=== PATIENT | female | born 2005 | race Caucasian/White ===

== ENCOUNTER 2025-04-06 10:19 | Outpatient (CLI) | payer MEDICAID, SELFPAY ==
[2025-04-06 11:36] LABS: Absolute Lymphocyte Count 1.58 X10^3/uL (0.83-4.51); Absolute Neutrophil Count 3.5 X10^3/uL (2.0-7.7); Basophil# 0.04 X10^3/uL; Basophil% 0.7 % (0-1); Eosinophil# 0.09 X10^3/uL; Eosinophils% 1.5 % (0-5); Hemoglobin 12.6 g/dL (12.0-15.0); Lymphocyte # 1.58 X10^3/ul (0.83-4.51); Mean Corp Hgb Conc 33.2 g/dL (32-36); Mean Corpuscular Volume 87.6 fL (81-99); Monocyte# 0.62 X10^3/uL; Monocyte% 10.6 % (0-10); NRBC Flagged by Analyzer 0 % (0-5); Neutrophil # 3.52 X10^3/uL (2.7-7.7); Platelet Count 263 K/mm3 (150-450); RBC Distribution Width CV 12.3 % (11.6-14.6); RBC Distribution Width SD 39.5 fl (35.1-43.9); RET-HE 30.7 pg (30-35); Red Blood Count 4.34 M/mm3 (4.2-5.4); Reticulocyte Count 1.27 % (0.5-1.5); White Blood Count 5.9 K/mm3 (4.4-11.0)
[2025-04-06 11:38] LABS: Erythrocyte Sedimentation Rate 6 mm/hr (0-30)
[2025-04-06 13:27] LABS: Ferritin 28 ng/mL (22-378)
[2025-04-06 14:03] LABS: CRP 5.58 mg/L (0.0-3.0); Rheumatoid Factor < 10.0 IU/mL (<15)
[2025-04-06 14:22] LABS: Iron 54 ug/dL (50-170); LDH 151 U/L (84-246)
[2025-04-09 03:07] LABS: Anti-Centromere B Ab <0.2 AI (0.0-0.9); Anti-Chromatin <0.2 AI (0.0-0.9); Anti-Jo <0.2 AI (0.0-0.9); Anti-Scleroderma-70 AB <0.2 AI (0.0-0.9); Anti-dsDNA Ab <1 IU/mL (0-9); Clam <0.10 kU/L (Class 0); Codfish <0.10 kU/L (Class 0); Corn <0.10 kU/L (Class 0); Egg, White <0.10 kU/L (Class 0); Milk (Cow) <0.10 kU/L (Class 0); Peanut <0.10 kU/L (Class 0); RNP Ab <0.2 AI (0.0-0.9); SCALLOP <0.10 kU/L (Class 0); SESAME SEED <0.10 kU/L (Class 0); SJOGREN'S Anti-SS-A test < 0.2 AI (0.0-0.9); SJOGREN'S Anti-SS-B test < 0.2 AI (0.0-0.9); Shrimp <0.10 kU/L (Class 0); Smith Ab <0.2 AI (0.0-0.9); Soybean <0.10 kU/L (Class 0); Walnut, (Food) <0.10 kU/L (Class 0); Wheat <0.10 kU/L (Class 0)
[2025-04-09 11:08] LABS: ACCA 129 units (0-90); ALCA 40 units (0-60); AMCA 31 units (0-100); Albumin 3.6 g/dL (2.9-4.4); Alpha-1-Globulins 0.3 g/dL (0.0-0.4); Alpha-2-Globulins 0.7 g/dL (0.4-1.0); CCP IgG Antibodies 6 units (0-19); Cytoplasmic Ab (C-ANCA) <1:20 titer (Neg:<1:20); Endomysial Antibody IgA Negative (Negative); Gamma Globulin 1.2 g/dL (0.4-1.8); HEPATITIS B SURFACE AG Negative (Negative); Haptoglobin 169 mg/dL (33-278); Hep C Antibodies Non Reactive (Non Reactive); Hepatitis A IgM Antibody Negative (Negative); Hepatitis B Core AB IgM Negative (Negative); IgG, Quant 1171 mg/dL (586-1602); Immunoglobulin A 253 mg/dL (87-352); Immunoglobulin E 17 IU/mL (6-495); Immunoglobulin G, Subclass 1 515 mg/dL (248-810); Immunoglobulin G, Subclass 2 426 mg/dL (130-555); Immunoglobulin G, Subclass 3 22 mg/dL (15-102); Immunoglobulin G, Subclass 4 30 mg/dL (2-96); Immunoglobulin M 224 mg/dL (26-217); PROEL- TOTAL PROTEIN 6.8 g/dL (6.0-8.5); Perinuclear Ab (P-ANCA) <1:20 titer (Neg:<1:20); QNTFERON TB Mitogen Value > 10.00 IU/mL (.); QNTFERON TB Nil Value 0.04 IU/mL (.); QNTFERON TB1+ Ag Value 0.03 IU/mL (.); QNTFERON TB2+ Ag Value 0.05 IU/mL (.); QNTIFERON TB Positive Criteria Negative (Negative); gASCA 32 units (0-50); t-Transglutaminase IgA <2 U/mL (0-3)
== END 2025-04-06 23:59 | disposition home or self-care (01) ==
PROVIDERS: PCP Family Medicine; Referring Provider Internal Medicine Gastroenterology; Visit Provider Internal Medicine Gastroenterology
DX: K50.90 Crohn's disease, unspecified, without complications (principal)
CPT/HCPCS: 36415; 80074; 82728; 82784; 82785; 82787; 83010; 83516; 83540; 83615; 84165; 84443; 85025; 85045; 85652; 86003; 86036; 86037; 86140; 86200; 86225; 86235; 86255; 86334; 86431; 86480; 86671

== ENCOUNTER → 2025-04-25 | Outpatient (CLI) | payer MEDICAID, SELFPAY ==
--- NOTE | 2025-04-25 10:30 | NM_ITS ---
PROCEDURE: GASTRIC EMPTYING STUDY 04/25/2025 REASON FOR EXAM: CROHNS DISEASE AND ABDOMINAL PAIN TECHNIQUE: The patient ingested a standard meal of technetium sulfur colloid and oatmeal and water. There was no vomiting postprandially. Anterior and posterior planar images of the upper abdomen were obtained for 1 minute immediately following the meal at 1h, 2h and 4h if more than 10% of the activity persisted within the stomach. Regions of interest were drawn, and a geometric mean was used to calculate a [id number]. RADIOPHARMACEUTICAL: Technetium labeled sulfur colloid DOSE 1.1 mCimCi FINDINGS: Percent activity remaining in stomach: 1 hour 57 % (normal 37-90%) NM/Gastric Emptying Study IMPRESSION: Normal gastric emptying examination. Reading Location: [place] [id number]
== END | disposition home or self-care (01) ==
LOC: NM 10:27
PROVIDERS: PCP Family Medicine; Referring Provider Internal Medicine Gastroenterology; Visit Provider Internal Medicine Gastroenterology
DX: K50.90 Crohn's disease, unspecified, without complications (principal)
CPT/HCPCS: 78264; A9541

== ENCOUNTER 2025-05-19 09:44 | Outpatient (RCR) | payer MEDICAID, SELFPAY | END 2025-06-09 23:59 | LOC: NS 09:44 | PROVIDERS: PCP Family Medicine; Referring Provider Internal Medicine Gastroenterology; Visit Provider Internal Medicine Gastroenterology | DX: Z71.3 Dietary counseling and surveillance (principal); K50.90 Crohn's disease, unspecified, without complications | CPT/HCPCS: 97802 ==

== ENCOUNTER → 2025-05-20 | Outpatient (CLI) | payer MEDICAID, SELFPAY ==
--- NOTE | 2025-05-20 10:02 | MRI_ITS ---
PROCEDURE: ENTEROGRAPHY ABD/PEL, 05/20/2025 REASON FOR EXAM: K50.90 - CROHN'S DISEASE, UNSPECIFIED, WITHOUT COMPLICATIONS TECHNIQUE: Multisequence multiplanar MRI of the abdomen and pelvis was performed with and without IV contrast. IV contrast: 10 mL Clariscan PO contrast: Appears to have been administered, however type and dose information not provided COMPARISON: None FINDINGS: Note that the exam was optimized for evaluation of the bowel rather than the remaining abdominopelvic viscera. Note also that dynamic T2 and diffusion sequences were note that not performed. Note the anal canal and perineal/perianal regions are excluded from the field of view and cannot be evaluated. Transverse, LEFT, and ascending colonic prep is poor, limiting evaluation of the majority of the colon. Liver: Grossly unremarkable. Spleen: Grossly unremarkable. Gallbladder: Suspect layering sludge. Pancreas: Grossly unremarkable. Adrenals: Grossly unremarkable. Kidneys: Unremarkable. Bowel: No aissatou bowel dilatation. Segmental area of circumferential wall thickening involving an approximate 6.0 cm segment of the distal and terminal ileum extending to the ileocecal valve, with moderate wall thickening to 5-6 mm as well as mild mural stratification. There is associated early mucosal hyperenhancement/hyperemia, however without adjacent mesenteric edema. Region is seen to slightly distended to roughly 2.5 cm on one of the axial T2 sequences (see series 14, image 39, series 17 image 39). No other convincing areas of abnormal bowel wall thickening, mural stratification, or hyperemia, allowing for the above. No definite evidence of fistulization or abscess. Normal caliber appendix. Lymph nodes: Grossly unremarkable. Vasculature: Circumaortic LEFT renal vein, normal variant. Peritoneum: Grossly unremarkable. Bladder: Partially obscured by artifact, no definite abnormality. Reproductive Organs: Grossly unremarkable. Bones: Grossly unremarkable. MRI/Enterography Abd/Pel IMPRESSION: 1. Findings along a 6.0 cm segment of the distal/terminal ileum extending to th e ileocecal valve which are compatible with the provided history of Crohn's disease. Signal characteristics suggest active inf lammation superimposed on chronic fibrosis. No definite associated current stricture or evidence of penetrating disease. 2. Additional description as above. Reading Location: [id number]
[2025-05-20 10:57] VITALS: BP 103/78; PULSE 71; RESP 18; O2SAT 96; BMI 19.1
[2025-05-20] MEDS: Glucagon 1 MG/ML Syringe IV (12:32)
[2025-05-20] MEDS: 0.9% Saline Lock 10 ML Syringe IV (12:35)
[2025-05-20 12:48] VITALS: BP 111/72; PULSE 87; RESP 18; O2SAT 99
== END | disposition home or self-care (01) ==
LOC: MRI 09:53
PROVIDERS: PCP Family Medicine; Referring Provider Internal Medicine Gastroenterology; Visit Provider Internal Medicine Gastroenterology
DX: K50.90 Crohn's disease, unspecified, without complications (principal)
CPT/HCPCS: 74183; 96374; A9575; A4216; J1610

== ENCOUNTER 2025-06-27 11:32 | Outpatient (RCR) | payer MEDICAID, SELFPAY | END 2025-07-10 23:59 | LOC: NS 11:32 | PROVIDERS: PCP Family Medicine; Referring Provider Internal Medicine Gastroenterology; Visit Provider Internal Medicine Gastroenterology | DX: Z71.3 Dietary counseling and surveillance (principal); K50.90 Crohn's disease, unspecified, without complications | CPT/HCPCS: 97803 ==

== ENCOUNTER 2025-07-01 11:36 | Outpatient (CLI) | payer MEDICAID, SELFPAY ==
[2025-07-01 12:00] VITALS: BP 110/68; PULSE 77; RESP 16; TEMP 36.2; O2SAT 100; BMI 19.1
[2025-07-01] MEDS: 0.9% NaCl IVPB Med Flush (100mL) 15 ML IV (12:12)
[2025-07-01] MEDS: Risankizumab-rzza 600 MG in Dextrose 5%-Water (100mL Bag) 100 ML 110 MG IV (12:26)
[2025-07-01 13:58] VITALS: BP 110/71; PULSE 59; RESP 16; TEMP 36.6; O2SAT 99
== END 2025-07-01 23:59 | disposition home or self-care (01) ==
LOC: MEDOUTP 11:36
PROVIDERS: PCP Family Medicine; Referring Provider Internal Medicine Gastroenterology; Visit Provider Internal Medicine Gastroenterology
DX: K50.90 Crohn's disease, unspecified, without complications (principal)
CPT/HCPCS: 96365; A4216; J2327

== ENCOUNTER 2025-07-25 13:00 | Outpatient (RCR) | payer MEDICAID, SELFPAY | END 2025-08-09 23:59 | LOC: NS 13:00 | PROVIDERS: PCP Family Medicine; Referring Provider Internal Medicine Gastroenterology; Visit Provider Internal Medicine Gastroenterology | DX: Z71.3 Dietary counseling and surveillance (principal); K50.90 Crohn's disease, unspecified, without complications | CPT/HCPCS: 97803 ==

== ENCOUNTER 2025-07-25 14:28 | Outpatient (CLI) | payer MEDICAID, SELFPAY ==
[2025-07-25 15:19] LABS: Hematocrit 40.5 % (37-47); Hemoglobin 13.3 g/dL (12.0-15.0); Immature Granulocytes Count 0.020 X10^3/uL (0.0-0.0); Mean Corp Hgb Conc 32.8 g/dL (32-36); Mean Corpuscular Volume 86.9 fL (81-99); Mean Platelet Vol. 12.4 fl (6.2-12.0); NRBC Flagged by Analyzer 0 % (0-5); Platelet Count 264 K/mm3 (150-450); RBC Distribution Width CV 12.7 % (11.6-14.6); RBC Distribution Width SD 40.0 fl (35.1-43.9); Red Blood Count 4.66 M/mm3 (4.2-5.4); White Blood Count 5.9 K/mm3 (4.4-11.0)
[2025-07-25 15:29] LABS: Iron Binding Capacity,Total 309 ug/dL (250-450)
[2025-07-25 15:31] LABS: AST(SGOT) 18 U/L (<=31); Alanine Aminotransfer ALT/SGPT 8 U/L (<=34); Albumin, Serum 4.2 g/dL (3.5-5.0); Alkaline Phosphatase 73 U/L (35-104); Anion Gap 9 (5-15); BUN 6 mg/dL (4-19); BUN/Creat Ratio 10.0 RATIO (10-20); CPK Total, Creatine Kinase 80 U/L (24-195); Calcium,Total 9.1 mg/dL (7.6-11.0); Carbon Dioxide 23.7 mmol/L (21.0-32.0); Chloride 106 mmol/L (98-108); Ferritin 18 ng/mL (22-378); Globulin 2.9 g/dL (2.2-4.2); Glucose 86 mg/dL (70-99); Potassium 4.0 mmol/L (3.3-5.1); Vitamin B12 360 pg/mL (180-914)
[2025-07-25 15:34] LABS: CRP < 3.00 mg/L (0.0-3.0); Iron 65 ug/dL (50-170); Iron Binding Capacity,Unsat 244 ug/dL (228-428)
[2025-07-27 18:08] LABS: IgG, Quant 1111 mg/dL (586-1602); Immunoglobulin G, Subclass 1 509 mg/dL (248-810); Immunoglobulin G, Subclass 2 472 mg/dL (130-555); Immunoglobulin G, Subclass 3 21 mg/dL (15-102); Immunoglobulin G, Subclass 4 33 mg/dL (2-96)
[2025-07-29 12:09] LABS: Vitamin D 1,25-Dihydroxy 65.6 pg/mL (24.8-81.5)
== END 2025-07-25 23:59 | disposition home or self-care (01) ==
LOC: LAB 14:29
PROVIDERS: PCP Family Medicine; Referring Provider Internal Medicine Gastroenterology; Visit Provider Internal Medicine Gastroenterology
DX: K50.90 Crohn's disease, unspecified, without complications (principal); G43.909 Migraine, unspecified, not intractable, without status migrainosus; Z71.3 Dietary counseling and surveillance
CPT/HCPCS: 36415; 80053; 82550; 82607; 82652; 82728; 82784; 82787; 83540; 83550; 85025; 85652; 86140; 97803

== ENCOUNTER 2025-07-29 11:51 | Outpatient (CLI) | payer MEDICAID, SELFPAY ==
[2025-07-29 12:11] VITALS: BP 117/69; PULSE 62; RESP 16; TEMP 35.8; O2SAT 100; BMI 19.1
--- OUTSIDE RECORDS SUMMARY | 2025-07-29 12:11 | XMS RPT_ITS | CCD ---
Demographics Address [address] [place] [address] Preferred Language en Marital Status Single Mandaen Affiliation Unknown Race White Ethnic Group Not or Lati no Author Organization [facility] Care Team Providers Care Hammerer Helper Name Role Phone Karena Valle Unavailable Unavailable Ghada Ruffin Unavailable Unavailable Karena Valle Unavailable Unavailable Ghada Ruffin Unavailable Unavailable Pending Provider Unavailable Unavailable Karena Valle Unavailable [phone] Unavailable Unavailable Karena Valle MD Primary Care Provider Karena Valle Unavailable Chip Jones Unavailable Unavailable Bill, Bigg Unavailable Unavailable Ghada Ruffin R Unavailable Darshan Cordero Unavailable Unavailable Leonard, Dr. Karena Vargas Referring Unava ilable Stencel, Dr. Karena Vargas Primary Care Unava ilable Stencel, Dr. Karena Vargas Attending Unava ilable Stencel, Dr. Karena Vargas Referring Unava ilable Stencel, Dr. Karena Vargas Primary Care Unava ilable Stencel, Dr. Karena Vargas Attending Unava ilable Stencel, Dr. Karena Vargas Primary Care Unava ilable Tawanda, Dr. Natali Barrera Attending Unavailable Stencel, Dr. Karena Vargas Referring Unava ilable Stencel, Dr. Karena Vargas Primary Care Unava ilable Musa, Janina Attending Unavailable Musa, Janina Referring Unavailable Stenotis, Dr. Karena Vargas Primary Care Unava ilable Musa, Janina Attending Unavailable Musa, Janina Referring Unavailable AugustinGhada Attending Unavailable Ghada Ruffin Referring Unavailable Stencel, Dr. Karena Vargas Primary Care Unava ilable Stencel, Dr. Karena Vargas Primary Care Unava ilable Bill, Bigg Attending Unavailable Bill, Bigg Referring Unavailable Wood, Ms. Norma Bustillo Referring Unav ailable Bigg Novak Attending Unavailable Stencel, Dr. Karena Vargas Primary Care Unava ilable Furness, Dr. Buster Cook Attending Un available Furness, Dr. Buster Cook Referring Un available Stencel, Dr. Karena Vargas Primary Care Unava ilable Stencel, Dr. Karena Vargas Primary Care Unava ilable Wood, Ms. Norma Bustillo Attending Unav ailable Wood, MsRommel Bustillo Referring Unav ailable Wood, MsRommel Bustillo Referring Unav ailable Wood, Ms. Norma Bustillo Attending Unav ailable Stencel, Dr. Karena Vargas Primary Care Unava ilable NATALI NEFF Admitting Unavailable STENCEL, MD KARENA VARGAS Referring Unavai lable THOMNATALI LOYOLA Attending Unavailable STENCEL, MD KARENA VARGAS Primary Care Unavai lable LEONARD, MD KARENA VARGAS Primary Care Unavai labDarshan Carbone Attending Unavailable Kamenik, MsRommel Watson Attending Unavai lable STENCEL, MD KARENA VARGAS Primary Care Unavai lable STENOTIS, MD KARENA VARGAS Primary Care Unavai labDarshan Carbone Attending Unavailable Wood, Ms. Norma Bustillo Attending Unav ailable STENCEL, MD KARENA VARGAS Primary Care Unavai lable [id number], [id number] Attending Unavailable STENCEL, MD KARENA VARGAS Primary Care Unavai lable LEONARD, MD KARENA VARGAS Primary Care Unavai lable Lencho, Dr. Janina Pride Attending Unavaila ble Musa, Dr. Janina Pride Referring Unavaila ble Wood, Ms. Norma Bustillo Referring Unav ailable [id number], [id number] Admitting Unavailable [id number], [id number] Attending Unavailable STENOTIS, MD KARENA VARGAS Primary Care Unavai Josh Bailey Attending Unavailable STENCEL, MD KARENA VARGAS Primary Care Karena Soto MD Primary Care Provider [phone] Kristian TACKER OFF-Norma ZELAYA Unavailable KARENA VALLE Primary Care Unavailable Karena Valle MD Primary Care Provider KARENA VALLE Primary Care Unavailable Karena Valle MD Unavailable Karena Valle MD Primary Care Provider STENOTIS, KARENA Julian Referring Unavailable STENCEL, KARENA Julian Primary Care Unavailable STENCEL, KARENA Julian Referring Unavailable STENCEL, KARENA Julian Primary Care Unavailable CHIP JONES Attending Unavailable STENCEL, KARENA Julian Primary Care Unavailable STENCEL, KARENA Julian Primary Care Unavailable ELOISA SLATER Attending Unavailable ROCIO CORTES Attending Unavailab le STENCEL, KARENA VARGAS Primary Care Unavailab KIM Agrawal Attending Unavailable STENCEL, KARENA VARGAS Primary Care Unavailab le Stencel Karena WHITNEY Unavailable StenKarena alves MD Primary Care Provider BIGG NOVAK Attending Unavailable STENCEL, KARENA Julian Primary Care Unavailable GHADA RUFFIN Attending Unavailable STENCEL, KARENA Julian Primary Care Unavailable Friend Dr. Albert KELLY Attending Provider Dr. Karena Valle MD Primary Care Provider Friend Dr. Albert KELLY Referring Provider Dr. Karena Valle MD Referring Provider Friend, Albert Attending Unavailable Stencel, Karena Primary Care Unavailable Friend, Albert Referring Unavailable Friend, Albert Attending Unavailable Stencel, Karena Primary Care Unavailable Friend, Albert Referring Unavailable Friend, Albert Attending Unavailable Stencel, Karena Primary Care Unavailable Friend, Albert Referring Unavailable Friend, Albert Attending Unavailable Stencel, Karena Primary Care Unavailable Friend, Albert Referring Unavailable Friend, Albert Attending Unavailable Stencel, Karena Primary Care Unavailable Friend, Albert Referring Unavailable Friend, Albert Attending Unavailable Stencel, Karena Primary Care Unavailable Friend, Albert Referring Unavailable Stencel, Karena Primary Care Unavailable Friend, Albert Referring Unavailable Friend, Albert Attending Unavailable Stencel, Karena Referring Unavailable Stencel, Karena Primary Care Unavailable Friend, Albert Attending Unavailable Friend, Albert Attending Unavailable Friend, Albert Attending Unavailable Stencel, Karena Primary Care Unavailable Friend, Albert Referring Unavailable Stencel, Karena Primary Care Unavailable Friend, Albert Referring Unavailable Friend, Albert Attending Unavailable Allergies Allergy Classification Reported Allergen(s) Allergy Type Date of Onset Reaction(s) Facility (20 sources) Amoxicillin; Translations: [Amoxil] Drug Allergy [place] [address] [address] Work Phone: (20 sources) Amoxicillin / Clavulanate; Translations: [Augmentin] Drug Allergy Diarrhea, [place] [address] [address] Work Phone: (20 sources) cefprozil; Translations: [Cefzil] Drug Allergy [address] Work Phone: (20 sources) Cephalexin; Translations: [Keflex] Drug Allergy [place] [address] [address] Work Phone: (20 sources) Ciprofloxacin; Translations: [ciprofloxacin] Drug Allergy 04-10-[address] Work Phone: (20 sources) Sulfonamides (Antibiotic); Translations: [Sulfa Drugs] Allergy to drug (finding) [address] Work Phone: (20 sources) Amoxicillin; Translations: [AMOXICILLIN] Drug Allergy 08-19-20 22 Hives, [facility] (16 sources) cefprozil; Translations: [CEFPROZIL] Drug Allergy 04-10-20 23 [facility] (2 sources) Ciprofloxacin Drug Allergy Unknown [facility] (13 sources) Amoxicillin / Clavulanate; Translations: [AMOXICILLIN-POT CLAVULANATE] Drug Allergy 08-09-20 23 Diarrhea, [facility] Work Phone: (20 sources) Cephalexin; Translations: [CEPHALEXIN] Drug Allergy 08-19-20 22 Hiv, [facility] Work Phone: (15 sources) Sulfonamides (Antibiotic); Translations: [SULFA (SULFONAMIDE ANTIBIOTICS)] Drug Intolerance 08-19-20 22 [facility] Work Phone: (8 sources) Sulfonamides (Antibiotic) Allergy to substance 04-06-20 [facility] (1 source) Amoxicillin Drug Allergy 07-01-20 [facility] (1 source) Cephalexin Drug Allergy 07-01-20 [facility] (1 source) Sulfonamides (Antibiotic) Drug allergy (disorder) 07-01-20 [facility] Medications Current Medications Medication Drug Class(es) Dates Sig (Normalized) Sig (Original) acetaminophen 325 mg oral tablet (8 sources) Start: 04-06-2025 take 1 tablet by mouth once as needed for pain Acetaminophen (Tylenol) 325 mg tablet Active 325 mg PO ONCE as needed for pain April 06, 2025 12:00am azithromycin 250 mg oral tablet (5 sources) Macrolide Antimicrobial Start: 01-19-2025 azithromycin (Zithromax) 250 mg tablet Indications: Folliculitis of perineum Take 2 tabs (500 mg) by mouth today, then take 1 tab daily for 4 days. 6 tablet 01/19/2025 Active Start: 12-16-2024 take 1 tablet by ivett th in the morning azithromycin (Zithromax) 250 mg tablet Take 1 tablet (250 mg) by mouth early in the morning.. 12/16/2024 Active Start: 11-17-2024 End: 11-22-2024 azithromycin (Zithromax Z-Pa k) 250 mg tablet Indications: Acute non-recurrent maxillary sinusitis Take 2 tablets (500 mg) on Day 1, followed by 1 tablet (250 mg) once daily on Days 2 through 5. 6 tablet 11/17/2024 11/22/2024 Active Start: 12-26-2022 take 2 tablets by mo uth once, then take 1 tablet by mouth once daily azithromycin 250 mg oral tablet ; Take 2 tabs (500mg) x 1 days, then 1 tab (250mg) once daily x 4 days Quantity: 6 Refills: 0 Ordered: 26-Dec-2022 Chip Jones Start: 26-Dec-2022 Generic Substitution Allowed Comments: Do not take dairy products, antacids, or iron preparations within one hour of this medication.Finish all this medication unless otherwise directed by prescriber. Comment on above: Do not take dairy pr oducts, antacids, or iron preparations within one hour of this medication.Finish all this medication unless otherwise directed by prescriber. benzonatate 100 mg oral capsule (1 source) Non-narcotic Antitussive Start: 023 End: 023 take 2 capsules by mouth every eight hours as needed benzonatate 100 mg oral capsule ; 1-2 cap(s) orally every 8 hours, As Needed for cough Quantity: 30 Refills: 0 Ordered: 27-Jun-2023 Darshan Coredro Start: 27-Jun-2023 End: 01-Jul-2023 Generic Substitution Allowed Comments: May cause drowsiness. Alcohol may intensify this effect. Use care when operating dangerous machinery.Swallow whole. Do not crush. Comment on above: May cause drowsiness . Alcohol may intensify this effect. Use care when operating dangerous machinery.Swallow whole. Do not crush. dicyclomine hydrochloride 20 mg oral tablet (7 sources) Anticholinergic Start: 025 take 1 tablet by mouth three times daily as needed Dicyclomine 20 mg tablet Active 20 mg PO THREE TIMES A DAY as needed July 25, 2025 12:00am Start: 07-05-2025 End: 07-10-2025 take 1 capsule by mouth three times daily Dicyclomine 10 mg capsule Discontinued 10 mg PO THREE TIMES A DAY 15 5 0 July 05, 2025 12:00am July 09, 2025 12:00am July 10, 2025 12:09am Start: 08-18-2022 take 1 tablet by ivett th four times daily 1 hour(s) before bedtime Dicyclomine HCl - 20 MG Oral Tablet TAKE 1 TABLET BY MOUTH FOUR TIMES DAILY. (1 hour before meals and at bedtime.) Quantity: 20 Refills: 0 Ordered: 19-Aug-2022 DO Start : 18-Aug-2022 Active Ethinyl Estradiol / norgestimate (3 sources) Progestin, Estrogen End: 08-19-2023 take 1 tablet by mouth once daily norgestimate-ethinyl estradioL (Sprintec, 28,) 0.25-35 mg-mcg tablet Take 1 tablet by mouth once daily. 0 08/19/2023 Discontinued (Med List Cleanup) norgestimate-eth inyl estradioL 0.25-35 mg-mcg per tablet Take by mouth . 0 Active take 1 tablet by mouth once chen y Sprintec 28 0.25-35 MG-MCG Oral Tablet TAKE 1 TABLET BY MOUTH EVERY DAY Quantity: 1 Refills: 12 Ghada Ruffin MD Active 28 Tablet Pack inFLIXimab-dyyb 100 mg injection (1 source) Tumor Necrosis Factor Ariela Start: 08-19-2023 inFLIXimab-dyyb (Inflectra) injection 390 mg Start: 08-19-2023 inFLIXimab-dyy b (Inflectra) injection 390 mg moxifloxacin 5 mg/ml ophthalmic solution (1 source) Quinolone Antimicrobial Start: 12-17-2024 End: 12-24-2024 take 1 drop(s) into the eye(s) three times daily moxifloxacin (Vigamox) 0.5 % ophthalmic solution Indications: Bacterial conjunctivitis Administer 1 drop into both eyes 3 times a day for 7 days. 3 mL 12/17/2024 12/24/2024 Active mupirocin 0.02 mg/mg topical ointment (14 sources) RNA Synthetase Inhibitor Antibacterial Start: 09-23-2022 End: 08-19-2023 mupirocin (Bactroban) 2 % ointment Apply topically twice a day. Sparingly to affected area 0 09/23/2022 08/19/2023 Discontinued (Med List Cleanup) Start: 09-23-2022 Mupirocin 2 % External Ointment APPLY SPARINGLY TO AFFECTED AREA(S) TWICE DAILY Quantity: 1 Refills: 1 Ordered: 23-Sep-2022 Norma Man Start : 23-Sep-2022 Active Risankizumab-Rzaa (Skyrizi) 360 mg/2.4 mL (150 mg/mL) wearable injector (1 source) Start: 07-25-2025 Risankizumab-R zaa (Skyrizi) 360 mg/2.4 mL (150 mg/mL) wearable injector Active 360 mg SC every 8 weeks July 25, 2025 12:00am sodium chloride 1000 mg oral tablet (6 sources) Start: 02-19-2023 End: 08-19-2023 take 1 g by mouth every twelve hours sodium chloride 1,000 mg tablet Take 1 tablet (1 g) by mouth every 12 hours. 0 02/19/2023 08/19/2023 Discontinued (Med List Cleanup) Start: 02-19-2023 take 1 tablet by ivett th every twelve hours Sodium Chloride 1 GM Oral Tablet TAKE 1 TABLET Every twelve hours Quantity: 180 Refills: 0 Ordered: 24-Feb-2023 Bigg Novak MD Start : 19-Feb-2023 Active Sprintec 0.25 mg-35 mcg oral tablet (1 source) take 1 tablet by ivett th once daily Sprintec 0.25 mg-35 mcg oral tablet ; 1 tab(s) orally once a day Quantity: 0 Refills: 0 Ordered: 30-Aug-2021 Sejal Herrera Generic Substitution Allowed Completed/Discontinued Medications Medication Drug Class(es) Dates Sig (Normalized) Sig (Original) 0.4 ml adalimumab 100 mg/ml auto-injector (1 source) Tumor Necrosis Factor Ariela Start: 10-17-2023 End: 01-12-2024 adalimumab (Humira,CF, Pen) 40 mg/0.4 mL pen injector kit pen-injector Indications: Terminal ileitis without complication (CMS/HCC) Inject 1 Pen (40 mg) under the skin every 14 (fourteen) days. 2 each 11 10/17/2023 01/12/2024 Discontinued (Med List Cleanup) adalimumab-adbm (Cyltezo,CF, Pen Crohn's-[facility]) 40 mg/0.8 mL pen injector kit (1 source) Start: 09-25-2023 End: 01-12-2024 adalimumab-adbm (Cyltezo,CF, Pen Crohn's-[facility]) 40 mg/0.8 mL pen injector kit Indications: Terminal ileitis with complication (CMS/HCC) Inject 40 mg under the skin see administration instructions. Inject 160mg on day one, then 80mg on day 15, then 40mg every 14 days thereafter 6 each 0 09/25/2023 01/12/2024 Discontinued (Med List Cleanup) busPIRone hydrochloride 10 mg oral tablet (7 sources) Start: 04-01-2022 take 1 tablet by mouth three times daily as needed for anxiety busPIRone HCl - 10 MG Oral Tablet TAKE 1 TABLET 3 times daily PRN anxiety Quantity: 30 Refills: 11 Ordered: 01-Apr-2022 Norma Man Start : 01-Apr-2022 Active doxycycline hyclate 100 mg oral tablet (7 sources) Tetracycline-cla ss Drug Start: 02-24-2023 End: 01-12-2024 take 1 tablet by mouth every twelve hours doxycycline (Vibra-Tabs) 100 mg tablet Take 1 tablet (100 mg) by mouth every 12 hours. 0 02/24/2023 01/12/2024 Discontinued (Therapy completed) Start: 02-24-2023 take 1 tablet by ivett th once daily Doxycycline Hyclate 100 MG Oral Tablet TAKE 1 TABLET EVERY 12 HOURS DAILY. Quantity: 28 Refills: 0 Ordered: 24-Feb-2023 Janina Musa MD Start : 24-Feb-2023 Active Diane (digestive support) (8 sources) Start: 04-06-2025 End: 07-25-2025 Diane (digestive support) Dis continued PO DAILY as needed for digestion April 06, 2025 12:00am July 25, 2025 1:40pm Start: 04-06-2025 Diane (digestiv e support) Active PO DAILY as needed for digestion April 06, 2025 12:00am Start: 04-06-2025 Diane (digestiv e support) Active PO DAILY April 06, 2025 12:00am fluconazole 150 mg oral tablet (1 source) Azole Antifungal Start: 10-26-2020 take 1 tablet by mouth once Fluconazole 150 MG Oral Tablet TAKE 1 TABLET 1 TIME ONLY. Quantity: 1 Refills: 0 Ghada Ruffin MD Start : 26-Oct-2020 Active ketorolac tromethamine 10 mg oral tablet (2 sources) Nonsteroidal Anti-inflammatory Drug, Cyclooxygenase Inhibitor Start: 04-10-2023 End: 01-12-2024 take 1 tablet by mouth three times daily as needed for pain ketorolac (Toradol) 10 mg tablet Take 1 tablet (10 mg) by mouth 3 times a day as needed (pain). 0 04/10/2023 01/12/2024 Discontinued (Med List Cleanup) metroNIDAZOLE 500 mg oral tablet (7 sources) Nitroimidazole Antimicrobial Start: 02-24-2023 End: 01-12-2024 take 1 tablet by mouth twice daily metroNIDAZOLE (Flagyl) 500 mg tablet Take 1 tablet (500 mg) by mouth 2 times a day. 0 02/24/2023 01/12/2024 Discontinued (Med List Cleanup) nitrofurantoin, macrocrystals 25 mg / nitrofurantoin, monohydrate 75 mg oral capsule (7 sources) Nitrofuran Antibacterial Start: 11-25-2022 End: 02-19-2023 take 1 capsule by mouth twice daily Nitrofurantoin Monohyd Macro 100 MG Oral Capsule TAKE 1 CAPSULE TWICE DAILY. Quantity: 14 Refills: 1 Ordered: 25-Nov-2022 Buster Mackenzie MD Start : 25-Nov-2022 End : 19-Feb-2023 Complete Start: 08-20-2022 take 1 capsule by mo uth twice daily Nitrofurantoin Monohyd Macro 100 MG Oral Capsule Take 1 capsule by mouth 2 times daily for 5 days. Take w/ food/milk Quantity: 10 Refills: 0 Ordered: 20-Aug-2022 DO Start : 20-Aug-2022 Active predniSONE 10 mg oral tablet (13 sources) Start: 10-02-2022 End: 01-12-2024 take 4 tablets by mouth once predniSONE (Deltasone) 10 mg tablet Take 4 tablets (40 mg) by mouth every 14 (fourteen) days. Maintain 10 mg daily until definitive therapy is begun. 0 10/02/2022 01/12/2024 Discontinued (Med List Cleanup) Start: 08-22-2022 take 4 tablets by mo uth once daily, then take 3 tablets by mouth once daily, then take 2 tablets by mouth once daily, then take 1 tablet by mouth once daily predniSONE 10 MG Oral Tablet TAKE 4 TABLETS DAILY FOR 4 DAYS, THEN 3 TABLETS DAILY FOR 4 DAYS, THEN 2 TABLETS DAILY FOR 4 DAYS, THEN 1 TABLET DAILY FOR 4 DAYS Quantity: 40 Refills: 0 Ordered: 22-Aug-2022 Natali Neff DO Start : 22-Aug-2022 Active sertraline 100 mg oral tablet (20 sources) Serotonin Reuptake Inhibitor Start: 07-15-2019 End: 08-13-2023 take 1 tablet by mouth once daily sertraline (Zoloft) 100 mg tablet Take 1 tablet (100 mg) by mouth once daily. 0 07/15/2019 08/13/2023 Discontinued (Therapy completed) Start: 07-15-2019 End: 08-19-2023 take 1 tablet by mouth once daily Sertraline HCl - 50 MG Oral Tablet TAKE 1 TABLET BY MOUTH EVERY DAY Quantity: 90 Refills: 3 Karena Valle MD Start : 15-Jul-2019 Active Zoloft Quantity: 0 Refills: 0 Ordered: 30-Aug-2021 Sejal Herrera Generic Substitution Allowed Sprintec 28 0.25-35 MG-MCG Oral Tablet (20 sources) take 1 tablet by th once daily Sprintec 28 0.25-35 MG-MCG Oral Tablet TAKE 1 TABLET BY MOUTH EVERY DAY Quantity: 1 Refills: 12 Ordered: 20-Dec-2022 Ghada Ruffin MD Active take 1 tablet by mouth once chen y Sprintec 28 0.25-35 MG-MCG Oral Tablet TAKE 1 TABLET BY MOUTH EVERY DAY Quantity: 1 Refills: 12 Ordered: 17-Dec-2021 Ghada Ruffin MD Active Problems Active Problems Problem Classification Problem Date Documented Date Episodic/Chronic Acute bronchitis (18 sources) Acute bronchitis; Translations: [Acute bronchitis] Episodic Administrative/social admission (2 sources) Dietary counseling and surveillance; Translations: [Dietary counseling and surveillance] Onset: 07-11-2025 Episodic Anxiety disorders (20 sources) Anxiety; Translations: [Anxiety state, unspecified] Onset: 08-19-2022 08-09-2023 Chronic Cardiac dysrhythmias (17 sources) Postural orthostatic tachycardia syndrome ; Translations: [Other specified cardiac dysrhythmias] Onset: 08-09-2023 08-09-2023 Chronic Disorders of lipid metabolism (17 sources) Hyperlipidemia; Translations: [Other and unspecified hyperlipidemia] Onset: 08-09-2023 08-09-2023 Chronic Headache; including migraine (10 sources) Migraine; Translations: [Migraine, unspecified, not intractable, without status migrainosus] Onset: 07-25-2025 04-06-2025 Chronic Headache; including migraine (1 source) Headache; including migraine; Translations: [Headache, unspecified] Onset: 12-26-2022 Immunizations and screening for infectious disease (20 sources) Patient encounter status; Translations: [Other specified vaccination] 01-19-2025 Episodic Inflammation; infection of eye (except that caused by tuberculosis or sexually transmitteddisease) (3 sources) Bacterial conjunctivitis; Translations: [Unspecified conjunctivitis] Onset: 12-17-2024 12-17-2024 Episodic Influenza (2 sources) Influenza due to unidentified influenza virus with other respiratory manifestations; Translations: [Influenza due to unidentified influenza virus with other respiratory manifestations] Onset: 12-16-2024 Episodic Menstrual disorders (20 sources) Menorrhagia; Translations: [Dysmenorrhea] Onset: 08-09-2023 08-09-2023 Chronic Mood disorders (1 source) Mood disorders; Translations: [Depression, unspecified] Onset: 08-19-2022 Mycoses (20 sources) Candidiasis of vagina; Translations: [Candidiasis of vulva and vagina] Episodic Nonspecific chest pain (3 sources) Chest pain; Translations: [Chest pain, unspecified] Onset: 06-29-2024 06-29-2024 Episodic Osteoarthritis (9 sources) Arthritis; Translations: [Unspecified osteoarthritis, unspecified site] Onset: 01-15-2024 01-12-2024 Chronic Other female genital disorders (15 sources) Postcoital bleeding; Translations: [Postcoital bleeding] Onset: 08-09-2023 08-09-2023 Chronic Other female genital disorders (2 sources) Postcoital and contact bleeding; Translations: [Postcoital and contact bleeding] Onset: 02-27-2023 Chronic Other lower respiratory disease (2 sources) Cough; Translations: [Cough] 06-27-2023 Episodic Other skin disorders (1 source) Folliculitis; Translations: [Follicular disorder, unspecified] 01-19-2025 Episodic Other upper respiratory disease (1 source) Nasal congestion; Translations: [Nasal congestion] Onset: 06-27-2023 Episodic Other upper respiratory infections (8 sources) Acute pharyngitis; Translations: [Acute pharyngitis] Onset: 12-26-2022 06-27-2023 Episodic Regional enteritis and ulcerative colitis (20 sources) Terminal ileitis; Translations: [Regional enteritis of small intestine] Onset: 10-02-2022 Chronic Skin and subcutaneous tissue infections (13 sources) Cellulitis; Translations: [Cellulitis and abscess of unspecified sites] Episodic Substance-related disorders (1 source) Nicotine dependence, other tobacco product, uncomplicated; Translations: [Nicotine dependence, other tobacco product, uncomplicated] Onset: 06-27-2023 Chronic Unclassified (2 sources) CONGESTION 12-26-2022 Comment on above: CONGESTION Unclassified (1 source) 3 MNTH FU 07-31-2022 Comment on above: 3 MNTH FU Unclassified (2 sources) SORE THROAT COUGH 06-27-2023 Comment on above: SORE THROAT COUGH Unclassified (1 source) BC REFILL 12-20-2022 Comment on above: BC REFILL Unclassified (2 sources) Cough, unspecified; Translations: [Cough, unspecified] Onset: 06-27-2023 Unclassified (2 sources) STI Screening; Translations: [STI Screening] Onset: 01-19-2025 Unclassified (12 sources) K50.90 - Crohn's disease, unspecified, without complications Urinary tract infections (8 sources) Acute lower urinary tract infection; Translations: [Urinary tract infection, site not specified] Episodic Past or Other Problems Problem Classification Problem Date Documented Date Episodic/Chronic Abdominal pain (20 sources) Vaginal pain; Translations: [Unspecified symptom associated with female genital organs] Onset: 08-19-2022 Episodic Allergic reactions (2 sources) Allergy status to penicillin; Translations: [Allergy status to sulfonamides status] Onset: 08-19-2022 Episodic Cardiac dysrhythmias (20 sources) Palpitations; Translations: [Palpitations] Onset: 08-12-2022 Episodic Genitourinary symptoms and ill-defined conditions (18 sources) Dysuria; Translations: [Dysuria] Onset: 08-09-2023 08-09-2023 Episodic Inflammatory diseases of female pelvic organs (15 sources) Acute pelvic inflammatory disease; Translations: [Acute parametritis and pelvic cellulitis] Onset: 08-09-2023 08-09-2023 Episodic Malaise and fatigue (20 sources) Fatigue; Translations: [Other malaise and fatigue] Onset: 12-26-2022 08-09-2023 Episodic Nausea and vomiting (20 sources) Nausea; Translations: [Nausea alone] Onset: 08-19-2022 Episodic Noninfectious gastroenteritis (1 source) Noninfective gastroenteritis and colitis, unspecified; Translations: [Noninfective gastroenteritis and colitis, unspecified] Onset: 08-19-2022 Episodic Nonmalignant breast conditions (20 sources) Pain of breast; Translations: [Mastodynia] Resolved: 09-23-2022 Episodic Other aftercare (1 source) Other fpc (current) drug therapy; Translations: [Other buttermaker (current) drug therapy] Onset: 08-19-2022 Episodic Other circulatory disease (2 sources) Postural orthostatic tachycardia syndrome ; Translations: [Postural orthostatic tachycardia syndrome [POTS]] Onset: 10-14-2022 Episodic Other connective tissue disease (20 sources) Foot pain; Translations: [Pain in limb] Resolved: 09-23-2022 Episodic Other female genital disorders (20 sources) Vaginal discharge; Translations: [Leukorrhea, not specified as infective] Onset: 08-09-2023 08-09-2023 Episodic Other lower respiratory disease (13 sources) H/O: bronchitis; Translations: [Personal history of other diseases of respiratory system] Resolved: 09-23-2022 Episodic Other nutritional; endocrine; and metabolic disorders (20 sources) Weight loss; Translations: [Loss of weight] Onset: 08-09-2023 08-09-2023 Episodic Other nutritional; endocrine; and metabolic disorders (2 sources) Anorexia; Translations: [Anorexia] Onset: 08-19-2022 Episodic Other screening for suspected conditions (not mental disorders or infectious disease) (2 sources) Abnormal findings on diagnostic imaging of other parts of digestive tract; Translations: [Abnormal findings on dx imaging of prt digestive tract] Onset: 10-02-2022 Episodic Residual codes; unclassified (10 sources) Contraception ; Translations: [Other specified health status] Onset: 08-09-2023 08-09-2023 Episodic Syncope (20 sources) Syncope and collapse; Translations: [Syncope and collapse] Onset: 08-09-2023 08-09-2023 Episodic Tuberculosis (18 sources) Tuberculosis of vertebral column; 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, unspecified] Onset: 08-09-2023 08-09-2023 Episodic Unclassified (1 source) Patient encounter status; Translations: [Contraception management] Unclassified (20 sources) Finding of menstrual bleeding; Translations: [Menstruation] Comment on above: Onset age 7 years; Unclassified (4 sources) Onset: 03-04-2024 Resolved: 01-19-2025 03-04-2024 Viral infection (2 sources) Viral infection, unspecified; Translations: [Viral infection, unspecified] Onset: 03-24-2024 Episodic NEGATED: Highlighted row has not occurred!Residual codes; unclassified (5 sources) Disease Episodic Results Test Name Value Interpretation Reference Range Facility IgG Subclasseson 07-27-2025 IgG, SUBCLASS 1 509 mg/dL Normal 248-810 [facility] Comment on above: Performed By: #### L 101.9900, L4600.0100, L3000.0375, L3100.1850, L3300.1200, L501.9520, L2100.0000, L505.7010, L3400.8000, L3100.5440, L501.6710, L3410.2400, L100.0100, L3200.0500, L504.2610, L100.9950, L503.6550, L5500.0410, L3200.1600, L503.6150, L3100.3425 #### [facility] [address] [place], [place], [phone] (554) IgG, SUBCLASS 2 472 mg/dL Normal 130-555 [facility] Comment on above: Performed By: #### L 101.9900, L4600.0100, L3000.0375, L3100.1850, L3300.1200, L501.9520, L2100.0000, L505.7010, L3400.8000, L3100.5440, L501.6710, L3410.2400, L100.0100, L3200.0500, L504.2610, L100.9950, L503.6550, L5500.0410, L3200.1600, L503.6150, L3100.3425 #### [facility] [address] [place], [place], [phone] (241) IgG, SUBCLASS 3 21 mg/dL Normal 15-102 [facility] Comment on above: Performed By: #### L 101.9900, L4600.0100, L3000.0375, L3100.1850, L3300.1200, L501.9520, L2100.0000, L505.7010, L3400.8000, L3100.5440, L501.6710, L3410.2400, L100.0100, L3200.0500, L504.2610, L100.9950, L503.6550, L5500.0410, L3200.1600, L503.6150, L3100.3425 #### [facility] [address] [facility], [place], [phone] IgG, SUBCLASS 4 33 mg/dL Normal 2-96 [facility] Comment on above: Result Comment: Perf ormed at: [facility] [id number] Lining Cleaner: Feliciano Sanchez PhD, Phone: [phone] Performed By: #### L 101.9900, L4600.0100, L3000.0375, L3100.1850, L3300.1200, L501.9520, L2100.0000, L505.7010, L3400.8000, L3100.5440, L501.6710, L3410.2400, L100.0100, L3200.0500, L504.2610, L100.9950, L503.6550, L5500.0410, L3200.1600, L503.6150, L3100.3425 #### [facility] [address] [facility] [place], [place], [phone] IGG,QUANT 1111 mg/dL Normal 586-1602 [facility] Comment on above: Performed By: #### L 101.9900, L4600.0100, L3000.0375, L3100.1850, L3300.1200, L501.9520, L2100.0000, L505.7010, L3400.8000, L3100.5440, L501.6710, L3410.2400, L100.0100, L3200.0500, L504.2610, L100.9950, L503.6550, L5500.0410, L3200.1600, L503.6150, L3100.3425 #### [facility] [address] [facility] [place], [place], [phone] CBC W/Diff, Automatedon 09- Absolute Lymph 1.88 X10 3/uL Normal 0.83-4.51 [facility] Comment on above: Performed By: #### L 101.9900, L4600.0100, L3000.0375, L3100.1850, L3300.1200, L501.9520, L2100.0000, L505.7010, L3400.8000, L3100.5440, L501.6710, L3410.2400, L100.0100, L3200.0500, L504.2610, L100.9950, L503.6550, L5500.0410, L3200.1600, L503.6150, L3100.3425 #### [facility] [address] [place], [address] (986) Absolute Neut 3.5 X10 3/uL Normal 2.0-7.7 [facility] Comment on above: Performed By: #### L 101.9900, L4600.0100, L3000.0375, L3100.1850, L3300.1200, L501.9520, L2100.0000, L505.7010, L3400.8000, L3100.5440, L501.6710, L3410.2400, L100.0100, L3200.0500, L504.2610, L100.9950, L503.6550, L5500.0410, L3200.1600, L503.6150, L3100.3425 #### [facility] [address] [place], [address] ([phone] Basophils/100 WBC (Bld) 0.9 % Normal 0-[address] [facility] Comment on above: Performed By: #### L 101.9900, L4600.0100, L3000.0375, L3100.1850, L3300.1200, L501.9520, L2100.0000, L505.7010, L3400.8000, L3100.5440, L501.6710, L3410.2400, L100.0100, L3200.0500, L504.2610, L100.9950, L503.6550, L5500.0410, L3200.1600, L503.6150, L3100.3425 #### [facility] [address] [place], [address] Eosinophils/100 WBC (Bld) 1.0 % Normal 0-5 [facility] Comment on above: Performed By: #### L 101.9900, L4600.0100, L3000.0375, L3100.1850, L3300.1200, L501.9520, L2100.0000, L505.7010, L3400.8000, L3100.5440, L501.6710, L3410.2400, L100.0100, L3200.0500, L504.2610, L100.9950, L503.6550, L5500.0410, L3200.1600, L503.6150, L3100.3425 #### [facility] [address] [facility] [place], [address] Erythrocyte distribution width (RBC) [Ratio] 12.7 % Normal 11.6-14.6 [facility] Comment on above: Performed By: #### L 101.9900, L4600.0100, L3000.0375, L3100.1850, L3300.1200, L501.9520, L2100.0000, L505.7010, L3400.8000, L3100.5440, L501.6710, L3410.2400, L100.0100, L3200.0500, L504.2610, L100.9950, L503.6550, L5500.0410, L3200.1600, L503.6150, L3100.3425 #### [facility] [address] [place], [address] Hematocrit (Bld) [Volume fraction] 40.5 % Normal 37-47 [facility] Comment on above: Performed By: #### L 101.9900, L4600.0100, L3000.0375, L3100.1850, L3300.1200, L501.9520, L2100.0000, L505.7010, L3400.8000, L3100.5440, L501.6710, L3410.2400, L100.0100, L3200.0500, L504.2610, L100.9950, L503.6550, L5500.0410, L3200.1600, L503.6150, L3100.3425 #### [facility] [address] [place], [address] Hemoglobin (Bld) [Mass/Vol] 13.3 g/dL Normal 12.0-15.0 [facility] Comment on above: Performed By: #### L 101.9900, L4600.0100, L3000.0375, L3100.1850, L3300.1200, L501.9520, L2100.0000, L505.7010, L3400.8000, L3100.5440, L501.6710, L3410.2400, L100.0100, L3200.0500, L504.2610, L100.9950, L503.6550, L5500.0410, L3200.1600, L503.6150, L3100.3425 #### [facility] [address] [place], [address] IG% 0.300 Normal 0.0-0.9 [facility] Comment on above: Result Comment: IG% - Immature Granulocytes (promyelocytes, myelocytes and metamyelocytes) > 1% indicates that a LEFT SHIFT is Present. Performed By: #### L 101.9900, L4600.0100, L3000.0375, L3100.1850, L3300.1200, L501.9520, L2100.0000, L505.7010, L3400.8000, L3100.5440, L501.6710, L3410.2400, L100.0100, L3200.0500, L504.2610, L100.9950, L503.6550, L5500.0410, L3200.1600, L503.6150, L3100.3425 #### [facility] [address] [place], [address] Lymphocytes/100 WBC (Bld) 32.0 % Normal 19-41 [facility] Comment on above: Performed By: #### L 101.9900, L4600.0100, L3000.0375, L3100.1850, L3300.1200, L501.9520, L2100.0000, L505.7010, L3400.8000, L3100.5440, L501.6710, L3410.2400, L100.0100, L3200.0500, L504.2610, L100.9950, L503.6550, L5500.0410, L3200.1600, L503.6150, L3100.3425 #### [facility] [address] [place], [address] MCH (RBC) [Entitic mass] 28.5 pg Normal 27.0-32.0 [facility] Comment on above: Performed By: #### L 101.9900, L4600.0100, L3000.0375, L3100.1850, L3300.1200, L501.9520, L2100.0000, L505.7010, L3400.8000, L3100.5440, L501.6710, L3410.2400, L100.0100, L3200.0500, L504.2610, L100.9950, L503.6550, L5500.0410, L3200.1600, L503.6150, L3100.3425 #### [facility] [address] [place], [place], [phone] MCHC (RBC) [Mass/Vol] 32.8 g/dL Normal 32-36 [facility] Comment on above: Performed By: #### L 101.9900, L4600.0100, L3000.0375, L3100.1850, L3300.1200, L501.9520, L2100.0000, L505.7010, L3400.8000, L3100.5440, L501.6710, L3410.2400, L100.0100, L3200.0500, L504.2610, L100.9950, L503.6550, L5500.0410, L3200.1600, L503.6150, L3100.3425 #### [facility] [address] [place], [address] MCV (RBC) [Entitic vol] 86.9 fL Normal 81-[address] [facility] Comment on above: Performed By: #### L 101.9900, L4600.0100, L3000.0375, L3100.1850, L3300.1200, L501.9520, L2100.0000, L505.7010, L3400.8000, L3100.5440, L501.6710, L3410.2400, L100.0100, L3200.0500, L504.2610, L100.9950, L503.6550, L5500.0410, L3200.1600, L503.6150, L3100.3425 #### [facility] [address] [place], [address] Monocytes/100 WBC (Bld) 5.6 % Normal 0-[address] [facility] Comment on above: Performed By: #### L 101.9900, L4600.0100, L3000.0375, L3100.1850, L3300.1200, L501.9520, L2100.0000, L505.7010, L3400.8000, L3100.5440, L501.6710, L3410.2400, L100.0100, L3200.0500, L504.2610, L100.9950, L503.6550, L5500.0410, L3200.1600, L503.6150, L3100.3425 #### [facility] [address] [place], [address] Neutrophils/100 WBC (Bld) 60.2 % Normal 47-70 [facility] Comment on above: Performed By: #### L 101.9900, L4600.0100, L3000.0375, L3100.1850, L3300.1200, L501.9520, L2100.0000, L505.7010, L3400.8000, L3100.5440, L501.6710, L3410.2400, L100.0100, L3200.0500, L504.2610, L100.9950, L503.6550, L5500.0410, L3200.1600, L503.6150, L3100.3425 #### [facility] [address] [place], [address] Nucleated RBC (Bld) [#/Vol] 0 10*3/uL Normal 0-5 [facility] Comment on above: Performed By: #### L 101.9900, L4600.0100, L3000.0375, L3100.1850, L3300.1200, L501.9520, L2100.0000, L505.7010, L3400.8000, L3100.5440, L501.6710, L3410.2400, L100.0100, L3200.0500, L504.2610, L100.9950, L503.6550, L5500.0410, L3200.1600, L503.6150, L3100.3425 #### [facility] [address] [facility] [place], [place], [phone] ([phone] Platelet mean volume (Bld) [Entitic vol] 12.4 fL High 6.2-12.0 [facility] Comment on above: Performed By: #### L 101.9900, L4600.0100, L3000.0375, L3100.1850, L3300.1200, L501.9520, L2100.0000, L505.7010, L3400.8000, L3100.5440, L501.6710, L3410.2400, L100.0100, L3200.0500, L504.2610, L100.9950, L503.6550, L5500.0410, L3200.1600, L503.6150, L3100.3425 #### [facility] [address] [place], [address] Platelets (Bld) [#/Vol] 264 10*3/uL Normal 150-450 [facility] Comment on above: Performed By: #### L 101.9900, L4600.0100, L3000.0375, L3100.1850, L3300.1200, L501.9520, L2100.0000, L505.7010, L3400.8000, L3100.5440, L501.6710, L3410.2400, L100.0100, L3200.0500, L504.2610, L100.9950, L503.6550, L5500.0410, L3200.1600, L503.6150, L3100.3425 #### [facility] [address] [place], [address] RBC (Bld) [#/Vol] 4.66 10*6/uL Normal 4.2-5.4 [facility] Comment on above: Performed By: #### L 101.9900, L4600.0100, L3000.0375, L3100.1850, L3300.1200, L501.9520, L2100.0000, L505.7010, L3400.8000, L3100.5440, L501.6710, L3410.2400, L100.0100, L3200.0500, L504.2610, L100.9950, L503.6550, L5500.0410, L3200.1600, L503.6150, L3100.3425 #### [facility] [address] [place], [place], [phone] RDW SD 40.0 fl Normal 35.1-43.9 [facility] Comment on above: Performed By: #### L 101.9900, L4600.0100, L3000.0375, L3100.1850, L3300.1200, L501.9520, L2100.0000, L505.7010, L3400.8000, L3100.5440, L501.6710, L3410.2400, L100.0100, L3200.0500, L504.2610, L100.9950, L503.6550, L5500.0410, L3200.1600, L503.6150, L3100.3425 #### [facility] [address] [facility] [place], [address] WBC (Bld) [#/Vol] 5.9 10*3/uL Normal 4.4-11.0 [facility] Comment on above: Performed By: #### L 101.9900, L4600.0100, L3000.0375, L3100.1850, L3300.1200, L501.9520, L2100.0000, L505.7010, L3400.8000, L3100.5440, L501.6710, L3410.2400, L100.0100, L3200.0500, L504.2610, L100.9950, L503.6550, L5500.0410, L3200.1600, L503.6150, L3100.3425 #### [facility] [address] [place], [place], [phone] CPK Total, Creatine Kinaseon 07-25-2025 CPK TOTAL 80 U/L Normal 24-195 [facility] Comment on above: Performed By: #### L 101.9900, L4600.0100, L3000.0375, L3100.1850, L3300.1200, L501.9520, L2100.0000, L505.7010, L3400.8000, L3100.5440, L501.6710, L3410.2400, L100.0100, L3200.0500, L504.2610, L100.9950, L503.6550, L5500.0410, L3200.1600, L503.6150, L3100.3425 #### [facility] [address] [facility] [place], [place], [phone] CRPon 07-25-2025 C-REACTIVE PROT < 3.00 Normal 0.0-3.0 [facility] Comment on above: Performed By: #### L 101.9900, L4600.0100, L3000.0375, L3100.1850, L3300.1200, L501.9520, L2100.0000, L505.7010, L3400.8000, L3100.5440, L501.6710, L3410.2400, L100.0100, L3200.0500, L504.2610, L100.9950, L503.6550, L5500.0410, L3200.1600, L503.6150, L3100.3425 #### [facility] [address] [place], [place], [phone] Comprehensive Metabolic Prof gaon 07-25-2025 Albumin [Mass/Vol] 4.2 g/dL Normal 3.5-5.0 [facility] Comment on above: Performed By: #### L 101.9900, L4600.0100, L3000.0375, L3100.1850, L3300.1200, L501.9520, L2100.0000, L505.7010, L3400.8000, L3100.5440, L501.6710, L3410.2400, L100.0100, L3200.0500, L504.2610, L100.9950, L503.6550, L5500.0410, L3200.1600, L503.6150, L3100.3425 #### [facility] [address] [place], [place], [phone] Albumin/Globulin [Mass ratio] 1.5 {ratio} Normal 0.9-2.4 [facility] Comment on above: Result Comment: AMENDED REPORT 07/25/25 1531 A/G previously reported as: 1.4 RATIO Performed By: #### L 101.9900, L4600.0100, L3000.0375, L3100.1850, L3300.1200, L501.9520, L2100.0000, L505.7010, L3400.8000, L3100.5440, L501.6710, L3410.2400, L100.0100, L3200.0500, L504.2610, L100.9950, L503.6550, L5500.0410, L3200.1600, L503.6150, L3100.3425 #### [facility] [address] [place], [place], [phone] ALK PHOS 73 U/L Normal 35-104 [facility] Comment on above: Performed By: #### L 101.9900, L4600.0100, L3000.0375, L3100.1850, L3300.1200, L501.9520, L2100.0000, L505.7010, L3400.8000, L3100.5440, L501.6710, L3410.2400, L100.0100, L3200.0500, L504.2610, L100.9950, L503.6550, L5500.0410, L3200.1600, L503.6150, L3100.3425 #### [facility] [address] [place], [place], [phone] ALT [Catalytic activity/Vol] 8 U/L Normal <=34 [facility] Comment on above: Result Comment: AMENDED REPORT 07/25/251530 ALT previously reported as: 7 U/L Performed By: #### L 101.9900, L4600.0100, L3000.0375, L3100.1850, L3300.1200, L501.9520, L2100.0000, L505.7010, L3400.8000, L3100.5440, L501.6710, L3410.2400, L100.0100, L3200.0500, L504.2610, L100.9950, L503.6550, L5500.0410, L3200.1600, L503.6150, L3100.3425 #### [facility] [address] [place], [place], [id number] AST [Catalytic activity/Vol] 18 U/L Normal <=31 [facility] Comment on above: Result Comment: AMENDED REPORT 07/25/251530 AST previously reported as: 19 U/L Performed By: #### L 101.9900, L4600.0100, L3000.0375, L3100.1850, L3300.1200, L501.9520, L2100.0000, L505.7010, L3400.8000, L3100.5440, L501.6710, L3410.2400, L100.0100, L3200.0500, L504.2610, L100.9950, L503.6550, L5500.0410, L3200.1600, L503.6150, L3100.3425 #### [facility] [address] [place], [address] Bilirubin [Mass/Vol] 0.38 mg/dL Normal 0.00-1.30 [facility] Comment on above: Result Comment: AMENDED REPORT 07/25/251530 T BILI previously reported as: 0.40 mg/dL Performed By: #### L 101.9900, L4600.0100, L3000.0375, L3100.1850, L3300.1200, L501.9520, L2100.0000, L505.7010, L3400.8000, L3100.5440, L501.6710, L3410.2400, L100.0100, L3200.0500, L504.2610, L100.9950, L503.6550, L5500.0410, L3200.1600, L503.6150, L3100.3425 #### [facility] [address] [facility] [place], [place], [phone] BUN/CRE 10.0 RATIO Normal 10-20 [facility] Comment on above: Result Comment: AMENDED REPORT 07/25/251530 BUN/CRE previously reported as: 9.4 L RATIO Performed By: #### L 101.9900, L4600.0100, L3000.0375, L3100.1850, L3300.1200, L501.9520, L2100.0000, L505.7010, L3400.8000, L3100.5440, L501.6710, L3410.2400, L100.0100, L3200.0500, L504.2610, L100.9950, L503.6550, L5500.0410, L3200.1600, L503.6150, L3100.3425 #### [facility] [address] [place], [place], [phone] (097) Calcium [Mass/Vol] 9.1 mg/dL Normal 7.6-11.0 [facility] Comment on above: Result Comment: AMENDED REPORT 07/25/251530 CA previously reported as: 9.0 mg/dL Performed By: #### L 101.9900, L4600.0100, L3000.0375, L3100.1850, L3300.1200, L501.9520, L2100.0000, L505.7010, L3400.8000, L3100.5440, L501.6710, L3410.2400, L100.0100, L3200.0500, L504.2610, L100.9950, L503.6550, L5500.0410, L3200.1600, L503.6150, L3100.3425 #### [facility] [address] [place], [place], [phone] (005) Chloride [Moles/Vol] 106 mmol/L Normal 98-108 [facility] Comment on above: Result Comment: AMENDED REPORT 07/25/251530 CL previously reported as: 105 mmol/L Performed By: #### L 101.9900, L4600.0100, L3000.0375, L3100.1850, L3300.1200, L501.9520, L2100.0000, L505.7010, L3400.8000, L3100.5440, L501.6710, L3410.2400, L100.0100, L3200.0500, L504.2610, L100.9950, L503.6550, L5500.0410, L3200.1600, L503.6150, L3100.3425 #### [facility] [address] [place], [place], [phone] (588) CO2 [Moles/Vol] 23.7 mmol/L Normal 21.0-32.0 [facility] Comment on above: Result Comment: AMENDED REPORT 07/25/25 1531 CO2 previously reported as: 22.9 mmol/L Performed By: #### L 101.9900, L4600.0100, L3000.0375, L3100.1850, L3300.1200, L501.9520, L2100.0000, L505.7010, L3400.8000, L3100.5440, L501.6710, L3410.2400, L100.0100, L3200.0500, L504.2610, L100.9950, L503.6550, L5500.0410, L3200.1600, L503.6150, L3100.3425 #### [facility] [address] [facility] [address] [facility] [place], [place], [id number] Creatinine [Mass/Vol] 0.61 mg/dL Low 0.70-1.20 [facility] Comment on above: Performed By: #### L 101.9900, L4600.0100, L3000.0375, L3100.1850, L3300.1200, L501.9520, L2100.0000, L505.7010, L3400.8000, L3100.5440, L501.6710, L3410.2400, L100.0100, L3200.0500, L504.2610, L100.9950, L503.6550, L5500.0410, L3200.1600, L503.6150, L3100.3425 #### [facility] [address] [facility]. [place], [place], [id number] GAP 9 Normal 5-15 [facility] Comment on above: Performed By: #### L 101.9900, L4600.0100, L3000.0375, L3100.1850, L3300.1200, L501.9520, L2100.0000, L505.7010, L3400.8000, L3100.5440, L501.6710, L3410.2400, L100.0100, L3200.0500, L504.2610, L100.9950, L503.6550, L5500.0410, L3200.1600, L503.6150, L3100.3425 #### [facility] [address] [place], [place], [phone] (658) Globulin (S) [Mass/Vol] 2.9 g/dL Normal 2.2-4.2 [facility] Comment on above: Result Comment: AMENDED REPORT 07/25/251530 GLOB previously reported as: 2.9 g/dL Performed By: #### L 101.9900, L4600.0100, L3000.0375, L3100.1850, L3300.1200, L501.9520, L2100.0000, L505.7010, L3400.8000, L3100.5440, L501.6710, L3410.2400, L100.0100, L3200.0500, L504.2610, L100.9950, L503.6550, L5500.0410, L3200.1600, L503.6150, L3100.3425 #### [facility] [address] [place], [place], [phone] (652) Glucose [Mass/Vol] 86 mg/dL Normal 70-99 [facility] Comment on above: Result Comment: AMENDED REPORT 07/25/251530 GLU previously reported as: 85 mg/dL Performed By: #### L 101.9900, L4600.0100, L3000.0375, L3100.1850, L3300.1200, L501.9520, L2100.0000, L505.7010, L3400.8000, L3100.5440, L501.6710, L3410.2400, L100.0100, L3200.0500, L504.2610, L100.9950, L503.6550, L5500.0410, L3200.1600, L503.6150, L3100.3425 #### [facility] [address] [place], [place], [phone] (116) Potassium [Moles/Vol] 4.0 mmol/L Normal 3.3-5.1 [facility] Comment on above: Result Comment: AMENDED REPORT 07/25/251530 K previously reported as: 3.9 mmol/L Performed By: #### L 101.9900, L4600.0100, L3000.0375, L3100.1850, L3300.1200, L501.9520, L2100.0000, L505.7010, L3400.8000, L3100.5440, L501.6710, L3410.2400, L100.0100, L3200.0500, L504.2610, L100.9950, L503.6550, L5500.0410, L3200.1600, L503.6150, L3100.3425 #### [facility] [address] [place], [place], [phone] Sodium [Moles/Vol] 138 mmol/L Normal 133-145 [facility] Comment on above: Performed By: #### L 101.9900, L4600.0100, L3000.0375, L3100.1850, L3300.1200, L501.9520, L2100.0000, L505.7010, L3400.8000, L3100.5440, L501.6710, L3410.2400, L100.0100, L3200.0500, L504.2610, L100.9950, L503.6550, L5500.0410, L3200.1600, L503.6150, L3100.3425 #### [facility] [address] [place], [place], [id number] T PROT 7.0 g/dL Normal 5.9-8.4 [facility] Comment on above: Result Comment: AMENDED REPORT 07/25/251530 T PROT previously reported as: 7.2 g/dL Performed By: #### L 101.9900, L4600.0100, L3000.0375, L3100.1850, L3300.1200, L501.9520, L2100.0000, L505.7010, L3400.8000, L3100.5440, L501.6710, L3410.2400, L100.0100, L3200.0500, L504.2610, L100.9950, L503.6550, L5500.0410, L3200.1600, L503.6150, L3100.3425 #### [facility] [address] [place], [place], [id number] Urea nitrogen [Mass/Vol] 6 mg/dL Normal 4-19 [facility] Comment on above: Performed By: #### L 101.9900, L4600.0100, L3000.0375, L3100.1850, L3300.1200, L501.9520, L2100.0000, L505.7010, L3400.8000, L3100.5440, L501.6710, L3410.2400, L100.0100, L3200.0500, L504.2610, L100.9950, L503.6550, L5500.0410, L3200.1600, L503.6150, L3100.3425 #### [facility] [address] [place], [place], [id number] Erythrocyte Sed Rateon 07-25 SED RATE 2 mm/hr Normal 0-30 [facility] Comment on above: Performed By: #### L 101.9900, L4600.0100, L3000.0375, L3100.1850, L3300.1200, L501.9520, L2100.0000, L505.7010, L3400.8000, L3100.5440, L501.6710, L3410.2400, L100.0100, L3200.0500, L504.2610, L100.9950, L503.6550, L5500.0410, L3200.1600, L503.6150, L3100.3425 #### [facility] [address] [place], [place], [phone] Ferritinon 07-25-2025 Ferritin [Mass/Vol] 18 ng/mL Low 22-378 [facility] Comment on above: Result Comment: AMENDED REPORT 07/25/25 1531 FERRITIN previously reported as: 19 L ng/mL Performed By: #### L 101.9900, L4600.0100, L3000.0375, L3100.1850, L3300.1200, L501.9520, L2100.0000, L505.7010, L3400.8000, L3100.5440, L501.6710, L3410.2400, L100.0100, L3200.0500, L504.2610, L100.9950, L503.6550, L5500.0410, L3200.1600, L503.6150, L3100.3425 #### [facility] [address] [place], [address] Gastroenterology Visit Repor ton 07-25-2025 Gastroenterology Visit Report [facility] [address] [place] [address] OFFICE VISIT Date of Service: 07/25/25 MR#: [id number] Acct: [id number] Name: ELSA ANDREW Rep #: [id number] : 2005 Provider: Albert Amato DO Age/Sex: 19/F Location: [facility] [place] [facility] Status: Signed Intake Vital Signs 07/12/25 12:53 Height 5 ft 5 in Intake Visit Reasons: 4 M FU Allergies amoxicillin Allergy (Severe, Verified 07/01/25 11:58) Hives cephalexin Allergy (Severe, Verified 07/01/25 11:58) Hives Sulfa (Sulfonamide Antibiotics) (sulfa drugs) Allergy (Severe, Verified 07/01/25 11:58) Hives Medications ???Medication ???Instructions ???Recorded ???Confirmed ???Type acetaminophen 325 mg tablet 325 mg PO ONCE PRN pain 04/06/25 0 07/25/25 History (Tylenol) dicyclomine 20 mg tablet 20 mg PO TID PRN 07/25/25 07/25/25 History risankizumab-rzaa 360 mg/2.4 mL 360 mg subcut Q8W 07/25/25 5 History (150 mg/mL) subcut wearable injector (Skyrizi) PFSH Medical History POTS (postural orthostatic tachycardia syndrome) Migraines Crohn disease Family History (Updated 04/06/25 @ 09:47 by Cici Montiel) Father Alcoholism Anxiety Depression Myocardial infarction Hypertension Mother Hypertension Grandmother Respiratory disease Brother Alcoholism Social History (Updated 04/06/25 @ 09:34 by Cici Montiel) Smoking Status: Current every day smoker alcohol intake: current substance use type: marijuana what type of physical activity do you participate in: weight training and other details: cardio frequency: 3-4 times per week HPI HPI Details: ELSA ANDREW, is a 19 F who presents to the office today for follow up. *BGI established 04.06.25 with PMH of Crohn's disease and POTS. Pt reports that she was diagnosed with Crohn's in Sep 2022, Stelara and Humira were discussed, but never started on any medication. Pt reports daily gas / bloating, abd pain, and N/V. Pt reports that she gets eye irritation and joint stiffness/swelling. Pt reports ongoing loss of appetite, weightless, and fatigue. Pt reports constipation and states that she is having a bm every few days. OV 07.25.25 pt reports that she has her second skyrizi infusion scheduled for this Friday. Pt reports her abdominal pain has slightly improved, other symptoms are ongoing from previous visit. ESR / CRP Calp / Lact Serum / AB 04.06.25 / 5.58 -- / -- -- / -- Exam Const General: cooperative, healthy appearing and comfortable Nutritional Appearance: well nourished Orientation: alert, awake and oriented x3 Eyes Sclera: sclerae normal Chest Chest palpation inspection: normal inspection of the chest Resp Effort Inspection: normal respiratory effort Auscultation: Bilateral: Clear to Auscultation Cardio Palpation: normal PMI Rate: regular rate Rhythm: regular rhythm GI Inspection: normal to inspection Auscultation: normal bowel sounds Percussion: normal to percussion Palpation: no hepatosplenomegaly Assessment and Plan Assessment and Plan (1) Crohn disease: Status: Acute (2) Migraines: Status: Acute Plan: 19-year-old woman with a history of fibrostenotic Crohn's disease, currently being treated with Skyrizi. She presents with ongoing complaints of myalgias (muscle pain) and fatigue. * The patient reports persistent, widespread muscle pain, which she describes as an ache. The pain fluctuates in intensity and has been present for a significant duration. * She reports significant fatigue that negatively impacts her quality of life and daily activities. * The patient has a history of Crohn's disease with a fibrostenotic pattern, indicating stricture formation. * She is currently on Skyrizi (risankizumab) therapy, an interleukin-23 inhibitor, for her Crohn's disease. * She reports no signs of active gastrointestinal inflammation, such as bloody diarrhea, abdominal pain, or weight loss. * Myalgias and fatigue are often extra-intestinal manifestations of IBD, even when the disease is in remission. Labs:???Pending results of inflammatory markers (e.g., C-reactive protein, erythrocyte sedimentation rate), vitamin levels (e.g., B12, D), and complete blood count (CBC) to rule out anemia, which can contribute to fatigue. Imaging: ???No recent imaging was performed. Assessment * Crohn's Disease (Fibrostenotic):???The patient has a history of Crohn's disease with stricturing. The disease appears to be in clinical remission based on the absence of active gastrointestinal symptoms. However, fatigue and myalgias may persist even with well-controlled disease activity and can be considered extra-intestinal manifestations. * Myalgias and Fatigue:???This patient's ongoing myalgias and fatigue are co (more content not included)... Normal [facility] Iron+Iron Binding Capacityon 07-25-2025 Iron [Mass/Vol] 65 ug/dL Normal 50-170 [facility] Comment on above: Performed By: #### L 101.9900, L4600.0100, L3000.0375, L3100.1850, L3300.1200, L501.9520, L2100.0000, L505.7010, L3400.8000, L3100.5440, L501.6710, L3410.2400, L100.0100, L3200.0500, L504.2610, L100.9950, L503.6550, L5500.0410, L3200.1600, L503.6150, L3100.3425 #### [facility] [address] [place], [address] UIBC 244 ug/dL Normal 228-428 [facility] Comment on above: Performed By: #### L 101.9900, L4600.0100, L3000.0375, L3100.1850, L3300.1200, L501.9520, L2100.0000, L505.7010, L3400.8000, L3100.5440, L501.6710, L3410.2400, L100.0100, L3200.0500, L504.2610, L100.9950, L503.6550, L5500.0410, L3200.1600, L503.6150, L3100.3425 #### [facility] [address] [place], [address] Vitamin B12on 07-25-2025 Cobalamin (Vitamin B12) [Mass/Vol] 360 pg/mL Normal 180-914 [facility] Comment on above: Result Comment: AMENDED REPORT 07/25/25 1531 Vitamin B12 previously reported as: 397 pg/mL Performed By: #### L 101.9900, L4600.0100, L3000.0375, L3100.1850, L3300.1200, L501.9520, L2100.0000, L505.7010, L3400.8000, L3100.5440, L501.6710, L3410.2400, L100.0100, L3200.0500, L504.2610, L100.9950, L503.6550, L5500.0410, L3200.1600, L503.6150, L3100.3425 #### [facility] [address] [place], [place], [id number] Magnetic resonance imaging r eportOrdered By: Kim Schwab on 05-22-2025 Study report [facility] Imaging Services [address] [place] [address] Enterography Abd/Pel MR#: [id number] Acct: [id number] Name: ELSA ANDREW Rep #: [id number] : 2005 F 19 From: Naima Schwab MD PCP: Dr. Karena Valle MD Status: RE G CLI Study:Enterography Abd/Pel Date of Exam: 05/20/25 Exam# [id number] Ordering Dr: Candelario Amato DO PROCEDURE: ENTEROGRAPHY ABD/PEL, 05/20/2025 REASON FOR EXAM: K50.90 - CROHN'S DISEASE, UNSPECIFIED, WITHOUT COMPLICATIONS TECHNIQUE: Multisequence multiplanar MRI of the abdomen and pelvis was performed with and without IV contrast. IV contrast: 10 mL Clariscan PO contrast: Appears to have been administered, however type and dose information not provided COMPARISON: None FINDINGS: Note that the exam was optimized for evaluation of the bowel rather than the remaining abdominopelvic viscera. Note also that dynamic T2 and diffusion sequences were note that not performed. Note the anal canal and perineal/perianal regions are excluded from the field of view and cannot be evaluated. Transverse, LEFT, and ascendingcolonic prep is poor, limiting evaluation of the majority of the colon. Liver: Grossly unremarkable. Spleen: Grossly unremarkable. Gallbladder: Suspect layering sludge. Pancreas: Grossly unremarkable. Adrenals: Grossly unremarkable. Kidneys: Unremarkable. Bowel: No aissatou bowel dilatation. Segmental area of circumferential wall thickening involving an approximate 6.0 cm segment of the distal and terminal ileum extending to the ileocecal valve, with moderate wall thickening to 5-6 mm as well as mild mural stratification. There is associated early mucosal hyperenhancement/hypere daniel, however without adjacent mesenteric edema. Region is seen to slightly distended to roughly 2.5 cm on one of the axial T2 sequences(see series 14, image 39, series 17 image 39). No other convincing areas of abnormal bowel wall thickening, mural stratification, or hyperemia, allowing for the above. No definite evidence of fistulization or abscess. Normal caliber appendix. Lymph nodes: Grossly unremarkable. Vasculature: Circumaortic LEFT renal vein, normal variant. Peritoneum: Grossly unremarkable. Bladder: Partially obscured by artifact, no definite abnormality. Reproductive Organs: Grossly unremarkable. Bones: Grossly unremarkable. MRI/Enterography Abd/Pel IMPRESSION: 1. Findings along a 6.0 cm segment of the distal/terminal ileum extending to theileocecal valve which are compatible with the provided history of Crohn's disease. Signal characteristics suggest active inflammation superimposed on chronic fibrosis. No definite associated current stricture or evidence of penetrating disease. 2. Additional description as above. Reading Location: [id number] CC: Dr. Karena Valle MD; Albert Amato DO ~ Clay Molder: Signed [facility] Enterography Abd/Bi 05-20 Enterography Abd/Pel [facility] Imaging Services [address] [place] [address] Enterography Abd/Pel MR#: [id number] Acct: [id number] Name: ELSA ANDREW Rep #: [id number] : 2005 F 19 From: Kim Schwab MD PCP: Dr. Karena Valle MD Status: REG CLI Study: Enterography Abd/Pel Date of Exam: 05/20/25 Exam# [id number] Ordering Dr: Albert Amato DO PROCEDURE: ENTEROGRAPHY ABD/PEL, 05/20/2025 REASON FOR EXAM: K50.90 - CROHN'S DISEASE, UNSPECIFIED, WITHOUT COMPLICATIONS TECHNIQUE: Multisequence multiplanar MRI of the abdomen and pelvis was performed with and without IV contrast. IV contrast: 10 mL Clariscan PO contrast: Appears to have been administered, however type and dose information not provided COMPARISON: None FINDINGS: Note that the exam was optimized for evaluation of the bowel rather than the remaining abdominopelvic viscera. Note also that dynamic T2 and diffusion sequences were note that not performed. Note the anal canal and perineal/perianal regions are excluded from the field of view and cannot be evaluated. Transverse, LEFT, and ascending colonic prep is poor, limiting evaluation of the majority of the colon. Liver: Grossly unremarkable. Spleen: Grossly unremarkable. Gallbladder: Suspect layering sludge. Pancreas: Grossly unremarkable. Adrenals: Grossly unremarkable. Kidneys: Unremarkable. Bowel: No aissatou bowel dilatation. Segmental area of circumferential wall thickening involving an approximate 6.0 cm segment of the distal and terminal ileum extending to the ileocecal valve, with moderate wall thickening to 5-6 mm as well as mild mural stratification. There is associated early mucosal hyperenhancement/hypere daniel, however without adjacent mesenteric edema. Region is seen to slightly distended to roughly 2.5 cm on one of the axial T2 sequences (see series 14, image 39, series 17 image 39). No other convincing areas of abnormal bowel wall thickening, mural stratification, or hyperemia, allowing for the above. No definite evidence of fistulization or abscess. Normal caliber appendix. Lymph nodes: Grossly unremarkable. Vasculature: Circumaortic LEFT renal vein, normal variant. Peritoneum: Grossly unremarkable. Bladder: Partially obscured by artifact, no definite abnormality. Reproductive Organs: Grossly unremarkable. Bones: Grossly unremarkable. MRI/Enterography Abd/Pel IMPRESSION: 1. Findings along a 6.0 cm segment of the distal/terminal ileum extending to the ileocecal valve which are compatible with the provided history of Crohn's disease. Signal characteristics suggest active inflammation superimposed on chronic fibrosis. No definite associated current stricture or evidence of penetrating disease. 2. Additional description as above. Reading Location: [id number] CC: Dr. Karena Valle MD; Albert Amato DO Clay Molder: Signed Normal [facility] Gastric Emptying Studyon Gastric Emptying Study [facility] Imaging Services [address] [place] [id number] Gastric Emptying Study MR#: [id number] Acct: [id number] Name: ELSA ANDREW Rep #: [id number] : 2005 F 19 From: Phil ricks MD PCP: Dr. Karena Valle MD Status: REG CLI Study: Gastric Emptying Study Date of Exam: 04/25/25 Exam# [id number] Ordering Dr: Albert Amato DO PROCEDURE: GASTRIC EMPTYING STUDY 04/25/2025 REASON FOR EXAM: CROHNS DISEASE AND ABDOMINAL PAIN TECHNIQUE: The patient ingested a standard meal of technetium sulfur colloid and oatmeal and water. There was no vomiting postprandially. Anterior and posterior planar images of the upper abdomen were obtained for 1 minute immediately following the meal at 1h, 2h and 4h if more than 10% of the activity persisted within the stomach. Regions of interest were drawn, and a geometric mean was used to calculate a giog-sldqyhhn-sbkmu. RADIOPHARMACEUTICAL: Technetium labeled sulfur colloid DOSE 1.1 mCimCi FINDINGS: Percent activity remaining in stomach: 1 hour 57 % (normal 37-90%) NM/Gastric Emptying Study IMPRESSION: Normal gastric emptying examination. Reading Location: [place] [address] CC: Dr. Karena Valle MD; Albert Amato, Clay Molder: Signed Normal [facility] KELECHI Comprehensive Panelon ANTI-DNA (DS)AB <1 Normal 0-9 [facility] Comment on above: Result Comment: Nega tive <5 Equivocal 5 - 9 Positive >9 Performed By: #### L 101.9900, L4600.0100, L3000.0375, L3100.1850, L3300.1200, L501.9520, L2100.0000, L505.7010, L3400.8000, L3100.5440, L501.6710, L3410.2400, L100.0100, L3200.0500, L504.2610, L100.9950, L503.6550, L5500.0410, L3200.1600, L503.6150, L3100.3425 #### [facility] Laboratory [address] [place], [address] ANTI-SS-A < 0.2 Normal 0.0-0.9 [facility] Comment on above: Performed By: #### L 101.9900, L4600.0100, L3000.0375, L3100.1850, L3300.1200, L501.9520, L2100.0000, L505.7010, L3400.8000, L3100.5440, L501.6710, L3410.2400, L100.0100, L3200.0500, L504.2610, L100.9950, L503.6550, L5500.0410, L3200.1600, L503.6150, L3100.3425 #### [facility] [address] [place], [address] ANTI-SS-B < 0.2 Normal 0.0-0.9 [facility] Comment on above: Performed By: #### L 101.9900, L4600.0100, L3000.0375, L3100.1850, L3300.1200, L501.9520, L2100.0000, L505.7010, L3400.8000, L3100.5440, L501.6710, L3410.2400, L100.0100, L3200.0500, L504.2610, L100.9950, L503.6550, L5500.0410, L3200.1600, L503.6150, L3100.3425 #### [facility] [address] [place], [address] ANCAon 04-09-2025 Atypical pANCA <1:20 Normal Neg:<1:20 [facility] Comment on above: Result Comment: The atypical pANCA pattern has been observed in a significant percentage of patients with ulcerative colitis, primary sclerosing cholangitis and autoimmune hepatitis. Performed By: #### L 101.9900, L4600.0100, L3000.0375, L3100.1850, L3300.1200, L501.9520, L2100.0000, L505.7010, L3400.8000, L3100.5440, L501.6710, L3410.2400, L100.0100, L3200.0500, L504.2610, L100.9950, L503.6550, L5500.0410, L3200.1600, L503.6150, L3100.3425 #### [facility] [address] [place], [place], [id number] Cytoplasmic Ab <1:20 Normal Neg:<1:20 [facility] Comment on above: Performed By: #### L 101.9900, L4600.0100, L3000.0375, L3100.1850, L3300.1200, L501.9520, L2100.0000, L505.7010, L3400.8000, L3100.5440, L501.6710, L3410.2400, L100.0100, L3200.0500, L504.2610, L100.9950, L503.6550, L5500.0410, L3200.1600, L503.6150, L3100.3425 #### [facility] [address] [place], [place], [id number] Perinuclear Ab. <1:20 Normal Neg:<1:20 [facility] Comment on above: Result Comment: The presence of positive fluorescence exhibiting P-ANCA or C-ANCA patterns alone is not specific for the diagnosis of Jamilah's Granulomatosis (WG) or microscopic polyangiitis. Decisions about treatment should not be based solely on ANCA IFA results. The International ANCA Group Consensus recommends follow up testing of positive sera with both MD- 3 and MPO-ANCA enzyme immunoassays. As many as 5% serum samples are positive only by EIA. Ref. AM J Clin Pathol 1999;111:507-513. Performed By: #### L 101.9900, L4600.0100, L3000.0375, L3100.1850, L3300.1200, L501.9520, L2100.0000, L505.7010, L3400.8000, L3100.5440, L501.6710, L3410.2400, L100.0100, L3200.0500, L504.2610, L100.9950, L503.6550, L5500.0410, L3200.1600, L503.6150, L3100.3425 #### [facility] [address] [place], [place], [id number] Allergen, Food Profileon CLAM <0.10 Normal Class 0 [facility] Comment on above: Performed By: #### L 101.9900, L4600.0100, L3000.0375, L3100.1850, L3300.1200, L501.9520, L2100.0000, L505.7010, L3400.8000, L3100.5440, L501.6710, L3410.2400, L100.0100, L3200.0500, L504.2610, L100.9950, L503.6550, L5500.0410, L3200.1600, L503.6150, L3100.3425 #### [facility] [address] [place], [address] CODFISH <0.10 Normal Class 0 [facility] Comment on above: Performed By: #### L 101.9900, L4600.0100, L3000.0375, L3100.1850, L3300.1200, L501.9520, L2100.0000, L505.7010, L3400.8000, L3100.5440, L501.6710, L3410.2400, L100.0100, L3200.0500, L504.2610, L100.9950, L503.6550, L5500.0410, L3200.1600, L503.6150, L3100.3425 #### [facility] [address] [place], [address] COMMENT Comment Normal . [facility] Comment on above: Result Comment: Emma pardo of Specific IgE Class Description of Class ----- < 0.10 0 Negative 0.10 - 0.31 0/I Equivocal/Low 0.32 - 0.55 I Low 0.56 - 1.40 II Moderate 1.41 - 3.90 III High 3.91 - 19.00 IV Very High 19.01 - 100.00 V Very High >100.00 Very High Performed By: #### L 101.9900, L4600.0100, L3000.0375, L3100.1850, L3300.1200, L501.9520, L2100.0000, L505.7010, L3400.8000, L3100.5440, L501.6710, L3410.2400, L100.0100, L3200.0500, L504.2610, L100.9950, L503.6550, L5500.0410, L3200.1600, L503.6150, L3100.3425 #### [facility] Laboratory [address] [place], [place], [id number] CORN <0.10 Normal Class 0 [facility] Comment on above: Performed By: #### L 101.9900, L4600.0100, L3000.0375, L3100.1850, L3300.1200, L501.9520, L2100.0000, L505.7010, L3400.8000, L3100.5440, L501.6710, L3410.2400, L100.0100, L3200.0500, L504.2610, L100.9950, L503.6550, L5500.0410, L3200.1600, L503.6150, L3100.3425 #### [facility] [address] [place], [address] EGG, WHITE <0.10 Normal Class 0 [facility] Comment on above: Performed By: #### L 101.9900, L4600.0100, L3000.0375, L3100.1850, L3300.1200, L501.9520, L2100.0000, L505.7010, L3400.8000, L3100.5440, L501.6710, L3410.2400, L100.0100, L3200.0500, L504.2610, L100.9950, L503.6550, L5500.0410, L3200.1600, L503.6150, L3100.3425 #### [facility] Laboratory [address] [place], [place], [id number] MILK (COW) <0.10 Normal Class 0 [facility] Comment on above: Performed By: #### L 101.9900, L4600.0100, L3000.0375, L3100.1850, L3300.1200, L501.9520, L2100.0000, L505.7010, L3400.8000, L3100.5440, L501.6710, L3410.2400, L100.0100, L3200.0500, L504.2610, L100.9950, L503.6550, L5500.0410, L3200.1600, L503.6150, L3100.3425 #### [facility] [address] [place], [place], [id number] PEANUT <0.10 Normal Class 0 [facility] Comment on above: Performed By: #### L 101.9900, L4600.0100, L3000.0375, L3100.1850, L3300.1200, L501.9520, L2100.0000, L505.7010, L3400.8000, L3100.5440, L501.6710, L3410.2400, L100.0100, L3200.0500, L504.2610, L100.9950, L503.6550, L5500.0410, L3200.1600, L503.6150, L3100.3425 #### [facility] [address] [place], [address] SCALLOP <0.10 Normal Class 0 [facility] Comment on above: Performed By: #### L 101.9900, L4600.0100, L3000.0375, L3100.1850, L3300.1200, L501.9520, L2100.0000, L505.7010, L3400.8000, L3100.5440, L501.6710, L3410.2400, L100.0100, L3200.0500, L504.2610, L100.9950, L503.6550, L5500.0410, L3200.1600, L503.6150, L3100.3425 #### [facility] [address] [place], [address] SESAME SEED <0.10 Normal Class 0 [facility] Comment on above: Result Comment: Perf ormed at: [address] [id number] Lining Cleaner: Feliciano Sanchez PhD, Phone: [phone] Performed at: [facility] [address] [id number] Lining Cleaner: Roman Jin MD, Phone: [phone] Performed By: #### L 101.9900, L4600.0100, L3000.0375, L3100.1850, L3300.1200, L501.9520, L2100.0000, L505.7010, L3400.8000, L3100.5440, L501.6710, L3410.2400, L100.0100, L3200.0500, L504.2610, L100.9950, L503.6550, L5500.0410, L3200.1600, L503.6150, L3100.3425 #### [facility] [address] [place], [place], [id number] SHRIMP <0.10 Normal Class 0 [facility] Comment on above: Performed By: #### L 101.9900, L4600.0100, L3000.0375, L3100.1850, L3300.1200, L501.9520, L2100.0000, L505.7010, L3400.8000, L3100.5440, L501.6710, L3410.2400, L100.0100, L3200.0500, L504.2610, L100.9950, L503.6550, L5500.0410, L3200.1600, L503.6150, L3100.3425 #### [facility] [address] [place], [address] SOYBEAN <0.10 Normal Class 0 [facility] Comment on above: Performed By: #### L 101.9900, L4600.0100, L3000.0375, L3100.1850, L3300.1200, L501.9520, L2100.0000, L505.7010, L3400.8000, L3100.5440, L501.6710, L3410.2400, L100.0100, L3200.0500, L504.2610, L100.9950, L503.6550, L5500.0410, L3200.1600, L503.6150, L3100.3425 #### [facility] [address] [place], [place], [id number] WALNUT,(Food) <0.10 Normal Class 0 [facility] Comment on above: Performed By: #### L 101.9900, L4600.0100, L3000.0375, L3100.1850, L3300.1200, L501.9520, L2100.0000, L505.7010, L3400.8000, L3100.5440, L501.6710, L3410.2400, L100.0100, L3200.0500, L504.2610, L100.9950, L503.6550, L5500.0410, L3200.1600, L503.6150, L3100.3425 #### [facility] [address] [place], [address] WHEAT <0.10 Normal Class 0 [facility] Comment on above: Performed By: #### L 101.9900, L4600.0100, L3000.0375, L3100.1850, L3300.1200, L501.9520, L2100.0000, L505.7010, L3400.8000, L3100.5440, L501.6710, L3410.2400, L100.0100, L3200.0500, L504.2610, L100.9950, L503.6550, L5500.0410, L3200.1600, L503.6150, L3100.3425 #### [facility] [address] [place], [place], [id number] CCP IgG Antibodieson 025 CCP IgG Ab. 6 units Normal 0-19 [facility] Comment on above: Result Comment: Nega tive <20 Weak positive 20 - 39 Moderate positive 40 - 59 Strong positive >59 Performed By: #### L 101.9900, L4600.0100, L3000.0375, L3100.1850, L3300.1200, L501.9520, L2100.0000, L505.7010, L3400.8000, L3100.5440, L501.6710, L3410.2400, L100.0100, L3200.0500, L504.2610, L100.9950, L503.6550, L5500.0410, L3200.1600, L503.6150, L3100.3425 #### [facility] [address] [facility] [place], [place], [id number] Celiac Disease Profileon ENDOMYSIAL IGA Negative Normal Negative [facility] Comment on above: Performed By: #### L 101.9900, L4600.0100, L3000.0375, L3100.1850, L3300.1200, L501.9520, L2100.0000, L505.7010, L3400.8000, L3100.5440, L501.6710, L3410.2400, L100.0100, L3200.0500, L504.2610, L100.9950, L503.6550, L5500.0410, L3200.1600, L503.6150, L3100.3425 #### [facility] [address] [place], [place], [id number] tTG IGA <2 Normal 0-3 [facility] Comment on above: Result Comment: Nega tive 0 - 3 Weak Positive 4 - 10 Positive >10 Tissue Transglutaminase (tTG) has been identified as the endomysial antigen. Studies have demonstr- ated that endomysial IgA antibodies have over 99% specificity for gluten sensitive enteropathy. Performed By: #### L 101.9900, L4600.0100, L3000.0375, L3100.1850, L3300.1200, L501.9520, L2100.0000, L505.7010, L3400.8000, L3100.5440, L501.6710, L3410.2400, L100.0100, L3200.0500, L504.2610, L100.9950, L503.6550, L5500.0410, L3200.1600, L503.6150, L3100.3425 #### [facility] [address] [place], [address] Haptoglobinon 04-09-2025 HAPTOGLOBIN 169 mg/dL Normal 33-278 [facility] Comment on above: Result Comment: Perf ormed at: [facility] [address] [id number] Lining Cleaner: Feliciano Sanchez PhD, Phone: [phone] Performed at: [facility] [address] [id number] Lining Cleaner: Roman Jin MD, Phone: [phone] Performed By: #### L 101.9900, L4600.0100, L3000.0375, L3100.1850, L3300.1200, L501.9520, L2100.0000, L505.7010, L3400.8000, L3100.5440, L501.6710, L3410.2400, L100.0100, L3200.0500, L504.2610, L100.9950, L503.6550, L5500.0410, L3200.1600, L503.6150, L3100.3425 #### [facility] [address] [place], [address] Hepatitis Panel Acuteon 03-12 HEP B CORE,IgM Negative Normal Negative [facility] Comment on above: Performed By: #### L 101.9900, L4600.0100, L3000.0375, L3100.1850, L3300.1200, L501.9520, L2100.0000, L505.7010, L3400.8000, L3100.5440, L501.6710, L3410.2400, L100.0100, L3200.0500, L504.2610, L100.9950, L503.6550, L5500.0410, L3200.1600, L503.6150, L3100.3425 #### [facility] [address] [facility] [place], [address] HEP B SURF AG Negative Normal Negative [facility] Comment on above: Performed By: #### L 101.9900, L4600.0100, L3000.0375, L3100.1850, L3300.1200, L501.9520, L2100.0000, L505.7010, L3400.8000, L3100.5440, L501.6710, L3410.2400, L100.0100, L3200.0500, L504.2610, L100.9950, L503.6550, L5500.0410, L3200.1600, L503.6150, L3100.3425 #### [facility] [address] [facility] [place], [address] HEP C VIRUS AB Non-Reactive Normal Non Reactive [facility] Comment on above: Performed By: #### L 101.9900, L4600.0100, L3000.0375, L3100.1850, L3300.1200, L501.9520, L2100.0000, L505.7010, L3400.8000, L3100.5440, L501.6710, L3410.2400, L100.0100, L3200.0500, L504.2610, L100.9950, L503.6550, L5500.0410, L3200.1600, L503.6150, L3100.3425 #### [facility] [address] [facility] [place], [address] HEPATITIS A-IgM Negative Normal Negative [facility] Comment on above: Result Comment: A ne gative anti-HAV IgM result suggests no recent or current HAV infection. Performed By: #### L 101.9900, L4600.0100, L3000.0375, L3100.1850, L3300.1200, L501.9520, L2100.0000, L505.7010, L3400.8000, L3100.5440, L501.6710, L3410.2400, L100.0100, L3200.0500, L504.2610, L100.9950, L503.6550, L5500.0410, L3200.1600, L503.6150, L3100.3425 #### [facility] [address] [place], [address] APRIL + Protein Elect, Serumon 04-09-2025 Albumin [Mass/Vol] 3.6 g/dL Normal 2.9-4.4 [facility] Comment on above: Order Comment: N Performed By: #### L 101.9900, L4600.0100, L3000.0375, L3100.1850, L3300.1200, L501.9520, L2100.0000, L505.7010, L3400.8000, L3100.5440, L501.6710, L3410.2400, L100.0100, L3200.0500, L504.2610, L100.9950, L503.6550, L5500.0410, L3200.1600, L503.6150, L3100.3425 #### [facility] [address] [place], [address] Albumin/Globulin [Mass ratio] 1.2 {ratio} Normal 0.7-1.7 [facility] Comment on above: Order Comment: N Performed By: #### L 101.9900, L4600.0100, L3000.0375, L3100.1850, L3300.1200, L501.9520, L2100.0000, L505.7010, L3400.8000, L3100.5440, L501.6710, L3410.2400, L100.0100, L3200.0500, L504.2610, L100.9950, L503.6550, L5500.0410, L3200.1600, L503.6150, L3100.3425 #### [facility] [address] [facility] [place], [address] PWYYF-6-YSRR 0.3 g/dL Normal 0.0-0.4 [facility] Comment on above: Order Comment: N Performed By: #### L 101.9900, L4600.0100, L3000.0375, L3100.1850, L3300.1200, L501.9520, L2100.0000, L505.7010, L3400.8000, L3100.5440, L501.6710, L3410.2400, L100.0100, L3200.0500, L504.2610, L100.9950, L503.6550, L5500.0410, L3200.1600, L503.6150, L3100.3425 #### [facility] [address] [facility] [place], [address] LZXOI-1-CVUE 0.7 g/dL Normal 0.4-1.0 [facility] Comment on above: Order Comment: N Performed By: #### L 101.9900, L4600.0100, L3000.0375, L3100.1850, L3300.1200, L501.9520, L2100.0000, L505.7010, L3400.8000, L3100.5440, L501.6710, L3410.2400, L100.0100, L3200.0500, L504.2610, L100.9950, L503.6550, L5500.0410, L3200.1600, L503.6150, L3100.3425 #### [facility] [address] [facility] [place], [address] BETA GLOBULIN 1.0 g/dL Normal 0.7-1.3 [facility] Comment on above: Order Comment: N Performed By: #### L 101.9900, L4600.0100, L3000.0375, L3100.1850, L3300.1200, L501.9520, L2100.0000, L505.7010, L3400.8000, L3100.5440, L501.6710, L3410.2400, L100.0100, L3200.0500, L504.2610, L100.9950, L503.6550, L5500.0410, L3200.1600, L503.6150, L3100.3425 #### [facility] [address] [place], [address] GAMMA GLOBULIN 1.2 g/dL Normal 0.4-1.8 [facility] Comment on above: Order Comment: N Performed By: #### L 101.9900, L4600.0100, L3000.0375, L3100.1850, L3300.1200, L501.9520, L2100.0000, L505.7010, L3400.8000, L3100.5440, L501.6710, L3410.2400, L100.0100, L3200.0500, L504.2610, L100.9950, L503.6550, L5500.0410, L3200.1600, L503.6150, L3100.3425 #### [facility] [address] [place], [place], [id number] (952) Globulin (S) [Mass/Vol] 3.2 g/dL Normal 2.2-3.[address] [facility] Comment on above: Order Comment: N Performed By: #### L 101.9900, L4600.0100, L3000.0375, L3100.1850, L3300.1200, L501.9520, L2100.0000, L505.7010, L3400.8000, L3100.5440, L501.6710, L3410.2400, L100.0100, L3200.0500, L504.2610, L100.9950, L503.6550, L5500.0410, L3200.1600, L503.6150, L3100.3425 #### [facility] [address] [place], [place], [id number] (907) APRIL RESULT,S Comment Normal . [facility] Comment on above: Order Comment: N Result Comment: No m onoclonality detected. Performed By: #### L 101.9900, L4600.0100, L3000.0375, L3100.1850, L3300.1200, L501.9520, L2100.0000, L505.7010, L3400.8000, L3100.5440, L501.6710, L3410.2400, L100.0100, L3200.0500, L504.2610, L100.9950, L503.6550, L5500.0410, L3200.1600, L503.6150, L3100.3425 #### [facility] [address] [facility] [place], [address] IMMUNOGLOB A QN 253 mg/dL Normal 87-352 [facility] Comment on above: Order Comment: N Performed By: #### L 101.9900, L4600.0100, L3000.0375, L3100.1850, L3300.1200, L501.9520, L2100.0000, L505.7010, L3400.8000, L3100.5440, L501.6710, L3410.2400, L100.0100, L3200.0500, L504.2610, L100.9950, L503.6550, L5500.0410, L3200.1600, L503.6150, L3100.3425 #### [facility] [address] [facility] [place], [address] IMMUNOGLOB M QN 224 mg/dL High 26-217 [facility] Comment on above: Order Comment: N Performed By: #### L 101.9900, L4600.0100, L3000.0375, L3100.1850, L3300.1200, L501.9520, L2100.0000, L505.7010, L3400.8000, L3100.5440, L501.6710, L3410.2400, L100.0100, L3200.0500, L504.2610, L100.9950, L503.6550, L5500.0410, L3200.1600, L503.6150, L3100.3425 #### [facility] [address] [facility] [place], [place], [id number] M-Vinnie Not Observed Normal Not Observed [facility] Comment on above: Order Comment: N Performed By: #### L 101.9900, L4600.0100, L3000.0375, L3100.1850, L3300.1200, L501.9520, L2100.0000, L505.7010, L3400.8000, L3100.5440, L501.6710, L3410.2400, L100.0100, L3200.0500, L504.2610, L100.9950, L503.6550, L5500.0410, L3200.1600, L503.6150, L3100.3425 #### [facility] [address] [place], [address] NOTE: Comment Normal . 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 Performed By: #### L 101.9900, L4600.0100, L3000.0375, L3100.1850, L3300.1200, L501.9520, L2100.0000, L505.7010, L3400.8000, L3100.5440, L501.6710, L3410.2400, L100.0100, L3200.0500, L504.2610, L100.9950, L503.6550, L5500.0410, L3200.1600, L503.6150, L3100.3425 #### [facility] [address] [place], [address] Protein [Mass/Vol] 6.8 g/dL Normal 6.0-8.5 [facility] Comment on above: Order Comment: N Performed By: #### L 101.9900, L4600.0100, L3000.0375, L3100.1850, L3300.1200, L501.9520, L2100.0000, L505.7010, L3400.8000, L3100.5440, L501.6710, L3410.2400, L100.0100, L3200.0500, L504.2610, L100.9950, L503.6550, L5500.0410, L3200.1600, L503.6150, L3100.3425 #### [facility] [address] [facility] [place], [address] IgG Subclasseson 04-09-2025 IgG, SUBCLASS 1 515 mg/dL Normal 248-810 [facility] Comment on above: Performed By: #### L 101.9900, L4600.0100, L3000.0375, L3100.1850, L3300.1200, L501.9520, L2100.0000, L505.7010, L3400.8000, L3100.5440, L501.6710, L3410.2400, L100.0100, L3200.0500, L504.2610, L100.9950, L503.6550, L5500.0410, L3200.1600, L503.6150, L3100.3425 #### [facility] [address] [facility] [place], [address] IgG, SUBCLASS 2 426 mg/dL Normal 130-555 [facility] Comment on above: Performed By: #### L 101.9900, L4600.0100, L3000.0375, L3100.1850, L3300.1200, L501.9520, L2100.0000, L505.7010, L3400.8000, L3100.5440, L501.6710, L3410.2400, L100.0100, L3200.0500, L504.2610, L100.9950, L503.6550, L5500.0410, L3200.1600, L503.6150, L3100.3425 #### [facility] [address] [facility] [place], [address] IgG, SUBCLASS 3 22 mg/dL Normal 15-102 [facility] Comment on above: Performed By: #### L 101.9900, L4600.0100, L3000.0375, L3100.1850, L3300.1200, L501.9520, L2100.0000, L505.7010, L3400.8000, L3100.5440, L501.6710, L3410.2400, L100.0100, L3200.0500, L504.2610, L100.9950, L503.6550, L5500.0410, L3200.1600, L503.6150, L3100.3425 #### [facility] [address] [facility] [place], [place], [phone] ([phone]) IgG, SUBCLASS 4 30 mg/dL Normal 2-96 [facility] Comment on above: Performed By: #### L 101.9900, L4600.0100, L3000.0375, L3100.1850, L3300.1200, L501.9520, L2100.0000, L505.7010, L3400.8000, L3100.5440, L501.6710, L3410.2400, L100.0100, L3200.0500, L504.2610, L100.9950, L503.6550, L5500.0410, L3200.1600, L503.6150, L3100.3425 #### [facility] [place], [place], [id number] IGG,QUANT 1171 mg/dL Normal 586-1602 [facility] Comment on above: Performed By: #### L 101.9900, L4600.0100, L3000.0375, L3100.1850, L3300.1200, L501.9520, L2100.0000, L505.7010, L3400.8000, L3100.5440, L501.6710, L3410.2400, L100.0100, L3200.0500, L504.2610, L100.9950, L503.6550, L5500.0410, L3200.1600, L503.6150, L3100.3425 #### [facility] [address] [facility] [place], [address] Immunoglobulin Bryan 5 IMMUNOGLOB E QN 17 IU/mL Normal 6-495 [facility] Comment on above: Performed By: #### L 101.9900, L4600.0100, L3000.0375, L3100.1850, L3300.1200, L501.9520, L2100.0000, L505.7010, L3400.8000, L3100.5440, L501.6710, L3410.2400, L100.0100, L3200.0500, L504.2610, L100.9950, L503.6550, L5500.0410, L3200.1600, L503.6150, L3100.3425 #### [facility] [address] [facility] [place], [address] L2100.0000on 04-09-2025 ACCA 129 units Abnormal 0-90 [facility] Comment on above: Result Comment: Nega tive: <80 Equivocal: 80-90 Positive: >90 Performed By: #### L 101.9900, L4600.0100, L3000.0375, L3100.1850, L3300.1200, L501.9520, L2100.0000, L505.7010, L3400.8000, L3100.5440, L501.6710, L3410.2400, L100.0100, L3200.0500, L504.2610, L100.9950, L503.6550, L5500.0410, L3200.1600, L503.6150, L3100.3425 #### [facility] [address] [place], [address] ALCA 40 units Normal 0-60 [facility] Comment on above: Result Comment: Nega tive:<55 Equivocal: 55-60 Positive: >60 Performed By: #### L 101.9900, L4600.0100, L3000.0375, L3100.1850, L3300.1200, L501.9520, L2100.0000, L505.7010, L3400.8000, L3100.5440, L501.6710, L3410.2400, L100.0100, L3200.0500, L504.2610, L100.9950, L503.6550, L5500.0410, L3200.1600, L503.6150, L3100.3425 #### [facility] [address] [place], [place], [id number] AMCA 31 units Normal 0-100 [facility] Comment on above: Result Comment: Nega tive: <90 Equivocal: 90-100 Positive: >100 This test was developed and its performance characteristics determined by [employer]. It has not been cleared or approved by the Food and Drug Administration. The FDA has determined that such clearance or approval is not necessary. Performed By: #### L 101.9900, L4600.0100, L3000.0375, L3100.1850, L3300.1200, L501.9520, L2100.0000, L505.7010, L3400.8000, L3100.5440, L501.6710, L3410.2400, L100.0100, L3200.0500, L504.2610, L100.9950, L503.6550, L5500.0410, L3200.1600, L503.6150, L3100.3425 #### [facility] [address] [place], [place], [id number] Atypical pANCA Negative Normal Negative [facility] Comment on above: Performed By: #### L 101.9900, L4600.0100, L3000.0375, L3100.1850, L3300.1200, L501.9520, L2100.0000, L505.7010, L3400.8000, L3100.5440, L501.6710, L3410.2400, L100.0100, L3200.0500, L504.2610, L100.9950, L503.6550, L5500.0410, L3200.1600, L503.6150, L3100.3425 #### [facility] [address] [place], [address] COMMENT Comment Normal . [facility] Comment on above: Result Comment: Sugg estive of Crohn's Disease. Pattern is not conclusive for disease behavior risk stratification. Performed By: #### L 101.9900, L4600.0100, L3000.0375, L3100.1850, L3300.1200, L501.9520, L2100.0000, L505.7010, L3400.8000, L3100.5440, L501.6710, L3410.2400, L100.0100, L3200.0500, L504.2610, L100.9950, L503.6550, L5500.0410, L3200.1600, L503.6150, L3100.3425 #### [facility] [address] [place], [address] Result Comment: Not infected with HCV unless early or acute infection is suspected (which may be delayed in an immunocompromised individual), or other evidence exists to indicate HCV infection. Trudy 32 units Normal 0-50 [facility] Comment on above: Result Comment: Nega tive: <45 Equivocal: 45-50 Positive: >50 Performed By: #### L 101.9900, L4600.0100, L3000.0375, L3100.1850, L3300.1200, L501.9520, L2100.0000, L505.7010, L3400.8000, L3100.5440, L501.6710, L3410.2400, L100.0100, L3200.0500, L504.2610, L100.9950, L503.6550, L5500.0410, L3200.1600, L503.6150, L3100.3425 #### [facility] [address] [place], [address] Quantiferon TB-Gold+on 04-09 QFT MITOGEN GORDON > 10.00 Normal . [facility] Comment on above: Performed By: #### L 101.9900, L4600.0100, L3000.0375, L3100.1850, L3300.1200, L501.9520, L2100.0000, L505.7010, L3400.8000, L3100.5440, L501.6710, L3410.2400, L100.0100, L3200.0500, L504.2610, L100.9950, L503.6550, L5500.0410, L3200.1600, L503.6150, L3100.3425 #### [facility] [address] [place], [address] QFT NIL VALUE 0.04 IU/mL Normal . [facility] Comment on above: Performed By: #### L 101.9900, L4600.0100, L3000.0375, L3100.1850, L3300.1200, L501.9520, L2100.0000, L505.7010, L3400.8000, L3100.5440, L501.6710, L3410.2400, L100.0100, L3200.0500, L504.2610, L100.9950, L503.6550, L5500.0410, L3200.1600, L503.6150, L3100.3425 #### [facility] [address] [place], [address] QFT TB GOLD+ Comment Normal . [facility] Comment on above: Result Comment: Donald tiFERON-TB Gold Plus is a qualitative indirect test for M tuberculosis infection (including disease) and is intended for use in conjunction with risk assessment, radiography, and other medical and diagnostic evaluations. The QuantiFERON-TB Gold Plus result is determined by subtracting the Nil value from either TB antigen (Ag) value. The Mitogen tube serves as a control for the test. Performed By: #### L 101.9900, L4600.0100, L3000.0375, L3100.1850, L3300.1200, L501.9520, L2100.0000, L505.7010, L3400.8000, L3100.5440, L501.6710, L3410.2400, L100.0100, L3200.0500, L504.2610, L100.9950, L503.6550, L5500.0410, L3200.1600, L503.6150, L3100.3425 #### [facility] [address] [place], [address] QFT TB POS CRIT Negative Normal Negative [facility] Comment on above: Result Comment: No r esponse to M tuberculosis antigens detected. Infection with M tuberculosis is unlikely, but high risk individuals should be considered for additional testing (ATS/IDSA/CDC Clinical Practice Guidelines, 2017). The reference range is an Antigen minus Nil result of <0.35 IU/mL. The specimen received for QuantiFERON testing was incubated by the ordering institution. Specific procedures outlined in our Directory of Services and in the package insert for the QuantiFERON Gold (In Tube) test must be followed to enable for proper stimulation of cells for the production of interferon gamma. Chemiluminescence immunoassay methodology Performed By: #### L 101.9900, L4600.0100, L3000.0375, L3100.1850, L3300.1200, L501.9520, L2100.0000, L505.7010, L3400.8000, L3100.5440, L501.6710, L3410.2400, L100.0100, L3200.0500, L504.2610, L100.9950, L503.6550, L5500.0410, L3200.1600, L503.6150, L3100.3425 #### [facility] [address] [place], [address] QFT TB1+ AG GORDON 0.03 IU/mL Normal . [facility] Comment on above: Performed By: #### L 101.9900, L4600.0100, L3000.0375, L3100.1850, L3300.1200, L501.9520, L2100.0000, L505.7010, L3400.8000, L3100.5440, L501.6710, L3410.2400, L100.0100, L3200.0500, L504.2610, L100.9950, L503.6550, L5500.0410, L3200.1600, L503.6150, L3100.3425 #### [facility] [address] [place], [address] QFT TB2+ AG GORDON 0.05 IU/mL Normal . [facility] Comment on above: Performed By: #### L 101.9900, L4600.0100, L3000.0375, L3100.1850, L3300.1200, L501.9520, L2100.0000, L505.7010, L3400.8000, L3100.5440, L501.6710, L3410.2400, L100.0100, L3200.0500, L504.2610, L100.9950, L503.6550, L5500.0410, L3200.1600, L503.6150, L3100.3425 #### [facility] [facility] [address] [place], [place], [id number] Absolute lymphocyte countOrd ered By: Albert Lm on 04-06-2025 Lymphocytes Auto (Unsp spec) [#/Vol] 1.58 10*3/uL 0.83-4.51 [facility] Absolute neutrophil countOrd ered By: Albert Amato on 04-06-2025 Neutrophils (Bld) [#/Vol] 3.5 10*3/uL 2.0-7.7 [facility] Albumin Elph [Mass/Vol]Order ed By: Albert Amato on 04-06-2025 Albumin [Mass/Vol] 3.6 g/dL 2.9-4.4 [facility] Automated lymphocyte count a s percentage of total leukocytesOrdered By: Albert Lm on 04-06-2025 Lymphocytes/100 WBC Auto (Unsp spec) 27.0 % 19-41 [facility] Basophil percentageOrdered B y: Albert Lm on 04-06-2025 Basophils/100 WBC (Bld) 0.7 % 0-[address] [facility] CBC W/Diff, Automatedon 03-11 Absolute Lymph 1.58 X10 3/uL Normal 0.83-4.51 [facility] Comment on above: Performed By: #### L 101.9900, L4600.0100, L3000.0375, L3100.1850, L3300.1200, L501.9520, L2100.0000, L505.7010, L3400.8000, L3100.5440, L501.6710, L3410.2400, L100.0100, L3200.0500, L504.2610, L100.9950, L503.6550, L5500.0410, L3200.1600, L503.6150, L3100.3425 #### [facility] [address] [place], [place], [phone]) Absolute Neut 3.5 X10 3/uL Normal 2.0-7.7 [facility] Comment on above: Performed By: #### L 101.9900, L4600.0100, L3000.0375, L3100.1850, L3300.1200, L501.9520, L2100.0000, L505.7010, L3400.8000, L3100.5440, L501.6710, L3410.2400, L100.0100, L3200.0500, L504.2610, L100.9950, L503.6550, L5500.0410, L3200.1600, L503.6150, L3100.3425 #### [facility] [address] [place], [place], [address] [phone] Basophils/100 WBC (Bld) 0.7 % Normal 0-[address] [facility] Comment on above: Performed By: #### L 101.9900, L4600.0100, L3000.0375, L3100.1850, L3300.1200, L501.9520, L2100.0000, L505.7010, L3400.8000, L3100.5440, L501.6710, L3410.2400, L100.0100, L3200.0500, L504.2610, L100.9950, L503.6550, L5500.0410, L3200.1600, L503.6150, L3100.3425 #### [facility] [address] [place], [place], [phone] Eosinophils/100 WBC (Bld) 1.5 % Normal 0-5 [facility] Comment on above: Performed By: #### L 101.9900, L4600.0100, L3000.0375, L3100.1850, L3300.1200, L501.9520, L2100.0000, L505.7010, L3400.8000, L3100.5440, L501.6710, L3410.2400, L100.0100, L3200.0500, L504.2610, L100.9950, L503.6550, L5500.0410, L3200.1600, L503.6150, L3100.3425 #### [facility] [address] [place], [place], [phone] Erythrocyte distribution width (RBC) [Ratio] 12.3 % Normal 11.6-14.6 [facility] Comment on above: Performed By: #### L 101.9900, L4600.0100, L3000.0375, L3100.1850, L3300.1200, L501.9520, L2100.0000, L505.7010, L3400.8000, L3100.5440, L501.6710, L3410.2400, L100.0100, L3200.0500, L504.2610, L100.9950, L503.6550, L5500.0410, L3200.1600, L503.6150, L3100.3425 #### [facility] [address] [place], [place], [phone] Hematocrit (Bld) [Volume fraction] 38.0 % Normal 37-47 [facility] Comment on above: Performed By: #### L 101.9900, L4600.0100, L3000.0375, L3100.1850, L3300.1200, L501.9520, L2100.0000, L505.7010, L3400.8000, L3100.5440, L501.6710, L3410.2400, L100.0100, L3200.0500, L504.2610, L100.9950, L503.6550, L5500.0410, L3200.1600, L503.6150, L3100.3425 #### [facility] [address] [place], [place], [phone]) Hemoglobin (Bld) [Mass/Vol] 12.6 g/dL Normal 12.0-15.0 [facility] Comment on above: Performed By: #### L 101.9900, L4600.0100, L3000.0375, L3100.1850, L3300.1200, L501.9520, L2100.0000, L505.7010, L3400.8000, L3100.5440, L501.6710, L3410.2400, L100.0100, L3200.0500, L504.2610, L100.9950, L503.6550, L5500.0410, L3200.1600, L503.6150, L3100.3425 #### [facility] [address] [place], [address] (228) IG% 0.200 Normal 0.0-0.9 [facility] Comment on above: Result Comment: IG% - Immature Granulocytes (promyelocytes, myelocytes and metamyelocytes) > 1% indicates that a LEFT SHIFT is Present. Performed By: #### L 101.9900, L4600.0100, L3000.0375, L3100.1850, L3300.1200, L501.9520, L2100.0000, L505.7010, L3400.8000, L3100.5440, L501.6710, L3410.2400, L100.0100, L3200.0500, L504.2610, L100.9950, L503.6550, L5500.0410, L3200.1600, L503.6150, L3100.3425 #### [facility] [address] [place], [place], [phone] ([phone]) Lymphocytes/100 WBC (Bld) 27.0 % Normal 19-41 [facility] Comment on above: Performed By: #### L 101.9900, L4600.0100, L3000.0375, L3100.1850, L3300.1200, L501.9520, L2100.0000, L505.7010, L3400.8000, L3100.5440, L501.6710, L3410.2400, L100.0100, L3200.0500, L504.2610, L100.9950, L503.6550, L5500.0410, L3200.1600, L503.6150, L3100.3425 #### [facility] [address] [place], [place], [phone] MCH (RBC) [Entitic mass] 29.0 pg Normal 27.0-32.0 [facility] Comment on above: Performed By: #### L 101.9900, L4600.0100, L3000.0375, L3100.1850, L3300.1200, L501.9520, L2100.0000, L505.7010, L3400.8000, L3100.5440, L501.6710, L3410.2400, L100.0100, L3200.0500, L504.2610, L100.9950, L503.6550, L5500.0410, L3200.1600, L503.6150, L3100.3425 #### [facility] [address] [place], [place], [phone] MCHC (RBC) [Mass/Vol] 33.2 g/dL Normal 32-36 [facility] Comment on above: Performed By: #### L 101.9900, L4600.0100, L3000.0375, L3100.1850, L3300.1200, L501.9520, L2100.0000, L505.7010, L3400.8000, L3100.5440, L501.6710, L3410.2400, L100.0100, L3200.0500, L504.2610, L100.9950, L503.6550, L5500.0410, L3200.1600, L503.6150, L3100.3425 #### [facility] [address] [place], [place], [phone] (435) MCV (RBC) [Entitic vol] 87.6 fL Normal 81-[address] [facility] Comment on above: Performed By: #### L 101.9900, L4600.0100, L3000.0375, L3100.1850, L3300.1200, L501.9520, L2100.0000, L505.7010, L3400.8000, L3100.5440, L501.6710, L3410.2400, L100.0100, L3200.0500, L504.2610, L100.9950, L503.6550, L5500.0410, L3200.1600, L503.6150, L3100.3425 #### [facility] [address] [place], [address] Monocytes/100 WBC (Bld) 10.6 % High 0-[address] [facility] Comment on above: Performed By: #### L 101.9900, L4600.0100, L3000.0375, L3100.1850, L3300.1200, L501.9520, L2100.0000, L505.7010, L3400.8000, L3100.5440, L501.6710, L3410.2400, L100.0100, L3200.0500, L504.2610, L100.9950, L503.6550, L5500.0410, L3200.1600, L503.6150, L3100.3425 #### [facility] [address] [place], [address] Neutrophils/100 WBC (Bld) 60.0 % Normal 47-70 [facility] Comment on above: Performed By: #### L 101.9900, L4600.0100, L3000.0375, L3100.1850, L3300.1200, L501.9520, L2100.0000, L505.7010, L3400.8000, L3100.5440, L501.6710, L3410.2400, L100.0100, L3200.0500, L504.2610, L100.9950, L503.6550, L5500.0410, L3200.1600, L503.6150, L3100.3425 #### [facility] [address] [place], [address] Nucleated RBC (Bld) [#/Vol] 0 10*3/uL Normal 0-5 [facility] Comment on above: Performed By: #### L 101.9900, L4600.0100, L3000.0375, L3100.1850, L3300.1200, L501.9520, L2100.0000, L505.7010, L3400.8000, L3100.5440, L501.6710, L3410.2400, L100.0100, L3200.0500, L504.2610, L100.9950, L503.6550, L5500.0410, L3200.1600, L503.6150, L3100.3425 #### [facility] [address] [place], [address] Platelet mean volume (Bld) [Entitic vol] 12.0 fL Normal 6.2-12.0 [facility] Comment on above: Performed By: #### L 101.9900, L4600.0100, L3000.0375, L3100.1850, L3300.1200, L501.9520, L2100.0000, L505.7010, L3400.8000, L3100.5440, L501.6710, L3410.2400, L100.0100, L3200.0500, L504.2610, L100.9950, L503.6550, L5500.0410, L3200.1600, L503.6150, L3100.3425 #### [facility] [address] [place], [address] Platelets (Bld) [#/Vol] 263 10*3/uL Normal 150-450 [facility] Comment on above: Performed By: #### L 101.9900, L4600.0100, L3000.0375, L3100.1850, L3300.1200, L501.9520, L2100.0000, L505.7010, L3400.8000, L3100.5440, L501.6710, L3410.2400, L100.0100, L3200.0500, L504.2610, L100.9950, L503.6550, L5500.0410, L3200.1600, L503.6150, L3100.3425 #### [facility] [address] [place], [place], [phone] RBC (Bld) [#/Vol] 4.34 10*6/uL Normal 4.2-5.4 [facility] Comment on above: Performed By: #### L 101.9900, L4600.0100, L3000.0375, L3100.1850, L3300.1200, L501.9520, L2100.0000, L505.7010, L3400.8000, L3100.5440, L501.6710, L3410.2400, L100.0100, L3200.0500, L504.2610, L100.9950, L503.6550, L5500.0410, L3200.1600, L503.6150, L3100.3425 #### [facility] [address] [place], [place], [id number] RDW SD 39.5 fl Normal 35.1-43.9 [facility] Comment on above: Performed By: #### L 101.9900, L4600.0100, L3000.0375, L3100.1850, L3300.1200, L501.9520, L2100.0000, L505.7010, L3400.8000, L3100.5440, L501.6710, L3410.2400, L100.0100, L3200.0500, L504.2610, L100.9950, L503.6550, L5500.0410, L3200.1600, L503.6150, L3100.3425 #### [facility] [address] [place], [address] WBC (Bld) [#/Vol] 5.9 10*3/uL Normal 4.4-11.0 [facility] Comment on above: Performed By: #### L 101.9900, L4600.0100, L3000.0375, L3100.1850, L3300.1200, L501.9520, L2100.0000, L505.7010, L3400.8000, L3100.5440, L501.6710, L3410.2400, L100.0100, L3200.0500, L504.2610, L100.9950, L503.6550, L5500.0410, L3200.1600, L503.6150, L3100.3425 #### [facility] [address] [place], [address] CRPon 04-06-2025 C-REACTIVE PROT 5.58 mg/L High 0.0-3.0 [facility] Comment on above: Performed By: #### L 101.9900, L4600.0100, L3000.0375, L3100.1850, L3300.1200, L501.9520, L2100.0000, L505.7010, L3400.8000, L3100.5440, L501.6710, L3410.2400, L100.0100, L3200.0500, L504.2610, L100.9950, L503.6550, L5500.0410, L3200.1600, L503.6150, L3100.3425 #### [facility] [address] [place], [address] Chitobioside IgA antibody as sayOrdered By: Albert Amato on 04-06-2025 Chitobioside IgA IA Qn 129 units High 0-90 [facility] Comment on above: Negative: <80 Equivo zayra: 80-90 Positive: >90 Eosinophil percentageOrdered By: Albert Amato on 04-06-2025 Eosinophils/100 WBC (Bld) 1.5 % 0-5 [facility] Erythrocyte Sed Rateon 04-06 SED RATE 6 mm/hr Normal 0-30 [facility] Comment on above: Performed By: #### L 101.9900, L4600.0100, L3000.0375, L3100.1850, L3300.1200, L501.9520, L2100.0000, L505.7010, L3400.8000, L3100.5440, L501.6710, L3410.2400, L100.0100, L3200.0500, L504.2610, L100.9950, L503.6550, L5500.0410, L3200.1600, L503.6150, L3100.3425 #### [facility] [address] [facility] [address] [place], [place], [id number] Erythrocyte distribution wid th ratioOrdered By: Albert Amato on 04-06-2025 Erythrocyte distribution width (RBC) [Ratio] 12.3 % 11.6-14.6 [facility] Erythrocyte distribution wid th standard deviationOrdered By: Albert Amato on 04-06-2025 Erythrocyte distribution width (RBC) [Ratio] 39.5 fl 35.1-43.9 [facility] Erythrocyte sedimentation ra teOrdered By: Albert Amato on 04-06-2025 ESR (Bld) [Velocity] 6 mm/h 0-30 [facility] Ferritinon 04-06-2025 Ferritin [Mass/Vol] 28 ng/mL Normal 22-378 [facility] Comment on above: Performed By: #### L 101.9900, L4600.0100, L3000.0375, L3100.1850, L3300.1200, L501.9520, L2100.0000, L505.7010, L3400.8000, L3100.5440, L501.6710, L3410.2400, L100.0100, L3200.0500, L504.2610, L100.9950, L503.6550, L5500.0410, L3200.1600, L503.6150, L3100.3425 #### [facility] [address] [place], [address] Gastroenterology Visit Repor ton 04-06-2025 Gastroenterology Visit Report [facility] [address] [place] [address] OFFICE VISIT Date of Service: 04/06/25 MR#: [id number] Acct: [id number] Name: ELSA ANDREW Rep #: [id number] : 2005 Provider: Albert Amato DO Age/Sex: 19/F Location: [facility] [place] Status: Signed Intake Vital Signs 04/06/25 11:54 Height 5 ft 5 in Weight: 120 lb BMI 20.0 Intake Visit Reasons: CROHNS Allergies amoxicillin Allergy (Severe, Verified 04/06/25 09:35) Hives cephalexin Allergy (Severe, Verified 04/06/25 09:35) Hives Sulfa (Sulfonamide Antibiotics) (sulfa drugs) Allergy (Severe, Verified 04/06/25 09:35) Hives Medications ???Medication ???Instructions ???Recorded ???Confirmed ???Type Diane (digestive support) PO DAILY 04/06/25 History acetaminophen 325 mg tablet 325 mg PO ONCE PRN 04/06/25 History (Tylenol) PFSH Medical History (Updated 04/06/25 @ 09:45 by Cici Montiel) Migraines Crohn disease Family History (Updated 04/06/25 @ 09:47 by Cici Montiel) Father Alcoholism Anxiety Depression Myocardial infarction Hypertension Mother Hypertension Grandmother Respiratory disease Brother Alcoholism Social History (Updated 04/06/25 @ 09:34 by Cici Montiel) Smoking Status: Current every day smoker alcohol intake: current substance use type: marijuana what type of physical activity do you participate in: weight training and other details: cardio frequency: 3-4 times per week HPI HPI Details: Elsa Andrew, is a 19 F who presents to the office today for initial consult. *BGI established 04.06.25 with PMH of Crohn's disease and POTS. Pt reports that she was diagnosed with Crohn's in Sep 2022, Stelara and Humira were discussed, but never started on any medication. Pt reports daily gas / bloating, abd pain, and N/V. Pt reports that she gets eye irritation and joint stiffness/swelling. Pt reports ongoing loss of appetite, weightless, and fatigue. Pt reports constipation and states that she is having a bm every few days. ROS Const Constitutional: Positive for fatigue, weakness and weight change (weight loss); No fever(s) ENT ENT: No difficulty swallowing Gastro GI: Positive for abdominal pain, bloating, change in bowel habits, constipation, diarrhea, excessive flatus, nausea/dyspepsia and vomiting; No belching, change in stool character, coffee ground emesis, cramping, heartburn, difficulty swallowing, feeling full early, incontinent of stools, Vomiting blood/hematemesis, Blood in stool, loose stools, Black,tarry stools, pain with swallowing or other Musc Musculoskeletal: Positive for joint pain, back pain, joint swelling, muscle cramps, muscle weakness, numbness, stiffness and tingling Skin Skin: No yellowing of the eye or itchy eyes Neuro Neurology: Positive for weakness, numbness and tingling Psych Psychiatric: Positive for anxiety, Positive for depression and Positive for suicidal ideation Endo Endocrine: Positive for fatigue and weight change (weight loss) Aller/Imm Allergy/Immunologic: No itchy eyes Georgi/Lymp Hematologic/Lymphatic: No easy bleeding or easy bruising Exam Const General: cooperative, healthy appearing and comfortable Nutritional Appearance: well nourished Orientation: alert, awake and oriented x3 HENMT Head: normal to inspection Mouth: oral mucosae normal Eyes Sclera: sclerae normal Chest Chest palpation inspection: normal inspection of the chest Resp Effort Inspection: normal respiratory effort Auscultation: Bilateral: Clear to Auscultation Cardio Palpation: normal PMI Rate: regular rate Rhythm: regular rhythm GI Inspection: normal to inspection Auscultation: normal bowel sounds Percussion: normal to percussion Palpation: no hepatosplenomegaly Assessment and Plan Assessment and Plan (1) Crohn disease: Status: Acute Orders: Orders CBC W/Diff, Automated Today K50.90 - Crohn's disease, unspecified, without complications Ferritin Today K50.90 - Crohn's disease, unspecified, without complications Haptoglobin Today K50.90 - Crohn's disease, unspecified, without complications APRIL + Protein Elect, Serum Today K50.90 - Crohn's disease, unspecified, without complications LDH Today K50.90 - Crohn's disease, unspecified, without complications Retic Panel Count Today K50.90 - Crohn's disease, unspecified, without complications Iron Today K50.90 - Crohn's disease, unspecified, without complications Celiac Disease Profile Today K50.90 - Crohn's disease, unspecified, without complications ANCA Today K50.90 - Crohn's disease, unspecified, without complications CRP Today K50.90 - Crohn's disease, unspecified, without complications Erythrocyte Sed Rate Today K50.90 - Crohn's disease, unspecified, without complications Im (more content not included)... Normal [facility] Hematocrit Auto (Bld) [Volum e fraction]Ordered By: Albert Amato on 04-06-2025 Hematocrit (Bld) [Volume fraction] 38.0 % 37-47 [facility] Hemoglobin measurementOrdere d By: Albert Amato on 04-06-2025 Hemoglobin (Bld) [Mass/Vol] 12.6 g/dL 12.0-15.0 [facility] IgEOrdered By: Albert julian on 04-06-2025 IgE 17 IU/mL 6-495 [facility] Immature granulocytes/100 WB C Auto (Bld)Ordered By: Albert Amato on 04-06-2025 Immature granulocytes/100 WBC (Bld) 0.200 % 0.0-0.9 [facility] Comment on above: IG% - Immature Granu locytes (promyelocytes, myelocytes and metamyelocytes) > 1% indicates that a LEFT SHIFT is Present. Interpretation of serum or p lasma protein pattern by immunofixation (narrative resultOrdered By: Albert Amato on 04-06-2025 Protein Fractions Immunofixation Micha [Interp] Not Observed g/dL Not Observed [facility] Ironon 04-06-2025 Iron [Mass/Vol] 54 ug/dL Normal 50-170 [facility] Comment on above: Performed By: #### L 101.9900, L4600.0100, L3000.0375, L3100.1850, L3300.1200, L501.9520, L2100.0000, L505.7010, L3400.8000, L3100.5440, L501.6710, L3410.2400, L100.0100, L3200.0500, L504.2610, L100.9950, L503.6550, L5500.0410, L3200.1600, L503.6150, L3100.3425 #### [facility] [address] [place], [address] Iron measurement (mass/mass) Ordered By: Albert Amato on 04-06-2025 Iron (Unsp spec) [Mass/Mass] 54 ug/dL 50-170 [facility] LDHon 04-06-2025 LDH 151 U/L Normal 84-246 [facility] Comment on above: Order Comment: 1 Performed By: #### L 101.9900, L4600.0100, L3000.0375, L3100.1850, L3300.1200, L501.9520, L2100.0000, L505.7010, L3400.8000, L3100.5440, L501.6710, L3410.2400, L100.0100, L3200.0500, L504.2610, L100.9950, L503.6550, L5500.0410, L3200.1600, L503.6150, L3100.3425 #### [facility] [address] [place], [address] Laboratory - Miscellaneous t estsOrdered By: Albert Amato on 04-06-2025 Laboratory comment Micha (Report) Comment High . [facility] Comment on above: Suggestive of Crohn' s Disease. Pattern is not conclusivefor disease behavior risk stratification. Service comment (Unsp spec) [Interp] Comment . [facility] Comment on above: Levels of Specific I gE Class Description of Class ----- < 0.10 0 Negative 0.10 - 0.31 0/I Equivocal/Low 0.32 - 0.55 I Low 0.56 - 1.40 II Moderate 1.41 - 3.90 III High 3.91 - 19.00 IV Very High 19.01 - 100.00 V Very High >100.00 Very High Lactate dehydrogenase (LDH) measurementOrdered By: Albert Amato on 04-06-2025 LDH [Catalytic activity/Vol] 151 U/L 84-246 [facility] Laminaribioside carbohydrate IgG antibody assayOrdered By: Albert Amato on 04-06-2025 Laminaribioside IgG IA Qn 40 units 0-60 [facility] Comment on above: Negative:<55 Equivoc al: 55-60 Positive: >60 MCV (mean corpuscular volume ) determinationOrdered By: Albert Amato on 04-06-2025 MCV (RBC) [Entitic vol] 87.6 fL 81-[address] [facility] Mean corpuscular hemoglobin (MCH) determinationOrdered By: Albert Amato on 04-06-2025 MCH (RBC) [Entitic mass] 29.0 pg 27.0-32.0 [facility] Mean corpuscular hemoglobin concentration (MCHC) determinationOrdered By: Albert Amato on 04-06-2025 MCHC (RBC) [Mass/Vol] 33.2 g/dL 32-36 [facility] Mean platelet volume determi nationOrdered By: Albert Amato on 04-06-2025 Platelet mean volume (Bld) [Entitic vol] 12.0 fL 6.2-12.0 [facility] Monocyte percentageOrdered B y: Albert Amato on 04-06-2025 Monocytes/100 WBC (Bld) 10.6 % High 0-[address] [facility] Neutrophil percentageOrdered By: Albert Amato on 04-06-2025 Neutrophils/100 WBC (Bld) 60.0 % 47-70 [facility] No Panel InformationOrdered By: Albert Amato on 04-06-2025 Addendum Document Comment . [facility] Comment on above: Protein electrophore sis scan will follow via computer,mail, or hydraulic corrugating machine operator delivery. Hepatitis C Antibody Comment Comment . [facility] Comment on above: Not infected with HC V unless early or acute infection issuspected (which may be delayed in an immunocompromisedindividual), or other evidence exists to indicate HCVinfection. Nucleated red blood cell per centageOrdered By: Albertdeepak Amato on 04-06-2025 Nucleated RBC/100 WBC (Bld) [Ratio] 0 % 0-5 [facility] Platelet countOrdered By: Ra celia Amato on 04-06-2025 Platelets (Bld) [#/Vol] 263 10*3/uL 150-450 [facility] Qualitative QuantiFERON-TB g old in tube testOrdered By: Albertdeepak Amato on 04-06-2025 M. tuberculosis tuberculin stim IFN-g Ql (Bld) 0.03 IU/mL . [facility] RBC Auto (Bld) [#/Vol]Ordere d By: Albertdeepak Amato on 04-06-2025 RBC (Bld) [#/Vol] 4.34 10*6/uL 4.2-5.4 [facility] Retic Panelon 04-06-2025 IM RET FRACTION 8.30 Normal 3.00-15.90 [facility] Comment on above: Performed By: #### L 101.9900, L4600.0100, L3000.0375, L3100.1850, L3300.1200, L501.9520, L2100.0000, L505.7010, L3400.8000, L3100.5440, L501.6710, L3410.2400, L100.0100, L3200.0500, L504.2610, L100.9950, L503.6550, L5500.0410, L3200.1600, L503.6150, L3100.3425 #### [facility] [address] [place], [address] RET-HE 30.7 pg Normal 30-35 [facility] Comment on above: Performed By: #### L 101.9900, L4600.0100, L3000.0375, L3100.1850, L3300.1200, L501.9520, L2100.0000, L505.7010, L3400.8000, L3100.5440, L501.6710, L3410.2400, L100.0100, L3200.0500, L504.2610, L100.9950, L503.6550, L5500.0410, L3200.1600, L503.6150, L3100.3425 #### [facility] Laboratory [address] [facility] [place], [address] Retic Count 1.27 Normal 0.5-1.5 [facility] Comment on above: Performed By: #### L 101.9900, L4600.0100, L3000.0375, L3100.1850, L3300.1200, L501.9520, L2100.0000, L505.7010, L3400.8000, L3100.5440, L501.6710, L3410.2400, L100.0100, L3200.0500, L504.2610, L100.9950, L503.6550, L5500.0410, L3200.1600, L503.6150, L3100.3425 #### [facility] Laboratory [address] [facility] [place], [address] Reticulocyte hemoglobin equi valent (RET-He) measurementOrdered By: Albert Amato on 04-06-2025 Hemoglobin (Reticulocytes) [Entitic mass] 30.7 pg 30-35 [facility] Reticulocytes Auto (Bld) [#/ Vol]Ordered By: Albert Amato on 04-06-2025 Reticulocytes/100 RBC (Bld) 1.27 % 0.5-1.5 [facility] Rheumatoid Factoron 04-06-20 25 RHEUMATOID FAC < 10.0 Normal <15 [facility] Comment on above: Performed By: #### L 101.9900, L4600.0100, L3000.0375, L3100.1850, L3300.1200, L501.9520, L2100.0000, L505.7010, L3400.8000, L3100.5440, L501.6710, L3410.2400, L100.0100, L3200.0500, L504.2610, L100.9950, L503.6550, L5500.0410, L3200.1600, L503.6150, L3100.3425 #### [facility] Laboratory [place], [address] Serum DNA double strand anti body assay (units/volume)Ordered By: Albert Amato on 04-06-2025 DNA double strand Ab Qn (S) [IU]/mL 0-9 [facility] Comment on above: Negative <5 Equivoca l 5 - 9 Positive >9 Serum IgG subclass 1 measure ment (mass/volume)Ordered By: Albert Amato on 04-06-2025 IgG subclass 1 (S) [Mass/Vol] 515 mg/dL 248-810 [facility] Serum IgG subclass 2 measure ment (mass/volume)Ordered By: Albert Amato on 04-06-2025 IgG subclass 2 (S) [Mass/Vol] 426 mg/dL 130-555 [facility] Serum IgG subclass 3 measure ment (mass/volume)Ordered By: Albert Amato on 04-06-2025 IgG subclass 3 (S) [Mass/Vol] 22 mg/dL 15-102 [facility] Serum Scl-70 antibody assay (units/volume)Ordered By: Albert Amato on 04-06-2025 SCL-70 extractable nuclear Ab Qn (S) <0.2 AI 0.0-0.9 [facility] Comment on above: Previous reported re sult: TNP AIEdited by: BIBI on 04/09/25:0307 AMENDED REPORT 04/09/25 0307 ANTISCLER previously reported as: Test not performed Serum black walnut IgE antib jaycob assay (units/volume)Ordered By: Albert Amato on 04-06-2025 [place] IgE Qn (S) <0.10 kU/L Class [address] [facility] Serum clam IgE antibody assa y (units/volume)Ordered By: Albert Amato on 04-06-2025 Clam IgE Qn (S) <0.10 kU/L Class 0 [facility] Serum classic neutrophil cyt oplasmic antibody assay (units/volume)Ordered By: Albert Amato on 04-06-2025 Neutrophil cytoplasmic Ab.classic Qn (S) <1:20 titer Neg:<1:20 [facility] Serum codfish IgE antibody a ssay (units/volume)Ordered By: Albert Amato on 04-06-2025 Codfish IgE Qn (S) <0.10 kU/L Class 0 [facility] Serum corn IgE antibody assa y (units/volume)Ordered By: Albert Amato on 04-06-2025 [place] IgE Qn (S) <0.10 kU/L Class 0 [facility] Serum cow milk IgE antibody assay (units/volume)Ordered By: Albert Amato on 04-06-2025 Cow milk IgE Qn (S) <0.10 kU/L Class 0 [facility] Serum egg white IgE antibody assay (units/volume)Ordered By: Albert Amato on 04-06-2025 Egg white IgE Qn (S) <0.10 kU/L Class 0 [facility] Serum globulin measurement ( mass/volume)Ordered By: Albert Amato on 04-06-2025 Globulin (S) [Mass/Vol] 3.2 g/dL 2.2-3.[address] [facility] Serum or plasma C reactive p rotein measurement (mass/volume)Ordered By: Albert Amato on 04-06-2025 CRP [Mass/Vol] 5.58 mg/L High 0.0-3.0 [facility] Serum or plasma IgA measurem ent (mass/volume)Ordered By: Albert Amato on 04-06-2025 IgA [Mass/Vol] 253 mg/dL 87-352 [facility] Serum or plasma IgG measurem ent (mass/volume)Ordered By: Albert Amato on 04-06-2025 IgG [Mass/Vol] 1171 mg/dL [phone] [facility] IgG [Mass/Vol] Not Reportable [facility] Serum or plasma alpha 1 glob ulin measurement by electrophoresis (mass/volume)Ordered By: Albert Amato on 04-06-2025 Alpha 1 globulin Elph [Mass/Vol] 0.3 g/dL 0.0-0.4 [facility] Alpha 1 globulin Elph [Mass/Vol] 0.7 g/dL 0.4-1.0 [facility] Serum or plasma beta globuli n measurement by electrophoresis (mass/volume)Ordered By: Albert Amato on 04-06-2025 Beta globulin Elph [Mass/Vol] 1.0 g/dL 0.7-1.3 [facility] Serum or plasma cyclic citru llinated peptide IgG antibody assay (units/volume)Ordered By: Albert Amato on 04-06-2025 Cyclic citrullinated peptide IgG Qn 6 units 0-19 [facility] Comment on above: Negative <20 Weak po sitive 20 - 39 Moderate positive 40 - 59 Strong positive >59 Serum or plasma ferritin liliana surement (mass/volume)Ordered By: Albert Amato on 04-06-2025 Ferritin [Mass/Vol] 28 ng/mL 22-378 [facility] Serum or plasma gamma globul in measurement by electrophoresis (mass/volume)Ordered By: Albert Amato on 04-06-2025 Gamma globulin Elph [Mass/Vol] 1.2 g/dL 0.4-1.8 [facility] Serum or plasma hepatitis B virus surface antigen detection by immunoassayOrdered By: Albert Amato on 04-06-2025 HBV surface Ag IA Ql Negative Negative [facility] Serum or plasma immunoelectr ophoresis interpretation (nominal result)Ordered By: Albert Amato on 04-06-2025 Interpretation IEP [Interp] Comment . [facility] Comment on above: No monoclonality det ected. Serum or plasma mannobioside IgG antibody assay by immunoassay (units/volume)Ordered By: Albert Amato on 04-06-2025 Mannobioside IgG IA Qn 31 units 0-100 [facility] Comment on above: Negative: <90 Equivo zayra: 90-100 Positive: >100 This test was developed and its performance characteristics determined by [employer]. It has not been cleared or approved by the Food and Drug Administration. The FDA has determined that such clearance or approval is not necessary. Serum or plasma protein rachell urement (mass/volume)Ordered By: Albert Amato on 04-06-2025 Protein [Mass/Vol] 6.8 g/dL 6.0-8.5 [facility] Serum peanut IgE antibody as say (units/volume)Ordered By: Albert Amato on 04-06-2025 Peanut IgE Qn (S) <0.10 kU/L Class 0 [facility] Serum perinuclear neutrophil cytoplasmic antibody titer by immunofluorescenceOrdered By: Albert Amato on 04-06-2025 Neutrophil cytoplasmic Ab.perinuclear IF (S) [Titer] <1:20 titer Neg:<1:20 [facility] Comment on above: The presence of posi tive fluorescence exhibiting P-ANCA orC-ANCA patterns alone is not specific for the diagnosis ofWegener's Granulomatosis (WG) or microscopic polyangiitis.Decisions about treatment should not be based solely onANCA IFA results. The International ANCA Group Consensusrecommends follow up testing of positive sera with both MD-3 and MPO-ANCA enzyme immunoassays. As many as 5% serumsamples are positive only by EIA. Ref. AM J Clin Jwcyrk4514;111:507-513. Serum rheumatoid factor dete ctionOrdered By: Albert Amato on 04-06-2025 Rheumatoid factor Ql (S) < 10.0 IU/mL <15 [facility] Serum soybean IgE antibody a ssay (units/volume)Ordered By: Albert Amato on 04-06-2025 Soybean IgE Qn (S) <0.10 kU/L Class 0 [facility] Serum tissue transglutaminas e (tTG) IgA antibody assay (units/volume)Ordered By: Albert Amato on 04-06-2025 tTG IgA Qn (S) <2 U/mL 0-3 [facility] Comment on above: Negative 0 - 3 Weak Positive 4 - 10 Positive >10 Tissue Transglutaminase (tTG) has been identified as the endomysial antigen. Studies have demonstr- ated that endomysial IgA antibodies have over 99% specificity for gluten sensitive enteropathy. Serum wheat IgE antibody ass ay (units/volume)Ordered By: Albert Amato on 04-06-2025 Wheat IgE Qn (S) <0.10 kU/L Class 0 [facility] TSH DL <= 0.005 mIU/L QnOrde red By: Albert Amato on 04-06-2025 TSH Qn 1.690 uIU/mL 0.300-4.200 [facility] Thyroid Stim Hormone (TSH)on 04-06-2025 TSH 1.690 uIU/mL Normal 0.300-4.200 [facility] Comment on above: Performed By: #### L 101.9900, L4600.0100, L3000.0375, L3100.1850, L3300.1200, L501.9520, L2100.0000, L505.7010, L3400.8000, L3100.5440, L501.6710, L3410.2400, L100.0100, L3200.0500, L504.2610, L100.9950, L503.6550, L5500.0410, L3200.1600, L503.6150, L3100.3425 #### [facility] Laboratory [address] [place], [address] White blood cell (WBC) count Ordered By: Albert Amato on 04-06-2025 WBC (Bld) [#/Vol] 5.9 10*3/uL 4.4-11.0 [facility] CHLAMYDIA/N. GONORRHOEAE RNA , TMA, UROGENITALon 01-20-2025 CHLAMYDIA TRACHOMATIS RNA, TMA, UROGENITAL Not detected Normal NOT DETECTED [facility] Comment on above: Performed By: #### 1 1363 #### [facility] [address], [address] [place], [place] [id number] Creative Developer: Cameron Abrams MD COMMENT Normal [facility] Comment on above: Result Comment: The analytical performance characteristics of this assay, when used to test SurePath(TM) specimens have been determined by [facility]. The modifications have not been cleared or approved by the FDA. This assay has been validated pursuant to the CLIA regulations and is used for clinical purposes. For additional information, please refer to https://education.Kuldat/faq/ZAL412 (This link is being provided for information/ educational purposes only.) Performed By: #### 1 1293 #### [facility] [address], [address] [place], [place] [id number] Creative Developer: Cameron Abrams MD NEISSERIA GONORRHOEAE RNA, TMA, UROGENITAL Not detected Normal NOT DETECTED [facility] Comment on above: Performed By: #### 1 1363 #### [facility] [address], [address] [place] [address] Creative Developer: Cameron Abrams MD ED Prov Noteon 12-16-2024 ED Prov Note ED PROVIDER NOTE [facility] EMERGENCY DEPARTMENT NAME: Elsa Andrew AGE: 19 y.o. : 2005 VISIT DATE: 12/16/2024 CSN: [id number] PCP: Karena Valle MD Chief Complaint Patient presents with Cough Chief complaint flulike symptoms History of present illness 19-year-old female who was diagnosed with influenza on Friday nurse producing productive yellow to greenish sputum. Congestion. Past Medical History: Diagnosis Date Crohn's colitis (HCC) POTS (postural orthostatic tachycardia syndrome) Past Surgical History: Procedure Laterality Date CT COLONOSCOPY 12/19/2022 CT COLONOSCOPY History reviewed. No pertinent family history. Social History Socioeconomic History Marital status: Single Tobacco Use Smoking status: Never Smokeless tobacco: Never Vaping Use Vaping status: Former Substance and Sexual Activity Alcohol use: Yes Comment: occasional Drug use: Yes Types: Marijuana Comment: occasionally Previous Medications Medication Sig baclofen (LIORESAL) 10 MG tablet Take 1 (one) tablet (10 mg total) by mouth 3 (three) times a day for 10 days . ketorolac (TORADOL) 10 mg tablet Take 1 (one) tablet (10 mg total) by mouth 3 (three) times a day as needed for pain . Allergies Allergen Reactions Ciprofloxacin Unknown Amoxicillin Hives and Rash Cefprozil Rash Cephalexin Hives and Rash Sulfa (Sulfonamide Antibiotics) Hives and Rash Review of Systems All other systems reviewed and are negative. No data found. Physical Exam Vitals and nursing note reviewed. Exam conducted with a scientific linguist present. Constitutional: Appearance: She is normal weight. HENT: Head: Normocephalic and atraumatic. Nose: Rhinorrhea present. Mouth/Throat: Pharynx: Posterior oropharyngeal erythema present. Eyes: Pupils: Pupils are equal, round, and reactive to light. Cardiovascular: Rate and Rhythm: Normal rate and regular rhythm. Pulmonary: Effort: Pulmonary effort is normal. Breath sounds: Normal breath sounds. Skin: General: Skin is warm. Capillary Refill: Capillary refill takes less than 2 seconds. Neurological: Mental Status: She is alert. Laboratory & Radiographic Imaging (if done): No results found for this visit on 12/16/24. No orders to display Procedures Medical Decision Making Differential diagnosis Bronchitis Influenza Pneumonia Cough . No further testing was done was placed on antibiotic . . Clinical Impression: 1. Influenza ED Disposition ED Disposition Discharge Condition Stable Comment Elsa Andrew discharged to home/self care in stable condition. Follow-up Information 1. Karena Valle MD. Specialty: Family Medicine [address] [place] [address] Contact information for after-discharge care Follow-up information has not been specified. New Prescriptions azithromycin (ZITHROMAX) 250 MG tablet Take 1 (one) tablet (250 mg total) by mouth daily for 5 days . Rocio Cortes MD 12/18/24 0917 AUTHENTICATED BY ROCIO CORTES, ON 12/18/2024 09:17:19 Normal [facility] BETA HCG, QUAL, BLOODon 08-2 HCG ( test) Ql Negative A [email or web address] 06-29-2024 ABSOLUTE BAS 0.0 10*3/uL Normal 0.0-0.2 [facility] Comment on above: Performed By: #### A CBC, LIVR, SHCGT, CHEM7F, LIPA2 #### Testing performed at [address] [address] ABSOLUTE EOS 0.0 10*3/uL Normal 0.0-0.7 [facility] Comment on above: Performed By: #### A CBC, LIVR, SHCGT, CHEM7F, LIPA2 #### Testing performed at [address] [address] ABSOLUTE NEUTROPHIL COUNT 5.1 10*3/uL Normal 1.4-6.5 [facility] Comment on above: Performed By: #### A CBC, LIVR, SHCGT, CHEM7F, LIPA2 #### Testing performed at [address] [address] Basophils/100 WBC (Bld) 0.4 % Normal 0.0-2.0 [facility] Comment on above: Performed By: #### A CBC, LIVR, SHCGT, CHEM7F, LIPA2 #### Testing performed at [address] [address] DTYPE AUTO DIFF Normal [facility] Comment on above: Performed By: #### A CBC, LIVR, SHCGT, CHEM7F, LIPA2 #### Testing performed at [address] [address] Eosinophils/100 WBC (Bld) 0.4 % Normal 0.0-11.0 [facility] Comment on above: Performed By: #### A CBC, LIVR, SHCGT, CHEM7F, LIPA2 #### Testing performed at [address] [address] Lymphocytes (Bld) [#/Vol] 1.8 10*3/uL Normal 1.2-3.4 [facility] Comment on above: Performed By: #### A CBC, LIVR, SHCGT, CHEM7F, LIPA2 #### Testing performed at [address] [address] Lymphocytes/100 WBC (Bld) 24.4 % Normal 20.0-55.0 [facility] Comment on above: Performed By: #### A CBC, LIVR, SHCGT, CHEM7F, LIPA2 #### Testing performed at [address] [address] Monocytes (Bld) [#/Vol] 0.6 10*3/uL Normal 0.0-0.7 [facility] Comment on above: Performed By: #### A CBC, LIVR, SHCGT, CHEM7F, LIPA2 #### Testing performed at [address] [address] Monocytes/100 WBC (Bld) 7.5 % Normal 0.0-10.0 [facility] Comment on above: Performed By: #### A CBC, LIVR, SHCGT, CHEM7F, LIPA2 #### Testing performed at [address] [address] Neutrophils/100 WBC (Bld) 67.3 % Normal 37.0-75.0 [facility] Comment on above: Performed By: #### A CBC, LIVR, SHCGT, CHEM7F, LIPA2 #### Testing performed at [address] [address] Erythrocyte distribution width (RBC) [Ratio] 14.3 % Normal 11.5-14.5 [facility] Comment on above: Performed By: #### A CBC, LIVR, SHCGT, CHEM7F, LIPA2 #### Testing performed at [address] [address] Hematocrit (Bld) [Volume fraction] 37.7 % Normal 36.0-48.0 [facility] Comment on above: Performed By: #### A CBC, LIVR, SHCGT, CHEM7F, LIPA2 #### Testing performed at [address] [address] Hemoglobin (Bld) [Mass/Vol] 12.4 g/dL Normal 12.0-16.0 [facility] Comment on above: Performed By: #### A CBC, LIVR, SHCGT, CHEM7F, LIPA2 #### Testing performed at [address] [address] MCH (RBC) [Entitic mass] 27.2 pg Normal 26.0-35.0 [facility] Comment on above: Performed By: #### A CBC, LIVR, SHCGT, CHEM7F, LIPA2 #### Testing performed at [address] [address] MCHC (RBC) [Mass/Vol] 33.0 g/dL Normal 27.0-37.0 [facility] Comment on above: Performed By: #### A CBC, LIVR, SHCGT, CHEM7F, LIPA2 #### Testing performed at [address] [address] MCV (RBC) [Entitic vol] 82.7 fL Normal 80.0-100.0 [facility] Comment on above: Performed By: #### A CBC, LIVR, SHCGT, CHEM7F, LIPA2 #### Testing performed at [address] [address] Platelet mean volume (Bld) [Entitic vol] 9.7 fL Normal 7.4-11.0 [facility] Comment on above: Performed By: #### A CBC, LIVR, SHCGT, CHEM7F, LIPA2 #### Testing performed at [address] [address] Platelets (Bld) [#/Vol] 221 10*3/uL Normal 130-400 [facility] Comment on above: Performed By: #### A CBC, LIVR, SHCGT, CHEM7F, LIPA2 #### Testing performed at [address] [address] RBC (Bld) [#/Vol] 4.56 10*6/uL Normal 4.0-5.4 [facility] Comment on above: Performed By: #### A CBC, LIVR, SHCGT, CHEM7F, LIPA2 #### Testing performed at [address] [address] WBC (Bld) [#/Vol] 7.5 10*3/uL Normal 3.6-11.0 [facility] Comment on above: Performed By: #### A CBC, LIVR, SHCGT, CHEM7F, LIPA2 #### Testing performed at [address] [address] CBC, EDIF, PLATELETon 2023 ABSOLUTE BASOPHIL COUNT 0.0 10*3/uL 0.0 - 0.2 10*3/uL [facility] Basophils/100 WBC (Bld) 0.4 % 0.0 - 2.0 % [facility] Differential cell count method Nom (Bld) AUTO DIFF % [facility] Eosinophils (Bld) [#/Vol] 0.0 10*3/uL 0.0 - 0.7 10*3/uL [facility] Eosinophils/100 WBC (Bld) 0.4 % 0.0 - 11.0 % [facility] Erythrocyte distribution width (RBC) [Ratio] 14.3 % 11.5 - 14.5 % [facility] Hematocrit (Bld) [Volume fraction] 37.7 % 36.0 - 48.0 % [facility] Hemoglobin (Bld) [Mass/Vol] 12.4 g/dL [facility] Lymphocytes (Bld) [#/Vol] 1.8 10*3/uL 1.2 - 3.4 10*3/uL [facility] Lymphocytes/100 WBC (Bld) 24.4 % 20.0 - 55.0 % [facility] MCH (RBC) [Entitic mass] 27.2 pg 26.0 - 35.0 PG [facility] MCHC (RBC) [Mass/Vol] 33.0 g/dL [facility] MCV (RBC) [Entitic vol] 82.7 fL [facility] Monocytes (Bld) [#/Vol] 0.6 10*3/uL 0.0 - 0.7 10*3/uL [facility] Monocytes/100 WBC (Bld) 7.5 % 0.0 - 10.0 % [facility] Neutrophils (Bld) [#/Vol] 5.1 10*3/uL 1.4 - 6.5 10*3/uL [facility] Neutrophils/100 WBC (Bld) 67.3 % 37.0 - 75.0 % [facility] Platelet mean volume (Bld) [Entitic vol] 9.7 fL [facility] Platelets (Bld) [#/Vol] 221 10*3/uL 130 - 400 10*3/uL [facility] RBC (Bld) [#/Vol] 4.56 10*6/uL 4.0 - 5.4 10*6/uL [facility] WBC (Bld) [#/Vol] 7.5 10*3/uL 3.6 - 11.0 10*3/uL [facility] CHEM 7 FASTINGon 06-29-2024 Chloride [Moles/Vol] 108 mmol/L High 98-107 [facility] Comment on above: Result Comment: Plechito murillo note: Triglyceride levels of 600mg/dL or higher may positively bias chloride results by approximately 2.1 mmol Performed By: #### A CBC, LIVR, SHCGT, CHEM7F, LIPA2 #### Testing performed at [place] [address] [place] [address] CO2 [Moles/Vol] 25 mmol/L Normal 22-30 [facility] Comment on above: Performed By: #### A CBC, LIVR, SHCGT, CHEM7F, LIPA2 #### Testing performed at [address] [address] Creatinine [Mass/Vol] 0.64 mg/dL Low 0.70-1.20 [facility] Comment on above: Performed By: #### A CBC, LIVR, SHCGT, CHEM7F, LIPA2 #### Testing performed at [place] [id number] EST. GFR, 151 ml/min/1.73sq.m [facility] Comment on above: Performed By: #### A CBC, LIVR, SHCGT, CHEM7F, LIPA2 #### [place] [address] EST. GFR,Non 125 ml/min/1.73sq.m [facility] Comment on above: Performed By: #### A CBC, LIVR, SHCGT, CHEM7F, LIPA2 #### Testing performed at [place] [id number] GFR Information Average GFR for 20-2 9 years old = 116. Normal [facility] Comment on above: Result Comment: [employer] Kidney disease, GFR = <60. Kidney failure, GFR = <15. The GFR estimate is not adjusted for extreme body surface area or acute process, nor has it been validated for women or ethnic groups other than and . Performed By: #### A CBC, LIVR, SHCGT, CHEM7F, LIPA2 #### Testing performed at [place] [id number] Glucose [Mass/Vol] 93 mg/dL Normal 70-100 [facility] Comment on above: Result Comment: NORMAL <100 mg/dL PREDIABETES 101-126 mg/dL DIABETES 126 mg/dL or higher Performed By: #### A CBC, LIVR, SHCGT, CHEM7F, LIPA2 #### Testing performed at [place] [id number] Potassium [Moles/Vol] 3.7 mmol/L Normal 3.5-5.1 [facility] Comment on above: Performed By: #### A CBC, LIVR, SHCGT, CHEM7F, LIPA2 #### Testing performed at [address] [address] Sodium [Moles/Vol] 139 mmol/L Normal 137-145 [facility] Comment on above: Performed By: #### A CBC, LIVR, SHCGT, CHEM7F, LIPA2 #### Testing performed at [address] [address] Urea nitrogen [Mass/Vol] 5 mg/dL Low 05-29 [facility] Comment on above: Performed By: #### A CBC, LIVR, SHCGT, CHEM7F, LIPA2 #### Testing performed at [address] [address] CHEM 7 (LYTES,BUN,CREA,GLUC) on 06-29-2024 Chloride [Moles/Vol] 108 mmol/L High [facility] Comment on above: Please note: Triglyc eride levels of 600mg/dL or higher may positively bias chloride results by approximately 2.1 mmol CO2 [Moles/Vol] 25 mmol/L [facility] Creatinine [Mass/Vol] 0.64 mg/dL Low [facility] GFR COMMENT Average GFR for 20-2 9 years old = 116. [facility] Comment on above: Chronic Kidney disea se, GFR = <60. Kidney failure, GFR = <15. The GFR estimate is not adjusted for extreme body surface area or acute process, nor has it been validated for women or ethnic groups other than and . GFR/1.73 sq M.predicted among blacks MDRD (S/P/Bld) [Vol rate/Area] 151 mL/min/{1.73_m2} ml/min/1.73s q.m [facility] GFR/1.73 sq M.predicted among non-blacks MDRD (S/P/Bld) [Vol rate/Area] 125 mL/min/{1.73_m2} ml/min/1.73s q.m [facility] Glucose post fast [Mass/Vol] 93 mg/dL [facility] Comment on above: NORMAL <100 mg/dL PREDIABETES 101-126 mg/dL DIABETES 126 mg/dL or higher Interpretation and review of laboratory results Abnormal [employer] [facility] Potassium [Moles/Vol] 3.7 mmol/L [facility] Sodium [Moles/Vol] 139 mmol/L [facility] Urea nitrogen [Mass/Vol] 5 mg/dL Low [facility] HCG ( test) Qlon [facility] HEPATIC FUNCTION PANELon Albumin [Mass/Vol] 4.0 g/dL [facility] ALP [Catalytic activity/Vol] 59 U/L [facility] ALT [Catalytic activity/Vol] 16 U/L NINF [facility] AST [Catalytic activity/Vol] 24 U/L [facility] Bilirubin [Mass/Vol] 0.4 mg/dL [facility] [facility] Bilirubin.direct [Mass/Vol] 0.1 mg/dL [facility] Protein [Mass/Vol] 7.0 g/dL [facility] LIPASEon 06-29-2024 Lipase [Catalytic activity/Vol] 95 U/L 23 - 300 U/L [facility] LIPASE,SERUMon 06-29-2024 LIPASE,SERUM 95 U/L Normal 23-300 [facility] Comment on above: Performed By: #### A CBC, LIVR, SHCGT, CHEM7F, LIPA2 #### Testing performed at [address] [address] LIVER PANELon 06-29-2024 Albumin [Mass/Vol] 4.0 g/dL Normal 3.5-5.0 [facility] Comment on above: Performed By: #### A CBC, LIVR, SHCGT, CHEM7F, LIPA2 #### Testing performed at [address] [address] ALP [Catalytic activity/Vol] 59 U/L Normal 38-126 [facility] Comment on above: Performed By: #### A CBC, LIVR, SHCGT, CHEM7F, LIPA2 #### Testing performed at [address] [address] ALT [Catalytic activity/Vol] 16 U/L Normal <35 [facility] Comment on above: Performed By: #### A CBC, LIVR, SHCGT, CHEM7F, LIPA2 #### Testing performed at [address] [address] AST [Catalytic activity/Vol] 24 U/L Normal 14-36 [facility] Comment on above: Performed By: #### A CBC, LIVR, SHCGT, CHEM7F, LIPA2 #### Testing performed at [address] [address] Bilirubin [Mass/Vol] 0.4 mg/dL Normal 0.2-1.3 [facility] Comment on above: Performed By: #### A CBC, LIVR, SHCGT, CHEM7F, LIPA2 #### Testing performed at [address] [address] Bilirubin.indirect [Mass/Vol] 0.1 mg/dL Normal 0.0-0.4 [facility] Comment on above: Performed By: #### A CBC, LIVR, SHCGT, CHEM7F, LIPA2 #### Testing performed at [address] [address] Protein [Mass/Vol] 7.0 g/dL Normal 6.3-8.2 [facility] Comment on above: Performed By: #### A CBC, LIVR, SHCGT, CHEM7F, LIPA2 #### Testing performed at [address] [address] No Panel Informationon 06-29 [facility] Portable XR Chest Viewson IMPRESSION: Nonacute portable chest. RADIOLOGY EXAM: XR CHEST 1 VIE W PORTABLE HISTORY: pain COMPARISON: None. TECHNIQUE: Portable chest done at 3:50 PM. FINDINGS: Trachea, mediastinum and heart size are unremarkable. No infiltrate or nodule or effusion or pneumothorax is noted. Diaphragm and bony elements are intact. RADIOLOGY José Miguel Vasquez, DO - 06/29/2024 EXAM: XR CHEST 1 VIEW PORTABLE HISTORY: pain COMPARISON: None. TECHNIQUE: Portable chest done at 3:50 PM. FINDINGS: Trachea, mediastinum and heart size are unremarkable. No infiltrate or nodule or effusion or pneumothorax is noted. Diaphragm and bony elements are intact. IMPRESSION IMPRESSION: Nonacute portable chest. [facility] Radiology Study observation (narrative) [facility] Portable XR Chest ViewsOrder ed By: José Miguel Vasquez on 06-29-2024 [facility] Work Phone: SERUM HCG QUALon 06-29-2024 SERUM BETA HCG,QUAL Negative Normal [facility] Comment on above: Performed By: #### A CBC, LIVR, SHCGT, CHEM7F, LIPA2 #### Testing performed at [facility] [address] [place] [address] XR CHEST 1 VIEW PORTABLEon 0 06-29-2024 XR CHEST 1 VIEW PORTABLE EXAM: XR CHEST 1 VIEW PORTABLE HISTORY: pain COMPARISON: None. TECHNIQUE: Portable chest done at 3:50 PM. FINDINGS: Trachea, mediastinum and heart size are unremarkable. No infiltrate or nodule or effusion or pneumothorax is noted. Diaphragm and bony elements are intact. IMPRESSION: Nonacute portable chest. Normal [facility] COVID-19, MOLECULARon 2023 SARS-CoV-2 (COVID-19) Ab IA Ql Not detected Normal Not Detected [facility] Comment on above: Result Comment: Test ing was performed using the [employer] ID NOW COVID-19 assay on the ID NOW platform. This test has not been approved for use in asymptomatic patients and its performance in this patient population has not been evaluated. Negative results do not rule out the presence of SARS-CoV-2/COVID-19. ED Prov Noteon 03-24-2024 ED Prov Note HPI: 03/24/2024, Time: @LARISA@ Elsa Lorrie is a 18 y.o. female presenting to the ED for headache and cough productive of green sputum and sore throat and bodyaches, beginning last few days ago. The complaint has been constant, moderate in severity, and worsened by nothing. No alleviating factors. Complains also of nausea and upset stomach but no actual pain ROS: Pertinent positives and negatives are stated within HPI, all other systems reviewed and are negative. PAST HISTORY Past Medical History: @PMHP@ Past Surgical History: has a past surgical history that includes CT Colonoscopy (12/19/2022). Social History: reports that she has never smoked. She has never used smokeless tobacco. She reports current alcohol use. She reports current drug use. Drug: Marijuana. Family History: family history is not on file. The patient's home medications have been reviewed. Allergies: Ciprofloxacin, Amoxicillin, Cefprozil, Cephalexin, and Sulfa (sulfonamide antibiotics) ---- RESULTS --- All laboratory and radiology results have been personally reviewed by myself LABS: Results for orders placed or performed during the hospital encounter of 03/24/24 COVID-19, Molecular Specimen: Swab Result Value Ref Range SARS-CoV-2 Not Detected Not Detected POC Influenza A/B Result Value Ref Range POC Rapid Influenza A Ag Not Detected Not Detected POC Influenza B Ag Not Detected Not Detected POC Strep A - Molecular Result Value Ref Range Strep A Screen Negative Negative RADIOLOGY: Interpreted by Radiologist. XR Chest 1 View Final Result No acute cardiopulmonary process. Workstation ID: [id number] -- NURSING NOTES AND VITALS REVIEWED ---- The nursing notes within the ED encounter and vital signs as below have been reviewed. BP 104/70 Pulse 78 Temp 98.5 degrees F (36.9 degrees C) (Oral) Resp 16 Ht 5' 5 Wt 65.8 kg (145 lb) SpO2 97% BMI 24.13 kg/m Oxygen Saturation Interpretation: Normal -----PHYSICAL EXAM Constitutional/General: Alert and oriented x3, mildly ill appearing, non toxic in NAD Head: NC/AT Eyes: PERRL, EOMI Mouth: Oropharynx clear, handling secretions, no trismus, mild erythema of the posterior pharynx Neck: Supple, full ROM, no meningeal signs Pulmonary: Lungs clear to auscultation bilaterally, no wheezes, rales, or rhonchi. Not in respiratory distress Cardiovascular: Regular rate and rhythm, no murmurs, gallops, or rubs. 2+ distal pulses Abdomen: Soft, non tender, non distended, Extremities: Moves all extremities x 4. Warm and well perfused Skin: warm and dry without rash Neurologic: GCS 15, Psych: Normal Affect ------- ED COURSE/MEDICAL DECISION MAKING ----- Medications ondansetron (ZOFRAN-ODT) disintegrating tablet 4 mg (4 mg Oral Given 03/24/24 1143) Medical Decision Making: Viral test negative and chest x-ray negative therefore will treat for presumptive flulike illness Counseling: The emergency provider has spoken with the patient and discussed today's results, in addition to providing specific details for the plan of care and counseling regarding the diagnosis and prognosis. Questions are answered at this time and they are agreeable with the plan. IMPRESSION AND DISPOSITION IMPRESSION 1. Viral illness DISPOSITION Disposition: discharged to home Patient condition is stable Summation Patient Course: Improved, tolerated fluids after Zofran ED Medications administered this visit: Medications ondansetron (ZOFRAN-ODT) disintegrating tablet 4 mg (4 mg Oral Given 03/24/24 1143) New Prescriptions from this visit: New Prescriptions ibuprofen (ADVIL,MOTRIN) 600 MG tablet Take 1 (one) tablet (600 mg total) by mouth every 6 (six) hours as needed for pain . brompheniramine-pseudoe PHEDrine-DM 2-30-10 mg/5 mL syrup Take 5 mL by mouth 4 (four) times a day as needed . Follow-up: Karena Valle MD [address] [address] In 1 week Final Impression: 1. Viral illness (Please note that portions of this note were completed with a voice recognition program. Efforts were made to edit the dictations but occasionally words are mis-transcribed.) Kim Frias MD 03/24/24 1251 AUTHENTICATED BY KIM FRIAS, ON 03/24/2024 12:51:40 Normal [facility] POC INFLUENZA A/B - RALSon 0 03-24-2024 POC INFLUENZA A (FSED) Not detected Normal Not Detecte d [facility] POC INFLUENZA B (FSED) Not detected Normal Not Detecte d [facility] POC STREP A - MOLECULAR RALS on 03-24-2024 POC STREP A SCREEN Negative Normal Negative [facility] XR CHEST PA/APon 03-24-2024 XR CHEST PA/AP EXAMINATION: XR CHEST PA/AP HISTORY: ORDERING SYSTEM PROVIDED HISTORY: Fever and cough, TECHNOLOGIST PROVIDED HISTORY: Illness/Other Reason for exam: cough Cancer History: no Surgery, RadiationHistory: no Encounter Type: Initial Additional signs and symptoms: flu-like symptoms ORDERING SYSTEM PROVIDED DIAGNOSIS CODES: B34.9 Viral illness COMPARISON: None FINDINGS: One-view chest x-ray. No pneumothorax, pleural effusion or focal airspace consolidation. Heart is normal in size. Bony thorax is unremarkable. IMPRESSION: No acute cardiopulmonary process. Workstation ID: [id number] Dictated by: SELINA TRINIDAD on FriMarch 24, 2024 12:39:31 PM EDT Transcribed by: ESLINA TRINIDAD on FriMarch 24, 2024 12:39:31 PM EDT Finalized by: SELINA TRINIDAD on FriMarch 24, 2024 12:39:[address] [facility] Comment on above: Order Comment: Injur y/Trauma or Illness?:Illness/Other How long have you had these symptoms (acute/chronic)?:Acute Reason for exam?:cough History of cancer?:no Surgeries, chemotherapy, or radiation?:no Type of Exam?:Initial Additional signs and symptoms?:flu-like symptoms ECG 12 lead (Clinic Performe d)on 03-04-2024 EKG performed in cli chuck today shows normal sinus rhythm with no resting ST-T segment changes [facility] Work Phone: XR Hand - right 3 Viewson Normal radiographs o f the right hand. MACRO: None Signed by: Junaid Leroy 01/16/2024 6:22 PM Dictation workstation: [id number] [facility] Interpreted By: Junaid Husain, STUDY: XR HAND RIGHT 3+ VIEWS; ; 01/15/2024 10:47 am INDICATION: Signs/Symptoms:pain. COMPARISON: None. ACCESSION NUMBER(S): [id number] ORDERING CLINICIAN: KARENA VALLE FINDINGS: Right hand, three views There is no fracture. There is no dislocation. There are no degenerative change. There is no erosions [facility] Junaid Leroy MD - 01/16/2024 Interpreted By: Junaid Leroy, STUDY: XR HAND RIGHT 3+ VIEWS; ; 01/15/2024 10:47 am INDICATION: Signs/Symptoms:pain. COMPARISON: None. ACCESSION NUMBER(S): [id number] ORDERING CLINICIAN: KARENA VALLE FINDINGS: Right hand, three views There is no fracture. There is no dislocation. There are no degenerative change. There is no erosions IMPRESSION: Normal radiographs of the right hand. MACRO: None Signed by: Junaid Leroy 01/16/2024 6:22 PM Dictation workstation: [id number] [facility] Work Phone: XR Hand - right 3 ViewsOrder ed By: Junaid Leroy on 01-16-2024 [facility] Work Phone: XR Wrist - right 3 Viewson 0 01-16-2024 Normal radiographs o f the right wrist MACRO: None Signed by: Junaid Leroy 01/16/2024 6:26 PM Dictation workstation: [id number] [facility] Interpreted By: Junaid Husain, STUDY: XR WRIST RIGHT 3+ VIEWS; ; 01/15/2024 10:48 am INDICATION: Signs/Symptoms:pain. COMPARISON: None. ACCESSION NUMBER(S): [id number] ORDERING CLINICIAN: KARENA VALLE FINDINGS: Right wrist, three views There is no fracture. There is no dislocation. No degenerative change seen. There is no erosion Junaid Morelos MD - 01/16/2024 Interpreted By: Junaid Leroy, STUDY: XR WRIST RIGHT 3+ VIEWS; ; 01/15/2024 10:48 am INDICATION: Signs/Symptoms:pain. COMPARISON: None. ACCESSION NUMBER(S): [id number] ORDERING CLINICIAN: KARENA VALLE FINDINGS: Right wrist, three views There is no fracture. There is no dislocation. No degenerative change seen. There is no erosion IMPRESSION: Normal radiographs of the right wrist MACRO: None Signed by: Junaid Leroy 01/16/2024 6:26 PM Dictation workstation: [id number] [facility] Work Phone: XR Wrist - right 3 ViewsOrde red By: Junaid Leroy on 01-16-2024 [facility] Work Phone: C reactive proteinon 024 CRP [Mass/Vol] 0.25 mg/dL Normal <1.00 [facility] Comment on above: Performed By: #### 1 988-5 #### DAVINA GILLESPIE ([id number]) [facility] ([facility]) [address] [place] [address] Cyclic citrullinated peptide Ab.IgGon 01-15-2024 Cyclic citrullinated peptide IgG Qn <1 Normal <3 [facility] Comment on above: Order Comment: THE T EST FOR ANTIBODIES SPECIFIC FOR CYCLIC CITRULLINATED PEPTIDE (CCP) HAS SHOWN TO BE VALUABLE IN THE DIAGNOSIS OF RHEUMATOID ARTHRITIS. THE DIAGNOSTIC VALUE OF ANTIBODIES TO CCP IN JUVENILE RHEUMATOID ARTHRITIS PATIENTS HAS NOT BEEN DETERMINED. ANTIBODIES TO CENTROMERE OR SS-A AND MYELOMA IGG MAY BE REACTIVE IN THIS ASSAY. Result Comment: NEGA TIVE < 3 U/ML POSITIVE >=3 U/ML Performed By: #### 3 [id number] ###Azra Nickerson ([id number]) [facility] ([facility]) [address] [place] [id number] ESR Westergren method (Bld) [Velocity]on 01-15-2024 ESR (Bld) [Velocity] 12 mm/h Normal 0-20 [facility] Comment on above: Performed By: #### 4 537-7 #### DAVINA GILLESPIE ([id number]) [facility] ([facility]) [address] [place] [id number] Nuclear Abon 01-15-2024 Nuclear Ab Hep2 substrate Ql (S) Negative Normal Negative [facility] Comment on above: Result Comment: The Antinuclear Antibody (KELECHI) test was performed using indirect immunofluorescence assay with HEp-2 cells slide. Performed By: #### 5 [id number] #### PASQUALE Nickerson ([id number]) [facility] ([facility]) [address] [place] [address] Rheumatoid factoron 01-15-20 24 Rheumatoid factor Nephelometry Qn (S) <10 Normal 0-15 [facility] Comment on above: Performed By: #### 1 [id number] #### PASQUALE Nickerson ([id number]) [facility] ([facility]) [address] [place] [address] Urateon 01-15-2024 Urate [Mass/Vol] 3.5 mg/dL Normal 2.3-6.7 [facility] Comment on above: Result Comment: Anna puncture immediately after or during the administration of Metamizole may lead to falsely low results. Testing should be performed immediately prior to Metamizole dosing. Performed By: #### 3 084-1 #### DAVINA GILLESPIE ([id number]) [facility] ([facility]) [address] [place], [place] [id number] XR HAND RIGHT 3+ VIEWSon XR HAND RIGHT 3+ VIEWS Interpreted By: Junaid Borjas, STUDY: XR HAND RIGHT 3+ VIEWS; ; 01/15/2024 10:47 am INDICATION: Signs/Symptoms:pain. COMPARISON: None. ACCESSION NUMBER(S): [id number] ORDERING CLINICIAN: KARENA VALLE FINDINGS: Right hand, three views There is no fracture. There is no dislocation. There are no degenerative change. There is no erosions IMPRESSION: Normal radiographs of the right hand. MACRO: None Signed by: Junaid Leroy 01/16/2024 6:22 PM Dictation workstation: [id number] [facility] XR Hand - right 3 Viewson Radiology Study observation (narrative) [facility] Work Phone: XR WRIST RIGHT 3+ VIEWSon XR WRIST RIGHT 3+ VIEWS Interpreted By: Junaid Leroy, STUDY: XR WRIST RIGHT 3+ VIEWS; ; 01/15/2024 10:48 am INDICATION: Signs/Symptoms:pain. COMPARISON: None. ACCESSION NUMBER(S): [id number] ORDERING CLINICIAN: KARENA VALLE FINDINGS: Right wrist, three views There is no fracture. There is no dislocation. No degenerative change seen. There is no erosion IMPRESSION: Normal radiographs of the right wrist MACRO: None Signed by: Junaid Leroy 01/16/2024 6:26 PM Dictation workstation: [id number] [facility] XR Wrist - right 3 Viewson 0 01-15-2024 Radiology Study observation (narrative) [facility] Work Phone: GROUP A STREP,PCRon 06-27-20 23 GROUP A STREP,PCR Not detected Normal Not Detected [facility] Comment on above: Result Comment: This test and its performance have been Validated by [facility] using analyte specific reagents (ASR). It has not been cleared or approved by the U.S. Food and Drug Administration. The FDA has determined that such clearance or approval is not necessary. Performed By: #### G APC1 #### [facility] [id number] [place] [address] Lab Specimen Source Throat Normal [facility] Comment on above: Performed By: #### G APC1 #### [facility] [address] [place] [address] Provider Note - ED v3on 06-10 Provider Note - ED v3 Provider Note: Results/Vital Signs: Pediatric Clinical Scoring (PRERNA) is no recent PRERNA charted on this account Chart Review: HISTORY OF PRESENTING ILLNESS ELSA is a 17 year old Female and was seen by me at 27-Jun-2023 14:53. The historian is the patient. Triage Information: Most recent Vital Sign Value Date PAST MEDICAL HISTORY ALLERGIES/INTOLERANCES: Allergy Allergen: Cipro Type: Drug Reaction: Unknown Allergen: Cefzil Type: Drug Reaction: Rash Allergen: Keflex Type: Drug Reaction: Hives/Urticaria Allergen: Amoxil Type: Drug Reaction: Hives/Urticaria Allergen: Augmentin Type: Drug Reaction: Rash Allergen: sulfa drugs Type: Drug Category Reaction: Hives/Urticaria HEALTH HISTORY: History of Crohn's Disease and POTS; no other known health issues. Family history: no pertinent history. Social history: non-smoker but vapes. Employed - works at [employer]. OUTPATIENT MEDICATIONS: Home Medications Review Status for Reconciliation: Complete Med Status: Patient Currently Takes Medications Drug Name: benzonatate 100 mg oral capsule Instructions: 1-2 cap(s) orally every 8 hours, As Needed for cough SIGNIFICANT EVENTS: Past Medical History Description:depression Description:self harming behavior Description:hx of fainting Description:hx of SOB Description:hx of irregular heart beat Description:wt loss Description:breast pain Description:dysmenorrhe a Description:bronchitis Description:yeast infection Past Surgical History Description:Tonsillecto my & Adenoidectomy No other known significant events or other known past surgical history. Is up to date with childhood immunizations, per patient. CRITICAL CARE VITAL SIGNS: T PRBP SpO2O2(LPM) %FiO2 Method 27-Jun-2023 14:31:[id number] 98 MDM MDM/ED COURSE: This note was generated with voice recognition software and may contain errors including spelling, grammar, syntax, and misrecognization of what was dictated CHIEF COMPLAINT sore throat, cough HISTORY OF PRESENT ILLNESS Patient presents today for evaluation of a sore throat and dry cough that she attributes to a tickle in her throat - sxs started on Friday. Reports her throat feels scratchy, and looks red inside. She has also had very mild nasal congestion (clear mucus). Denies any fever/chills, body aches, sinus pressure/pain, ear pain, new headaches (has history of migraines), abdominal pain, chest pain, wheezing/shortness of breath, rashes, urinary symptoms, and nausea/vomiting. She has intermittent diarrhea but reports this is her baseline d/t Crohn's Disease. Denies any new lightheadedness or dizziness (has history of POTS); no changes in mental status. No swelling in legs. Appetite is poor but is able to drink fluids without difficulty; denies any loss of sense of taste/smell. Reports feels like symptoms are persisting without much change since onset- reports it is hard to sleep d/t the cough. Has been taking Advil, cough drops, and drinking hot tea with some temporary relief; no other nsas-zud-wdqwoyz medications or home remedies for symptom management. No known ill contacts. Has not received the COVID-19 vaccine; no known history of COVID. Does not smoke but vapes. REVIEW OF SYSTEMS 10 systems reviewed negative with exception of history of present illness listed above PHYSICAL EXAMINATION General: Mildly ill-appearing, well nourished female; alert and oriented; in no acute distress. Sitting comfortably on exam table. Non-dyspneic. Eyes: Pupils equal, round and reactive to light. No conjunctival erythema; no scleral icterus. HENT: No frontal or maxillary sinus tenderness; + mild audible nasal congestion. Airway patent, TMs and ear canals clear/unremarkable bilaterally. Nasal mucosa mildly injected and edematous. Oral mucosa moist. Posterior pharynx mildly injected but without vesicles or oropharyngeal exudate aside from PND. Tonsils absent. Uvula is midline. Managing oral secretions without difficulty. No trismus or hoarseness. Neck: Supple. Mildly tender, mobile anterior cervical lymphadenopathy bilat. Trachea is midline. Respiratory: Respirations easy and unlabored, Breath sounds equal. Lungs are clear to auscultation; no wheezes, rhonchi, or rales; has good air movement throughout. + persistent, non-productive cough noted. Non-dyspneic with ambulation; able to maintain SpO2. Cardiovascular: Normal rate, Regular rhythm. Normal S1S2. No m/r/g. No peripheral edema. Gastrointestinal: Soft, non-tender, non-distended; no palpable masses or organomegaly. Bowel sounds normoactive. Musculoskeletal: Grossly normal; appropriate for age. Integumentary: Floweree, warm, dry, and intact. No rashes or skin discoloration appreciated. Good skin turgor. Neurologic: Alert and oriented, no gross deficits. Cognitio (more content not included)... Normal [facility] Narrative Note - Outpatiento n 04-10-2023 Narrative Note - Outpatient Narrative Note: Description Patient presented to the Urgent Care for evaluation of weakness/instability in both legs, back/flank pain that causes difficulty changing position and causes her shortness of breath, stabbing pain in my clitoral area, vaginal odor/green vaginal discharge, and abdominal discomfort - sxs started 3-4 days ago. In light of the severity of her multiple symptoms, recommended she seek immediate care at the ER. Patient stable for transport; patient receptive and agrees to go straight there- boyfriend will drive here. Stressed importance of seeking care immediately. Non-billable - deferring all evaluation/visit to the ER. Electronic Signatures: Darshan Cordero (TACKER OFF-ASSOCIATE PROFESSOR [employer]) (Signed 10-Apr-2023 15:05) Authored: Narrative Note - OP Last Updated: 10-Apr-2023 15:05 by Darshan Cordero (TACKER OFF-ASSOCIATE PROFESSOR [employer]) [facility] URINE CULTURE,BACTERIALon URINE CULTURE,BACTERIAL TEST URINE CULTURE,BACTERIAL WAS CANCELLED, 04/10/2023 15:07 patient sent to ER for further testing. PATIENT: ELSA ANDREW LOCATION: [facility] [place] BILL#: [id number] : 1 AGE: SEX: F ORDERED BY: DARSHAN CORDERO SOURCE: URINE COLLECTED: 04/10/23 14:20 ANTIBIOTICS AT ANA MARIA.: RECEIVED : SITE: Clean Catch/Voided R E S U L T S URINE CULTURE,BACTERIAL CANCELLED 04/10/23 15:07 Normal [facility] Comment on above: Performed By: #### U [facility] #### [facility] [address] [place] [address] RN ADVANCED - Office Visiton 05-0 RN ADVANCED - Office Visit Provider Sergo laboy Patient is a 17-year-old with some vague nonspecific pelvic pain. Tenderness out of proportion to physical exam. Work-up was negative for chlamydia gonorrhea. Genital culture normal. Urine culture normal. Ultrasound normal. CBC normal. Entire REAL ESTATE LEGAL SECRETARY work-up for pelvic pain and dyspareunia was unremarkable, except for BV which was treated. Advised patient and mother to consult with PCP concerning additional further work-ups but from a REAL ESTATE LEGAL SECRETARY etiology no pathologic or physiologic source to her vague pain could be identified Chief Complaint Patient here today for ultrasound result follow up. She does note she has had right breast pain and burning for about 5 days but denies a breast exam today. History of Present IllnessLaceyamini is a 17-year-old who comes in for 2-week follow-up after treatment for BV and PID for chronic pelvic pain. She is also here to review her work-up. Patient reports that she has finished her treatment and feels that there is not a significant improvement. She reports that she still has a deep pelvic pain that gets exacerbated with moving in certain directions. She denies any changes in bowel habits or urinary symptoms Active Problems Problems Abdominal pain (789.00) (R10.9) Acute lower UTI (599.0) (N39.0) Anxiety (300.00) (F41.9) Cellulitis, unspecified cellulitis site (682.9) (L03.90) Chronic epigastric pain (789.06,338.29) (R10.13,G89.29) Contraception management (V25.9) (Z30.9) Dysmenorrhea (625.3) (N94.6) Dysuria (788.1) (R30.0) Encounter for immunization (V03.89) (Z23) Fatigue (780.79) (R53.83) Hyperlipidemia (272.4) (E78.5) Ileitis, terminal (555.0) (K50.00) Menorrhagia (626.2) (N92.0) Nausea in adult (787.02) (R11.0) Palpitation (785.1) (R00.2) Pelvic pain in female (625.9) (R10.2) PID (acute pelvic inflammatory disease) (614.3) (N73.0) Postcoital bleeding (626.7) (N93.0) Postural orthostatic tachycardia syndrome [POTS] (427.89) (G90.A) 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,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) Screening for STD (sexually transmitted disease) (V74.5) (Z11.3) Syncope and collapse (780.2) (R55) Vaginal discharge (623.5) (N89.8) Vaginal pain (625.9) (R10.2) Weight loss (783.21) (R63.4) Yeast infection of the vagina (112.1) (B37.31) Past Medical History Problems History of Breast pain in female (611.71) (N64.4) Resolved Date: 23 Sep 2022 History of acute bronchitis (V12.69) (Z87.09) Resolved Date: 23 Sep 2022 History of Left foot pain (729.5) (M79.672) Resolved Date: 23 Sep 2022 History of Menstruation Onset age 7 years Surgical History Problems History of Tonsillectomy with adenoidectomy 09/02/2017 Family History Mother Family history of hyperlipidemia (V18.19) (Z83.438) Family history of hypertension (V17.49) (Z82.49) Family history of migraine headaches (V17.2) (Z82.0) FHx: SVT (supraventricular tachycardia) (V17.49) (Z82.49) Father Family history of hypertension (V17.49) (Z82.49) Family history of myocardial infarction (V17.3) (Z82.49) Social History Problems Does not have living will Marijuana No alcohol use No illicit drug use Non-smoker (V49.89) (Z78.9) Occasional caffeine consumption Sexually active Allergies Medication Amoxil Hives;; Recorded By: Melisa Berry; 02/07/2020 10:49:49 AM Keflex Hives;; Recorded By: Melisa Berry; 02/07/2020 10:49:49 AM Sulfa Drugs Hives;; Recorded By: Melisa Berry; 02/07/2020 10:49:49 AM Augmentin Diarrhea; Rash; Recorded By: Kassandra Villanueva; 11/08/2019 9:41:50 AM Cefzil Rash; Recorded By: Kassandra Villanueva; 11/08/2019 9:41:50 AM ciprofloxacin Unknown; Recorded By: Kassandra Villanueva; 11/08/2019 9:41:50 AM Current Meds Medication NameInstruction Doxycycline Hyclate 100 MG Oral TabletTAKE 1 TABLET EVERY 12 HOURS DAILY. metroNIDAZOLE 500 MG Oral TabletTake 1 tablet twice daily Mupirocin 2 % External OintmentAPPLY SPARINGLY TO AFFECTED AREA(S) TWICE DAILY Sodium Chloride 1 GM Oral TabletTAKE 1 TABLET Every twelve hours Vitals Vital Signs Recorded: 10Mar2023 10:56AM Ouhgbarr367 Spiutracs24 Height5 ft 5 in 2-20 Stature Emixusxadd36 % Uqnrzb222 lb 6 oz 2-20 Weight Obulmkaffo52 % BMI Vjwctptizq86.35 kg/m2 BMI Qcrrfhfwmd48 % BSA Calculated1.85 Physical Exam Constitutional: Healthy appearing in no distress. Head and Face: No obvious lesions. Abdomen: Soft vague nonspecific tenderness. Vaginal exam diffusely tender vaginal erazo. Reaction out of proportion to physical exam. Cervical motion tenderness uterine tenderness bladder tenderness again out of proportion to physical exam Musculoskeletal: Good mobility. Psychiatric: Appropriately oriented. Signatures Electronically signed by : Janina Musa MD; Mar 10 2023 11:11AM EST (Author) Normal Sellar[facility] No Panel Informationon 02-27 Please click on the link to view the study images Normal [facility] [employer] Work Phone: Normal [facility] [employer] Work Phone: GC + CHLAMYDIA BY AMPLIFIED DETECTIONon 02-25-2023 CHLAMYDIA TRACH.,AMPLIFIED Negative Normal Negative [facility] Comment on above: Result Comment: The APTIMA Combo 2 assay is FDA-approved for Chlamydia trachomatis and Neisseria gonorrhoeae testing on female endocervical and vaginal swabs, ThinPrep liquid pap samples, male urine samples and urethral swabs. Performance characteristics for Chlamydia trachomatis and Neisseria gonorrhoeae testing on specific qzh-FTA-ihekgatf sample types (female urine samples) have been validated by [facility]. This laboratory is certified by CLIA to perform high complexity testing. Samples from all other sites are not validated for this method. Performed By: #### G ENLO #### [facility] [address] [place] [address] N.GONORRHEA,AMPLIFIED Negative Normal Negative [facility] Comment on above: Result Comment: The APTIMA Combo 2 assay is FDA-approved for Chlamydia trachomatis and Neisseria gonorrhoeae testing on female endocervical and vaginal swabs, ThinPrep liquid pap samples, male urine samples and urethral swabs. Performance characteristics for Chlamydia trachomatis and Neisseria gonorrhoeae testing on specific bcb-TBD-nyhzavpj sample types (female urine samples) have been validated by [facility]. This laboratory is certified by CLIA to perform high complexity testing. Samples from all other sites are not validated for this method. Performed By: #### G ENLO #### [facility] [address] [place] [address] CBC AND DIFFERENTIALon 02-24 % AUTOMATED IMMATURE GRAN 0.3 % Normal 0.0 - 0.9 [facility] Comment on above: Result Comment: Rosario ture Granulocyte Count (IG) includes promyelocytes, myelocytes and metamyelocytes but does not include bands. Percent differential counts (%) should be interpreted in the context of the absolute cell counts (cells/L). Performed By: #### C BCDF #### [address] [address] Basophils (Bld) [#/Vol] 0.03 10*3/uL Normal 0.00 - 0.1 0 [facility] Comment on above: Performed By: #### C BCDF #### [address] [address] Basophils/100 WBC (Bld) 0.9 % Normal 0.0 - 2.0 [facility] Comment on above: Performed By: #### C BCDF #### [address] [address] Eosinophils (Bld) [#/Vol] 0.06 10*3/uL Normal 0.00 - 0.70 [facility] Comment on above: Performed By: #### C BCDF #### [address] [address] Eosinophils/100 WBC (Bld) 1.7 % Normal 0.0 - 6.0 [facility] Comment on above: Performed By: #### C BCDF #### [address] [address] Erythrocyte distribution width (RBC) [Ratio] 12.7 % Normal 11.5 - 14.5 [facility] Comment on above: Performed By: #### C BCDF #### [address] [address] Hematocrit (Bld) [Volume fraction] 40.5 % Normal 36.0 - 46.0 [facility] Comment on above: Performed By: #### C BCDF #### [address] [address] Hemoglobin (Bld) [Mass/Vol] 12.9 g/dL Normal 12.0 - 16.0 [facility] Comment on above: Performed By: #### C BCDF #### [address] [address] Lymphocytes (Bld) [#/Vol] 1.15 10*3/uL Low 1.20 - 4.80 [facility] Comment on above: Performed By: #### C BCDF #### [address] [address] Lymphocytes/100 WBC (Bld) 33.2 % Normal 13.0 - 44.0 [facility] Comment on above: Performed By: #### C BCDF #### [address] [address] MCHC (RBC) [Mass/Vol] 31.9 g/dL Low 32.0 - 36.0 [facility] Comment on above: Performed By: #### C BCDF #### [address] [address] MCV (RBC) [Entitic vol] 84 fL Normal 80 - 100 [facility] Comment on above: Performed By: #### C BCDF #### [address] [address] Monocytes (Bld) [#/Vol] 0.53 10*3/uL Normal 0.10 - 1.0 0 [facility] Comment on above: Performed By: #### C BCDF #### [address] [address] Monocytes/100 WBC (Bld) 15.3 % Normal 2.0 - 10.0 [facility] Comment on above: Performed By: #### C BCDF #### [address] [address] Neutrophils (Bld) [#/Vol] 1.68 10*3/uL Normal 1.20 - 7.70 [facility] Comment on above: Result Comment: Perc ent differential counts (%) should be interpreted in the context of the absolute cell counts (cells/L). Performed By: #### C BCDF #### [address] [address] Neutrophils/100 WBC (Bld) 48.6 % Normal 40.0 - 80.0 [facility] Comment on above: Performed By: #### C BCDF #### [address] [address] Platelets (Bld) [#/Vol] 325 10*3/uL Normal 150 - 450 [facility] Comment on above: Performed By: #### C BCDF #### [address] [address] RBC 4.85 x10E12/L Normal 4.00 - 5.20 [facility] Comment on above: Performed By: #### C BCDF #### [address] [address] WBC (Bld) [#/Vol] 3.5 10*3/uL Low 4.4 - 11.3 [facility] Comment on above: Performed By: #### C BCDF #### [address] [address] Complete Blood Count + Diffe eliceo 02-24-2023 Basophils/100 WBC (Bld) 0.9 % 0.0 - 2.0 [facility] [employer] Work Phone: Erythrocyte distribution width (RBC) [Ratio] 12.7 % See Below [facility] [address] [employer] Work Phone: Comment on above: Reference Range: 11. 5 - 14.5 Hematocrit (Bld) [Volume fraction] 40.5 % See Below [facility] [address] Work Phone: [phone] Comment on above: Reference Range: 36. 0 - 46.0 Hemoglobin (Bld) [Mass/Vol] 12.9 g/dL See Below [facility] [address] Work Phone: [phone] Comment on above: Reference Range: 12. 0 - 16.0 Lymphocytes/100 WBC (Bld) 33.2 % See Below [facility] [address] Work Phone: [phone] Comment on above: Reference Range: 13. 0 - 44.0 MCHC (RBC) [Mass/Vol] 31.9 g/dL below low threshold See Below [facility] [address] Work Phone: [phone] Comment on above: Reference Range: 32. 0 - 36.0 MCV (RBC) [Entitic vol] 84 fL 80 - 100 [facility] [address] Work Phone: [phone] Monocytes/100 WBC (Bld) 15.3 % 2.0 - 10.0 [facility] [address] Work Phone: [phone] Neutrophils/100 WBC (Bld) 48.6 % See Below [facility] [address] Work Phone: [phone] Comment on above: Reference Range: 40. 0 - 80.0 Platelets (Bld) [#/Vol] 325 10*3/uL 150 - 450 [facility] [address] Work Phone: [phone] RBC (Bld) [#/Vol] 4.85 {x10E12/L} See Below [facility] [address] Work Phone: [phone] Comment on above: Reference Range: 4.0 0 - 5.20 WBC (Bld) [#/Vol] 3.5 10*3/uL below low threshold 4.4 - 11.3 [facility] [address] Work Phone: [phone] Complete Blood Count + Differential 0.03 {x10E9/L} See Below [facility] [address] Work Phone: [phone] Comment on above: Reference Range: 0.0 0 - 0.10 Complete Blood Count + Differential 0.06 {x10E9/L} See Below [employer] [place] [address] [address] Work Phone: [phone] Comment on above: Reference Range: 0.0 0 - 0.70 Complete Blood Count + Differential 0.53 {x10E9/L} See Below [employer] [place] Work Phone: [phone] Comment on above: Reference Range: 0.1 0 - 1.00 Complete Blood Count + Differential 1.15 {x10E9/L} below low threshold See Below [employer] [employer] Work Phone: [phone] Comment on above: Reference Range: 1.2 0 - 4.80 Complete Blood Count + Differential 1.68 {x10E9/L} See Below [employer] [facility] [place] Work Phone: [phone] Comment on above: Reference Range: 1.2 0 - 7.70 Percent differential counts (%) should be interpreted in the context of the absolute cell counts (cells/L). Complete Blood Count + Differential 1.7 % 0.0 - 6.0 [employer] [place] Work Phone: [phone] Complete Blood Count + Differential 0.3 % 0.0 - 0.9 [employer] [place] Work Phone: [phone] Comment on above: Immature Granulocyte Count (IG) includes promyelocytes, myelocytes and metamyelocytes but does not include bands. Percent differential counts (%) should be interpreted in the context of the absolute cell counts (cells/L). Cult, Genitalon 02-24-2023 Bacteria identified Aer cx Nom (Genital specimen) [employer] [employer] Work Phone: [phone] Cult, Urineon 02-24-2023 Bacteria identified Cx Nom (U) [employer] [place] [address] [address] [employer] Work Phone: [phone] GC + CHLAMYDIA BY AMPLIFIED DETECTIONon 02-24-2023 Lab Specimen Source Urine Normal [facility] Comment on above: Performed By: #### G ENLO #### [facility] [address] [place] [address] GC + Chlamydia By Amplified Detectionon 02-24-2023 C. trachomatis rRNA VIRIDIANA+probe Ql (Unsp spec) Negative Negative [facility] [address] Work Phone: Comment on above: The APTIMA Combo 2 a ssay is FDA-approved for Chlamydia trachomatis and Neisseria gonorrhoeae testing on female endocervical and vaginal swabs, ThinPrep liquid pap samples, male urine samples and urethral swabs. Performance characteristics for Chlamydia trachomatis and Neisseria gonorrhoeae testing on specific wuv-CGA-tqrgsarz sample types (female urine samples) have been validated by [facility]. This laboratory is certified by CLIA to perform high complexity testing. Samples from all other sites are not validated for this method. N. gonorrhoeae rRNA VIRIDIANA+probe Ql (Unsp spec) Negative Negative [facility] [address] [employer] Work Phone: Comment on above: SOURCE: Urine The AP SUZANNE Combo 2 assay is FDA-approved for Chlamydia trachomatis and Neisseria gonorrhoeae testing on female endocervical and vaginal swabs, ThinPrep liquid pap samples, male urine samples and urethral swabs. Performance characteristics for Chlamydia trachomatis and Neisseria gonorrhoeae testing on specific ngw-TZB-ofadebwg sample types (female urine samples) have been validated by [facility]. This laboratory is certified by CLIA to perform high complexity testing. Samples from all other sites are not validated for this method. GENITAL CULTURE, BACT.on GENITAL CULTURE, BACT. PATIENT: ELSA ANDREW LOCATION: [id number] BILL#: [id number] : [birth year] AGE: SEX: F ORDERED BY: JANINA MUSA SOURCE: GENITAL COLLECTED: 02/24/23 11:57 ANTIBIOTICS AT ANA MARIA.: RECEIVED : 02/24/23 19:51 SITE: Vaginal R E S U L T S GENITAL CULTURE, BACT. FINAL 03/01/23 07:54 NO PATHOGENS Culture examined for Group A Streptococcus, Group B Streptococcus, Neisseria gonorrhoeae and Yeast ONLY. NO Neisseria gonorrhoeae ISOLATED. Normal [facility] Comment on above: Performed By: #### G ENLO #### [facility] [address] [place] [address] IO UA (automated w/o microsc opy)on 02-24-2023 Protein (U) [Mass/Vol] Negative [facility] [address] Work Phone: [phone] IO UA (automated w/o microscopy) Negative [facility] [address] Work Phone: [phone] IO UA (automated w/o microscopy) Normal [facility] [address] Work Phone: [phone] IO UA (automated w/o microscopy) 5.5 1 [facility] [address] Work Phone: [phone] IO UA (automated w/o microscopy) (+)small - 15 [facility] [employer] Work Phone: [phone] IO UA (automated w/o microscopy) 1.015 1 [facility] [address] [employer] Work Phone: [phone] IO UA (automated w/o microscopy) Cloudy [facility] [address] [employer] Work Phone: [phone] IO UA (automated w/o microscopy) Yellow [facility] [address] [employer] Work Phone: [phone] LMPon 02-24-2023 Last menstrual period start date 23Feb2023 [facility] [employer] Work Phone: [phone] RN ADVANCED - Office Visiton 02-08 RN ADVANCED - Office Visit Diagnoses/Problems Assessed Screening for STD (sexually transmitted disease) (V74.5) (Z11.3) Vaginal pain (625.9) (R10.2) Pelvic pain in female (625.9) (R10.2) Postcoital bleeding (626.7) (N93.0) PID (acute pelvic inflammatory disease) (614.3) (N73.0) Orders Cult, Genital; Status:In Progress - Specimen/Data Collected; Done: [id number] Site : Vaginal Cult, Urine; Status:In Progress - Specimen/Data Collected; Done: [id number] IO UA (automated w/o microscopy); Status:Resulted - Requires Verification,Retrospect gwendolyn Authorization; Done: [id number] 11:48AM Start: Doxycycline Hyclate 100 MG Oral Tablet; TAKE 1 TABLET EVERY 12 HOURS DAILY Start: metroNIDAZOLE 500 MG Oral Tablet; Take 1 tablet twice daily Complete Blood Count + Differential; Status:Resulted - Requires Verification; Done: 24Feb2023 12:14PM Ultrasound Pelvis Transabdominal With Transvaginal; Status:Active; Requested for:27Feb2023; Radiologist to Determine Optimal Study : Y What are the patient's signs and symptoms? : Postcoital bleeding GC + Chlamydia By Amplified Detection; Status:In Progress - Specimen/Data Collected; Done: 24Feb2023 Provider Impressions Elsa is a 17-year-old who comes in with worsening pelvic pain over the last couple of weeks and longstanding postcoital bleeding. Wet mount showed some slight BV no trichomoniasis no yeast physical exam was suggestive of PID. We will start her on doxycycline and Flagyl all cultures were sent additionally we will get a CBC and an ultrasound and have her follow-up in 2 weeks to assess response to antibiotics Chief Complaint Patient here today with concerns of pelvic pain and bleeding with intercourse. She states the pelvic pain comes and goes. The bleeding episodes during intercourse have been going on for years but gotten worse and significantly more blood. She does not us anything for contraceptive. LMP: 02/23/2023 History of Present IllnessLacey is a 17-year-old who comes in complaining of pelvic pain that has started within the last couple of months. She reports that the pain is random sometimes it comes several times a day sometimes she does not get the pain at all. She reports that the pain can last anywhere from 5 minutes to 60 minutes. She reports that only recently with intercourse the pain has become worse. Patient also reports a longstanding history of postcoital bleeding going on for several years. She does not take anything for contraception and is not interested in any form of contraception. She denies any vaginal odor or discharge. She reports that her pain does respond to Tylenol or Motrin when she takes that but it does not alleviate the pain completely. She denies any dysuria urgency foul odor to her urine or change in her bowel habits. Active Problems Problems Abdominal pain (789.00) (R10.9) Acute lower UTI (599.0) (N39.0) Anxiety (300.00) (F41.9) Cellulitis, unspecified cellulitis site (682.9) (L03.90) Chronic epigastric pain (789.06,338.29) (R10.13,G89.29) Contraception management (V25.9) (Z30.9) Dysmenorrhea (625.3) (N94.6) Dysuria (788.1) (R30.0) Encounter for immunization (V03.89) (Z23) Fatigue (780.79) (R53.83) Hyperlipidemia (272.4) (E78.5) Ileitis, terminal (555.0) (K50.00) Menorrhagia (626.2) (N92.0) Nausea in adult (787.02) (R11.0) Palpitation (785.1) (R00.2) Pelvic pain in female (625.9) (R10.2) Postural orthostatic tachycardia syndrome [POTS] (427.89) (G90.A) 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,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) Screening for STD (sexually transmitted disease) (V74.5) (Z11.3) Syncope and collapse (780.2) (R55) Vaginal discharge (623.5) (N89.8) Vaginal pain (625.9) (R10.2) Weight loss (783.21) (R63.4) Yeast infection of the vagina (112.1) (B37.31) Past Medical History Problems History of Breast pain in female (611.71) (N64.4) Resolved Date: 23 Sep 2022 History of acute bronchitis (V12.69) (Z87.09) Resolved Date: 23 Sep 2022 History of Left foot pain (729.5) (M79.672) Resolved Date: 23 Sep 2022 History of Menstruation Onset age 7 years Surgical History Problems History of Tonsillectomy with adenoidectomy 09/02/2017 Family History Mother Family history of hyperlipidemia (V18.19) (Z83.438) Family history of hypertension (V17.49) (Z82.49) Family history of migraine headaches (V17.2) (Z82.0) FHx: SVT (supraventricular tachycardia) (V17.49) (Z82.49) Father Family history of hypertension (V17.49) (Z82.49) Family history of myocardial infarction (V17.3) (Z82.49) Social History Problems Does not have living will Marijuana No alcohol use No illicit drug use Non-smoker (V49.89) (Z78.9) Occasional caffeine consumption Sexually active Allergies Medication Amoxil Hives;; Recorded By: Melisa Berry; 02/07/2020 10:49:49 AM Keflex Hives;; Recorded By: Melisa Berry; 02/07/2020 10:49:49 AM Sulfa Drugs Hives;; Recorded By: Melisa Berry; 02/07/2020 10:49:49 AM Augmentin Diarrhea; Rash; Recorded By: Rich, (more content not included)... Normal [facility] URINE CULTURE,BACTERIALon URINE CULTURE,BACTERIAL PATIENT: ELSA ANDREW LOCATION: [address]#: [id number] : [birth year] AGE: SEX: F ORDERED BY: JANINA MUSA SOURCE: URINE COLLECTED: 02/24/23 11:58 ANTIBIOTICS AT ANA MARIA.: RECEIVED : 02/24/23 19:53 SITE: Clean Catch/Voided R E S U L T S URINE CULTURE,BACTERIAL FINAL 02/25/23 12:45 NO SIGNIFICANT GROWTH. Normal [facility] Comment on above: Performed By: #### U [facility] #### [facility] [address] [place] [address] Office Visit (Cardiology)on 02-19-2023 Follow-up visit Diagnoses/Problems Assessed Postural orthostatic tachycardia syndrome [POTS] (427.89) (G90.A) Palpitation (785.1) (R00.2) Hyperlipidemia (272.4) (E78.5) Orders Postural orthostatic tachycardia syndrome [POTS] Start: Sodium Chloride 1 GM Oral Tablet; TAKE 1 TABLET Every twelve hours Chief Complaint Postural orthostatic tachycardia syndrome History of Present [id number]-unkm-rad female with a medical history of anxiety here for evaluation of the following complaints: Problem #1 palpitations -Event monitor performed 07/12/2022 was largely unremarkable. -Echocardiogram performed 06/24/2022 was suggestive of a small PFO; preserved biventricular function. Mostly postural or in the shower she notices dizziness/lightheadedne ss accompanied by warmth and diaphoresis in her face. Some heaviness of her face/limbs occasionally accompanied by loss of consciousness. She loses consciousness for a few seconds prior to regaining. Occasional dizzy episodes are also accompanied by nausea/vomiting. Other triggers described are heat, anxiety. Notably patient also notes some episodes of chest discomfort that occur randomly and are not provoked by exertion. Tilt table test performed October 2022 was consistent with postural orthostatic tachycardia syndrome exercise stress test performed July 2022 was negative for any ischemia. 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) Syncope and collapse (780.2) (R55) Vaginal discharge (623.5) (N89.8) Vaginal pain (625.9) (R10.2) Weight loss (783.21) (R63.4) Yeast infection of the vagina (112.1) (B37.31) Surgical History Problems History of Tonsillectomy with adenoidectomy 09/02/2017 Past Medical History Problems History of Breast pain in female (611.71) (N64.4) Resolved Date: 23 Sep 2022 History of acute bronchitis (V12.69) (Z87.09) Resolved Date: 23 Sep 2022 History of Left foot pain (729.5) (M79.672) Resolved Date: 23 Sep 2022 History of Menstruation Onset age 7 years Current Meds Medication NameInstruction Mupirocin 2 % External OintmentAPPLY SPARINGLY TO AFFECTED AREA(S) TWICE DAILY Nitrofurantoin Monohyd Macro 100 MG Oral CapsuleTAKE 1 CAPSULE TWICE DAILY. predniSONE 10 MG Oral Tjpnsg04 mg daily decrease by 10 mg every 2 weeks. Maintain 10 mg daily until definitive therapy is begun. Sprintec 28 0.25-35 MG-MCG Oral TabletTAKE 1 TABLET BY MOUTH EVERY DAY Allergies Medication Amoxil Hives;; Recorded By: Melisa Berry; 02/07/2020 10:49:49 AM Keflex Hives;; Recorded By: Melisa Berry; 02/07/2020 10:49:49 AM Sulfa Drugs Hives;; Recorded By: Melisa Berry; 02/07/2020 10:49:49 AM Augmentin Diarrhea; Rash; Recorded By: Kassandra Villanueva; 11/08/2019 9:41:50 AM Cefzil Rash; Recorded By: Kassandra Villanueva; 11/08/2019 9:41:50 AM ciprofloxacin Unknown; Recorded By: Kassandra Villanueva; 11/08/2019 9:41:50 AM Family History Mother Family history of hyperlipidemia (V18.19) (Z83.438) Family history of hypertension (V17.49) (Z82.49) Family history of migraine headaches (V17.2) (Z82.0) FHx: SVT (supraventricular tachycardia) (V17.49) (Z82.49) Father Family history of hypertension (V17.49) (Z82.49) Family history of myocardial infarction (V17.3) (Z82.49) Social History Problems Does not have living will Marijuana No alcohol use No illicit drug use Non-smoker (V49.89) (Z78.9) Occasional caffeine consumption Sexually active Review of Systems Constitutional: Denies any fever or chills Eyes: Denies any eye pain or blurry vision ENT: Denies any ear pain or hearing loss Cardiovascular: The heart rate is not slow, the heart rate is not fast Respiratory: Denies any asthma/wheezing Gastrointestinal: Denies any hsavon colored stools or fatty food intolerance Genitourinary: Denies any blood in the urine or pelvic pain Musculoskeletal: Denies any swelling in the joints or difficulty walking Skin: Denies any skin lumps or skin lesions Neurological: Denies any dizziness/tingling Vitals Vital Signs Recorded: 19Feb2023 10:52AM Heart Rate88 Ajbhiuvg470 Muwytyxlv33 Height5 ft 5 in 2-20 Stature Qwjqovrwsr88 % Rkxzhw963 lb 6 oz 2-20 Weight Vfdlznnlsg66 % BMI Sbqbyghqwi62.02 kg/m2 BMI Zfwicpqkyq43 % BSA Calculated1.87 Tobacco Useb) No Falls Screening (Age 18+)b) One or more falls in the last year O2 Zuzldtvxew26 Physical Exam General: AANDOx3 HEENT: NC/AT; EOMI; PERRLA, external ea (more content not included)... Normal [facility] Tobacco Screening.on 023 Fall risk assessment b) One or more fall s in the last year [facility] Work Phone: Tobacco use status CPHS b) No M [facility] [employer] Work Phone: Provider Note - ED v3on 12-11 Provider Note - ED v3 Provider Note: Chart Review: ED NOTES ED NOTES: Presents for evaluation of URI. Symptoms including cough, congestion, body aches, malaise, and headache have been present for several days and refractory to OTC meds. No fever, chills, loss of taste/smell, nausea, vomiting, abdominal pain, CP, or SOB. No exacerbating factors. No known COVID 19/flu exposure. HISTORY OF PRESENTING ILLNESS ELSA is a 17 year old Female and was seen by me at 26-Dec-2022 12:44. Triage Information: Most recent Vital Sign Value Date PAST MEDICAL HISTORY ALLERGIES/INTOLERANCES: Allergy Allergen: Cipro Type: Drug Reaction: Unknown Allergen: Cefzil Type: Drug Reaction: Rash Allergen: Keflex Type: Drug Reaction: Hives/Urticaria Allergen: Amoxil Type: Drug Reaction: Hives/Urticaria Allergen: Augmentin Type: Drug Reaction: Rash Allergen: sulfa drugs Type: Drug Category Reaction: Hives/Urticaria HEALTH HISTORY: No documented data. OUTPATIENT MEDICATIONS: Home Medications Review Status for Reconciliation: Complete Med Status: Patient Currently Takes Medications Drug Name: Zoloft Instructions: null Drug Name: Sprintec 0.25 mg-35 mcg oral tablet Instructions: 1 tab(s) orally once a day Drug Name: azithromycin 250 mg oral tablet Instructions: Take 2 tabs (500mg) x 1 days, then 1 tab (250mg) once daily x 4 days SIGNIFICANT EVENTS: Past Medical History Description:depression Description:self harming behavior Description:hx of fainting Description:hx of SOB Description:hx of irregular heart beat Description:wt loss Description:breast pain Description:dysmenorrhe a Description:bronchitis Description:yeast infection Past Surgical History Description:Tonsillecto my & Adenoidectomy RN ADVANCED: Is : no Is : no REVIEW OF SYSTEMS All other systems reviewed and are negative REVIEW OF SYSTEMS: Comments See HPI PHYSICAL EXAM CONSTITUTIONAL: Dull nasally voice, well nourished, awake, alert, oriented to person, place, time/situation and in no apparent distress. HENMT: Airway patent, ears with clear tympanic membranes bilaterally. Nasal mucosa clear. Mouth with normal mucosa. Throat has no vesicles, no oropharyngeal exudates and uvula is midline. Face with no lymph node enlargement. EYES: Clear bilaterally, pupils equal, round and reactive to light. CARDIOVASCULAR: Normal rate, regular rhythm. Heart sounds S1, S2. No murmurs, rubs or gallops. PMI non-displaced. RESPIRATORY: Breath sounds clear and equal bilaterally. NEUROLOGICAL: Alert and oriented, no focal deficits, no motor or sensory deficits. SKIN: Skin normal color for race, warm, dry and intact. No evidence of trauma. PSYCHIATRIC: Alert and oriented to person, place, time/situation. normal mood and affect. No apparent risk to self or others. CRITICAL CARE VITAL SIGNS: T PRBP SpO2O2(LPM) %FiO2 Method 26-Dec-2022 12:38:[id number]/84 98 MDM MDM/ED COURSE: Discussed Findings with: patient Data Reviewed: vital signs Treatment Plan: Rx Zithromax. Encouraged patient to continue OTC cold remedies, push p.o. fluids and rest. Patient's clinical presentation is otherwise unremarkable at this time. Patient is discharged with instructions to follow-up with primary care or seek emergency medical attention for worsening symptoms or any new concerns. DISPOSITION Diagnosis/Annotation: ED Dx Name:Acute sinusitis Code:J01.90 Disposition: discharged Type: home CONSULT CRITICAL CARE TIME Is this a critically ill patient: no Electronic Signatures: Chip Jones (TACKER [employer]ASS[employer]IATE PROFESS[employer]) (Signed 26-Dec-2022 14:02) Authored: ED Notes, HPI, PMH, ROS, PE, Results/Vital Signs, MDM/ED Course, Clinical Impression, Attestation, Chart Review, Scores Last Updated: 26-Dec-2022 14:02 by Chip Jones (TACKER [employer]-ASSOCIATE PROFESS[employer]) [facility] RN ADVANCED - Office Visiton 12-11 RN ADVANCED - Office Visit Diagnoses/Problems Assessed Contraception management (V25.9) (Z30.9) Orders Renew: Sprintec 28 0.25-35 MG-MCG Oral Tablet; TAKE 1 TABLET BY MOUTH EVERY DAY Provider Impressions 1. Contraceptive counseling Will restart the control pills. Follow-up in 1 year or as needed. Chief Complaint Patient is here to get put back on control. Patient was on Sprintec and states she did well on it. LMP:12/03/2022. History of Present IllnessShe presents to get restarted on control pills. She did well on the control pills but went off of it for short period of time. Denies any breast problems. Denies any bowel or bladder problems. Review of Systems Review of Systems: Constitutional: No fever or chills Respiratory: No shortness of breath, or cough Cardiovascular: No chest pain or syncope Breasts: No breast pain, no masses, no nipple discharge Gastrointestinal: No nausea, vomiting, or diarrhea, no abdominal pain Genitourinary: No dysuria or frequency Gynecology: Negative except as noted in history of present illness All other: All other systems reviewed and negative for complaint 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) Syncope and collapse (780.2) (R55) Vaginal discharge (623.5) (N89.8) Vaginal pain (625.9) (R10.2) Weight loss (783.21) (R63.4) Yeast infection of the vagina (112.1) (B37.31) Past Medical History Problems History of Breast pain in female (611.71) (N64.4) Resolved Date: 23 Sep 2022 History of acute bronchitis (V12.69) (Z87.09) Resolved Date: 23 Sep 2022 History of Left foot pain (729.5) (M79.672) Resolved Date: 23 Sep 2022 History of Menstruation Onset age 7 years Surgical History Problems History of Tonsillectomy with adenoidectomy 09/02/2017 Family History Mother Family history of hyperlipidemia (V18.19) (Z83.438) Family history of hypertension (V17.49) (Z82.49) Family history of migraine headaches (V17.2) (Z82.0) FHx: SVT (supraventricular tachycardia) (V17.49) (Z82.49) Father Family history of hypertension (V17.49) (Z82.49) Family history of myocardial infarction (V17.3) (Z82.49) Social History Problems Does not have living will Marijuana No alcohol use No illicit drug use Non-smoker (V49.89) (Z78.9) Occasional caffeine consumption Sexually active Allergies Medication Amoxil Hives;; Recorded By: Melisa Berry; 02/07/2020 10:49:49 AM Keflex Hives;; Recorded By: Melisa Berry; 02/07/2020 10:49:49 AM Sulfa Drugs Hives;; Recorded By: Melisa Berry; 02/07/2020 10:49:49 AM Augmentin Diarrhea; Rash; Recorded By: Kassandra Villanueva; 11/08/2019 9:41:50 AM Cefzil Rash; Recorded By: Kassandra Villanueva; 11/08/2019 9:41:50 AM ciprofloxacin Unknown; Recorded By: Kassandra Villanueva; 11/08/2019 9:41:50 AM Current Meds Medication NameInstruction Mupirocin 2 % External OintmentAPPLY SPARINGLY TO AFFECTED AREA(S) TWICE DAILY Nitrofurantoin Monohyd Macro 100 MG Oral CapsuleTAKE 1 CAPSULE TWICE DAILY. predniSONE 10 MG Oral Yhzhfn97 mg daily decrease by 10 mg every 2 weeks. Maintain 10 mg daily until definitive therapy is begun. Vitals Vital Signs Recorded: 20Dec2022 03:36PM Xlrncqey456 Crevjrclb47 Height5 ft 5 in 2-20 Stature Ozzomwkmem77 % Oiiibk44.8 kg 2-20 Weight Jpfjhcrpbt56 % BMI Yazszivurh01.34 kg/m2 BMI Rdxfxoccha05 % BSA Calculated1.79 Tobacco Useb) No Falls Screening (Age 18+)a) No falls within the last year [id number] Physical Exam PHYSICAL EXAMINATION: Well-developed, well nourished, in no acute distress, alert and oriented x three, is pleasant and cooperative. HEENT: Clear. Pupils equal, round and reactive to light and accommodation. Extraocular muscles are intact. Oral mucosa pink without exudate. NECK: No lymphadenopathy, no thyromegaly. LUNGS: Clear bilaterally. HEART: Regular rate and rhythm without murmurs. ABDOMEN: Normoactive bowel sounds, soft and nontender, no guarding or rebound tenderness, no CVA tenderness. EXTREMITIES: No clubbing, cyanosis or edema. NEUROLOGIC: Cranial nerves II-XII grossly intact. Signatures Electronically signed by : Ghada Ruffin MD; Dec 20 2022 3:41PM EST (Author) Normal [employer] UA (automated w/o microsc opy)on 11-25-2022 Protein (U) [Mass/Vol] Negative [facility] Work Phone: IO UA (automated w/o microscopy) (+)small - 15 [employer] Work Phone: IO UA (automated w/o microscopy) Negative [facility] Work Phone: IO UA (automated w/o microscopy) Normal (0.2-1.0 mg/dl) [facility] Work Phone: IO UA (automated w/o microscopy) 5.0 1 [facility] Work Phone: IO UA (automated w/o microscopy) (++)moderate - 40 [facility] Work Phone: IO UA (automated w/o microscopy) 1.030 1 [facility] Work Phone: IO UA (automated w/o microscopy) Clear [facility] Work Phone: IO UA (automated w/o microscopy) Yellow [facility] Work Phone: Office Visit (Primary Care T xt/Forms)on 11-25-2022 Follow-up visit Diagnoses/Problems Assessed Dysuria (788.1) (R30.0) Acute lower UTI (599.0) (N39.0) Orders Acute lower UTI Start: Nitrofurantoin Monohyd Macro 100 MG Oral Capsule; TAKE 1 CAPSULE TWICE DAILY Chief Complaint URINARY FREQ- 2 DAYS- PRESSURE AND PAIN, SOME BURNING History of Present Illness Burning and frequency x2 days. Urinalysis is positive Increase fluids Macrobid x7 days. If 100% better within 5 days can stop. Off-and-on 100% better in 7 days. Review of Systems Constitutional: feeling tired, but no fever and no chills. Gastrointestinal: abdominal pain and nausea, but no diarrhea and no vomiting. Genitourinary: decreased urine frequency, dysuria, blood present in urine. Integumentary: no rashes. 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) Syncope and collapse (780.2) (R55) Vaginal discharge (623.5) (N89.8) Vaginal pain (625.9) (R10.2) Weight loss (783.21) (R63.4) Yeast infection of the vagina (112.1) (B37.31) Past Medical History Problems History of Breast pain in female (611.71) (N64.4) History of acute bronchitis (V12.69) (Z87.09) History of Left foot pain (729.5) (M79.672) History of Menstruation Surgical History Problems History of Tonsillectomy with adenoidectomy Family History Mother Family history of hyperlipidemia (V18.19) (Z83.438) Family history of hypertension (V17.49) (Z82.49) Family history of migraine headaches (V17.2) (Z82.0) FHx: SVT (supraventricular tachycardia) (V17.49) (Z82.49) Father Family history of hypertension (V17.49) (Z82.49) Family history of myocardial infarction (V17.3) (Z82.49) Social History Problems Does not have living will Marijuana No alcohol use No illicit drug use Non-smoker (V49.89) (Z78.9) Occasional caffeine consumption Sexually active Current Meds Medication NameInstruction Mupirocin 2 % External OintmentAPPLY SPARINGLY TO AFFECTED AREA(S) TWICE DAILY predniSONE 10 MG Oral Wqqcnn17 mg daily decrease by 10 mg every 2 weeks. Maintain 10 mg daily until definitive therapy is begun. Allergies Medication Amoxil Keflex Sulfa Drugs Augmentin Cefzil ciprofloxacin Vitals Vital Signs Recorded: 25Nov2022 11:10AM Heart Rate: 82 Systolic: 112 Diastolic: 78 Height: 5 ft 5 in 2-20 Stature Percentile: 61 % Weight: 145 lb 5 oz 2-20 Weight Percentile: 77 % BMI Calculated: 24.18 kg/m2 BMI Percentile: 75 % BSA Calculated: 1.73 Tobacco Use: b) No PHQ-2 #1. Over the last 2 weeks have you felt down, depressed or hopeless? (If yes, answer PHQ-9 below): No PHQ-2 #2. Over the last 2 weeks have you felt little interest or pleasure in doing things? (If yes, answer PHQ-9 below): No Falls Screening (Age 18+): b) One or more falls in the last year O2 Saturation: 98 Physical Exam General: Alert and oriented, No acute distress. Ambulation status: With steady gait. Appearance: Well nourished, Calm. Behavior: Cooperative. Integumentary: Warm, Dry, [place], Intact. Psychiatric: Cooperative, Appropriate mood AND affect, Normal judgment. abdm nontender, no CVA TTP B/L. Signatures Electronically signed by : Buster Mackenzie MD; Nov 25 2022 11:37AM EST (Author) Normal [employer] Tobacco Screening.on 023 Adult depression screening assessment No [employer] Work Phone: Fall risk assessment b) One or more fall s in the last year [facility] Work Phone: Tobacco use status CPHS b) No M [facility] Work Phone: CROHN'S PROGNOSTICon 022 CROHN'S PROGNOSTIC SEE COMMENT Normal [facility] Comment on above: Result Comment: SEE SEPARATE REPORT FROM Robert Applebaum MD LABORATORY FOR RESULTS AND INTERPRETATION Performed By: #### C ROPR #### [facility] [address] [place] [address] TPMT ENZYMESon 10-29-2022 TPMT ENZYME ACTIVITY 28.7 Normal [facility], [place] Comment on above: Result Comment: PRO- Predict EnzAct Enzyme Activity Ranges: > 21.0 EU - Normal Activity 6.0 - 21.0 EU - Intermediate Activity < 6.0 EU - Low Activity The highest TPMT enzyme activity level observed in the [employer] validation studies of normal individuals was between 60-70 EU. Performed By: #### T PMTE #### [facility] [address] [place] [address] Established Visit (Gastroent erology)on 10-23-2022 Established Visit (Gastroenterology) Diagnoses/Problems Assessed Ileitis, terminal (555.0) (K50.00) Orders Ileitis, terminal Crohn's Progostic; Status:In Progress - Specimen/Data Collected; Done: 23Oct2022 Perform:Lab Services - Lab To Draw (Blood Test); Due:21Jan2023;Ordered; For:Ileitis, terminal; Ordered By:Natali Neff; TPMT Enzymes; Status:In Progress - Specimen/Data Collected; Done: [id number] Perform:Lab Services - Lab To Draw (Blood Test); Due:21Jan2023;Ordered; For:Ileitis, terminal; Ordered By:Natali Neff; Provider Impressions Young lady is seen today in follow-up from colonoscopy. Colonoscopy confirms Crohn's disease and ileum. Lab work reviewed with family. Accompanied by mother. Mom has many questions regarding acceptable therapy, long-term risk and benefit. We had a 45-minute conversation regarding oral medications of which only Imuran would be appropriate as well as all Biologics including anti-TNF, TNF blockers and the newer interleukin ariela drugs. We discussed risk benefit intended outcome and goals of therapy. After reviewing insurance is apparent that her plan will only cover for Humira or Imuran if she fails that then we could move towards interleukin ariela or selective TNF antibody. I did advise her to read the pamphlet do some online research and call regarding her desire to start biologic therapy. In the meantime is continuing off steroids. We discussed diet with Crohn's she is to remain dairy free low residue high protein diet. She is a vegetarian making protein sources difficult for her. Will check T MTP enzyme activity and Crohn's prognostic test. Chief Complaint FUV in office today from colonoscopy. Patient states she has occasional abdominal pain, bloating, nausea, vomiting. History of Present IllnessYoung lady is seen today in follow-up from colonoscopy. Colonoscopy confirms Crohn's disease and ileum. Lab work reviewed with family. Accompanied by mother. Mom has many questions regarding acceptable therapy, long-term risk and benefit. We had a 45-minute conversation regarding oral medications of which only Imuran would be appropriate as well as all Biologics including anti-TNF, TNF blockers and the newer interleukin ariela drugs. We discussed risk benefit intended outcome and goals of therapy. After reviewing insurance is apparent that her plan will only cover for Humira or Imuran if she fails that then we could move towards interleukin ariela or selective TNF antibody. I did advise her to read the pamphlet do some online research and call regarding her desire to start biologic therapy. In the meantime is continuing off steroids. We discussed diet with Crohn's she is to remain dairy free low residue high protein diet. She is a vegetarian making protein sources difficult for her. Will check T MTP enzyme activity and Crohn's prognostic test. Review of Systems Constitutional: no fever, no chills, not feeling tired and no recent weight loss. ENT: no lymphadenopathy. Cardiovascular: no shortness of breath and no chest pain. Respiratory: no cough. Gastrointestinal: as noted in HPI. Musculoskeletal: no joint swelling. Integumentary: no rashes, no skin lesions and was no jaundiced. All other systems have been reviewed and are negative for complaint. Active Problems Problems Abdominal pain (789.00) (R10.9) Anxiety (300.00) (F41.9) Cellulitis, unspecified cellulitis site (682.9) (L03.90) Chronic epigastric pain (789.06,338.29) (R10.13,G89.29) Contraception management (V25.9) (Z30.9) Dysmenorrhea (625.3) (N94.6) Encounter for immunization (V03.89) (Z23) Fatigue (780.79) (R53.83) Ileitis, terminal (555.0) (K50.00) Menorrhagia (626.2) (N92.0) Nausea in adult (787.02) (R11.0) Palpitation (785.1) (R00.2) Syncope and collapse (780.2) (R55) Vaginal discharge (623.5) (N89.8) Vaginal pain (625.9) (R10.2) Weight loss (783.21) (R63.4) Yeast infection of the vagina (112.1) (B37.31) Past Medical History Problems History of Breast pain in female (611.71) (N64.4) Resolved Date: 23 Sep 2022 History of acute bronchitis (V12.69) (Z87.09) Resolved Date: 23 Sep 2022 History of Left foot pain (729.5) (M79.672) Resolved Date: 23 Sep 2022 History of Menstruation Onset age 7 years Surgical History Problems History of Tonsillectomy with adenoidectomy 09/02/2017 Family History Mother Family history of hyperlipidemia (V18.19) (Z83.438) Family history of hypertension (V17.49) (Z82.49) Family history of migraine headaches (V17.2) (Z82.0) FHx: SVT (supraventricular tachycardia) (V17.49) (Z82.49) Father Family history of hypertension (V17.49) (Z82.49) Family history of myocardial infarction (V17.3) (Z82.49) Social History Problems Does not have living will Marijuana No alcohol use No illicit drug use Non-smoker (V49.89) (Z78.9) Occasional caffeine consumption Sexually active Allergies Medication Amoxil Hives;; Recorded By: Melisa Berry; 02/07/2020 10:49:49 AM Keflex Hives;; Recor (more content not included)... Normal [facility] No Panel Informationon 10-23 SEE COMMENT [facility] Work Phone: Comment on above: SEE SEPARATE REPORT FROM Robert Applebaum MD LABORATORYFOR RESULTS AND INTERPRETATION 28.7 1 [facility] Work Phone: Comment on above: PRO-Predict EnzAct E nzyme Activity Ranges: > 21.0 EU - Normal Activity 6.0 - 21.0 EU - Intermediate Activity < 6.0 EU - Low ActivityThe highest TPMT enzyme activity levelobserved in the [employer] validationstudies of normal individuals wasbetween 60-70 EU. Patient Profile - Preop v3on 10-14-2022 Patient Profile - Preop v3 Patient Profile - Preop: Initial Info: Patient DemographicsName: ELSA ANDREW Date: 2005 Address: [address] [place] [address], [id number] Primary Phone [phone] How to be AddressedLacey Spoken Language PreferredEnglish Source of Informationpatient Stated Reason for AdmissionTilt table test Primary Contact Name and NumberCindy Lorrie [phone] Medications Brought to Hospitalno General Health: Weight in kg59 kilogram(s) Weight in icw741 pound(s) Weight Methodstated Height in feet5 feet Height in inches5 inch(es) Height in cm165.1 centimeter(s) Height Methodstated BMI (kg/m2)21.645 square meter Patient or Family Member Reaction to Anesthesiano previous reaction Blood Avoidance/Restrictionsn one Previous Transfusion Reactionno Health Mgmt: Symptoms/Conditions Managed at [facility] Barriers to Managing Healthnone Relationship/Environ: Lives Withparent(s) Living Arrangementshouse Resource/Environmental Concernsnone Anticipated [place] [facility] Anticipated at Transitionnone Tobacco Use: Tobacco Useno Additional Information: Information Review: Allergies, Home Meds and Significant Events have been Reviewed and Verified with Patient/Familyyes Allergy, Intolerance, Adverse Event: Allergies: Cipro: Drug, Unknown, Active Cefzil: Drug, Rash, Active Keflex: Drug, Hives/Urticaria, Active Amoxil: Drug, Hives/Urticaria, Active Augmentin: Drug, Rash, Active sulfa drugs: Drug Category, Hives/Urticaria, Active Electronic Signatures: Perry Rain (RYANN) (Signed 14-Oct-2022 09:12) Authored: Initial Info, General Health, Health Mgmt, Relationship/Environ, Tobacco Use, Additional Information Last Updated: 14-Oct-2022 09:12 by Perry Rain (RYANN) [facility] VITAMIN D 1,25-DIHYDROXYon 1 12-13-2021 VITAMIN D 1,25-DIHYDROXY 45.4 pg/mL Normal 19.9-79.3 [facility] Comment on above: Result Comment: INTE RPRETIVE INFORMATION: Vitamin D, 1,25-Dihydroxy This test is primarily indicated during patient evaluation for hypercalcemia and renal failure. A normal result does not rule out Vitamin D deficiency. The recommended test for diagnosing Vitamin D deficiency is Vitamin D 25-hydroxy. Performed By: N(i)² [address] [place] [id number] Chemical Equipment Controller: Trell Calix MD, PhD Performed By: #### G ENLO #### [facility] [address] [place] [address] T-SPOT TBon 10-11-2022 NIL[NEG]CONTROL SPOT COUNT Passed Normal [facility] Comment on above: Performed By: #### T SPOT #### [facility] [address] [place] [address] PANEL A SPOT COUNT [address] [facility] Comment on above: Performed By: #### T SPOT #### [facility] [address] [place] [address] PANEL B SPOT COUNT [address] [facility] Comment on above: Performed By: #### T SPOT #### [facility] [address] [place] [address] POS CONTROL SPOT COUNT Passed Normal [facility] Comment on above: Performed By: #### T SPOT #### [facility] [address] [place] [address] T-SPOT.TB INTERP Negative Normal Normal Value: Negative [facility] Comment on above: Result Comment: A ne gative test result does not exclude the possibility of exposure to or infection with Mycobacterium tuberculosis (M. tuberculosis). Patients with recent exposure to TB infected individuals exhibiting a negative T-SPOT.TB result should be considered for retesting within 6 weeks or if other relevant clinical symptoms indicate. Results from T-SPOT.TB testing must be used in conjunction with each individual's epidemiological history, current medical status, and results of other diagnostic evaluations. The T-SPOT.TB test is qualitative and results are reported as positive, borderline or negative, given that the test controls perform as expected. In line with the Centers for Disease Control and Prevention's 2010 recommendation to report quantitative measurements alongside the qualitative result, the laboratory provides spot counts for informational purposes only. The T-SPOT.TB test should not be interpreted as a quantitative test. Performed By: #### T SPOT #### [facility] [address] [place] [address] HEPATITIS A AB-TOTALon 10-10 HEPATITIS A AB-TOTAL Non-Reactive Normal NONREACTIVE [facility] Comment on above: Result Comment: Biot in interference may cause falsely elevated results. Patients taking a Biotin dose of up to 5 mg/day should refrain from taking Biotin for 24 hours before sample collection. Providers may contact their local laboratory for further information. Performed By: #### G ENLO #### [facility] [address] [place] [address] HEPATITIS B SURF ABon 2021 HEP B SURF AB <3.1 Normal <10 [facility] Comment on above: Result Comment: INTE RPRETIVE CRITERIA: <10 mIU/mL....NONREACTIVE >=10 mIU/mL...REACTIVE . Biotin interference may cause falsely decreased results. Patients taking a Biotin dose of up to 5 mg/day should refrain from taking Biotin for 24 hours before sample collection. Providers may contact their local laboratory for further information. Performed By: #### H BAB3 #### [facility] [address] [place] [address] HEPATITIS B SURFACE AGon HEP.B SURFACE AG Non-Reactive Normal NONREACTIVE [facility] Comment on above: Result Comment: Biot in interference may cause falsely decreased results. Patients taking a Biotin dose of up to 5 mg/day should refrain from taking Biotin for 24 hours before sample collection. Providers may contact their local laboratory for further information. Performed By: #### G ENLO #### [facility] [address] [place] [address] C Reactive Protein, Serumon 2022 CRP [Mass/Vol] mg/L [facility] Work Phone: Comment on above: REF VALUE< 1.00 C-REACTIVE PROTEINon 022 CRP [Mass/Vol] mg/L Normal [facility] Comment on above: Result Comment: REF VALUE < 1.00 Performed By: #### C RP #### [facility] [address] [place] [address] HEPATITIS B SURF ABon 2021 Lab Specimen Source Normal [facility] Comment on above: Performed By: #### H BAB3 #### [facility] [address] [place] [address] Performed By: #### G ENLO #### [facility] [address] [place] [address] Hepatitis A Antibody, Totalo n 2022 HAV Ab IA Ql (S) Non-Reactive See Below [employer] Work Phone: Comment on above: SOURCE: Reference Ra nge: NONREACTIVE Biotin interference may cause falsely elevated results. Patients taking a Biotin dose of up to 5 mg/day should refrain from taking Biotin for 24 hours before sample collection. Providers may contact their local laboratory for further information. Hepatitis B Surface Antibody on 2022 HBV surface Ag IA Ql <3.1 <10 [facility] [employer] Work Phone: Comment on above: SOURCE: INTERPRETIVE CRITERIA:<10 mIU/mL....NONREACTIVE >=10 mIU/mL...REACTIVE . Biotin interference may cause falsely decreased results. Patients taking a Biotin dose of up to 5 mg/day should refrain from taking Biotin for 24 hours before sample collection. Providers may contact their local laboratory for further information. Hepatitis B Surface Antigeno n 2022 Hepatitis B Surface Antigen Non-Reactive See Below [employer] Work Phone: Comment on above: SOURCE: Reference Ra nge: NONREACTIVE Biotin interference may cause falsely decreased results. Patients taking a Biotin dose of up to 5 mg/day should refrain from taking Biotin for 24 hours before sample collection. Providers may contact their local laboratory for further information. T-SPOT. TBon 2022 T-SPOT. TB Passed [employer] Work Phone: T-SPOT. TB 0 1 [employer] Work Phone: T-SPOT. TB 1 1 [employer] Work Phone: T-SPOT. TB Negative See Below [facility] [address] Work Phone: Comment on above: Reference Range: Nor mal Value: NegativeA negative test result does not exclude the possibility of exposure to or infection with Mycobacterium tuberculosis (M. tuberculosis). Patients with recent exposure to TB infected individuals exhibiting a negative T-SPOT.TB result should be considered for retesting within 6 weeks or if other relevant clinical symptoms indicate. Results from T-SPOT.TB testing must be used in conjunction with each individual's epidemiological history, current medical status, and results of other diagnostic evaluations. The T-SPOT.TB test is qualitative and results are reported as positive, borderline or negative, given that the test controls perform as expected. In line with the Centers for Disease Control and Prevention's 2010 recommendation to report quantitative measurements alongside the qualitative result, the laboratory provides spot counts for informational purposes only. The T-SPOT.TB test should not be interpreted as a quantitative test. Vitamin-D 1,25-Dihydroxy, Le rain 2022 1,25-dihydroxyvitamin D3 [Mass/Vol] 45.4 pg/mL 19.9-79.3 [facility] [address] Work Phone: Comment on above: INTERPRETIVE INFORMA TION: Vitamin D, 1,25-DihydroxyThis test is primarily indicated during patient evaluation for hypercalcemia and renal failure. A normal result does not rule out Vitamin D deficiency. The recommended test for diagnosing Vitamin D deficiency is Vitamin D 25-hydroxy.Performed By: N(i)²[address] [place] [id number] Director: Trell Calix MD, PhD Colonoscopyon 10-02-2022 Colonoscopy PATIENTNAME Patient Name: Elsa Andrew EXAMDATE Procedure Date: 10/02/2022 9:23 AM PATIENTID PATIENTACCOUNTNUM PATIENTDOB Date of : 2005 ADMITTYPE Admit Type: Outpatient PATIENTROOM Site: [facility] 1 ETHNICITY Ethnicity: Not or RACE Race: White PROVDR Attending MD: Natali Neff DO, [phone] ENDOPROCEDURENAME Procedure: Colonoscopy INDICATION Indications: Abnormal CT of the GI tract PRIMARYPROVIDER Providers: Natali Neff DO (Doctor), Sherron Angulo RN (Nurse), MINGO Gamino EDREFPROVIDER Referring: Karena Valle MD CURRENT_MEDS Medicines: Fentanyl 100 micrograms IV, Midazolam 10 mg IV, Diphenhydramine 50 mg IV, None, Glucagon 1 mg IV COMPLIC Complications: No immediate complications. ENDOPROCEDURETEXT Procedure: Pre-Anesthesia Assessment: - Prior to the procedure, a History and Physical was performed, and patient medications and allergies were reviewed. The patient is competent. The risks and benefits of the procedure and the sedation options and risks were discussed with the patient. All questions were answered and informed consent was obtained. Patient identification and proposed procedure were verified by the physician in the pre-procedure area. Mental Status Examination: alert and oriented. Airway Examination: normal oropharyngeal airway and neck mobility. Respiratory Examination: clear to auscultation. CV Examination: normal. Prophylactic Antibiotics: The patient does not require prophylactic antibiotics. Prior Anticoagulants: The patient has taken no anticoagulant or antiplatelet agents. ASA Grade Assessment: II - A patient with mild systemic disease. After reviewing the risks and benefits, the patient was deemed in satisfactory condition to undergo the procedure. The anesthesia plan was to use moderate sedation / analgesia (conscious sedation). Immediately prior to administration of medications, the patient was re-assessed for adequacy to receive sedatives. The heart rate, respiratory rate, oxygen saturations, blood pressure, adequacy of pulmonary ventilation, and response to care were monitored throughout the procedure. The physical status of the patient was re-assessed after the procedure. After I obtained informed consent, the scope was passed under direct vision. Throughout the procedure, the patient's blood pressure, pulse, and oxygen saturations were monitored continuously. The pediatric colonoscope was introduced through the anus and advanced to the terminal ileum, with identification of the appendiceal orifice and IC valve. The colonoscopy was performed without difficulty. The patient tolerated the procedure well. The quality of the bowel preparation was excellent. The terminal ileum, ileocecal valve, appendiceal orifice, and rectum were photographed. FINDING Findings: The perianal and digital rectal examinations were normal. Pertinent negatives include normal sphincter tone and no palpable rectal lesions. A segmental area of mildly altered vascular and inflamed mucosa was found in the ascending colon. Biopsies were taken with a cold forceps for histology. Segmental moderate inflammation characterized by erosions, erythema and granularity was found in the terminal ileum. Biopsies were taken with a cold forceps for histology. SEDATION Moderate Sedation: Moderate (conscious) sedation was administered by the nurse and supervised by the endoscopist. The following parameters were monitored: oxygen saturation, heart rate, blood pressure, and response to care. Total physician intraservice time was 24 minutes. EBL Estimated Blood Loss: Estimated blood loss: none. IMPRESS Impression: - Altered vascular and inflamed mucosa in the ascending colon. Biopsied. - Moderate inflammation was found in the ileum secondary to Crohn's disease, with ileitis and colitis. Biopsied. ENDORECOMMENDATION Recommendation: - Patient has a contact number available for emergencies. The signs and symptoms of potential delayed complications were discussed with the patient. Return to normal activities tomorrow. Written discharge instructions were provided to the patient. - Resume previous diet. - Continue present medications. CPT_CODES Procedure Code(s): --- Professional --- 30052, Colonoscopy, flexible; with biopsy, single or multiple 84010, Moderate sedation; each additional 15 minutes intraservice time G0500, Moderate sedation services provided by the same physician or other qualified health medicare nurse performing a gastrointestinal endoscopic service that sedation supports, requiring the presence of an independent trained observer to assist in the monitoring of the patient's level of consciousness and physiological status; initial 15 minutes of intra-service time; patient age (more content not included)... Normal [facility] No Panel Informationon 10-02 [facility] Work Phone: [email or web address] [facility] [employer] Work Phone: [facility] Surgical Pathology Depar tmenton 10-02-2022 [facility] Surgical Pathology Department Name ELSA ANDREW Pathologist: SOHAM ARAGON MD Date of Procedure: 10/02/2022 Date Received: 10/02/2022 Date Reported 10/15/2022 Submitting Physician: NATALI NEFF DO Location: [facility] Copy To/Referring/Attending: KARENA VALLE MD Other External # FINAL DIAGNOSIS A. ILEUM: -- TERMINAL ILEAL MUCOSA WITH ACUTE INFLAMMATION AND REACTIVE EPITHELIAL CHANGE. SEE COMMENT. Comment: The differential diagnosis includes nonspecific active inflammatory processes, drug injury (NSAIDs), or early inflammatory bowel disease. Further clinical and endoscopic correlation is recommended. B. RANDOM COLON BIOPSIES: -- COLONIC MUCOSA WITH NO SIGNIFICANT PATHOLOGIC CHANGE. Electronically Signed Out By SOHAM ARAGON MD/ATB By the signature on this report, the individual or group listed as making the Final Interpretation/Diagnosi s certifies that they have reviewed this case. Diagnostic interpretation performed at [facility] [address] [place] [address] Clinical History: Physician Contact Number: [phone] Fixative (A): Formalin Fixative (B): Formalin Clinical Diagnosis History K500.0 Specimens Submitted As: A: ILEUM B: RANDOM COLON BIOPSIES Gross Description: A: Received in formalin, labeled with the patient's name and hospital number and ileum, are multiple fragments of sue, soft tissue aggregating to 1.4 x 0.3 x 0.2 cm. The specimen is submitted in toto in one cassette. [facility] B: Received in formalin, labeled with the patient's name and hospital number and random colon biopsies, are multiple fragments of sue, soft tissue aggregating to 1.5 x 0.2 x 0.1 cm. The specimen is submitted in toto in one cassette. [facility]/10/04/2022 [facility] Department of Pathology [id number] [place] [address] Normal [facility] Comment on above: Performed By: #### G ENLO #### [address] [place] [id number] Office Visit (Primary Care T xt/Forms)on 09-23-2022 Follow-up visit Diagnoses/Problems Assessed Cellulitis, unspecified cellulitis site (682.9) (L03.90) Ileitis, terminal (555.0) (K50.00) Syncope and collapse (780.2) (R55) Orders Cellulitis, unspecified cellulitis site Start: Mupirocin 2 % External Ointment; APPLY SPARINGLY TO AFFECTED AREA(S) TWICE DAILY Provider Impressions Provider Impressions Free Text Note Form: Cleanse umbilicus twice a day with mild soap and water and ensure umbilicus is completely dry. Apply Bactroban on a Q-tip into the umbilicus twice daily x10 days then as needed Keep appointment with dealer sales rep next week Chief Complaint 2 MO FU , BELLY BUTTON PAIN, LEAKAGE, TREATED BY LOENARD FOR INFECTION IN AUGUST. CONTINUED ISSUES WITH HEART AND SYNCOPE History of Present Illness Elsa comes to the office, with her mother, for a 2-month follow-up on dizziness and syncopal episode. Saw sales financial analyst and is scheduled for tilt table 12/5. completed stress test. Remains w/ dizziness AND LH w/ rapid position chgs. Recent CT showed mild wall thickening of the distal ileum consistent with enteritis. Treated with a course of prednisone and is scheduled to see gastroenterology next week. Remains with nausea. Appetite is better she has gained 6 pounds in the last month. Bowels moving as per usual. Random sharp abdominal pain. No family history of UC Crohn's. No melena.+ Mucus in the stool. Recent umbilical infection and treated with a course of doxycycline, better. small amt of yellow discharge in umbilicus. Review of Systems Constitutional: recent weight gain, but no fever and no chills. Cardiovascular: palpitations and fast heart rate. Respiratory: no cough. Gastrointestinal: abdominal pain, nausea and vomiting, but no constipation, no diarrhea and no blood in stools. Integumentary: a rash . Umbilicus with yellow-colored foul-smelling drainage. Neurological: headache, dizziness and fainting . + Lightheadedness. Active Problems Problems Abdominal pain (789.00) (R10.9) Anxiety (300.00) (F41.9) Cellulitis, unspecified cellulitis site (682.9) (L03.90) Chronic epigastric pain (789.06,338.29) (R10.13,G89.29) Contraception management (V25.9) (Z30.9) Dysmenorrhea (625.3) (N94.6) Encounter for immunization (V03.89) (Z23) Fatigue (780.79) (R53.83) Ileitis, terminal (555.0) (K50.00) Menorrhagia (626.2) (N92.0) Nausea in adult (787.02) (R11.0) Palpitation (785.1) (R00.2) Syncope and collapse (780.2) (R55) Vaginal discharge (623.5) (N89.8) Vaginal pain (625.9) (R10.2) Weight loss (783.21) (R63.4) Yeast infection of the vagina (112.1) (B37.31) Past Medical History Problems History of Breast pain in female (611.71) (N64.4) History of acute bronchitis (V12.69) (Z87.09) History of Left foot pain (729.5) (M79.672) History of Menstruation Surgical History Problems History of Tonsillectomy with adenoidectomy Family History Mother Family history of hyperlipidemia (V18.19) (Z83.438) Family history of hypertension (V17.49) (Z82.49) Family history of migraine headaches (V17.2) (Z82.0) FHx: SVT (supraventricular tachycardia) (V17.49) (Z82.49) Father Family history of hypertension (V17.49) (Z82.49) Family history of myocardial infarction (V17.3) (Z82.49) Social History Problems Does not have living will Marijuana No alcohol use No illicit drug use Non-smoker (V49.89) (Z78.9) Occasional caffeine consumption Sexually active Current Meds Medication NameInstruction Sertraline HCl - 100 MG Oral TabletTAKE 1 TABLET DAILY. Sprintec 28 0.25-35 MG-MCG Oral TabletTAKE 1 TABLET BY MOUTH EVERY DAY Allergies Medication Amoxil Keflex Sulfa Drugs Augmentin Cefzil ciprofloxacin Vitals Vital Signs Recorded: 23Sep2022 10:10AM Heart Rate: 97 Systolic: 114 Diastolic: 64 Height: 5 ft 5 in 2-20 Stature Percentile: 61 % Weight: 142 lb 5 oz 2-20 Weight Percentile: 75 % BMI Calculated: 23.68 kg/m2 BMI Percentile: 71 % BSA Calculated: 1.71 Tobacco Use: b) No Falls Screening (Age 18+): a) No falls within the last year O2 Saturation: 99 Physical Exam Constitutional - Well developed, well nourished, well hydrated and no acute distress. Vital signs reviewed. Neck - Full range of motion. No significant adenopathy. Thyroid not enlarged and no palpable nodules. Pulmonary - No grunting, flaring or retractions. No rales or wheezing. Good air exchange. Cardiovascular - Regular rate and rhythm. No significant murmur. no significant lower extremity edema. Abdomen - Soft, non-tender, no masses. No hepatomegaly or splenomegaly. normal active bowel sounds. Skin - Umbilicus with a small amount of light yellow drainage. Results/Data IO UA (automated w/o microscopy)22Aug2022 12:00Karena Rios Test NameResultFlagReference IO ColorAmber IO AppearanceClear IO Glucose - UrineNegative IO Bilirubin(+)small IO KetonesTrace IO Specific Gravity1.020 IO Blood(++)moderate - 40 IO pH7.0 IO (more content not included)... Normal [employer] Tobacco Screening.on Fall risk assessment a) No falls within the last year [facility] Work Phone: Tobacco use status CPHS b) No M [facility] Work Phone: Office Visit (Primary Care T xt/Forms)on 08-29-2022 Follow-up visit Diagnoses/Problems Assessed Cellulitis, unspecified cellulitis site (682.9) (L03.90) Orders Encounter for immunization Temporarily Stop: Influenza, seasonal, injectable Patient Discussion/Summary Bulb syringe irrigation twice daily with Q-tip application of bacitracin. Warm moist compress twice daily. Continue doxycycline prescribed last night. Report Q 24 on progress Chief Complaint 1 WK RE CHECK. PT HAD DISCHARGE FORM ОЛЕГ X 1 DAY. HAS BLURRY VISION, DRY EYES ALONG WITH BURNING X 2 WKS History of Present Illness History as above. Feeling some better on prednisone regarding diffuse abdominal pain but has begun with drainage from the umbilicus. No fever chills Review of Systems As per HPI and recent office note Active Problems Problems Abdominal pain (789.00) (R10.9) Acute bronchitis, unspecified organism (466.0) (J20.9) Anxiety (300.00) (F41.9) Breast pain in female (611.71) (N64.4) Chronic epigastric pain (789.06,338.29) (R10.13,G89.29) Contraception management (V25.9) (Z30.9) Dysmenorrhea (625.3) (N94.6) Encounter for immunization (V03.89) (Z23) Fatigue (780.79) (R53.83) Ileitis, terminal (555.0) (K50.00) Left foot pain (729.5) (M79.672) Menorrhagia (626.2) (N92.0) Nausea in adult (787.02) (R11.0) Palpitation (785.1) (R00.2) Syncope and collapse (780.2) (R55) Vaginal discharge (623.5) (N89.8) Vaginal pain (625.9) (R10.2) Weight loss (783.21) (R63.4) Yeast infection of the vagina (112.1) (B37.31) Past Medical History Problems History of Menstruation Surgical History Problems History of Tonsillectomy with adenoidectomy Family History Mother Family history of hyperlipidemia (V18.19) (Z83.438) Family history of hypertension (V17.49) (Z82.49) Family history of migraine headaches (V17.2) (Z82.0) FHx: SVT (supraventricular tachycardia) (V17.49) (Z82.49) Father Family history of hypertension (V17.49) (Z82.49) Family history of myocardial infarction (V17.3) (Z82.49) Social History Problems Does not have living will Marijuana No alcohol use No illicit drug use Non-smoker (V49.89) (Z78.9) Occasional caffeine consumption Sexually active Current Meds Medication NameInstruction Dicyclomine HCl - 20 MG Oral TabletTAKE 1 TABLET BY MOUTH FOUR TIMES DAILY. (1 hour before meals and at bedtime.) Nitrofurantoin Monohyd Macro 100 MG Oral CapsuleTake 1 capsule by mouth 2 times daily for 5 days. Take w/ food/milk predniSONE 10 MG Oral TabletTAKE 4 TABLETS DAILY FOR 4 DAYS, THEN 3 TABLETS DAILY FOR 4 DAYS, THEN 2 TABLETS DAILY FOR 4 DAYS, THEN 1 TABLET DAILY FOR 4 DAYS Sertraline HCl - 100 MG Oral TabletTAKE 1 TABLET DAILY. Sprintec 28 0.25-35 MG-MCG Oral TabletTAKE 1 TABLET BY MOUTH EVERY DAY Allergies Medication Amoxil Keflex Sulfa Drugs Augmentin Cefzil ciprofloxacin Vitals Vital Signs Recorded: 29Aug2022 09:12AM Heart Rate: 77 Systolic: 118 Diastolic: 66 Height: 5 ft 5 in 2-20 Stature Percentile: 61 % Weight: 141 lb 5 oz 12-30 Weight Percentile: 74 % BMI Calculated: 23.52 kg/m2 BMI Percentile: 70 % BSA Calculated: 1.71 Tobacco Use: a) Yes Patient encouraged to stop using tobacco products: Yes Falls Screening (Age 18+): b) One or more falls in the last year O2 Saturation: 99 Physical Exam Inspection shows no erythema of the skin. The umbilicus shows a thin purulent discharge. Palpation about the umbilicus shows no fluctuance or induration. Signatures Electronically signed by : Karena Valle MD; Aug 29 2022 5:35PM EST (Author) Normal [employer] Tobacco Screening.on Fall risk assessment b) One or more fall s in the last year [facility] Work Phone: [phone] Tobacco use status CPHS a) Yes M [facility] Work Phone: [phone] Tobacco Screening. Yes [facility] Work Phone: [phone] IO UA (automated w/o microsc opy)on 08-22-2022 Protein (U) [Mass/Vol] Trace [employer] Work Phone: [phone] IO UA (automated w/o microscopy) Negative [employer] [facility] Work Phone: IO UA (automated w/o microscopy) Normal (0.2-1.0 mg/dl) [facility] Work Phone: IO UA (automated w/o microscopy) 7.0 1 [employer] [facility] Work Phone: IO UA (automated w/o microscopy) (++)moderate - 40 [employer] [facility] Work Phone: IO UA (automated w/o microscopy) 1.020 1 [employer] [facility] Work Phone: IO UA (automated w/o microscopy) Trace [facility] Work Phone: IO UA (automated w/o microscopy) (+)small MP-[facility] Work Phone: IO UA (automated w/o microscopy) Clear [facility] Work Phone: IO UA (automated w/o microscopy) Joan MP-[facility] Work Phone: Office Visit (Primary Care T xt/Forms)on 08-22-2022 Follow-up visit Diagnoses/Problems Assessed Ileitis, terminal (555.0) (K50.00) Patient Discussion/Summary Communication to Dr. Breen. He responded agreeing that he has to rule out Crohn's and would recommend steroids. I see that a prescription has been sent 10 but did not return call to family they have not yet heard. The mother requests that I communicate with her as Elsa is not as reliable with responding to telephone calls so I would use the [phone] number for communication Follow-up will be determined based on response to all of above Chief Complaint [facility] [place] [facility]. CK FOR UTI, HAS CONSTIPATION( WITH PAIN. TAKING MIRALAX AND SUPPOSITORY. PAIN IN [place] WHICH STARTED ON 08/14/22 History of Present Illness Patient has had several weeks of abdominal pain and has been seen ER reviewed urgent care [facility] with recent CAT scan. Blood count lactate metabolic profile were unremarkable lipase tests unremarkable Has been seen cardiology for syncope and they are planning on doing a stress lipid panel tilt table and EKG As her echo showed a small PFO with normal LV function and month event monitor was unremarked CT is remarkable for some mild urinary bladder wall thickening given Macrobid and clearly has some distal small bowel wall thickening that even I identify on CAT scan. Given her degree of discomfort have to consider that this represents inflammatory bowel disease versus an infectious etiology. I have made if communication to Dr. Breen to evaluate and advise and I will hold until he responds before considering steroid use. Need to rule out Crohn's Review of Systems As per HPI Active Problems Problems Acute bronchitis, unspecified organism (466.0) (J20.9) Anxiety (300.00) (F41.9) Breast pain in female (611.71) (N64.4) Chronic epigastric pain (789.06,338.29) (R10.13,G89.29) Contraception management (V25.9) (Z30.9) Dysmenorrhea (625.3) (N94.6) Encounter for immunization (V03.89) (Z23) Fatigue (780.79) (R53.83) Left foot pain (729.5) (M79.672) Menorrhagia (626.2) (N92.0) Nausea in adult (787.02) (R11.0) Palpitation (785.1) (R00.2) Syncope and collapse (780.2) (R55) Vaginal discharge (623.5) (N89.8) Vaginal pain (625.9) (R10.2) Weight loss (783.21) (R63.4) Yeast infection of the vagina (112.1) (B37.31) Past Medical History Problems History of Menstruation Surgical History Problems History of Tonsillectomy with adenoidectomy Family History Mother Family history of hyperlipidemia (V18.19) (Z83.438) Family history of hypertension (V17.49) (Z82.49) Family history of migraine headaches (V17.2) (Z82.0) FHx: SVT (supraventricular tachycardia) (V17.49) (Z82.49) Father Family history of hypertension (V17.49) (Z82.49) Family history of myocardial infarction (V17.3) (Z82.49) Social History Problems Does not have living will Marijuana No alcohol use No illicit drug use Non-smoker (V49.89) (Z78.9) Occasional caffeine consumption Sexually active Current Meds Medication NameInstruction Dicyclomine HCl - 20 MG Oral TabletTAKE 1 TABLET BY MOUTH FOUR TIMES DAILY. (1 hour before meals and at bedtime.) Nitrofurantoin Monohyd Macro 100 MG Oral CapsuleTake 1 capsule by mouth 2 times daily for 5 days. Take w/ food/milk Sertraline HCl - 100 MG Oral TabletTAKE 1 TABLET DAILY. Sprintec 28 0.25-35 MG-MCG Oral TabletTAKE 1 TABLET BY MOUTH EVERY DAY Allergies Medication Amoxil Keflex Sulfa Drugs Augmentin Cefzil ciprofloxacin Vitals Vital Signs Recorded: 22Aug2022 02:17PM Heart Rate: 87 Systolic: 94 Diastolic: 58 Height: 5 ft 5 in 2-20 Stature Percentile: 61 % Weight: 136 lb 5 oz 2-20 Weight Percentile: 67 % BMI Calculated: 22.68 kg/m2 BMI Percentile: 63 % BSA Calculated: 1.68 Tobacco Use: a) Yes Patient encouraged to stop using tobacco products: Yes Falls Screening (Age 18+): a) No falls within the last year O2 Saturation: 98 Physical Exam Thyroid nontender heart regular without murmur lungs clear abdomen shows that she is very tender to light touch around the periumbilical area. She has mild direct tenderness diffusely through the abdomen there is no rebound or guarding. No palpable mass. Results/Data As outlined above Signatures Electronically signed by : Karena Vlale MD; Aug 22 2022 6:04PM EST (Author) Normal [facility] Tobacco Screening.on Fall risk assessment a) No falls within the last year [facility] Work Phone: Tobacco use status CPHS a) Yes [employer] [facility] Work Phone: Tobacco Screening. Yes [employer] [facility] Work Phone: CT ABDOMEN AND PELVIS W IV C [facility] 08-19-2022 CT ABDOMEN AND PELVIS W IV CONTRAST STUDY: CT Abdomen and Pelvis with IV Contrast; 08/18/2022 at 6:59 p.m. INDICATION: Periumbilical and lower abdominal pain. Additional History: Smoking. COMPARISON: None Available. ACCESSION NUMBER(S): [id number] ORDERING CLINICIAN: JOSH MÉNDEZ DO TECHNIQUE: CT of the abdomen and pelvis was performed. Contiguous axial images were obtained at 3 mm slice thickness through the abdomen and pelvis. Coronal and sagittal reconstructions at 3 mm slice thickness were performed. Omnipaque 350 90 mL was administered intravenously. FINDINGS: LOWER CHEST: No cardiomegaly. No pericardial effusion. Lung bases are clear. ABDOMEN: LIVER: No hepatomegaly. Smooth surface contour. Normal attenuation. BILE DUCTS: No intrahepatic or extrahepatic biliary ductal dilatation. GALLBLADDER: Gallbladder unremarkable. STOMACH: No abnormalities identified. PANCREAS: No masses or ductal dilatation. SPLEEN: No splenomegaly or focal splenic lesion. ADRENAL GLANDS: No thickening or nodules. KIDNEYS AND URETERS: Kidneys are normal in size and location. No renal or ureteral calculi. PELVIS: BLADDER: Mild urinary bladder wall thickening. REPRODUCTIVE ORGANS: Dominant follicle in the right ovary. BOWEL: Normal appendix. Mild colonic stool burden. Mild wall thickening of the distal ileum. VESSELS: No abnormalities identified. Abdominal aorta is normal in caliber. PERITONEUM/RETROPERITON EUM/LYMPH NODES: No free fluid. No pneumoperitoneum. No lymphadenopathy. ABDOMINAL WALL: No abnormalities identified. SOFT TISSUES: No abnormalities identified. BONES: No acute fracture or aggressive osseous lesion. IMPRESSION: 1. Mild urinary bladder wall thickening. Correlation with urinalysis recommended to exclude cystitis. 2. Mild colonic stool burden. 3. Mild wall thickening of the distal ileum suggesting enteritis, likely infectious or inflammatory in etiology. No abscess or free air. Signed by Karnea French MD Electronically signed by: KARENA FRENCH MD Normal [facility] CBC AND DIFFERENTIALon 08-18 Basophils (Bld) [#/Vol] 0.10 10*3/uL Normal 0.00 - 0.1 0 [facility] Comment on above: Performed By: #### C BCDF #### [address] [address] Basophils/100 WBC (Bld) 0.8 % Normal 0.0 - 2.0 [facility] Comment on above: Performed By: #### C BCDF #### [address] [address] Eosinophils (Bld) [#/Vol] 0.10 10*3/uL Normal 0.00 - 0.70 [facility] Comment on above: Performed By: #### C BCDF #### [address] [address] Eosinophils/100 WBC (Bld) 0.6 % Normal 0.0 - 6.0 [facility] Comment on above: Performed By: #### C BCDF #### [address] [address] Erythrocyte distribution width (RBC) [Ratio] 16.2 % High 11.5 - 14.5 [facility] Comment on above: Performed By: #### C BCDF #### [address] [address] Hematocrit (Bld) [Volume fraction] 39.3 % Normal 36.0 - 46.0 [facility] Comment on above: Performed By: #### C BCDF #### [address] [address] Hemoglobin (Bld) [Mass/Vol] 12.6 g/dL Normal 12.0 - 16.0 [facility] Comment on above: Performed By: #### C BCDF #### [address] [address] Lymphocytes (Bld) [#/Vol] 2.10 10*3/uL Normal 1.20 - 4.80 [facility] Comment on above: Performed By: #### C BCDF #### [address] [address] Lymphocytes/100 WBC (Bld) 22.3 % Normal 13.0 - 44.0 [facility] Comment on above: Performed By: #### C BCDF #### [address] [address] MCHC (RBC) [Mass/Vol] 32.2 g/dL Normal 32.0 - 36.0 [facility] Comment on above: Performed By: #### C BCDF #### [address] [address] MCV (RBC) [Entitic vol] 78 fL Low 80 - 100 [facility] Comment on above: Performed By: #### C BCDF #### [address] [address] Monocytes (Bld) [#/Vol] 0.70 10*3/uL Normal 0.10 - 1.0 0 [facility] Comment on above: Performed By: #### C BCDF #### [address] [address] Monocytes/100 WBC (Bld) 7.0 % Normal 2.0 - 10.0 [facility] Comment on above: Performed By: #### C BCDF #### [address] [address] Neutrophils (Bld) [#/Vol] 6.40 10*3/uL Normal 1.20 - 7.70 [facility] Comment on above: Result Comment: Perc ent differential counts (%) should be interpreted in the context of the absolute cell counts (cells/L). Performed By: #### C BCDF #### [address] [address] Neutrophils/100 WBC (Bld) 69.3 % Normal 40.0 - 80.0 [facility] Comment on above: Performed By: #### C BCDF #### [address] [address] Platelets (Bld) [#/Vol] 324 10*3/uL Normal 150 - 450 [facility] Comment on above: Performed By: #### C BCDF #### [address] [address] RBC 5.04 x10E12/L Normal 4.00 - 5.20 [facility] Comment on above: Performed By: #### C BCDF #### [address] [address] WBC (Bld) [#/Vol] 9.3 10*3/uL Normal 4.4 - 11.3 [facility] Comment on above: Performed By: #### C BCDF #### [address] [address] COMPREHENSIVE PANELon 2021 Albumin [Mass/Vol] 4.2 g/dL Normal 3.4 - 5.0 [facility] Comment on above: Performed By: #### C MP ####[address] [address] ALP [Catalytic activity/Vol] 73 U/L Normal 33 - 110 [facility] Comment on above: Performed By: #### C MP ####[address] [address] ALT [Catalytic activity/Vol] 10 U/L Normal 7 - 45 [facility] Comment on above: Result Comment: Valerie ents treated with Sulfasalazine may generate falsely decreased results for ALT. Performed By: #### C MP ####[address] [address] Anion gap [Moles/Vol] 13 mmol/L Normal 10 - 20 [facility] Comment on above: Performed By: #### C MP ####[address] [address] AST [Catalytic activity/Vol] 16 U/L Normal 9 - 39 [facility] Comment on above: Performed By: #### C MP ####[address] [address] Bilirubin [Mass/Vol] 0.5 mg/dL Normal 0.0 - 1.2 [facility] Comment on above: Performed By: #### C MP ####[address] [address] Calcium [Mass/Vol] 9.4 mg/dL Normal 8.6 - 10.3 [facility] Comment on above: Performed By: #### C MP ####[address] [address] Chloride [Moles/Vol] 102 mmol/L Normal 98 - 107 [facility] Comment on above: Performed By: #### C MP ####[address] [address] Creatinine [Mass/Vol] 0.62 mg/dL Normal 0.50 - 1.05 [facility] Comment on above: Performed By: #### C MP ####[address] [address] eGFR FEMALE >90 Normal >90 [facility] Comment on above: Result Comment: CALC ULATIONS OF ESTIMATED GFR ARE PERFORMED USING THE 2020 CKD-EPI STUDY REFIT EQUATION WITHOUT THE RACE VARIABLE FOR THE IDMS-TRACEABLE CREATININE METHODS. https://jasn.asnjournals.org/content/early//ASN.2020 311282 Performed By: #### C MP ####[address] [place] [address] Glucose [Mass/Vol] 82 mg/dL Normal 74 - 99 [facility] Comment on above: Performed By: #### C MP ####[address] [address] HCO3 (Bld) [Moles/Vol] 25 mmol/L Normal 21 - 32 [facility] Comment on above: Performed By: #### C MP ####[address] [address] Potassium [Moles/Vol] 3.6 mmol/L Normal 3.5 - 5.3 [facility] Comment on above: Performed By: #### C MP ####[address] [address] Protein [Mass/Vol] 7.3 g/dL Normal 6.4 - 8.2 [facility] Comment on above: Performed By: #### C MP ####[address] [address] Sodium [Moles/Vol] 136 mmol/L Normal 136 - 145 [facility] Comment on above: Performed By: #### C MP ####[address] [address] Urea nitrogen [Mass/Vol] 6 mg/dL Normal 6 - 23 [facility] Comment on above: Performed By: #### C MP ####[address] [address] CT Abdomen and Pelvis with I V Contraston 08-18-2022 CT Abdomen and Pelvis W contrast IV Normal -[facility] Work Phone: [phone] Complete Blood Count + Diffe rentialon 08-18-2022 Basophils/100 WBC (Bld) 0.8 % 0.0 - 2.0 M -[facility] Work Phone: [phone] Erythrocyte distribution width (RBC) [Ratio] 16.2 % above high threshold See Below [facility] Work Phone: [phone] Comment on above: Reference Range: 11. 5 - 14.5 Hematocrit (Bld) [Volume fraction] 39.3 % See Below [facility] Work Phone: [phone] Comment on above: Reference Range: 36. 0 - 46.0 Hemoglobin (Bld) [Mass/Vol] 12.6 g/dL See Below [facility] Work Phone: [phone] Comment on above: Reference Range: 12. 0 - 16.0 Lymphocytes/100 WBC (Bld) 22.3 % See Below [facility] Work Phone: [phone] Comment on above: Reference Range: 13. 0 - 44.0 MCHC (RBC) [Mass/Vol] 32.2 g/dL See Below [facility] Work Phone: [phone] Comment on above: Reference Range: 32. 0 - 36.0 MCV (RBC) [Entitic vol] 78 fL below lo w threshold 80 - 100 [facility] Work Phone: [phone] Monocytes/100 WBC (Bld) 7.0 % 2.0 - 10.0 M [facility] Work Phone: Neutrophils/100 WBC (Bld) 69.3 % See Below [facility] Work Phone: [phone] Comment on above: Reference Range: 40. 0 - 80.0 Platelets (Bld) [#/Vol] 324 10*3/uL 150 - 450 [facility] Work Phone: [phone] RBC (Bld) [#/Vol] 5.04 {x10E12/L} See Below [facility] Work Phone: [phone] Comment on above: Reference Range: 4.0 0 - 5.20 WBC (Bld) [#/Vol] 9.3 10*3/uL 4.4 - 11.3 [facility] Work Phone: [phone] Complete Blood Count + Differential 0.10 {x10E9/L} See Below [facility] Work Phone: [phone] Comment on above: Reference Range: 0.0 0 - 0.10 Reference Range: 0.0 0 - 0.70 Complete Blood Count + Differential 0.70 {x10E9/L} See Below [facility] Work Phone: [phone] Comment on above: Reference Range: 0.1 0 - 1.00 Complete Blood Count + Differential 2.10 {x10E9/L} See Below [facility] Work Phone: [phone] Comment on above: Reference Range: 1.2 0 - 4.80 Complete Blood Count + Differential 6.40 {x10E9/L} See Below [facility] Work Phone: [phone] Comment on above: Reference Range: 1.2 0 - 7.70 Percent differential counts (%) should be interpreted in the context of the absolute cell counts (cells/L). Complete Blood Count + Differential 0.6 % 0.0 - 6.0 [facility] Work Phone: [phone] HCG, Beta Quantitativeon HCG.beta subunit Qn m[IU]/mL [facility] Work Phone: [phone] Comment on above: Low-level positive H CG results can be seen in early , in angela- or post-menopausal females due to normal pituitary HCG production, or with analytic interference. Repeat testing in 48-72 hours can aid in assessing for as results should double in this time period. FSH measurement is recommended in angela- or post-menopausal females as concurrent elevation of FSH can support pituitary production as the source of the HCG elevation.. Total HCG measurement is performed using the [employer] Access Immunoassay which detects intact HCG and free beta HCG subunit. This test is not indicated for use as a tumor marker. HCG testing is performed using a different test methodology at [facility] than other [facility] hospitals. Direct result comparison should only be made within the same method. REF VALUESNON FEMALE <5MALES <5 HCG,BETA-QUANTITATIVEon 10-0 HCG,BETA-QUANTITATIVE <2 Normal [facility] Comment on above: Result Comment: Low- level positive HCG results can be seen in early , in angela- or post-menopausal females due to normal pituitary HCG production, or with analytic interference. Repeat testing in 48-72 hours can aid in assessing for as results should double in this time period. FSH measurement is recommended in angela- or post-menopausal females as concurrent elevation of FSH can support pituitary production as the source of the HCG elevation. . Total HCG measurement is performed using the [employer] Access Immunoassay which detects intact HCG and free beta HCG subunit. This test is not indicated for use as a tumor marker. HCG testing is performed using a different test methodology at [facility] than other [facility]. Direct result comparison should only be made within the same method. REF VALUES NON FEMALE <5 MALES <5 Performed By: #### H CGQU #### [address] [address] LACTATEon 08-18-2022 Lactate [Moles/Vol] 0.9 mmol/L Normal 0.4 - 2.0 [facility] Comment on above: Result Comment: Anna puncture immediately after or during the administration of Metamizole may lead to falsely low results. Testing should be performed immediately prior to Metamizole dosing. Performed By: #### L ACT #### [address] [address] LIPASEon 08-18-2022 Lipase [Catalytic activity/Vol] 22 U/L Normal 9 - 82 [facility] Comment on above: Result Comment: Anna puncture immediately after or during the administration of Metamizole may lead to falsely low results. Testing should be performed immediately prior to Metamizole dosing. P-ftmpwq-l-benzoquinone imine (metabolite of Acetaminophen) will generate erroneously low results in samples for patients that have taken toxic doses of acetaminophen. Performed By: #### L IPAS #### [address] [address] Laboratory - Chemistry and C hemistry - challengeon 08-18-2022 Albumin BCP dye [Mass/Vol] 4.2 g/dL 3.4 - 5.0 -[employer] [facility] Work Phone: ALP [Catalytic activity/Vol] 73 U/L 33 - 110 -[facility] Work Phone: ALT With P-5'-P [Catalytic activity/Vol] 10 U/L 7 - 45 [facility] Work Phone: Comment on above: Patients treated wit h Sulfasalazine may generate falsely decreased results for ALT. Anion gap [Moles/Vol] 13 mmol/L 10 - 20 [facility] Work Phone: AST With P-5'-P [Catalytic activity/Vol] 16 U/L 9 - 39 [facility] Work Phone: Bilirubin [Mass/Vol] 0.5 mg/dL 0.0 - 1.2 [facility] Work Phone: Calcium [Mass/Vol] 9.4 mg/dL 8.6 - 10.3 [facility] Work Phone: Chloride [Moles/Vol] 102 mmol/L 98 - 107 [facility] Work Phone: CO2 [Moles/Vol] 25 mmol/L 21 - 32 [facility] Work Phone: Creatinine [Mass/Vol] 0.62 mg/dL See Below [facility] Work Phone: Comment on above: Reference Range: 0.5 0 - 1.05 Glucose [Mass/Vol] 82 mg/dL 74 - 99 -[facility] Work Phone: Potassium [Moles/Vol] 3.6 mmol/L 3.5 - 5.3 [facility] Work Phone: Protein [Mass/Vol] 7.3 g/dL 6.4 - 8.2 [facility] Work Phone: Sodium [Moles/Vol] 136 mmol/L 136 - 145 [facility] Work Phone: Urea nitrogen [Mass/Vol] 6 mg/dL 6 - 23 [facility] Work Phone: Lactate, Levelon 08-18-2022 Lactate [Moles/Vol] 0.9 mmol/L 0.4 - 2.0 [facility] Work Phone: Comment on above: Venipuncture immedia tely after or during the administration of Metamizole may lead to falsely low results. Testing should be performed immediately prior to Metamizole dosing. Lipase, Serumon 08-18-2022 Lipase [Catalytic activity/Vol] 22 U/L 9 - 82 [facility] Work Phone: Comment on above: Venipuncture immedia tely after or during the administration of Metamizole may lead to falsely low results. Testing should be performed immediately prior to Metamizole dosing. Z-kinrld-r-benzoquinone imine (metabolite of Acetaminophen) will generate erroneously low results in samples for patients that have taken toxic doses of acetaminophen. No Panel Informationon 08-18 >90 >90 [facility] Work Phone: Comment on above: CALCULATIONS OF JENNIFER MATED GFR ARE PERFORMED USING THE 2020 CKD-EPI STUDY REFIT EQUATION WITHOUT THE RACE VARIABLE FOR THE IDMS-TRACEABLE CREATININE METHODS.https://jasn.asnjournals.org/content// ASN.6332157548 Provider Note - ED v3on 10-0 Provider Note - ED v3 Provider Note: Chart Review: ED NOTES ED NOTES: Source of Information: Patient. EMR was reviewed for previous records. HPI: Abdominal pain. This 16-year-old white female presents to the ED with 4 to 5-day history of abdominal pain. Patient states that the pain has been located in the periumbilical area is worse with any type of movement and or bumps in the road she states that pain has since then migrated to the lower quadrants worse on the right than the left. She states that she has had some nausea and vomiting associated with a decreased appetite though she has a lot GI issues with nausea vomiting and decreased appetite normally. Patient denies any history of diarrhea or constipation. Patient denies any urinary symptoms, fevers or chills. PMH: Possible pots disease, elevated cholesterol, irregular heartbeat, fainting depression, anxiety PSH: T&A Social Hx: To vaping nicotine. States that she rarely uses alcohol. Patient also admits to smoking marijuana. Fam: MEDS: Sertraline, Sprintec ALLERGIES: Sulfa and multiple antibiotics. PHYSICAL EXAM: General: Patient alert, awake, oriented X3, appears to be in no obvious distress, nontoxic, cooperative Skin: Warm. Dry. Intact. No rash. Eyes: PEARTLA, EOMIs intact, sclera white, conjunctiva clear HEENT: Atraumatic. Normo-cephalic. Oral and nasal mucosa pink and moist. Neck: Supple without meningismus, no lymphadenopathy. CV: Regular rate and rhythm without murmurs, heaves, lifts or thrills. Respiratory: Nonlabored breathing. There are no retractions or tachypnea. Lungs are clear to auscultation bilaterally. GI: Abdomen is soft with tenderness at the periumbilical area left lower quadrant and right lower quadrant patient does guard with palpation of the right lower quadrant. There is no rigidity or rebound. Negative heel strike. Patient does have tenderness at McBurney's point. Negative CVA tenderness bilaterally. No pulsatile masses. MUSC: There is no joint swelling or bony tenderness on exam. Neuro: Cranial nerves II - XII grossly intact. No focal neurologic deficits are noted on exam. Lower extremities: There is no peripheral edema bilaterally, negative Homans sign. No palpable cords. Distal pulses are +2/4 and present in both lower extremities. Psych: Maintains eye contact. Cooperative. ED course: Patient was seen and evaluated due to complaints of abdominal pain for the past 4 to 5 days she was ordered blood work, urinalysis, test and a CT scan of the abdomen pelvis. Lab work and urinalysis was unremarkable. CT scan imaging the abdomen pelvis revealed evidence of enteritis without acute surgical disease process. Discussed with patient concerning her lab, urine and CT scan results prior to discharging her home with a prescription for Bentyl and refer follow-up with Dr. Neff for further evaluation of her abdominal discomfort. This chart was dictated with the use of Dragon software within the framework of the current electronic medical records software. Attempts were made to edit in real time, given time constraints there is the potential for inaccuracies in my dictation. Josh Méndez DO HISTORY OF PRESENTING ILLNESS ELSA is a 16 year old Female and was seen by me at 18-Aug-2022 19:07 for a chief complaint of abdominal pain (4-5 days of umbilical pain. Hurts to stand, sit, bend, cough. Redness present, denies drainage or itching. Pain is sharp. Painful and tender above and below the umbilicus. No urinary complaints. Was told she had an umbilical hernia as a child.)(1). Triage Information: Most recent Vital Sign Value Date Temp (F): 96.8 08-18-2022 19:28 Temp (C): 36 08-18-2022 19:28 Heart Rate (beats/min): 68 08-18-2022 19:28 Respirations (breaths/min): 16 08-18-2022 19:28 SpO2 (%): 99 08-18-2022 19:28 BP Systolic (mm Hg): 125 08-18-2022 19:28 BP Diastolic (mm Hg): 79 08-18-2022 19:28 PAST MEDICAL HISTORY CURRENT OR FORMER SUBSTANCE USE: Tobacco/Nicotine Use: former smoker Alcohol Use: occasionally Drug Use: weekly (Marijuana),ALLERGIES/I NTOLERANCES: Allergy Allergen: Cipro Type: Drug Reaction: Unknown Allergen: Cefzil Type: Drug Reaction: Rash Allergen: Keflex Type: Drug Reaction: Hives/Urticaria Allergen: Amoxil Type: Drug Reaction: Hives/Urticaria Allergen: Aug (more content not included)... Normal [facility] Risk Screen - Adult Emergenc yon 08-18-2022 Risk Screen - Adult Emergency Preferred Language: Preferred Language: Preferred Language for Discussing Health Care (patient/designee)Germania augustine Patient Preferred Pharmacy: Patient Preferred Pharmacy Statement: I have reviewed and updated the patient's preferred pharmacy selection for today's visit. Advanced Directives: Advance Directive/DNRno Advance Directive Information Givenpatient/family declined Family Violence Adult: Abuse Screen: Are you or have you been threatened or abused physically, emotionally, or sexually by anyoneno Learning Assessment (Patient): Learning Assessment (Patient): Patient is Able to be Assessed for Learningyes Factors Influencing Readiness to Learnna Factors that Impact Ability to Learnvisual problems Devices/Methods Used to Communicateglasses Learning Preferencesverbal instruction; written material Cultural Considerationsnone Developmental Considerationsnone Mandaen Considerationsnone Learning Assessment (Other Learner): Learning Assessment (Other Learner): Other learner availableno Pressure Injury/TB/Substance: Pressure Injury: Pressure Injury Present on Admissionno Do you have a coughno Smoking Statusnever smoker Alcohol Usedenies Drug Usedenies Drug 2 Usedenies Admission Risk Screen: Significant IndicatorsComplete CAGE: CAGE: Is this an injured patient at a Trauma Center ([facility]/[place]): no Electronic Signatures: Hannah Townsend (RN) (Signed 18-Aug-2022 19:39) Authored: Preferred Language, Patient Preferred Pharmacy, Advanced Directives, Family Violence Adult, Learning Assessment (Patient), Learning Assessment (Other Learner), Pressure Injury/TB/Substance, Pressure Injury, CAGE Last Updated: 18-Aug-2022 19:39 by Hannah Townsend (RYANN) [facility] Triage - EDon 08-18-2022 Triage - ED Quick Triage: Are You no Have You Given In The Last 6 Weeksno Are You Currently Breastfeedingno The patient and/or guardian verbally acknowledges placement for services into the following (when Urgent Care Service hours are operating):emergency department Chart Review: ARRIVAL INFORMATION Mode of Arrival: private vehicle CHIEF COMPLAINT ELSA ANDREW is a Female patient with a chief complaint of abdominal pain (4-5 days of umbilical pain. Hurts to stand, sit, bend, cough. Redness present, denies drainage or itching. Pain is sharp. Painful and tender above and below the umbilicus. No urinary complaints. Was told she had an umbilical hernia as a child.). Onset of the Complaint: 13-Aug-2022 Triage Date/Time: 18-Aug-2022 19:28 PATRICIA: 3 Pain Rating (0-10): 4 = Moderate Acceptable Pain Level (0-10): 0 Pain location: umbilicus Vital Signs: Temperature: 96.8F ( 36.0C) taken oral Blood Pressure: 125/79 Mean: Heart Rate: 68 Respiratory Rate: 16 Pulse Oximetry: 99% Height: 5 feet 5.00 inches. 165.1 CM Weight: 1.3 pounds. Calculated 0.6 kg. Calculated BMI (kg/m2): 0.220 Calculated BSA (m2) 0.17 Donny Coma Scale: Best Eye Response: (E4) spontaneous Best Motor Response: (M6) obeys commands Best Verbal Response: (V5) oriented [place] Score: 15 Cough lasting greater than 3 weeks: no Patient immunocompromised related to: N/A Allergies: yes Last menstrual period: 28-Jul-2022 RN ADVANCED History: control (sprintec) Patient has homicidal thoughts: no Symptoms Are POSITIVE For: anorexia (diminished appetite), nausea and vomiting. Symptoms Are Negative For: constipation, diaphoresis, diarrhea, distention, fever and rectal blood. Last Emesis: 18-Aug-2022 Risk Screens Suicide Risk Screen In the Past Month: Have you wished you were or wished you could go to sleep and not wake up no In the Past Month: Have you had any actual thoughts of killing yourself no In Your Lifetime: Have you ever done anything, started to do anything, or prepared to do anything to end your life no Gómez Fall Scale Screening Has the patient fallen before (or is the patient in the ED as a result of a fall) has not had a fall Does the patient have an impaired gait does not have impaired gait Is the patient cognitively impaired not cognitively impaired Interventions: Rico Fall Interventions: LOW INTERVENTIONS: *patient oriented to surroundings and call system, * patient/family falls education completed and documented, *patients fall status communicated during bedside handoff, *whiteboard updated, *mode of toileting discussed with patient, *bed in low position with brakes locked, *call light in reach, * non-skid footwear PAST MEDICAL HISTORY Immunization History: Last Known Tetanus Immunization: Unknown TRAVEL HISTORY Travel History Coronavirus Screening: no exposure or symptoms Travel Exposure History: NO travel to International locations in the past 30 days PAIN Pain Scale Used: BRITTANY Pain Rating (0-10): 4 = Moderate Acceptable Pain Level (0-10): 0 Past Medical History: Past Medical History Reviewedyes Tonsillectomy & Adenoidectomy: Past Surgical History, Active yeast infection: Past Medical History, Active bronchitis: Past Medical History, Active dysmenorrhea: Past Medical History, Active breast pain: Past Medical History, Active wt loss: Past Medical History, Active hx of irregular heart beat: Past Medical History, Active hx of SOB: Past Medical History, Active hx of fainting: Past Medical History, Active Electronic Signatures: Hannah Townsend (RYANN) (Signed 18-Aug-2022 20:53) Authored: Quick Triage, Risk Screens, Pain, Immunizations, Travel History, Chart Review, Scores, Past Medical History Last Updated: 18-Aug-2022 20:53 by Hannah Townsend (RYANN) Normal [facility] URINALYSIS WITH CULTURE IF I NDICATEDon 08-18-2022 Appearance (U) HAZY Normal CLEAR [facility] Comment on above: Performed By: #### U ARFX #### [place] [address] Bilirubin Ql (U) Negative Normal NEGATIVE [facility] Comment on above: Performed By: #### U ARFX #### [place] [address] Color (U) Yellow Normal STRAW,YELLOW [facility] Comment on above: Performed By: #### U ARFX #### [address] [address] Glucose Ql (U) Negative Normal NEGATIVE [facility] Comment on above: Performed By: #### U ARFX #### [address] [address] Hemoglobin Ql (U) Negative Normal NEGATIVE [facility] Comment on above: Performed By: #### U ARFX #### [place] [id number] Ketones Ql (U) Negative Normal NEGATIVE [facility] Comment on above: Performed By: #### U ARFX #### [place] [id number] Leukocyte esterase Test strip Ql (U) Negative Normal NEGATIVE [facility] Comment on above: Performed By: #### U ARFX #### [address] [address] Nitrite Ql (U) Negative Normal NEGATIVE [facility] Comment on above: Performed By: #### U ARFX #### [address] [address] pH (U) 6.0 [pH] Normal 5.0 - 8.0 [facility] Comment on above: Performed By: #### U ARFX #### [address] [address] Protein Ql (U) Negative Normal NEGATIVE [facility] Comment on above: Performed By: #### U ARFX #### [address] [address] Specific gravity (U) [Rel density] 1.015 Normal 1.005 - 1.035 [facility] Comment on above: Performed By: #### U ARFX #### [address] [address] Urobilinogen (U) [Mass/Vol] mg/dL Normal 0.0 - 1.9 [facility] Comment on above: Performed By: #### U ARFX #### [address] [address] Color (U) Yellow See Below [facility] Work Phone: [phone] Comment on above: Reference Range: STR AW,YELLOW Glucose Ql (U) Negative NEGATIVE [facility] Work Phone: Ketones Ql (U) Negative NEGATIVE [facility] Work Phone: Leukocyte esterase Test strip Ql (U) Negative NEGATIVE [facility] Work Phone: pH (U) 6.0 [pH] 5.0 - 8.0 [facility] Work Phone: Protein (U) [Mass/Vol] Negative NEGATIVE [facility] Work Phone: [phone] RBC (U) [#/Vol] Negative NEGATIVE [facility] Work Phone: Specific gravity (U) [Rel density] 1.015 1 See Below [facility] Work Phone: [phone] Comment on above: Reference Range: 1.0 05 - 1.035 URINALYSIS WITH CULTURE IF INDICATED Negative NEGATIVE -[facility] Work Phone: [phone] URINALYSIS WITH CULTURE IF INDICATED <2.0 0.0 - 1.9 -[facility] Work Phone: [phone] URINALYSIS WITH CULTURE IF INDICATED HAZY CLEAR -[facility] Work Phone: [phone] Cardiac Stress Teston 2021 [place] [address] [phone], Exercise Stress Test Patient Name: ELSA ANDREW Ordering Physician: Study Date: 08/12/2022 Reading Physician: Sunil Novak MD MRN/PID: [id number] Supervising Physician: Sunil Novak MD Accession/Order#: [id number] Referring Physician: Sunil Novak MD Date of : 2005 PCP: Gender: F Fellow: Admit Date: 08/12/2022 Fellow: Admission Status: Outpatient Flat Hammerer: Jazmin Bell Height: 165.10 cm Nurse: N/A Weight: 63.50 kg Veneer Drier: N/A BSA: 1.70 m2 Technologist: BMI: 23.30 kg/m2 Additional Staff: Age: 16 years cc report to: Patient Location: [facility] Stress Lab cc report to: Study Type: Cardiac Stress Test Diagnosis/ICD: B72-Uxukigr and collapse Indication: Syncope Procedure/CPT: Stress Test Interpretation-88910; Stress Test Supervision-[id number] Falls Risk: Low: Patient has low risk for sustaining a fall; environmental safety interventions in place. Study Details: Correct procedure and correct patient verified verbally and with ID Band checked. Patient History: Allergies: AMOXIL,AUGMENTIN,CEFZIL ,CIPRO,KEFLEX, SULFA DRUGS. Smoker: Never. Diabetes: No. BMI: Normal 18.5 - 25. Medications: SERTRALINE,SPRINTEC. The patient did not take medications as prescribed. Patient Performance: The peak heart rate achieved was 173 bpm, which was 86 % of the age predicted target heart rate of 201 bpm. The resting blood pressure was 123/91 mmHg with a heart rate of 77 bpm. The standing blood pressure was 115/87 mmHg with a heart rate of 85 bpm. The patient developed shortness of breath, leg fatigue and dizziness during the stress exam. The symptoms resolved with rest 4 minutes into recovery. The blood pressure response was normal. The test was terminated due to: MPHR >85%, fatigue and dizziness/lightheadedne ss. Baseline ECG: Resting ECG showed normal sinus rhythm with normal tracing. Stress ECG: Stress ECG showed sinus tachycardia, with no abnormal findings. Stress Stage Data: + +---+ ------+-------+ HR Sys BP Barrera BP + +---+ ------+-------+ Baseline Resting 77 123 91 + +---+ ------+-------+ Baseline Standing 85 115 87 + +---+ ------+-------+ Stage I 116 129 74 + +---+ ------+-------+ Stage II 141 147 76 + +---+ ------+-------+ Stage III 172 149 74 + +---+ ------+-------+ Recovery ECG: Recovery ECG showed normal sinus rhythm, with no abnormal findings. The heart rate recovery was normal. + +---+------ +-------+ HR Sys BP Barrera BP + +---+------ +-------+ Recovery I 113 + +---+------ +-------+ Recovery II 79 103 75 + +---+------ +-------+ Recovery IV 69 109 75 + +---+------ +-------+ Baseline Echo: There are no regional wall motion abnormalities at baseline. Summary: 1. Baseline EKG shows normal sinus rhythm with nonspecific ST-T segment changes. 2. Patient exercised for 9 minutes achieving 10.3 METS. 3. Heart rate response to exercise normal. 4. Blood pressure response to exercise was normal. 5. With exercise no ST-T segment changes suggestive of ischemia or sustained ventricular arrhythmias are seen. 6. Exercise stress EKG is negative for ischemia. 7. Pryor treadmill score is 9 (low risk). [id number] Bigg Novak MD Electronically signed on 08/12/2022 at 11:43:15 AM Final Normal [facility] Cardiac Stress Test [facility] Work Phone: LIPID PANEL (CORONARY RISK 2 )on 08-12-2022 Cholesterol [Mass/Vol] 233 mg/dL High 0 - 199 [facility] Comment on above: Result Comment: . AGE DESIRABLE BORDERLINE HIGH HIGH 0-19 Y 0 - 169 170 - 199 >/= 200 20-24 Y 0 - 189 190 - 224 >/= 225 >24 Y 0 - 199 200 - 239 >/= 240 All ranges are based on fasting samples. Specific therapeutic targets will vary based on patient-specific cardiac risk. . Pediatric guidelines reference:Pediatrics 2011, 128(S5). Adult guidelines reference: NCEP ATPIII Guidelines, YING 2001, 258:2486-97 . Venipuncture immediately after or during the administration of Metamizole may lead to falsely low results. Testing should be performed immediately prior to Metamizole dosing. Performed By: #### G ENLO #### [facility] [address] [place] [address] Cholesterol in HDL [Mass/Vol] 56.0 mg/dL Normal [facility] Comment on above: Result Comment: . AGE VERY LOW LOW NORMAL HIGH 0-19 Y < 35 < 40 40-45 ---- 20-24 Y ---- < 40 >45 ---- >24 Y ---- < 40 40-60 >60 . Performed By: #### G ENLO #### [facility] [address] [place] [address] Cholesterol in LDL [Mass/Vol] 152 mg/dL High 0 - 109 [facility] Comment on above: Result Comment: . NEAR BORD AGE DESIRABLE OPTIMAL HIGH HIGH VERY HIGH 0-19 Y 0 - 109 --- 110-129 >/= 130 ---- 20-24 Y 0 - 119 --- 120-159 >/= 160 ---- >24 Y 0 - 99 100-129 130-159 160-189 >/=190 . Performed By: #### G ENLO #### [facility] [address] [place] [address] Cholesterol in VLDL [Mass/Vol] 25 mg/dL Normal 0 - 40 [facility] Comment on above: Performed By: #### G ENLO #### [facility] [address] [place] [address] Cholesterol.total/Miranda sterol in HDL [Mass ratio] 4.2 {ratio} Normal [facility] Comment on above: Result Comment: REF VALUES DESIRABLE < 3.4 HIGH RISK > 5.0 Performed By: #### G ENLO #### [facility] [address] [place] [address] NON-HDL CHOLESTEROL 177 mg/dL High 0 - 119 [facility] Comment on above: Result Comment: AGE DESIRABLE BORDERLINE HIGH HIGH VERY HIGH 0-19 Y 0 - 119 120 - 144 >/= 145 >/= 160 20-24 Y 0 - 149 150 - 189 >/= 190 ---- >24 Y 30 MG/DL ABOVE LDL CHOLESTEROL GOAL . Performed By: #### G ENLO #### [facility] [address] [place] [address] Triglyceride [Mass/Vol] 126 mg/dL Normal 0 - 149 [facility] Comment on above: Result Comment: . AGE DESIRABLE BORDERLINE HIGH HIGH VERY HIGH 0 D-90 D 19 - 174 ---- ---- ---- 91 D- 9 Y 0 - 74 75 - 99 >/= 100 ---- 10-19 Y 0 - 89 90 - 129 >/= 130 ---- 20-24 Y 0 - 114 115 - 149 >/= 150 ---- >24 Y 0 - 149 150 - 199 200- 499 >/= 500 . Venipuncture immediately after or during the administration of Metamizole may lead to falsely low results. Testing should be performed immediately prior to Metamizole dosing. Performed By: #### G ENLO #### [facility] [address] [place] [address] Lipid Panelon 08-12-2022 Cholesterol [Mass/Vol] 233 mg/dL above hig h threshold 0 - 199 [email or web address] Work Phone: Comment on above: . AGE DESIRABLE BORD VALERIA HIGH HIGH 0-19 Y 0 - 169 170 - 199 >/= 200 20-24 Y 0 - 189 190 - 224 >/= 225 >24 Y 0 - 199 200 - 239 >/= 240 All ranges are based on fasting samples. Specific therapeutic targets will vary based on patient-specific cardiac risk.. Pediatric guidelines reference:Pediatrics 2011, 128(S5). Adult guidelines reference: NCEP ATPIII Guidelines, YING 2001, 258:2486-97. Venipuncture immediately after or during the administration of Metamizole may lead to falsely low results. Testing should be performed immediately prior to Metamizole dosing. Cholesterol in HDL [Mass/Vol] 56.0 mg/dL [email or web address] Work Phone: Comment on above: . AGE VERY LOW LOW N ORMAL HIGH 0-19 Y < 35 < 40 40-45 ---- 20-24 Y ---- < 40 >45 ---- >24 Y ---- < 40 40-60 >60. Cholesterol in LDL [Mass/Vol] 152 mg/dL above high threshold 0 - 109 [email or web address] Work Phone: Comment on above: . NEAR BORD AGE JEREMIAS RABLE OPTIMAL HIGH HIGH VERY HIGH 0-19 Y 0 - 109 --- 110-129 >/= 130 ---- 20-24 Y 0 - 119 --- 120-159 >/= 160 ---- >24 Y 0 - 99 100-129 130-159 160-189 >/=190. Cholesterol non HDL [Mass/Vol] 177 mg/dL above high threshold 0 - 119 [facility] Work Phone: Comment on above: AGE DESIRABLE BORDER LINE HIGH HIGH VERY HIGH 0-19 Y 0 - 119 120 - 144 >/= 145 >/= 160 20-24 Y 0 - 149 150 - 189 >/= 190 ---- >24 Y 30 MG/DL ABOVE LDL CHOLESTEROL GOAL. Cholesterol.total/Miranda sterol in HDL [Mass ratio] 4.2 {ratio} [facility] Work Phone: Comment on above: REF VALUESDESIRABLE < 3.4HIGH RISK > 5.0 Triglyceride [Mass/Vol] 126 mg/dL 0 - 149 [facility] Work Phone: Comment on above: . AGE DESIRABLE BORD VALERIA HIGH HIGH VERY HIGH 0 D-90 D 19 - 174 ---- ---- ----91 D- 9 Y 0 - 74 75 - 99 >/= 100 ---- 10-19 Y 0 - 89 90 - 129 >/= 130 ---- 20-24 Y 0 - 114 115 - 149 >/= 150 ---- >24 Y 0 - 149 150 - 199 200- 499 >/= 500. Venipuncture immediately after or during the administration of Metamizole may lead to falsely low results. Testing should be performed immediately prior to Metamizole dosing. Lipid Panel 25 mg/dL 0 - 40 [facility] Work Phone: Office Visit (Cardiology)on 07-31-2022 Follow-up visit Diagnoses/Problems Assessed Syncope and collapse (780.2) (R55) Palpitation (785.1) (R00.2) Orders Palpitation IO EKG Electrocardiogram- 12 Lead; Status:Complete; Done: 31Jul2022 03:16PM Palpitation, Syncope and collapse Cardiac Stress Test; Status:Hold For - Scheduling; Requested for:31Jul2022; Lipid Panel; Status:Active; Requested for:31Jul2022; Tilt Table; Status:Hold For - Scheduling; Requested for:31Jul2022; Chief Complaint Palpitations History of Present [id number] female with a medical history of anxiety here for evaluation of the following complaints: Problem #1 palpitations -Event monitor performed 07/12/2022 was largely unremarkable. -Echocardiogram performed 06/24/2022 was suggestive of a small PFO; preserved biventricular function. Patient describes about 6 months of worsening symptoms: Mostly postural or in the shower she notices dizziness/lightheadedne ss accompanied by warmth and diaphoresis in her face. Some heaviness of her face/limbs occasionally accompanied by loss of consciousness. She loses consciousness for a few seconds prior to regaining. Occasional dizzy episodes are also accompanied by nausea/vomiting. Other triggers described are heat, anxiety. Outside of these episodes she does note occasional shortness of breath with exertion particularly with climbing stairs. Denies any orthopnea/PND. No clear exertional angina. Active Problems Problems Acute bronchitis, unspecified organism (466.0) (J20.9) Anxiety (300.00) (F41.9) Breast pain in female (611.71) (N64.4) Chronic epigastric pain (789.06,338.29) (R10.13,G89.29) Contraception management (V25.9) (Z30.9) Dysmenorrhea (625.3) (N94.6) Encounter for immunization (V03.89) (Z23) Fatigue (780.79) (R53.83) Left foot pain (729.5) (M79.672) Menorrhagia (626.2) (N92.0) Nausea in adult (787.02) (R11.0) Palpitation (785.1) (R00.2) Vaginal discharge (623.5) (N89.8) Vaginal pain (625.9) (R10.2) Weight loss (783.21) (R63.4) Yeast infection of the vagina (112.1) (B37.3) Surgical History Problems History of Tonsillectomy with adenoidectomy 09/02/2017 Past Medical History Problems History of Menstruation Onset age 7 years Current Meds Medication NameInstruction Sertraline HCl - 100 MG Oral TabletTAKE 1 TABLET DAILY. Sprintec 28 0.25-35 MG-MCG Oral TabletTAKE 1 TABLET BY MOUTH EVERY DAY Allergies Medication Amoxil Hives;; Recorded By: Melisa Berry; 02/07/2020 10:49:49 AM Keflex Hives;; Recorded By: Melisa Berry; 02/07/2020 10:49:49 AM Sulfa Drugs Hives;; Recorded By: Melisa Berry; 02/07/2020 10:49:49 AM Augmentin Diarrhea; Rash; Recorded By: Kassandra Villanueva; 11/08/2019 9:41:50 AM Cefzil Rash; Recorded By: Kassandra Villanueva; 11/08/2019 9:41:50 AM ciprofloxacin Unknown; Recorded By: Kassandra Villanueva; 11/08/2019 9:41:50 AM Family History Mother Family history of hyperlipidemia (V18.19) (Z83.438) Family history of hypertension (V17.49) (Z82.49) Family history of migraine headaches (V17.2) (Z82.0) FHx: SVT (supraventricular tachycardia) (V17.49) (Z82.49) Father Family history of hypertension (V17.49) (Z82.49) Family history of myocardial infarction (V17.3) (Z82.49) Social History Problems Does not have living will Marijuana No alcohol use No illicit drug use Non-smoker (V49.89) (Z78.9) Occasional caffeine consumption Sexually active Review of Systems Constitutional: Denies any fever or chills Eyes: Denies any eye pain or blurry vision ENT: Denies any ear pain or hearing loss Cardiovascular: The heart rate is not slow, the heart rate is not fast Respiratory: Denies any asthma/wheezing Gastrointestinal: Denies any shavon colored stools or fatty food intolerance Genitourinary: Denies any blood in the urine or pelvic pain Musculoskeletal: Denies any swelling in the joints or difficulty walking Skin: Denies any skin lumps or skin lesions Neurological: Denies any dizziness/tingling Vitals Vital Signs Recorded: 31Jul2022 03:26PM Heart Rate83 Nbckvaij886 Hcipwmeuq49 Height5 ft 5 in 2-20 Stature Pzermfipad98 % Kuncev273 lb 5 oz 2-20 Weight Fotfwepdtz58 % BMI Sloduhtdfz33.35 kg/m2 BMI Pndkobgznv80 % BSA Calculated1.7 Tobacco Usea) Yes Patient encouraged to stop using tobacco productsYes Falls Screening (Age 18+)a) No falls within the last year O2 [id number] Physical Exam General: AANDOx3 HEENT: NC/AT; EOMI; PERRLA, external ear is normal Neck: supple; no JVD Chest: CTAB; no wheezing CVS: S1S2 normal, no murmurs Abdomen: Soft, NT/ND, no organomegaly Extremities: no clubbing/cyanosis/edema Neuro: Grossly intact Results/Data [id number] 12:53PMNorma Townsend Test NameResultFlagReference Echocardiogram(Report) [id number] [place] [address] ext-2528, TRANSTHORACIC ECHOCARD (more content not included)... Normal [facility] Screening.on 022 Fall risk assessment a) No falls within the last year [facility] Work Phone: Tobacco use status [facility] a) Yes M [facility] Work Phone: Tobacco Screening. Yes [facility] Work Phone: Office Visit (Primary Care T xt/Forms)on 07-22-2022 Follow-up visit Diagnoses/Problems Assessed Chronic epigastric pain (789.06,338.29) (R10.13,G89.29) Nausea in adult (787.02) (R11.0) Weight loss (783.21) (R63.4) Palpitation (785.1) (R00.2) *Orders Chronic epigastric pain General Surgery Referral Evaluation and Treatment Evaluate AND Treat [facility] or [place]. pt aware Status: Active Requested for: [id number] Chronic epigastric pain (789.06) (R10.13) Provider Impressions Provider Impressions Free Text Note Form: Counseled patient today regarding marijuana consumption and recommendations for discontinuing. Recommend restarting and continuing her daily PPI as directed She has upcoming appointment with cardiology (?POTS) Schedule referral to GI for continued nausea, vomiting and weight loss RTC 2MO after other appts. Discussed decreasing fat intake, weight loss, avoiding recumbency for 3 h postprandially, elevation of HOB and avoidance of chocolate, tomato based foods, alcohol, peppermint, caffeinated products, citrus fruits/drinks and onions. Chief Complaint 1 MO FU REV LABS History of Present Illness Elsa comes to office to discuss labs/diagnostics. Mom present during visit. c/o early satiety AND nausea. Has freq. emesis throughout day. Started on PPI @ last OV AND pt noncompliant with medication (only took a few days). Has noted a 30# weight loss over course of the last yr. Endorses only eating one meal per day as per her usual. No snacking throughout day. Previously employed @ [employer] and would eat that food on a consistent basis. Concerned as the place she worked had mold in pop machine in which Elsa was unaware of until recently AND she consuming. She quit her job as a result of the freq. emesis and feels nausea is about the same but is having less episodes of emesis since leaving her job. Has been vegan x9Y. No bowel issues. No abd pain. Noted to have a mildly low iron; Was advised to start on iron supplementation daily and Elsa not taking on a consistent basis as it upsets her stomach. Continued dizziness. ECHO reviewed w/ pt AND mother today AND showed a small PFO AND event monitor indicates sinus tachy w/ periods of sinus bradycardia during sleep hours Otherwise no notable arrhythmia was noted. States had a syncopal episode approximately 2 weeks ago in her shower.Has been encouraged to increase her fluid and salt consumption. 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 She has increased her marijuana use since being seen in the office last as she states it helps with her nausea. Review of Systems Constitutional: recent weight loss, but not feeling tired, no fever and no chills. Cardiovascular: chest pain and palpitations, but no lower extremity edema and no shortness of breath. Respiratory: no cough and no wheezing. Gastrointestinal: nausea and vomiting, but no abdominal pain, no constipation, no diarrhea, no heartburn, no blood in stools and no dysphagia. Musculoskeletal: no arthralgias, no myalgias, no joint swelling, no joint stiffness and no joint redness. Neurological: headache, dizziness and fainting. *Active Problems Problems Acute bronchitis, unspecified organism (466.0) (J20.9) Anxiety (300.00) (F41.9) Breast pain in female (611.71) (N64.4) Contraception management (V25.9) (Z30.9) Dysmenorrhea (625.3) (N94.6) Encounter for immunization (V03.89) (Z23) Fatigue (780.79) (R53.83) Left foot pain (729.5) (M79.672) Menorrhagia (626.2) (N92.0) Nausea in adult (787.02) (R11.0) Palpitation (785.1) (R00.2) Vaginal discharge (623.5) (N89.8) Vaginal pain (625.9) (R10.2) Weight loss (783.21) (R63.4) Yeast infection of the vagina (112.1) (B37.3) Chronic epigastric pain (789.06) (R10.13) Past Medical History Problems History of Menstruation Surgical History Problems History of Tonsillectomy with adenoidectomy Family History Mother Family history of hyperlipidemia (V18.19) (Z83.438) Family history of hypertension (V17.49) (Z82.49) Family history of migraine headaches (V17.2) (Z82.0) FHx: SVT (supraventricular tachycardia) (V17.49) (Z82.49) Father Family history of hypertension (V17.49) (Z82.49) Family history of myocardial infarction (V17.3) (Z82.49) Social History Problems No alcohol use No illicit drug use Non-smoker (V49.89) (Z78.9) Sexually active Current Meds Medication NameInstruction busPIRone HCl - 10 MG Oral TabletTAKE 1 TABLET 3 times daily PRN anxiety Sertraline HCl - 100 MG Oral TabletTAKE 1 TABLET DAILY. Sprintec 28 0.25-35 MG-MCG Oral TabletTAKE 1 TABLET BY MOUTH EVERY DAY Allergies Medication Amoxil Keflex Sulfa Drugs Augmentin Cefzil ciprofloxacin Vitals Vital Signs Recorded: 22Jul2022 10:10AM Heart Rate: 74 Systolic: 120 Diastolic: 82 Height: 5 ft 5 in 2-20 Stature Percentile: 61 % Weight: 140 lb 6 oz 2-20 Weight Percentile: 73 % BMI Calculated: 23.36 kg/m2 BMI Percentile: 69 % BSA Calculated: 1. (more content not included)... Normal [facility] Tobacco Screening.on 022 Fall risk assessment a) No falls within the last year [facility] Work Phone: [phone] Tobacco use status [facility] b) No [facility] Work Phone: [phone] Amylase, Serumon 06-20-2022 Amylase [Catalytic activity/Vol] 109 U/L above high threshold 29 - 103 [facility] Work Phone: [phone] Ferritin, Serumon 06-20-2022 Ferritin [Mass/Vol] 11 ug/L 8 - 150 [facility] Work Phone: [phone] Iron, Serumon 06-20-2022 Iron [Mass/Vol] 30 ug/dL below low threshold 35 - 150 [facility] Work Phone: [phone] Laboratory - Chemistry and C hemistry - challengeon 06-20-2022 Albumin BCP dye [Mass/Vol] 3.9 g/dL 3.4 - 5.0 [facility] Work Phone: [phone] ALP [Catalytic activity/Vol] 65 U/L 33 - 110 [facility] Work Phone: [phone] ALT With P-5'-P [Catalytic activity/Vol] 9 U/L 7 - 45 [employer] Work Phone: Comment on above: Patients treated wit h Sulfasalazine may generate falsely decreased results for ALT. Anion gap [Moles/Vol] 12 mmol/L 10 - 20 [facility] Work Phone: AST With P-5'-P [Catalytic activity/Vol] 13 U/L 9 - 39 [facility] Work Phone: Bilirubin [Mass/Vol] 0.4 mg/dL 0.0 - 1.2 [facility] Work Phone: Calcium [Mass/Vol] 9.0 mg/dL 8.6 - 10.3 [facility] Work Phone: Chloride [Moles/Vol] 106 mmol/L 98 - 107 [facility] Work Phone: CO2 [Moles/Vol] 25 mmol/L 21 - 32 [facility] Work Phone: Creatinine [Mass/Vol] 0.57 mg/dL See Below [facility] Work Phone: Comment on above: Reference Range: 0.5 0 - 1.05 Glucose [Mass/Vol] 83 mg/dL 74 - 99 [facility] Work Phone: Potassium [Moles/Vol] 3.8 mmol/L 3.5 - 5.3 [facility] Work Phone: Protein [Mass/Vol] 7.1 g/dL 6.4 - 8.2 [facility] [employer] [facility] Work Phone: Sodium [Moles/Vol] 139 mmol/L 136 - 145 [facility] Work Phone: Urea nitrogen [Mass/Vol] 4 mg/dL below low threshold 6 - 23 [facility] Work Phone: Laboratory - Hematology and Cell countson 06-20-2022 Erythrocyte distribution width (RBC) [Ratio] 14.6 % above high threshold See Below [facility] Work Phone: [phone] Comment on above: Reference Range: 11. 5 - 14.5 Hematocrit (Bld) [Volume fraction] 36.5 % See Below [facility] Work Phone: [phone] Comment on above: Reference Range: 36. 0 - 46.0 Hemoglobin (Bld) [Mass/Vol] 12.0 g/dL See Below [facility] Work Phone: [phone] Comment on above: Reference Range: 12. 0 - 16.0 MCHC (RBC) [Mass/Vol] 32.8 g/dL See Below [facility] Work Phone: [phone] Comment on above: Reference Range: 32. 0 - 36.0 MCV (RBC) [Entitic vol] 77 fL below lo w threshold 80 - 100 [facility] Work Phone: [phone] Platelets (Bld) [#/Vol] 280 10*3/uL 150 - 450 [facility] Work Phone: [phone] RBC (Bld) [#/Vol] 4.74 {x10E12/L} See Below [facility] Work Phone: Comment on above: Reference Range: 4.0 0 - 5.20 WBC (Bld) [#/Vol] 6.5 10*3/uL 4.4 - 11.3 [facility] Work Phone: [phone] Lipase, Serumon 06-20-2022 Lipase [Catalytic activity/Vol] 33 U/L 9 - 82 [facility] Work Phone: [phone] Comment on above: Venipuncture immedia tely after or during the administration of Metamizole may lead to falsely low results. Testing should be performed immediately prior to Metamizole dosing. No Panel Informationon 06-20 >90 >90 [facility] Work Phone: [phone] Comment on above: CALCULATIONS OF JENNIFER MATED GFR ARE PERFORMED USING THE 2020 CKD-EPI STUDY REFIT EQUATION WITHOUT THE RACE VARIABLE FOR THE IDMS-TRACEABLE CREATININE METHODS.https://jasn.asnjournals.org/content// ASN.2854413582 TSH - Thyroid Stimulating Ho James lawsonon 06-20-2022 TSH Qn 1.53 m[IU]/L See Below [facility] Work Phone: Comment on above: Reference Range: 0.4 4 - 3.98 TSH testing is performed using different testing methodology at [facility] than at other [facility]. Direct result comparisons should only be made within the same method. IO HCG, Urine Test on 06-17-2022 HCG ( test) Ql (U) Negative Normal [facility] Work Phone: Office Visit (Primary Care T xt/Forms)on 06-17-2022 Follow-up visit Diagnoses/Problems Assessed Chronic epigastric pain (789.06,338.29) (R10.13,G89.29) Nausea in adult (787.02) (R11.0) Weight loss (783.21) (R63.4) Fatigue (780.79) (R53.83) Palpitation (785.1) (R00.2) Anxiety (300.00) (F41.9) Orders Chronic epigastric pain Amylase, Serum; Status:Active; Requested for:17Jun2022; Complete Blood Count; Status:Active; Requested for:17Jun2022; Comprehensive Metabolic Panel; Status:Active; Requested for:17Jun2022; Lipase, Serum; Status:Active; Requested for:17Jun2022; Fatigue Ferritin, Serum; Status:Active; Requested for:17Jun2022; Iron, Serum; Status:Active; Requested for:17Jun2022; TSH - Thyroid Stimulating Hormone, Serum; Status:Active; Requested for:17Jun2022; Palpitation Cardiology - General Referral Evaluation and Treatment Evaluate AND Treat Status: Hold For - Scheduling Requested for: 17Jun2022 Echocardiogram; Status:Hold For - Scheduling; Requested for:17Jun2022; Holter Monitor 3-14 Days; Status:Hold For - Scheduling; Requested for:17Jun2022; Provider Impressions Provider Impressions Free Text Note Form: Check amylase, lipase, ferritin, CBC, CMP, TSH 14-day Holter monitor and echocardiogram Referral to cardiology Omeprazole 20 mg by mouth daily 30 minutes prior to breakfast Reinforced patient to stay hydrated ensuring she is drinking plenty of fluids and may benefit from increasing her salt in her diet Had a lengthy discussion with patient and patient's mother regarding marijuana use w/ SSRI's and potential increased in serotonin. RTC 1 MO Time Code: 1. Preparation for patient's visit (reviewing chart, current medical record, outside health provider records, previous history, exam, test, procedure, and medications) 2. Tzhs-uj-Vuzo encounter obtaining history from patient/family/caregive rs; performing evaluation and exam; ordering tests or procedures; referring and communicating with other health care providers; counseling and education of the patient/family/caregive rs; independently interpreting results (tests, labs, procedures, imaging) and communicating and explaining results to the patient/family/caregive rs 3. Coordination of care; preparing and printing discharge instructions and any educational material for the patient/family/caregive rs. Documenting clinical information into the electronic medical record 4. Reviewing OARRS as needed MDM: 1) complexity: more than 1 stable chronic condition addressed or 1 acute illness addressed. 2) Data: tests interpreted and/or ordered, took independent history or records reviewed. 3) Risk: moderate risk due to nature of medical conditions/comorbidity or medications ordered or surgical or procedural referral Chief Complaint FATIGUE, N/V, DIZZINESS, PALPITATIONS, CHEST DISCOMFORT X 2 MO. History of Present Illness Elsa comes to office today , with her mother, for multiple concerns. Complains of frequent vomiting spells throughout the day, approximately 5 times daily, and has been occurring over the last year but has been worse in the past couple months. States feels nauseated all the time. Triggers: None but states drinking cold water helps with the nausea. + Burping and hiccuping frequently. + Epigastric pain. Bowels described as normal and without melena. Intermittent sore throat in the a.m. without cough. Denies bad taste or burning in the back of the throat. OTC: Mother gave her an all-natural antacid which Elsa states does not help. No alcohol. Infrequent use of ibuprofen for generalized body aches. + Marijuana use. She states that smoking marijuana helps with her nausea. Her mother mentions that she has been instructed not to be smoking marijuana in conjunction with her prescribed medications. Smoked more marijuana when was with her previous boyfriend but has cut back since they have broke up. Brother with similar GI issues per mother's report but after testing was unable to find anything. She feels that his GI related issues are a result of his alcoholism. Not much of an appetite she has lost 12 pounds recently. Complains of dizziness when she goes up and down stairs and getting up. Dizziness can last briefly and resolve without intervention and spontaneously. No syncopal episodes but feels like she could blackout. These episodes have been occurring daily over the last 2 months. Feels like her heart is racing in various position changes like it is beating very hard. Feels SOB AND has chest pressure when this occurs. These episodes occur with or without activity and she is unable to relate any triggers. Has been able to continue to work at [employer] but has called off several times as a result of the epigastric pain and is close to losing her job. + CROCKETT that she describes as being located behind both of her eyes. She will periodically experience scotomas in her vision prior to the onset of her headache. + photophobia. IBU/Aleve - not helpful. c/o chronic fatigue. fxhx: migraines. Elsa states has not had a period in over 1 month. Is n (more content not included)... Normal [facility] Tobacco Screening.on 022 Fall risk assessment a) No falls within the last year [facility] Work Phone: Tobacco use status [facility] b) No M [facility] Work Phone: Office Visit (Primary Care T xt/Forms)on 04-01-2022 Follow-up visit Diagnoses/Problems Assessed Anxiety (300.00) (F41.9) Orders Anxiety Start: busPIRone HCl - 10 MG Oral Tablet; TAKE 1 TABLET 3 times daily PRN anxiety Renew: Sertraline HCl - 100 MG Oral Tablet; TAKE 1 TABLET DAILY Provider Impressions Provider Impressions Free Text Note Form: Refill Zoloft Add BuSpar 10 mg 3 times daily as needed anxiety Consider counseling through [facility] Chief Complaint MED CHK History of Present Illness Elsa comes to the office for refill on Zoloft for anxiety. Is reluctant to change Zoloft or increase her dose as she feels medicine for the most part works fairly well. Has attended counseling at [facility] (and had a bad experience ) therefore changing to [facility]. Was happy with [facility] however parents felt that counseling sessions were not necessary and they were discontinued. Prefers not to chg to another counselor. Sleep: well. No S/H ideations. Employed @ [employer], full-time. Anxiety AND depression worse. Review of Systems Constitutional: not feeling tired, no fever, not feeling poorly and no chills. Psychiatric: feelings of anxiety and feelings of depression, but no mood changes, no sleep disturbances, no substance use, no panic attacks and no suicidal thoughts. Active Problems Problems Acute bronchitis, unspecified organism (466.0) (J20.9) Anxiety (300.00) (F41.9) Breast pain in female (611.71) (N64.4) Contraception management (V25.9) (Z30.9) Dysmenorrhea (625.3) (N94.6) Encounter for immunization (V03.89) (Z23) Left foot pain (729.5) (M79.672) Menorrhagia (626.2) (N92.0) Vaginal discharge (623.5) (N89.8) Vaginal pain (625.9) (R10.2) Yeast infection of the vagina (112.1) (B37.3) Past Medical History Problems History of Menstruation Surgical History Problems History of Tonsillectomy with adenoidectomy Family History Mother Family history of hyperlipidemia (V18.19) (Z83.438) Family history of hypertension (V17.49) (Z82.49) Family history of migraine headaches (V17.2) (Z82.0) FHx: SVT (supraventricular tachycardia) (V17.49) (Z82.49) Father Family history of hypertension (V17.49) (Z82.49) Family history of myocardial infarction (V17.3) (Z82.49) Social History Problems No alcohol use No illicit drug use Non-smoker (V49.89) (Z78.9) Sexually active Current Meds Medication NameInstruction Sertraline HCl - 100 MG Oral TabletTAKE 1 TABLET DAILY. Sprintec 28 0.25-35 MG-MCG Oral TabletTAKE 1 TABLET BY MOUTH EVERY DAY Allergies Medication Amoxil Keflex Sulfa Drugs Augmentin Cefzil ciprofloxacin Vitals Vital Signs Recorded: 01Apr2022 02:47PM Heart Rate: 89 Systolic: 112 Diastolic: 66 Height: 5 ft 5 in 2-20 Stature Percentile: 61 % Weight: 156 lb 2 oz 2-20 Weight Percentile: 87 % BMI Calculated: 25.98 kg/m2 BMI Percentile: 85 % BSA Calculated: 1.78 Tobacco Use: a) Yes Patient encouraged to stop using tobacco products: Yes PHQ-2 #1. Over the last 2 weeks have you felt down, depressed or hopeless? (If yes, answer PHQ-9 below): Yes PHQ-2 #2. Over the last 2 weeks have you felt little interest or pleasure in doing things? (If yes, answer PHQ-9 below): No Fall Screening: a) No falls within the last year O2 Saturation: 98 Physical Exam General: Alert and oriented. Ambulation status: With steady gait. Behavior: Appropriate. Neck: Supple, Non-tender, No carotid bruit, No lymphadenopathy, No thyromegaly. Respiratory: Lungs are clear to auscultation, Breath sounds are equal, Symmetrical chest wall expansion. Respirations: Are within normal limits. Pattern: Regular. Cardiovascular: Regular rhythm, S1, S2, No murmur, Good pulses equal in all extremities. No peripheral edema, nash. Integumentary: Warm, Dry, [place], Intact, No rash. Neurologic: Alert, Oriented. Signatures Electronically signed by : ARNOLDO Blanchard; Apr 01 2022 3:10PM EST (Author) Normal [facility] Tobacco Screening.on 022 Adult depression screening assessment Yes [facility] Work Phone: [phone] Adult depression screening assessment No [facility] Work Phone: [phone] Fall risk assessment a) No falls within the last year [facility] Work Phone: [phone] Tobacco use status CP a) Yes M [employer] [facility] Work Phone: Tobacco Screening. 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 COMPARISON: None. ACCESSION NUMBER(S): [id number] ORDERING CLINICIAN: Norma Townsend TECHNIQUE: Multiple grayscale ultrasonographic images were obtained through the right breast in the region of palpable abnormality. FINDINGS: There is no ultrasonographic mass or asymmetry identified in the region of palpableormammographic abnormality. IMPRESSION: No ultrasonographic evidence of malignancy. BI-RADS CATEGORY: Category: 1 - Negative. Recommendation: Normal Interval Follow-up, Over Age 40. Recall Interval: 12 Months. Breast Density: Heterogeneous. FINAL REPORT Dictated: 07/30/2019 9:09 am Dank Carvalho MD Signed (Electronic Signature): 07/30/2019 9:09 am Signed by: Dank Carvalho MD Technologist: REJI Assessment: BI-RADS Category 1-Negative Recommendation: Normal interval follow-up Normal [facility] Chlamydia GC by PCRon 2018 Chlamydia by PCR. Not Detected Normal Not Detected [facility] Comment on above: Result Comment: Xper t CT/NG Assay performance has not been evaluated in patients less than 14 years of age. Performed By: #### 3 [id number] #### ELMA Germain Micro SubSection , Gonorrhoeae by PCR Not Detected Normal Not Detected [facility] Comment on above: Result Comment: Xper t CT/NG Assay performance has not been evaluated in patients less than 14 years of age. Performed By: #### 3 [id number] #### ELMA Starksc Micro SubSection , C Urineon 04-18-2019 C Urine Final Report: Rare Normal skin gerard isolated Normal [facility] Comment on above: Performed By: #### 2 [id number] #### ELMA Microbiology Subsection [address] [place] [address] Auto Diffon 02-13-2019 Basophils (Bld) [#/Vol] 0.0 E3/mcL Normal 0.0-0.2 [facility] Comment on above: Order Comment: Order Added by Discern Expert. Performed By: #### 2 [id number] #### ELMA [facility] [address] [place] [id number] Basophils/100 WBC (Bld) 0.7 % Normal 0.0-2.0 [facility] Comment on above: Order Comment: Order Added by Discern Expert. Performed By: #### 2 [id number] #### [facility]MA [facility] [address] [place] [address] Eos Absolute 0.0 E3/mcL Normal 0.0-0.7 [facility] Comment on above: Order Comment: Order Added by Discern Expert. Performed By: #### 2 [id number] #### ELMA [facility] [address] [place] [address] Eosinophils/100 WBC (Bld) 0.8 % Normal 0.0-11.0 [facility] Comment on above: Order Comment: Order Added by Discern Expert. Performed By: #### 2 [id number] #### [facility] [address] [place] [address] Lymphocytes (Bld) [#/Vol] 1.4 E3/mcL Normal 1.2-3.4 [facility] Comment on above: Order Comment: Order Added by Discern Expert. Performed By: #### 2 [id number] #### ELMA RemHemo [address] [place] [address] [id number] Lymphocytes/100 WBC (Bld) 22.6 % Normal 20.0-55.0 [facility] Comment on above: Order Comment: Order Added by Discern Expert. Performed By: #### 2 [id number] #### ELMA RemHemo [address] [place] [address] Person Absolute 0.5 E3/mcL Normal 0.0-0.7 [facility] Comment on above: Order Comment: Order Added by Discern Expert. Performed By: #### 2 [id number] #### ELMA VazquezHemo [address] [place] [address] Monocytes/100 WBC (Bld) 7.8 % Normal 0.0-10.0 [facility] Comment on above: Order Comment: Order Added by Discern Expert. Performed By: #### 2 [id number] #### ELMA VazquezHemo [address] [place] [address] Neutro Absolute 4.3 E3/mcL Normal 1.4-6.5 [facility] Comment on above: Order Comment: Order Added by Discern Expert. Performed By: #### 2 [id number] #### ELMA RemHemo [address] [place] [address] Neutro Auto 68.1 % Normal 37.0-75.0 [facility] Comment on above: Order Comment: Order Added by Discern Expert. Performed By: #### 2 [id number] #### ELMA VazquezHemo [address] [place] [address] CBC w/ Auto Diffon 9 Erythrocyte distribution width (RBC) [Ratio] 14.0 % Normal 11.5-14.5 [facility] Comment on above: Performed By: #### 2 [id number] #### ELMA VazquezHemo [address] [place] [address] Hematocrit (Bld) [Volume fraction] 36.4 % Normal 35.0-45.0 [facility] Comment on above: Performed By: #### 2 [id number] #### ELMA VazquezHemo [address] [place] [address] Hemoglobin (Bld) [Mass/Vol] 11.9 g/dL Low 12.0-15.0 [facility] Comment on above: Performed By: #### 2 [id number] #### LEMA RemHemo [address] [place] [address] MCH (RBC) [Entitic mass] 26.2 pg Normal 26.0-32.0 [facility] Comment on above: Performed By: #### 2 [id number] #### ELMA RemHemo [address] [place] [address] MCHC (RBC) [Mass/Vol] 32.6 g/dL Low 33.0-37.0 [facility] Comment on above: Performed By: #### 2 [id number] #### ELMA RemHemo [address] [place] [address] MCV (RBC) [Entitic vol] 80.2 fL Normal 78.0-95.0 [facility] Comment on above: Performed By: #### 2 [id number] #### ELMA RemHemo [address] [place] [address] Platelet mean volume (Bld) [Entitic vol] 8.9 fL Normal 7.4-11.0 [facility] Comment on above: Performed By: #### 2 [id number] #### ELMA RemHemo [address] [place] [address] Platelets (Bld) [#/Vol] 369 E3/mcL Normal 130-400 [facility] Comment on above: Performed By: #### 2 [id number] #### ELMA RemHemo [facility] [place] [address] RBC (Bld) [#/Vol] 4.54 E6/mcL Normal 3.90-5.30 [facility] Comment on above: Performed By: #### 2 [id number] #### ELMA RemHemo [address] [place] [address] 48464 WBC (Bld) [#/Vol] 6.3 E3/mcL Normal 3.6-11.0 [facility] Comment on above: Performed By: #### 2 [id number] #### ELMA RemHemo [address] [place] [address] CMPon 02-13-2019 Albumin [Mass/Vol] 4.0 g/dL Normal 3.4-5.0 [facility] Comment on above: Performed By: #### 2 [id number] #### ELMA [employer] [address] [place] [address]25[address] Albumin/Globulin [Mass ratio] 1.1 {ratio} Normal 1.1-1.9 [facility] Comment on above: Performed By: #### 2 [id number] #### ELMA [employer] [facility] [place] [address] Alk Phos 92 Int._Unit/L Normal 45-108 [facility] Comment on above: Performed By: #### 2 [id number] #### ELMA [employer] [address] [place] [address] 88106 ALT [Catalytic activity/Vol] 10 Int._Unit/L Normal 3-28 [facility] Comment on above: Performed By: #### 2 [id number] #### ELMA [employer] [address] [place] [address] 44050 Anion gap [Moles/Vol] 12 mmol/L Normal 10-20 [facility] Comment on above: Performed By: #### 2 [id number] #### ELMA [employer] [address] [place] [address] 90307 AST [Catalytic activity/Vol] 17 Int._Unit/L Normal 9-24 [facility] Comment on above: Performed By: #### 2 [id number] #### ELMA [employer] [address] [place] [address] 23735 Bili Total 0.42 mg/dL Normal 0.00-0.90 [facility] Comment on above: Performed By: #### 2 624514 #### ELMA [employer] [address] [place] [address] 33115 Calcium [Mass/Vol] 9.3 mg/dL Normal 8.5-10.7 [facility] Comment on above: Performed By: #### 2 [id number] #### ELMA [employer] [address] [place] [address] 89311 Chloride [Moles/Vol] 102 mmol/L Normal 98-107 [facility] Comment on above: Performed By: #### 2 [id number] #### ELMA [employer] [address] [place] [address] 69352 CO2 [Moles/Vol] 25.0 mmol/L Normal 18.0-27.0 [facility] Comment on above: Performed By: #### 2 [id number] #### ELMA [employer] [address] [place] [address] 98163 Creatinine [Mass/Vol] 0.6 mg/dL Normal 0.5-0.9 [facility] Comment on above: Performed By: #### 2 509373 #### ELMA [employer] [address] [place] [address] 26394 Globulin (S) [Mass/Vol] 4.0 g/dL Normal 2.0-4.0 [facility] Comment on above: Performed By: #### 2 [id number] #### ELMA [employer] [address] [place] [address] 44739 Glucose [Mass/Vol] 82 mg/dL Normal 70-99 [facility] Comment on above: Performed By: #### 2 653935 #### ELMA [employer] [address] [place] [address] 66708 Potassium [Moles/Vol] 3.9 mmol/L Normal 3.5-5.3 [facility] Comment on above: Performed By: #### 2 248354 #### ELMA [employer] [address] [place] [address] 28575 Protein [Mass/Vol] 7.5 g/dL Normal 6.2-7.7 [facility] Comment on above: Performed By: #### 2 530892 #### ELMA [employer] [address] [place] [address] 60030 Sodium [Moles/Vol] 135 mmol/L Low 136-145 [facility] Comment on above: Performed By: #### 2 [id number] #### ELMA [employer] [address] [place] [address] 32467 Urea nitrogen [Mass/Vol] 7 mg/dL Normal 6-23 [facility] Comment on above: Performed By: #### 2 [id number] #### ELMA [employer] [address] [place] [address] 39187 Urea nitrogen/Creatinine [Mass ratio] 11.7 ratio Normal 5.4-30.0 [facility] Comment on above: Performed By: #### 2 [id number] #### ELMA [employer] [address] [place] [address] 35534 Ferritinon 02-13-2019 Ferritin [Mass/Vol] 31.0 ng/mL Normal 8.0-150.0 [facility] Comment on above: Performed By: #### 2 [id number] #### ELMA [employer] [address] [place] [address] 742[address] TSHon 02-13-2019 TSH Qn 1.17 mcIU/mL Normal 0.30-5.60 [facility] Comment on above: Performed By: #### 2 [id number] #### ELMA [employer] [facility] [place] [address] Vital Signs Date Time Vital Sign Value Performing Clinician Facility 07-25-2025 13:05-0400 Body height 165.[address] Karena Valle MD Work Phone: 6(694)181-432480 [place] [address] 07-25-2025 13:05-0400 Body weight 52.[address] Karena Valle MD Work Phone: 2(832)153-369798 [address] 07-01-2025 13:58-0400 Body temperature 97.8 [degF] Dr. Karena Valle MD Work Phone: 8(029)198-347174 [place] [address] 07-01-2025 13:58-0400 Diastolic blood pressure 71 mm[Hg] Dr. Karena Valle MD Work Phone: 6(995)309-166880 [place] [address] 07-01-2025 13:58-0400 Heart rate 59 /min Dr. Karena Valle MD Work Phone: 8(157)046-453480 [place] [address] 07-01-2025 13:58-0400 Respiratory rate 16 /min Dr. Karena Valle MD Work Phone: 2(296)438-857498 [address] 07-01-2025 13:58-0400 SaO2% (BldA) [Mass fraction] 99 % Dr. Karena Valle MD Work Phone: 5(029)220-471480 [place] [address] 07-01-2025 13:58-0400 Systolic blood pressure 110 mm[Hg] Dr. Karena Valle MD Work Phone: 6(308)512-324980 [place] [address] 07-01-2025 12:00-0400 Body height 165.[address] Karena Valle MD Work Phone: 9(117)387-920180 [place] [address] 07-01-2025 12:00-0400 Body mass index (BMI) [Ratio] 19.1 kg/m2 Dr. Karena Valle MD Work Phone: [facility] 07-01-2025 12:00-0400 Body weight 52.[address] Karena Valle MD Work Phone: 4(362)598-073480 [place] [address] 06-27-2025 11:36-0400 Body weight 51.[address] Karena Valle MD Work Phone: [facility] 05-20-2025 12:48-0400 Diastolic blood pressure 72 mm[Hg] Dr. Karena Valle MD Work Phone: 2(348)043-559480 [place] [address] 05-20-2025 12:48-0400 Heart rate 87 /min Dr. Karena Valle MD Work Phone: 0(758)910-769380 [place] [address] 05-20-2025 12:48-0400 Respiratory rate 18 /min Dr. Karena Valle MD Work Phone: 8(166)222-244680 [place] [address] 05-20-2025 12:48-0400 SaO2% (BldA) [Mass fraction] 99 % Dr. Karena Valle MD Work Phone: 1(948)533-574280 [place] [address] 05-20-2025 12:48-0400 Systolic blood pressure 111 mm[Hg] Dr. Karena Valle MD Work Phone: 6(647)577-599280 [place] [address] 05-20-2025 10:57-0400 Body height 165.[address] Karena Valle MD Work Phone: 7(920)232-855780 [place] [address] 05-20-2025 10:57-0400 Body mass index (BMI) [Ratio] 19.1 kg/m2 Dr. Karena Valle MD Work Phone: 6(232)355-628380 [place] [address] 05-20-2025 10:57-0400 Body weight 52.[address] Karena Valle MD Work Phone: 7(641)488-390680 [place] [address] 05-19-2025 09:50-0400 Body weight 52.[address] Karena Valle MD Work Phone: 7(469)005-184880 [place] [address] 05-19-2025 09:50-0400 Body weight 52.[address] Karena Valle MD Work Phone: 4(148)470-271880 [place] [address] 04-06-2025 11:54-0400 Body height 165.[address] Karena Valle MD Work Phone: 1(811)644-726780 [place] [address] 04-06-2025 11:54-0400 Body mass index (BMI) [Ratio] 20 kg/m2 Dr. Karena Valle MD Work Phone: [facility] 04-06-2025 11:54-0400 Body weight 54.[address] Karena Valle MD Work Phone: [facility] 01-19-2025 11:07-0400 Body height 165.1 cm Ghada Ruffin MD Work Phone: [facility] 01-19-2025 11:07-0400 Body mass index (BMI) [Ratio] 19.45 kg/m2 Ghada Ruffin MD Work Phone: [facility] 01-19-2025 11:07-0400 Body weight 53.02 kg Ghada Ruffin MD Work Phone: [facility] 01-19-2025 11:07-0400 Diastolic blood pressure 62 mm[Hg] Ghada Ruffin MD Work Phone: [facility] 01-19-2025 11:07-0400 Systolic blood pressure 110 mm[Hg] Ghada Ruffin MD Work Phone: [facility] 12-17-2024 11:28-0500 Body height 165.1 cm Eloisa Slater [employer] Work Phone: [facility] 12-17-2024 11:28-0500 Body mass index (BMI) [Ratio] 19.97 kg/m2 Eloisa Slater [employer] Work Phone: [facility] 12-17-2024 11:28-0500 Body temperature 98.1 [degF] Eloisa Slater [employer] Work Phone: [facility] 12-17-2024 11:28-0500 Body weight 54.43 kg Eloisa Slater [employer] Work Phone: [facility] 12-17-2024 11:28-0500 Diastolic blood pressure 69 mm[Hg] Eloisa Slater [employer] Work Phone: [facility] 12-17-2024 11:28-0500 Heart rate 83 /min Eloisa Slater [employer] Work Phone: [facility] 12-17-2024 11:28-0500 Respiratory rate 16 /min Eloisa Slater [employer] Work Phone: [facility] 12-17-2024 11:28-0500 SaO2% (BldA) [Mass fraction] 98 % Eloisa Slater [employer] Work Phone: [facility] 12-17-2024 11:28-0500 Systolic blood pressure 108 mm[Hg] Eloisa Slater [employer] Work Phone: [facility] 11-17-2024 15:01-0500 Body height 165.1 cm Chip Baldomeroana lilia [employer] Work Phone: [facility] 11-17-2024 15:01-0500 Body mass index (BMI) [Ratio] 19.97 kg/m2 Chip Jones [employer] Work Phone: 9(919)424-858496 [place] [address] 11-17-2024 15:01-0500 Body temperature 97.59 [degF] Chip Jones [employer] Work Phone: [facility] 11-17-2024 15:01-0500 Body weight 54.43 kg Chip Jones [employer] Work Phone: [facility] 11-17-2024 15:01-0500 Diastolic blood pressure 80 mm[Hg] Chip Jones [employer] Work Phone: [facility] 11-17-2024 15:01-0500 Heart rate 108 /min Chip Jones [employer] Work Phone: [facility] 11-17-2024 15:01-0500 Respiratory rate 18 /min Chip Jones [employer] Work Phone: [facility] 11-17-2024 15:01-0500 SaO2% (BldA) [Mass fraction] 98 % Chip Jones [employer] Work Phone: [facility] 11-17-2024 15:01-0500 Systolic blood pressure 121 mm[Hg] Chip Baldomeroana lilia [employer] Work Phone: [facility] 06-29-2024 17:04-0400 Diastolic blood pressure 77 mm[Hg] Karena Valle MD Work Phone: [employer] [facility] 06-29-2024 17:04-0400 Heart rate 52 /min Karena Valle MD Work Phone: [employer] [facility] 06-29-2024 17:04-0400 Respiratory rate 18 /min Karena Valle MD Work Phone: [employer] [facility] 06-29-2024 17:04-0400 SaO2% (BldA) [Mass fraction] 98 % Karena Valle MD Work Phone: [employer] [facility] 06-29-2024 17:04-0400 Systolic blood pressure 106 mm[Hg] Karena Valle MD Work Phone: [employer] [facility] 06-29-2024 15:02-0400 Body height 165.1 cm Karena Valle MD Work Phone: [employer] [facility] 06-29-2024 15:02-0400 Body mass index (BMI) [Ratio] 22.47 kg/m2 Karena Valle MD Work Phone: [employer] [facility] 06-29-2024 15:02-0400 Body weight 61.24 kg Karena Valle MD Work Phone: [employer] [facility] 06-29-2024 15:01-0400 Body temperature 97.81 [degF] Karena Valle MD Work Phone: [employer] [facility] 03-04-2024 15:58-0400 Body height 165.1 cm Bigg Novak MD Work Phone: [facility] 03-04-2024 15:58-0400 Body mass index (BMI) [Ratio] 26.13 kg/m2 Bigg Nvoak MD Work Phone: [facility] 03-04-2024 15:58-0400 Body weight 71.22 kg Bigg Novak MD Work Phone: [facility] 03-04-2024 15:58-0400 Diastolic blood pressure 70 mm[Hg] Bigg Novak MD Work Phone: [facility] 03-04-2024 15:58-0400 Heart rate 84 /min Bigg Novak MD Work Phone: [facility] 03-04-2024 15:58-0400 SaO2% (BldA) [Mass fraction] 99 % Bigg Novak MD Work Phone: [facility] 03-04-2024 15:58-0400 Systolic blood pressure 120 mm[Hg] Bigg Novak MD Work Phone: [facility] 01-12-2024 13:40-0500 Body height 165.1 cm Karena Valle MD Work Phone: [facility] 01-12-2024 13:40-0500 Body mass index (BMI) [Ratio] 26.46 kg/m2 Karena Valle MD Work Phone: [facility] 01-12-2024 13:40-0500 Body weight 72.12 kg Karena Valle MD Work Phone: [facility] 01-12-2024 13:40-0500 Diastolic blood pressure 76 mm[Hg] Karena Valle MD Work Phone: [facility] 01-12-2024 13:40-0500 Heart rate 115 /min Karena Valle MD Work Phone: [facility] 01-12-2024 13:40-0500 SaO2% (BldA) [Mass fraction] 97 % Karena Valle MD Work Phone: [facility] 01-12-2024 13:40-0500 Systolic blood pressure 122 mm[Hg] Karena Valle MD Work Phone: [facility] 08-13-2023 10:05-0400 Body height 165.1 cm Natali Neff DO Work Phone: [facility] 08-13-2023 10:05-0400 Body mass index (BMI) [Ratio] 28.66 kg/m2 Natali Neff DO Work Phone: [facility] 08-13-2023 10:05-0400 Body weight 78.11 kg Natali Neff DO Work Phone: [facility] 06-27-2023 16:31-0400 Body height 166 cm Karena Valle Other Phone: [facility] 06-27-2023 16:31-0400 Body temperature 97.7 [degF] Karena Valle Other Phone: [facility] 06-27-2023 16:31-0400 Diastolic blood pressure 77 mm[Hg] Karena Valle Other Phone: [facility] 06-27-2023 16:31-0400 Heart rate 87 /min Karena Valle Other Phone: [facility] 06-27-2023 16:31-0400 Respiratory rate 16 /min Karena Valle Other Phone: [facility] 06-27-2023 16:31-0400 SaO2% (BldA) [Mass fraction] 98 % Karena Valle Other Phone: [facility] 06-27-2023 16:31-0400 Systolic blood pressure 118 mm[Hg] Karena Valle Other Phone: [facility] 03-10-2023 10:56-0400 Body height 165.1 cm Karena Valle Work Phone: [address] Work Phone: 03-10-2023 10:56-0400 Body mass index (BMI) [Ratio] 28.35 kg/m2 Karena D Stencel Work Phone: [place] [address] [place] Work Phone: 03-10-2023 10:56-0400 Body surface area Derived from formula 1.85 m2 Karena Julian Stencel Work Phone: [place] [address] [place] Work Phone: 03-10-2023 10:56-0400 Body weight 77.28 kg Karena Iesha Stencel Work Phone: [place] [address] [place] Work Phone: 03-10-2023 10:56-0400 Diastolic blood pressure 68 mm[Hg] Karena Iesha Stencel Work Phone: [place] [address] [place] Work Phone: 03-10-2023 10:56-0400 Systolic blood pressure 112 mm[Hg] Karena Julian Stencel Work Phone: [address] Work Phone: 03-10-2023 10:56-0400 61 1 Karena Julian Stencel Work Phone: [address] Work Phone: Comment on above: 2_SPerc 03-10-2023 10:56-0400 92 1 Karena Iesha Stencel Work Phone: [address] Work Phone: Comment on above: 220_WPerc 03-10-2023 10:56-0400 91 1 Karena Iesha Stencel Work Phone: [address] Work Phone: Comment on above: BMIPerc 02-24-2023 11:50-0400 Body height 165.1 cm Karena Iesha Stencel Work Phone: [place] [address] [place] Work Phone: 02-24-2023 11:50-0400 Body mass index (BMI) [Ratio] 27.71 kg/m2 Karena Julian Stencel Work Phone: [place] [address] [place] Work Phone: 02-24-2023 11:50-0400 Body surface area Derived from formula 1.83 m2 Karena Julian Stencel Work Phone: [place] [address] [place] Work Phone: 02-24-2023 11:50-0400 Body weight 75.52 kg Karena Julian Stencel Work Phone: [place] [address] [place] Work Phone: 02-24-2023 11:50-0400 Diastolic blood pressure 82 mm[Hg] Karena Julian Stencel Work Phone: [place] [address] [place] Work Phone: 02-24-2023 11:50-0400 Systolic blood pressure 120 mm[Hg] Karena Julian Stencel Work Phone: [place] [address] [place] Work Phone: 02-24-2023 11:50-0400 61 1 Karena Julian Stencel Work Phone: [address] Work Phone: Comment on above: 2-20_SPerc 02-24-2023 11:50-0400 91 1 Karena Julian Stencel Work Phone: [place] [address] [place] Work Phone: Comment on above: 2-20_WPerc 02-24-2023 11:50-0400 89 1 Karena D Stencel Work Phone: [place] [address] [place] Work Phone: Comment on above: BMIPerc 02-19-2023 10:52-0400 Body height 165.1 cm Karena Julian Stencel Work Phone: [facility] [address] Work Phone: 02-19-2023 10:52-0400 Body mass index (BMI) [Ratio] 29.02 kg/m2 Karena Julian Stencel Work Phone: [facility]Vufihahqjp[facility]Izbn [address] [place] Work Phone: 02-19-2023 10:52-0400 Body surface area Derived from formula 1.87 m2 Karena Julian Stencel Work Phone: NJ[facility]Znmeiucdek[facility]Shry [address] [place] Work Phone: 02-19-2023 10:52-0400 Body weight 79.1 kg Karena Julian Stencel Work Phone: EF-Oqefxogdjn-Rshy [address] [place] Work Phone: 02-19-2023 10:52-0400 Diastolic blood pressure 70 mm[Hg] Karena Julian Stencel Work Phone: AX[facility]Zxsmndokxy-Dhyk [address] [place] Work Phone: 02-19-2023 10:52-0400 Heart rate 88 /min Karena Julian Stencel Work Phone: EH-Isxaruwiud-Pghn [address] [place] Work Phone: 02-19-2023 10:52-0400 SaO2% (BldA) [Mass fraction] 98 % Karena Julian Stencel Work Phone: LS-Fpwzpeunev-Gbax [address] [place] Work Phone: 02-19-2023 10:52-0400 Systolic blood pressure 122 mm[Hg] Karena Julian Stencel Work Phone: IR-Rwizxytevh-Hgpl [address] [place] Work Phone: 02-19-2023 10:52-0400 61 1 Karena Julian Stencel Work Phone: ZE-Oayfdoonde-Yjxe [address] [place] Work Phone: Comment on above: -20_[facility] 02-19-2023 10:52-0400 93 1 Karena Julian Stencel Work Phone: DS-Tcpcfrogfr-Aaxw [address] [place] Work Phone: Comment on above: 2-20_WPerc 02-19-2023 10:52-0400 92 1 Karena D Stencel Work Phone: FJ-Patynszxuy-Dbff [address] [place] Work Phone: Comment on above: BMIPerc 12-26-2022 14:38-0500 Body height 165 cm Karena Stencel Other Phone: [facility] 12-26-2022 14:38-0500 Body temperature 97.7 [degF] Karena Stencel Other Phone: [facility] 12-26-2022 14:38-0500 Diastolic blood pressure 84 mm[Hg] Karena Stencel Other Phone: [facility] 12-26-2022 14:38-0500 Heart rate 97 /min Karena Stencel Other Phone: [facility] 12-26-2022 14:38-0500 Respiratory rate 14 /min Karena Stencel Other Phone: [facility] 12-26-2022 14:38-0500 SaO2% (BldA) [Mass fraction] 98 % Karena Stencel Other Phone: [facility] 12-26-2022 14:38-0500 Systolic blood pressure 131 mm[Hg] Karena Stencel Other Phone: [facility] 11-25-2022 11:10-0500 Body height 165.1 cm Karena Julian Stencel Work Phone: [facility] Work Phone: 11-25-2022 11:10-0500 Body mass index (BMI) [Ratio] 24.18 kg/m2 Karena D Stencel Work Phone: [facility] Work Phone: 11-25-2022 11:10-0500 Body surface area Derived from formula 1.73 m2 Karena D Stencel Work Phone: [facility] Work Phone: 11-25-2022 11:10-0500 Body weight 65.91 kg Karena Julian Stencel Work Phone: [facility] Work Phone: 11-25-2022 11:10-0500 Diastolic blood pressure 78 mm[Hg] Karena Julian Stencel Work Phone: [facility] Work Phone: 11-25-2022 11:10-0500 Heart rate 82 /min Karena Julian Stencel Work Phone: [facility] Work Phone: 11-25-2022 11:10-0500 SaO2% (BldA) [Mass fraction] 98 % Karena Julian Stencel Work Phone: [facility] Work Phone: 11-25-2022 11:10-0500 Systolic blood pressure 112 mm[Hg] Karena Julian Stencel Work Phone: [facility] Work Phone: 11-25-2022 11:10-0500 61 1 Karena Julian Stencel Work Phone: [facility] Work Phone: Comment on above: 2-20_SPerc 11-25-2022 11:10-0500 77 1 Karena Julian Stencel Work Phone: [facility] Work Phone: Comment on above: 2-20_WPerc 11-25-2022 11:10-0500 75 1 Karena Julian Stencel Work Phone: [facility] Work Phone: Comment on above: BMIPerc 10-23-2022 10:15-0500 Body height 165.1 cm Karena Julian Stencel Work Phone: [facility] Work Phone: 10-23-2022 10:15-0500 Body mass index (BMI) [Ratio] 23.68 kg/m2 Karena Julian Stencel Work Phone: [facility] Work Phone: 10-23-2022 10:15-0500 Body surface area Derived from formula 1.71 m2 Karena D Stencel Work Phone: [facility] 120 Work Phone: 10-23-2022 10:15-0500 Body weight 64.55 kg Karena D Stencel Work Phone: [facility] 120 Work Phone: 10-23-2022 10:15-0500 Diastolic blood pressure 80 mm[Hg] Karena Julian Stencel Work Phone: [facility] [address] Work Phone: 10-23-2022 10:15-0500 Systolic blood pressure 112 mm[Hg] Karena D Stencel Work Phone: [facility] 120 Work Phone: 10-23-2022 10:15-0500 61 1 Karena D Stencel Work Phone: [facility] [facility] Work Phone: Comment on above: 12-30_SPerc 10-23-2022 10:15-0500 74 1 Karena D Stencel Work Phone: [facility] Gastroenterology-[facility] 120 Work Phone: Comment on above: 2_WPerc 10-23-2022 10:15-0500 71 1 Karena D Stencel Work Phone: [facility] Gastroenterology-[facility] 120 Work Phone: Comment on above: BMIPerc 09-23-2022 10:10-0500 Body height 165.1 cm Karena Valle Work Phone: [facility] Work Phone: 09-23-2022 10:10-0500 Body mass index (BMI) [Ratio] 23.68 kg/m2 Karena Rodascel Work Phone: [facility] Work Phone: 09-23-2022 10:10-0500 Body surface area Derived from formula 1.71 m2 Karena Valle Work Phone: [facility] Work Phone: 09-23-2022 10:10-0500 Body weight 64.55 kg Karena Valle Work Phone: [facility] Work Phone: 09-23-2022 10:10-0500 Diastolic blood pressure 64 mm[Hg] Karena Rodascel Work Phone: [facility] Work Phone: 09-23-2022 10:10-0500 Heart rate 97 /min Karena Valle Work Phone: [facility] Work Phone: 09-23-2022 10:10-0500 SaO2% (BldA) [Mass fraction] 99 % Karena Rodascel Work Phone: [facility] Work Phone: 09-23-2022 10:10-0500 Systolic blood pressure 114 mm[Hg] Karena Rodascel Work Phone: [facility] Work Phone: 09-23-2022 10:10-0500 61 1 Karena Julian Stencel Work Phone: [facility] Work Phone: Comment on above: 2-20_SPe 09-23-2022 10:10-0500 75 1 aKrena Rodascel Work Phone: [facility] Work Phone: Comment on above: 20_WPerc 09-23-2022 10:10-0500 71 1 Karena Rodascel Work Phone: [facility] Work Phone: Comment on above: BMIPerc 08-29-2022 09:12-0400 Body height 165.1 cm Karena Valle Work Phone: [facility] Work Phone: 08-29-2022 09:12-0400 Body mass index (BMI) [Ratio] 23.52 kg/m2 Karena Valle Work Phone: [facility] Work Phone: 08-29-2022 09:12-0400 Body surface area Derived from formula 1.71 m2 Kraena Valle Work Phone: [facility] Work Phone: 08-29-2022 09:12-0400 Body weight 64.1 kg Karena Valle Work Phone: [facility] Work Phone: 08-29-2022 09:12-0400 Diastolic blood pressure 66 mm[Hg] Karena Rodascel Work Phone: [facility] Work Phone: 08-29-2022 09:12-0400 Heart rate 77 /min Karena Rodascel Work Phone: [facility] Work Phone: 08-29-2022 09:12-0400 SaO2% (BldA) [Mass fraction] 99 % Karena Valle Work Phone: [facility] Work Phone: 08-29-2022 09:12-0400 Systolic blood pressure 118 mm[Hg] Karena Rodascel Work Phone: [facility] Work Phone: 08-29-2022 09:12-0400 61 1 Karena Julian Stencel Work Phone: [facility] Work Phone: Comment on above: 2-20_SPerc 08-29-2022 09:12-0400 74 1 Karena Julian Stencel Work Phone: [facility] Work Phone: Comment on above: 2-20_WPerc 08-29-2022 09:120400 70 1 Karena Julian Stencel Work Phone: [facility] Work Phone: Comment on above: BMIPerc 08-22-2022 14:17-0400 Body height 165.1 cm Karena Rodascel Work Phone: [facility] Work Phone: 08-22-2022 14:17-0400 Body mass index (BMI) [Ratio] 22.68 kg/m2 Karena Rodascel Work Phone: [facility] Work Phone: 08-22-2022 14:17-0400 Body surface area Derived from formula 1.68 m2 Karena Rodascel Work Phone: [facility] Work Phone: 08-22-2022 14:17-0400 Body weight 61.83 kg Karena Rodascel Work Phone: [facility] Work Phone: 08-22-2022 14:17-0400 Diastolic blood pressure 58 mm[Hg] Karena Rodascel Work Phone: [facility] Work Phone: 08-22-2022 14:17-0400 Heart rate 87 /min Karena Rodascel Work Phone: [facility] Work Phone: 08-22-2022 14:17-0400 SaO2% (BldA) [Mass fraction] 98 % Karena Rodascel Work Phone: [facility] Work Phone: 08-22-2022 14:17-0400 Systolic blood pressure 94 mm[Hg] Karena Rodascel Work Phone: [facility] Work Phone: 08-22-2022 14:17-0400 61 1 Karena Julian Stencel Work Phone: [facility] Work Phone: Comment on above: 2-20_SPerc 08-22-2022 14:17-0400 67 1 Karena Rodascel Work Phone: [facility] Work Phone: Comment on above: 2-20_WPerc 08-22-2022 14:17-0400 63 1 Karena Julian Stencel Work Phone: [facility] Work Phone: Comment on above: BMIPerc 08-18-2022 17:46-0400 Body temperature 98.2 [degF] Nyoka Fauser ASSOCIATE [employer] Work Phone: [facility] 08-18-2022 17:46-0400 Body weight 62.78 kg Nyoka Fauser ASSOCIATE [employer] Work Phone: [facility] 08-18-2022 17:46-0400 Diastolic blood pressure 85 mm[Hg] Nyoka Fauser ASSOCIATE [employer] Work Phone: [facility] 08-18-2022 17:46-0400 Heart rate 95 /min Nyoka Fauser ASSOCIATE [employer] Work Phone: [facility] 08-18-2022 17:46-0400 Respiratory rate 18 /min Nyoka Fauser ASSOCIATE [employer] Work Phone: [facility] 08-18-2022 17:46-0400 SaO2% (BldA) [Mass fraction] 94 % Cris Snowr ASSOCIATE [employer] Work Phone: [facility] 08-18-2022 17:46-0400 Systolic blood pressure 119 mm[Hg] Cris Snowr ASSOCIATE [employer] Work Phone: [facility] 07-31-2022 15:26-0400 Body height 165.1 cm Karena D Stencel Work Phone: [facility]cc[facility]Hepc and [address] [place] Work Phone: 07-31-2022 15:26-0400 Body mass index (BMI) [Ratio] 23.35 kg/m2 Karena D Stencel Work Phone: BD-Wkxhyfmmmc-Dspr and [address] Work Phone: 07-31-2022 15:26-0400 Body surface area Derived from formula 1.7 m2 Karena D Stencel Work Phone: QR-Tdqncxxmfe-Ufti and [address] Work Phone: 07-31-2022 15:26-0400 Body weight 63.64 kg Karena D Stencel Work Phone: VN-Hnqkamenaw-Mekw and [address] Work Phone: 07-31-2022 15:26-0400 Diastolic blood pressure 62 mm[Hg] Karena D Stencel Work Phone: VJ-Ceugvoqabw-Ffvs and [address] Work Phone: 07-31-2022 15:26-0400 Heart rate 83 /min Karena D Stencel Work Phone: WV-Uordftkmwv-Tebj and [address] Work Phone: 07-31-2022 15:26-0400 SaO2% (BldA) [Mass fraction] 99 % Karena D Stencel Work Phone: RX-Myfqrsiyit-Viek and [address] Work Phone: 07-31-2022 15:26-0400 Systolic blood pressure 112 mm[Hg] Karena D Stencel Work Phone: SO-Fefkxpkohm-Wkmn and [address] Work Phone: 07-31-2022 15:26-0400 61 1 Karena D Stencel Work Phone: TD-Chzzbzxnbm-Fitf and [address] Work Phone: Comment on above: 12-30_SPerc 07-31-2022 15:26-0400 73 1 Karena D Stencel Work Phone: VP-Anaitgxruz-Fcuq and [address] Work Phone: Comment on above: 12-30_WPerc 07-31-2022 15:26-0400 69 1 Karena D Stencel Work Phone: KT-Yxfbiehkur-Tekl and [address] Work Phone: Comment on above: BMIPerc 07-22-2022 10:10-0400 Body height 165.1 cm Karena Julian Stencel Work Phone: [facility] Work Phone: 07-22-2022 10:10-0400 Body mass index (BMI) [Ratio] 23.36 kg/m2 Karena Julian Stencel Work Phone: [facility] Work Phone: 07-22-2022 10:10-0400 Body surface area Derived from formula 1.7 m2 Karena Julian Stencel Work Phone: [facility] Work Phone: 07-22-2022 10:10-0400 Body weight 63.68 kg Karena D Stencel Work Phone: [facility] Work Phone: 07-22-2022 10:10-0400 Diastolic blood pressure 82 mm[Hg] Karena D Stencel Work Phone: [facility] Work Phone: 07-22-2022 10:10-0400 Heart rate 74 /min Karena Rodascel Work Phone: [facility] Work Phone: 07-22-2022 10:10-0400 SaO2% (BldA) [Mass fraction] 99 % Karena Rodascel Work Phone: [facility] Work Phone: 07-22-2022 10:10-0400 Systolic blood pressure 120 mm[Hg] Karena Rodascel Work Phone: [facility] Work Phone: 07-22-2022 10:10-0400 61 1 Karena Rodascel Work Phone: [facility] Work Phone: Comment on above: 20_SPerc 07-22-2022 10:10-0400 73 1 Karena Rodascel Work Phone: [facility] Work Phone: Comment on above: 20_WPerc 07-22-2022 10:10-0400 69 1 Karena Rodascel Work Phone: [facility] Work Phone: Comment on above: BMIPerc 06-17-2022 10:13-0400 Body height 165.1 cm Karena Valle Work Phone: [facility] Work Phone: 06-17-2022 10:13-0400 Body mass index (BMI) [Ratio] 24.05 kg/m2 Karena Rodascel Work Phone: [facility] Work Phone: 06-17-2022 10:13-0400 Body surface area Derived from formula 1.72 m2 Karena Rodascel Work Phone: [facility] Work Phone: 06-17-2022 10:13-0400 Body weight 65.55 kg Karena Rodascel Work Phone: [facility] Work Phone: 06-17-2022 10:13-0400 Diastolic blood pressure 68 mm[Hg] Karena Julian Stencel Work Phone: [facility] Work Phone: 06-17-2022 10:13-0400 Heart rate 54 /min Karena Rodascel Work Phone: [facility] Work Phone: 06-17-2022 10:13-0400 SaO2% (BldA) [Mass fraction] 99 % Karena Rodascel Work Phone: [facility] Work Phone: 06-17-2022 10:13-0400 Systolic blood pressure 106 mm[Hg] Karena Rodascel Work Phone: [facility] Work Phone: 06-17-2022 10:130400 61 1 Karena Julian Stencel Work Phone: [facility] Work Phone: Comment on above: 2-20_SPerc 06-17-2022 10: 78 1 Karena Julian Stencel Work Phone: [facility] Work Phone: Comment on above: 2-20_WPerc 06-17-2022 10:130400 75 1 Karena Julian Stencel Work Phone: [facility] Work Phone: Comment on above: BMIPerc 04-01-2022 14:47-0400 Body height 165.1 cm Karena Rodascel Work Phone: [facility] Work Phone: 04-01-2022 14:47-0400 Body mass index (BMI) [Ratio] 25.98 kg/m2 Karena Valle Work Phone: [facility] Work Phone: 04-01-2022 14:47-0400 Body surface area Derived from formula 1.78 m2 Karena Valle Work Phone: [facility] Work Phone: 04-01-2022 14:47-0400 Body weight 70.82 kg Karena Valle Work Phone: [facility] Work Phone: 04-01-2022 14:47-0400 Diastolic blood pressure 66 mm[Hg] Karena Valle Work Phone: [facility] Work Phone: 04-01-2022 14:47-0400 Heart rate 89 /min Karena Valle Work Phone: [facility] Work Phone: 04-01-2022 14:47-0400 SaO2% (BldA) [Mass fraction] 98 % Karena Valle Work Phone: [facility] Work Phone: 04-01-2022 14:47-0400 Systolic blood pressure 112 mm[Hg] Karena Valle Work Phone: [facility] Work Phone: 04-01-2022 14:47-0400 61 1 Karena Rodascel Work Phone: [facility] Work Phone: Comment on above: -_[facility] 04-01-2022 14:47-0400 87 1 Karena Rodascel Work Phone: [facility] Work Phone: Comment on above: 2-20_WPerc 04-01-2022 14:47-0400 85 1 Karena Julian Stencel Work Phone: [facility] Work Phone: Comment on above: BMIPerc 12-17-2021 15:47-0500 Body height 165.1 cm Karena D Stencel Work Phone: [place] [address] [place] Work Phone: 12-17-2021 15:47-0500 Body mass index (BMI) [Ratio] 27 kg/m2 Karena Julian Stencel Work Phone: [place] [address] [place] Work Phone: 12-17-2021 15:47-0500 Body surface area Derived from formula 1.81 m2 Karena Julian Stencel Work Phone: [place] [address] [place] Work Phone: 12-17-2021 15:47-0500 Body temperature 97.1 [degF] Karena Julian Stencel Work Phone: [place] [address] [place] Work Phone: 12-17-2021 15:47-0500 Body weight 73.6 kg Karena D Stencel Work Phone: [place] [address] [place] Work Phone: 12-17-2021 15:47-0500 Diastolic blood pressure 68 mm[Hg] Karena D Stencel Work Phone: [place] [address] [place] Work Phone: 12-17-2021 15:47-0500 Systolic blood pressure 102 mm[Hg] Karena D Stencel Work Phone: [place] [address] [place] Work Phone: 12-17-2021 15:47-0500 61 1 Karena D Stencel Work Phone: [place] [address] [place] Work Phone: Comment on above: 2-20_SPerc 12-17-2021 15:47-0500 90 1 Karena Rodascel Work Phone: [facility] [address] Work Phone: Comment on above: 2-20_WPerc 12-17-2021 15:47-0500 89 1 Karena Rodascel Work Phone: [facility] [address] Work Phone: Comment on above: BMIPerc 12-12-2020 17:32-0500 BMI (Body Mass Index) 28.32 kg/m2 Karena Valle [facility] [address] Work Phone: 12-12-2020 17:32-0500 Body Temperature 97.5 [degF] Karena [facility] [address] Work Phone: 12-12-2020 17:32-0500 Body weight 77.2 kg Karena Valle [facility] [address] Work Phone: 12-12-2020 17:32-0500 BP Diastolic 74 mm[Hg] Karena Valle [facility] [address] Work Phone: 12-12-2020 17:32-0500 BP Systolic 118 mm[Hg] Karena Valle [facility] [address] Work Phone: 12-12-2020 17:32-0500 BSA (Body Surface Area) 1.85 m2 Karena Valle [facility] [address] Work Phone: 12-12-2020 17:32-0500 Height 165.1 cm Karena Valle [facility] [address] Work Phone: 12-12-2020 17:32-0500 62 1 Karena Valle [facility] [address] Work Phone: Comment on above: 2-20 Stature Percentile 12-12-2020 17:32-0500 94 1 Karena Valle [facility] [employer] Work Phone: Comment on above: 2-20 Weight Percentile 12-12-2020 17:32-0500 93 1 Karena Valle [facility] [address] [employer] Work Phone: Comment on above: BMI Percentile Encounters Encounter Date Encounter Type Care Provider Facility Start: 07-29-2025 ambulatory Karena Valle Facilit y:[facility] Start: 07-25-2025 End: 07-25-2025 Patient encounter procedure Albert Friend DO -[facility] Work Phone: Start: 07-25-2025 End: 07-25-[address] Karena Valle MD Work Phone: -[facility] Start: 07-25-2025 Registered Recurring Albert Friend DO -Nutritional Services Work Phone: Start: 07-01-2025 End: 07-01-2025 Patient encounter procedure Albert Friend DO -Medical Out Work Phone: Start: 07-01-2025 End: 07-01-[address] Karena Valle MD Work Phone: -Medical Out Start: 06-27-2025 End: 07-10-2025 Discharged Recurring Albert Friend DO -Nutritional Servic es Work Phone: Start: 06-27-2025 Registered Recurring Albert Friend DO -Nutritional Services Work Phone: Start: 06-27-2025 End: 07-10-[address] Karena Valle MD Work Phone: -Nutritional Services Start: 05-20-2025 End: 05-20-[address] Karena Valle MD Work Phone: -MRI - [facility] Start: 05-20-2025 End: 05-20-2025 Patient encounter procedure Albert Friend DO -MRI - [facility] Work Phone: Start: 05-19-2025 End: 06-09-2025 Discharged Recurring Albert Friend DO -Nutritional Servic es Work Phone: Start: 05-19-2025 Registered Recurring Albert Amato DO -Nutritional Services Work Phone: Start: 05-19-2025 End: 06-09-[address] Karena Valle MD Work Phone: -Nutritional Services Start: 04-25-2025 End: 04-25-[address] Karena Valle MD Work Phone: [facility] Work Phone: Start: 04-25-2025 End: 04-25-2025 Patient encounter procedure Albert Amato DO -Nuclear Medicine [facility] Work Phone: Start: 04-25-2025 End: 04-25-2025 ambulatory Albert Amato Facility:[facility] Start: 04-06-2025 End: 04-06-2025 Patient encounter procedure Albert Amato DO -Laboratory Work Phone: Start: 04-06-2025 End: 04-06-[address] Karena Valle MD Work Phone: [facility] Work Phone: Start: 04-06-2025 End: 04-06-2025 Patient encounter procedure Albert Amato DO -[facility] Work Phone: Start: 04-06-2025 End: 04-06-2025 ambulatory Albert Amato [facility] Work Phone: Start: 01-19-2025 End: 01-19-2025 Office outpatient visit 15 minutes Ghada Ruffin MD Work Phone: [facility] Comment on above: Screen for STD (sexu ally transmitted disease) (Primary Dx); Folliculitis of perineum Start: 01-19-2025 End: 01-19-2025 ambulatory GHADA RFUFIN [facility] Ambulatory Start: 12-17-2024 End: 12-17-2024 ambulatory KARENA VALLE [facility] Start: 12-17-2024 End: 12-17-2024 Patient encounter procedure Eloisa Slater TACKER OFF-ASSOCIATE [employer] Work Phone: [facility] Comment on above: Bacterial conjunctiv itis (Primary Dx) Start: 12-16-2024 End: 12-16-2024 Emergency department patient visit ROCIO KAYODE CORTES [facility] Start: 11-17-2024 End: 11-17-2024 Patient encounter procedure Chip Jones TACKER OFF-ASSOCIATE [employer] Work Phone: [facility] Comment on above: Acute non-recurrent maxillary sinusitis (Primary Dx) Start: 11-17-2024 End: 11-17-2024 [facility] Start: 06-29-2024 End: 06-29-2024 [facility] Start: 03-24-2024 End: 03-24-2024 Emergency department patient visit KIM FRIAS [facility] Start: 03-04-2024 End: 03-04-2024 ambulatory [facility] Ambulatory Start: 03-04-2024 End: 03-04-2024 Office outpatient visit 25 minutes Bigg Novak MD Work Phone: [facility] Office [facility] Comment on above: Postural orthostatic tachycardia syndrome (POTS) (Primary Dx); Palpitation; Other hyperlipidemia Start: 01-15-2024 End: 01-16-2024 [address] [facility] Start: 01-15-2024 End: 01-15-2024 Subsequent hospital visit by physician Clarence X-Ray [facility] Comment on above: Inflammatory arthrop athy Start: 01-15-2024 End: 01-15-2024 ambulatory KARENA Julian [facility] Start: 01-12-2024 End: 01-12-2024 Office outpatient visit 25 minutes Karena Valle MD Work Phone: [facility] Comment on above: Inflammatory arthrop athy (Primary Dx); Acute Crohn's disease with fistula (CMS/HCC) Start: 08-13-2023 End: 08-13-2023 Office outpatient visit 25 minutes Natali Neff DO Work Phone: [facility] Comment on above: Crohn's disease of b oth small and large intestine with fistula (CMS/HCC) (Primary Dx) Start: 06-27-2023 End: 06-27-2023 Emergency department patient visit Darshan Cordero [facility] Start: 04-10-2023 Emergency department patient visit MD KARENA VALLE Facility:[id number] Start: 03-10-2023 Office outpatient vi sit 15 minutes Karena Valle Work Phone: [facility] Work Phone: Start: 03-10-[address] Karena Garcia Facility:[id number] Start: 03-01-2023 Chart Update Karena Rodas otis Work Phone: [facility] Work Phone: Start: 02-28-2023 Chart Update Karena Rodas otis Work Phone: [facility] Work Phone: Start: 02-27-2023 ambulatory MD KARENA VALLE Facility:[id number] Start: 02-27-2023 Chart Update Karena Rodas otis Work Phone: [facility] [employer] Work Phone: Start: 02-25-2023 Chart Update Karena Rodas otis Work Phone: [facility] [employer] Work Phone: Start: 02-24-[address] Karena Garcia Facility:[id number] Start: 02-19-2023 Office outpatient vi sit 25 minutes Karena Valle Work Phone: [facility] [employer] Work Phone: Start: 02-19-[address] Karena Garcia Facility:[id number] Start: 12-26-2022 End: 12-26-2022 Emergency department patient visit Chip Jones [facility] Start: 12-20-2022 ambulatory Ghada Ruffin Facility:[id number] Start: 11-25-2022 Office outpatient vi sit 15 minutes Karena Valle Work Phone: -Medical [facility] Work Phone: Start: 11-25-[address] Buster Mackenzie Facility:[id number] Start: 11-06-2022 Chart Update Karena Julian Sten otis Work Phone: [facility] 120 Work Phone: Start: 10-23-[address] Karena Garcia Facility:[id number] Start: 10-16-2022 Chart Update Karena Julian Sten otis Work Phone: [facility] 120 Work Phone: Start: 10-14-2022 Chart Update Karena Iesha Sten otis Work Phone: [facility] 120 Work Phone: Start: 10-14-2022 Patient encounter procedure Karena Rodascel Work Phone: [address] Work Phone: Start: 10-14-2022 End: 10-14-2022 ambulatory Ms. Norma Townsend Facility:[id number] Start: 10-02-2022 AUDIT Karena Iesha Sten otis Work Phone: [facility] 120 Work Phone: Start: 10-02-2022 End: 10-02-2022 ambulatory NATALI NEFF Facility:[id number] Start: 09-23-2022 Office outpatient vi sit 15 minutes Karena Valle Work Phone: -[facility] Work Phone: Start: 09-23-[address] Karena Garcia Facility:[id number] Start: 08-29-2022 Patient encounter procedure Karena Valle Work Phone: -Medical [facility] Work Phone: Start: 08-29-[address] Karena Garcia Facility:[id number] Start: 08-26-2022 Chart Update Karena Julian Sten otis Work Phone: [facility] Work Phone: Start: 08-22-2022 Office outpatient vi sit 15 minutes Karena Rodascel Work Phone: [facility] Work Phone: Start: 08-22-[address] Karena Garcia Facility:[id number] Start: 08-18-2022 End: 08-19-2022 Emergency department patient visit Josh Méndez Facility:[id number] Start: 08-18-2022 End: 08-18-2022 Patient encounter procedure Cris Cruz ASSOCIATE [employer] Work Phone: [facility] [place] Comment on above: Lower abdominal pain (Primary Dx) Start: 08-12-2022 ambulatory Cemuaz3f [id number] Facil ity:[id number] Start: 07-31-2022 ambulatory Ms. Norma Townsend Facility:[id number] Start: 07-31-2022 Office outpatient ne w 45 minutes Karena Julian Stencel Work Phone: [facility] Work Phone: Start: 07-22-2022 ambulatory Ms. Norma Townsend Facility:[id number] Start: 07-22-2022 Office outpatient vi sit 15 minutes Karena Julian Stencel Work Phone: [facility] Work Phone: Start: 07-11-2022 ambulatory Ms. Norma Townsend Facility:[id number] Start: 06-24-2022 Chart Update Karena Julian Sten otis Work Phone: [facility] Work Phone: Start: 06-20-2022 Chart Update Karena Julian Sten otsi Work Phone: [facility] Work Phone: Start: 06-17-2022 Office outpatient vi sit 25 minutes Karena D Stencel Work Phone: -[facility] Work Phone: Start: 04-01-2022 Office outpatient vi sit 15 minutes Karena Valle Work Phone: -[facility] Work Phone: Start: 03-26-2022 AUDIT Karena alves Work Phone: -[facility] Work Phone: Start: 12-17-2021 Office outpatient vi sit 15 minutes Karena Valle Work Phone: [employer] [address] Work Phone: Start: 12-12-2020 Patient encounter procedure Karena [facility] [address] Work Phone: Start: 07-25-2020 Patient encounter procedure Karena Yepez [address] Work Phone: Start: 02-07-2020 Patient encounter procedure Karena Yepez [address] Work Phone: Start: 12-21-2019 Patient encounter procedure Karena Yepez [address] Work Phone: Start: 12-08-2019 Patient encounter procedure Karena Yepez [address] Work Phone: Procedures Date Procedure Procedure Detail Performing Clinician Start: 05-20-2025 MRI of small intestine Dr. Karena Valle MD Work Phone: Start: 04-25-2025 Radionuclide gastric emptying study Dr. Karena Valle MD Work Phone: Start: 04-06-2025 Albumin/Globulin ratio Dr. Karena Valle MD Work Phone: Start: 04-06-[address] Rommel Valle MD Work Phone: Comment on above: *Additional results available. Contact laboratory/see report*The atypical pANCA pattern has been observed in asignificant percentage of patients with ulcerative colitis,primary sclerosing cholangitis and autoimmune hepatitis. Start: 04-06-2025 Antibody to centrome re measurement Dr. Karena Valle MD Work Phone: Comment on above: Previous reported re sult: TNP AIEdited by: INFCE on 04/09/25:0307 AMENDED REPORT 04/09/25 030 ANTI-CENT B previously reported as: Test not performed Start: 04-06-2025 Antibody to extracta ble nuclear antigen measurement Dr. Karena Valle MD Work Phone: Comment on above: Previous reported re sult: TNP AIEdited by: INFCE on 04/09/25:0307 AMENDED REPORT 04/09/25 030 MARRERO Ab previously reported as: Test not performed Start: 04-06-2025 Antibody to MIHAELA-[address] Karena Valle MD Work Phone: Comment on above: Previous reported re sult: TNP AIEdited by: INFCE on 04/09/25:0307 AMENDED REPORT 04/09/25 030 ANTI-MIHAELA previously reported as: Test not performed Start: 04-06-2025 Antibody to lupus La protein measurement Dr. Karena Valle MD Work Phone: Start: 04-06-2025 Antibody to SS-A measurement Dr. Karena Valle MD Work Phone: Start: 04-06-[address] Karena Valle MD Work Phone: Comment on above: Previous reported re sult: TNP AIEdited by: INFCE on 04/09/25:0307 AMENDED REPORT 04/09/25 030 ANTICHROMATIN previously reported as: Test not performed Start: 04-06-2025 Endomysial antibody IgA level Dr. Kraena Valle MD Work Phone: Start: 04-06-2025 Hepatitis A virus an tibody, IgM type Dr. Karena Valle MD Work Phone: Comment on above: A negative anti-HAV IgM result suggests no recent orcurrent HAV infection. Start: 04-06-2025 Hepatitis B core ant ibody measurement, IgM type Dr. Karena Valle MD Work Phone: Start: 04-06-2025 Hepatitis C antibody measurement Dr. Karena Valle MD Work Phone: Start: 04-06-[address] Karena Valle MD Work Phone: Start: 04-06-2025 Immunoglobulin G sub class, G4 measurement Dr. Karena Valle MD Work Phone: Start: 04-06-[address] measurement Dr. Karena Valle MD Work Phone: Start: 04-06-2025 In-vitro immunologic test Dr. Karena Valle MD Work Phone: Comment on above: QuantiFERON-TB Gold Plus is a qualitative indirect test forM tuberculosis infection (including disease) and isintended for use in conjunction with risk assessment,radiography, and other medical and diagnostic evaluations.The QuantiFERON-TB Gold Plus result is determined bysubtracting the Nil value from either TB antigen (Ag)value. The Mitogen tube serves as a control for the test. No response to M tub erculosis antigens detected.Infection with M tuberculosis is unlikely, but high riskindividuals should be considered for additional testing(ATS/IDSA/CDC Clinical Practice Guidelines, 2017). Thereference range is an Antigen minus Nil result of <0.35IU/mL.The specimen received for QuantiFERON testing was incubatedby the ordering institution. Specific procedures outlinedin our Directory of Services and in the package insert forthe QuantiFERON Gold (In Tube) test must be followed toenable for proper stimulation of cells for the productionof interferon gamma. Chemiluminescence immunoassaymethodology Start: 04-06-[address] Measurement of fungal antibody Dr. Karena Valle MD Work Phone: Comment on above: Negative: <45 Equivo zayra: 45-50 Positive: >50 Start: 04-06-[address] Karena Valle MD Work Phone: Comment on above: Performed at: [address] [id number] Director: Feliciano Sanchez PhD, Phone: [phone] at: [address] [id number] Director: Roman Jin MD, Phone: [phone] Start: 04-06-2025 MANAGER COPY antibody measurement Dr. Karena Valle MD Work Phone: Comment on above: Previous reported re sult: TNP AIEdited by: BIBI on 04/09/25:0307 AMENDED REPORT 04/09/25 030 MANAGER COPY Ab previously reported as: Test not performed Start: 04-06-2025 Ritu Valle MD Work Phone: Start: 04-06-2025 Sesstaci Valle MD Work Phone: Comment on above: Performed at: [place] [id number] Director: Feliciano Sanchez PhD, Phone: [phone] at: [employer] [id number] Director: Roman Jin MD, Phone: [phone] Start: 04-06-2025 Andre Valle MD Work Phone: Start: 06-29-2024 Radiologic exam ches t single view Patrica Mckenna PA-C Work Phone: Start: 06-29-2024 Albumin serum plasma/whole blood Patrica Mckenna PA-C Work Phone: Start: 06-29-2024 Complete blood count with white cell differential, automated Patrica Mckenna PA-C Work Phone: Start: 03-04-2024 ECG 12-LEAD BIGG JAIME Start: 03-04-2024 Ecg routine ecg w/le ast 12 lds w/i&r Bigg Novak MD Work Phone: Start: 01-15-2024 XR WRIST RIGHT 3+ VIEWS KARENA VALLE Start: 01-15-2024 XR HAND RIGHT 3+ VIEWS KARENA VALLE Start: 01-15-2024 KELECHI-WITH REFLEX TO MICHAEL KARENA VALLE Start: 01-15-2024 C-reactive protein DARION AEL CHRISTOSCEL Start: 01-15-2024 CITRULLINE ANTIBODY, IGG KARENA VALLE Start: 01-15-2024 RHEUMATOID FACTOR RADHA SMILEY LEONARD Start: 01-15-2024 SEDIMENTATION RATE, AUTOMATED KARENA VALLE Start: 01-15-2024 Urate [Mass/volume] in Serum or Plasma KARENA VALLE Start: 01-15-2024 End: 01-15-2024 Radex hand minimum 3 views Karena Peña MD Work Phone: Start: 10-02-2022 Colonoscopy Karena Valle Work Phone: Start: 08-12-2022 Lipid 1996 panel - S autumn or Plasma Natali Neff DO Work Phone: Start: 06-24-2022 Echocardiography Emily Valle Work Phone: Tonsillectomy and adenoidectomy Karena Valle Comment on above: 09/02/2017; Plan of Treatment Date Care Activity Detail Author Start: 2053 Zoster Vaccines (1 of 2) Zoste r Vaccines (1 of 2) [facility] Start: 08-12-2027 Lipid panel Lipid Panel [facility] Start: 07-01-2025 Iv infusion therapy/prophylaxis /dx 1st to 1 hr THER/PROPH/DIAG IV INF INIT [facility] Start: 05-20-2025 Following clinical pathway protocol [facility] Start: 04-08-2025 Patient referral [facility] Work Phone: Start: 03-03-2025 End: 03-03-2025 Patient encounter procedure [facility] Start: 01-19-2025 End: 01-19-2026 Chlamydia trachomatis and Neisseria gonorrhoeae DNA [Identifier] in Unspecified specimen by VIRIDIANA with probe detection C. trachomatis / N. gonorrhoeae, Amplified, Urogenital Lab Routine Screen for STD (sexually transmitted disease) Expected: 01/19/2025 (Approximate), Expires: 01/19/2026 [facility] Service Area Work Phone: Comment on above: Expected: 01/19/2025 (Approximate), Expires: 01/19/2026 Start: 2024 Screening for malign ant neoplasm of cervix [facility] Start: 07-11-2024 COVID-19 Vaccine ( season) COVID-19 Vaccine ( season) [facility] Start: 07-11-2024 Influenza vaccination [facility] Start: 03-04-2024 End: 03-04-2024 Patient encounter procedure 03/04/2024 3:45 PM EDT Office Visit [facility] [address] [place] [id number] Bigg Novak MD [address] [facility], [address] [place] [id number] [facility] Start: 02-20-2024 FUV, Provider: Bigg Novak, Status: Pen, Time: 11:30 AM FUV, Provider: Bigg Novak, Status: Pen, Time: 11:30 AM [id number] [address] Work Phone: Start: 02-20-2024 Patient encounter procedure Outpatient [facility] Start: 20-Feb-2024 11:30 Bigg Novak Intent [facility] Start: 02-20-2024 End: 02-20-2024 Patient encounter procedure 02/20/2024 11:30 AM EDT Office Visit [facility] [address] [place] [phone] Bigg Novak MD [address] [facility], [address] [place] [id number] [facility] Start: 01-12-2024 End: 01-11-2025 C reactive protein [Mass/volume] in Serum or Plasma C-Reactive Protein Lab Routine Inflammatory arthropathy Expected: 01/12/2024 (Approximate), Expires: 01/11/2025 [facility] Work Phone: Comment on above: Expected: 01/12/2024 (Approximate), Expires: 01/11/2025 Start: 01-12-2024 End: 01-11-2025 Cyclic citrullinated peptide IgG Ab [Units/volume] in Serum or Plasma Citrulline Antibody, IgG Lab Routine Inflammatory arthropathy Expected: 01/12/2024 (Approximate), Expires: 01/11/2025 [facility] Work Phone: Comment on above: Expected: 01/12/2024 (Approximate), Expires: 01/11/2025 Start: 01-12-2024 End: 01-11-2025 Erythrocyte sedimentation rate Sedimentation Rate Lab Routine Inflammatory arthropathy Expected: 01/12/2024 (Approximate), Expires: 01/11/2025 [facility] Work Phone: Comment on above: Expected: 01/12/2024 (Approximate), Expires: 01/11/2025 Start: 01-12-2024 End: 01-11-2025 Nuclear Ab [Presence] in Serum by Hep2 substrate KELECHI with Reflex to MICHAEL Lab Routine Inflammatory arthropathy Expected: 01/12/2024 (Approximate), Expires: 01/11/2025 [facility] Work Phone: Comment on above: Expected: 01/12/2024 (Approximate), Expires: 01/11/2025 Start: 01-12-2024 End: 01-11-2025 Rheumatoid factor [Units/volume] in Serum by Nephelometry Rheumatoid Factor Lab Routine Inflammatory arthropathy Expected: 01/12/2024 (Approximate), Expires: 01/11/2025 [facility] Work Phone: Comment on above: Expected: 01/12/2024 (Approximate), Expires: 01/11/2025 Start: 01-12-2024 End: 01-11-2025 Urate [Mass/volume] in Serum or Plasma Uric Acid Lab Routine Inflammatory arthropathy Expected: 01/12/2024 (Approximate), Expires: 01/11/2025 [facility] Work Phone: Comment on above: Expected: 01/12/2024 (Approximate), Expires: 01/11/2025 Start: 01-12-2024 End: 01-11-2025 XR Hand - right 3 Views XR hand right 3+ views Imaging Routine Inflammatory arthropathy Expected: 01/12/2024, Expires: 01/11/2025 [facility] Work Phone: Comment on above: Expected: 01/12/2024 , Expires: 01/11/2025 Start: 01-12-2024 End: 01-11-2025 XR Wrist - right 3 Views XR wrist right 3+ views Imaging Routine Inflammatory arthropathy Expected: 01/12/2024, Expires: 01/11/2025 [facility] Service Area Work Phone: Comment on above: Expected: 01/12/2024 , Expires: 01/11/2025 Start: 12-22-2023 End: 12-22-2023 [facility] Start: 08-19-2023 End: 08-19-2024 C reactive protein [Mass/volume] in Serum or Plasma C-Reactive Protein Lab Routine Crohn's disease of both small and large intestine with fistula (CMS/HCC) Expected: 08/19/2023 (Approximate), Expires: 08/19/2024 [facility] Work Phone: Comment on above: Expected: 08/19/2023 (Approximate), Expires: 08/19/2024 Start: 08-19-2023 End: 08-19-2024 CBC W Auto Differential panel - Blood CBC and Auto Differential Lab Routine Crohn's disease of both small and large intestine with fistula (CMS/HCC) Expected: 08/19/2023 (Approximate), Expires: 08/19/2024 [facility] Work Phone: Comment on above: Expected: 08/19/2023 (Approximate), Expires: 08/19/2024 Start: 08-19-2023 End: 08-19-2024 Comprehensive metabolic 2000 panel - Serum or Plasma Comprehensive Metabolic Panel Lab Routine Crohn's disease of both small and large intestine with fistula (CMS/HCC) Expected: 08/19/2023 (Approximate), Expires: 08/19/2024 [facility] Work Phone: Comment on above: Expected: 08/19/2023 (Approximate), Expires: 08/19/2024 Start: 08-19-2023 End: 08-19-2024 Hepatitis B virus core Ab [Presence] in Serum Hepatitis B Core Antibody, Total Lab Routine Crohn's disease of both small and large intestine with fistula (CMS/HCC) Expected: 08/19/2023 (Approximate), Expires: 08/19/2024 [facility] Work Phone: Comment on above: Expected: 08/19/2023 (Approximate), Expires: 08/19/2024 Start: 08-19-2023 End: 08-19-2024 Hepatitis B virus surface Ab [Units/volume] in Serum Hepatitis B Surface Antibody Lab Routine Crohn's disease of both small and large intestine with fistula (CMS/HCC) Expected: 08/19/2023 (Approximate), Expires: 08/19/2024 [facility] Work Phone: Comment on above: Expected: 08/19/2023 (Approximate), Expires: 08/19/2024 Start: 08-19-2023 End: 08-19-2024 Hepatitis B virus surface Ag [Presence] in Serum or Plasma by Immunoassay Hepatitis B Surface Antigen Lab Routine Crohn's disease of both small and large intestine with fistula (CMS/HCC) Expected: 08/19/2023 (Approximate), Expires: 08/19/2024 [facility] Service Area Work Phone: Comment on above: Expected: 08/19/2023 (Approximate), Expires: 08/19/2024 Start: 07-11-2023 COVID-19 Vaccine () COVID-19 Vaccine ( season) [facility] Start: 07-11-2023 Influenza vaccination Influenza Vacc ine (#1) [facility] Start: 03-10-2023 FUV, Provider: Janina Musa, Status: Pen, Time: 10:45 AM FUV, Provider: Janina Musa, Status: Pen, Time: 10:45 AM [facility] [address] Work Phone: Start: 02-19-2023 FUV, Provider: Bigg Novak, Status: Pen, Time: 10:45 AM FUV, Provider: Bigg Novak, Status: Pen, Time: 10:45 AM -[facility] Work Phone: Start: 02-19-2023 Patient encounter procedure [facility] Start: 12-20-2022 FUV, Provider: Ghada Ruffin, Status: Pen, Time: 3:30 PM FUV, Provider: Ghada Ruffin, Status: Pen, Time: 3:30 PM [facility] [address] Work Phone: Start: 10-30-2022 FUV, Provider: Bigg Novak, Status: Pen, Time: 2:15 PM FUV, Provider: Bigg Novak, Status: Pen, Time: 2:15 PM [id number] [address] Work Phone: Start: 10-23-2022 FUV, Provider: Natali Neff, Status: Pen, Time: 2:00 PM FUV, Provider: Natali Neff, Status: Pen, Time: 2:00 PM [facility] Work Phone: Start: 10-14-2022 TILTTABLE, Provider: RAJESH BRANCH OFFICE ADMINISTRATOR 1,SMCCATH1, Status: Pen, Time: 9:00 AM TILTTABLE, Provider: RAJESH BRANCH OFFICE ADMINISTRATOR 1,SMCCATH1, Status: Pen, Time: 9:00 AM [facility] Work [facility]: Start: 2022 Hepatitis A Vaccines (1 of 2 - Risk 2-dose series) Hepatitis A Vaccines (1 of 2 - Risk 2-dose series) [facility] Start: 2022 Third diphtheria, tetanus and acellular pertussis (DTaP) vaccination TDAP (ADULT) [facility] Start: 10-02-2022 COLON, Provider: Natali Neff, Status: Pen, Time: 9:30 AM COLON, Provider: Natali Neff, Status: Pen, Time: 9:30 AM [facility] Work Phone: Start: 09-23-2022 EPV, Provider: Norma Townsend, Status: Pen, Time: 10:00 AM EPV, Provider: Norma Townsend, Status: Pen, Time: 10:00 AM [facility] Work Phone: Start: 08-26-2022 TILTTABLE, Provider: RAJESH BRANCH OFFICE ADMINISTRATOR 1,SMCCATH1, Status: Pen, Time: 9:00 AM TILTTABLE, Provider: RAJESH BRANCH OFFICE ADMINISTRATOR 1,SMCCATH1, Status: Pen, Time: 9:00 AM [id number] Work Phone: Start: 08-12-2022 STRESS SERENA, Provider : RAJESH MOSESI STRESS 1,SMCSTRESS1, Status: Pen, Time: 10:00 AM STRESS SERENA, Provider: RAJESH HHVI STRESS 1,SMCSTRESS1, Status: Pen, Time: 10:00 AM [facility] Work Phone: Start: 08-06-2022 NPV, Provider: Josephine Mauricio, Status: Pen, Time: 3:00 PM NPV, Provider: Josephine Mauricio, Status: Pen, Time: 3:00 PM [facility] Work Phone: Start: 07-31-2022 NPV, Provider: Bigg Novak, Status: Pen, Time: 3:00 PM NPV, Provider: Bigg Novak, Status: Pen, Time: 3:00 PM [facility] Work Phone: Start: 07-22-2022 EPV, Provider: Norma Townsend, Status: Pen, Time: 10:00 AM EPV, Provider: Norma Townsend, Status: Pen, Time: 10:00 AM [facility] Work Phone: Start: 07-11-2022 Influenza vaccination Sequenti al Influenza Vaccine (#1) [facility] Start: 06-24-2022 EVENT CHRISTINA, Provider : RAJESH DIAGNOSTIC THERAPISTCHAITANYA, Status: Pen, Time: 11:00 AM EVENT CHRISTINA, Provider: RAJESH DIAGNOSTIC THERAPIST,BUBBAMONITOR, Status: Pen, Time: 11:00 AM -[facility] Work Phone: Start: 06-24-2022 ECHO, Provider: RAJESH HHVI ECHO 2,SMCECHO2, Status: Pen, Time: 10:00 AM ECHO, Provider: RAJESH HHVI ECHO 2,SMCECHO2, Status: Pen, Time: 10:00 AM -[facility] Work Phone: Start: 04-01-2022 EPV, Provider: Norma Townsend, Status: Pen, Time: 2:40 PM EPV, Provider: Norma Townsend, Status: Pen, Time: 2:40 PM [facility] Work Phone: Start: 2021 Hepatitis C screening Hepatitis C [facility] Start: 2019 Meningococcal B Vacc ine (1 of 2 - Standard) Meningococcal B Vaccine (1 of 2 - Standard) [facility] Start: 2019 Screening for Chlamy rolly trachomatis CHLAMYDIA SCREEN [facility] Start: 2018 HIV screening [facility] Start: 2018 HPV Vaccines (1 - 3- dose series) HPV Vaccines (1 - 3-dose series) [facility] Start: 2018 Vaccination for александр n papillomavirus HPV VACCINE ADOL (1 - 3-dose series) [facility] Start: 2015 Depression screening using PHQ-9 (Patient Health Questionnaire 9) score Depression Screening (PHQ-2/9) [facility] Start: 2014 DTaP/Tdap/Td Vaccine s (6 - Tdap) DTaP/Tdap/Td Vaccines (6 - Tdap) [facility] Start: 2014 HPV Vaccines (1 - 2- dose series) HPV Vaccines (1 - 2-dose series) [facility] Start: 04-18-2014 Tetanus vaccination TETANUS [facility] Start: 2009 PNEUMOCOCCAL VACCINE SERIES (1 of 2 - PCV) PNEUMOCOCCAL VACCINE SERIES (1 of 2 - PCV) [facility] Start: 2007 Hearing Screening (#1) Hearing Igor farias (#1) [facility] Start: 2006 History and physical examination, annual for health maintenance Wellness Visit [facility] Start: 2006 Well Child Visit (WC V) - Annual Well Child Visit (WCV) - Annual [facility] Start: 05-27-2005 Varicella vaccination Varicell a Vaccines (2 of 2 - 2-dose childhood series) [facility] Start: 06-08-2004 Application of denta l fluoride varnish Fluoride Varnish [facility] Start: 04-08-2004 COVID-19 Vaccine (#1) COVID-19 Vacci ne (#1) [facility] Start: 2003 Hearing Screening (#1) Hearing Igor farias (#1) [facility] Start: 2003 Cyanocobalamin vitam in b-12 Vitamin B-12 [facility] Start: 2003 Hepatitis C screening HEPATITI S C VIRUS SCREENING [facility] Start: 2003 HIV screening HIV Screening [facility] Start: 2003 Screening for Chlamy rolly trachomatis [facility] Start: 2003 Screening for osteoporosis Bone Density Scan [facility] Start: 2003 TB Test TB Test [facility] Start: 2003 Tetanus vaccination Tetanus: Every 1 0yrs [facility] Start: 2003 Vitamin D25-OH Vitamin D25-OH [facility] Start: 2003 Yearly Adult Physical Yearly Adult P hysical [facility] Acute hepatitis 2000 panel - Serum [facility] C reactive protein [Mass/volume] in Serum or Plasma [facility] C reactive protein [Mass/volume] in Serum or Plasma [facility] CBC W Auto Different ial panel - Blood [facility] CBC W Auto Different ial panel - Blood [facility] Celiac disease screen [facility] Comprehensive metabo lic 1999 panel - Serum or Plasma [facility] Creatine kinase [Enzymatic activity/volume] in Serum or Plasma [facility] Cyclic citrullinated peptide IgG Ab [Units/volume] in Serum or Plasma [facility] Erythrocyte sedimentation rate [facility] Erythrocyte sedimentation rate [facility] Ferritin [Mass/volum e] in Serum or Plasma [facility] Ferritin [Mass/volum e] in Serum or Plasma [facility] Folate [Moles/volume ] in Serum or Plasma [facility] Haptoglobin [Mass/volume] in Serum or Plasma [facility] History of colonoscopy History of colonos copy [facility] History of tonsillectomy History of tonsillectomy and adenoidectomy [facility] IgA [Mass/volume] in Serum or Plasma [facility] IgE [Units/volume] i n Serum or Plasma [facility] IgG [Mass/volume] in Serum or Plasma [facility] IgG subclass panel [Mass/volume] - Serum [facility] IgG subclass panel [Mass/volume] - Serum [facility] IgM [Mass/volume] in Serum or Plasma [facility] In-vitro immunologic test [facility] Iron [Mass/mass] in Unspecified specimen [facility] Iron [Mass/mass] in Unspecified specimen [facility] Iron and Iron bindin g capacity panel - Serum or Plasma [facility] Lactate dehydrogenas e measurement [facility] MRI of small intestine [facility] Patient referral [facility] Work Phone: Radionuclide gastric emptying study [facility] Reticulocyte count [facility] Rheumatoid factor [Presence] in Serum [facility] Serum immunofixation [facility] Thyroid stimulating hormone measurement [facility] Vitamin B12 measurement [facility] Vitamin D, 1,25-dihydroxy measurement [facility] End: 01-15-2024 XR Hand - right 3 Views [facility] Service Are a Work Phone: Comment on above: Once for 1 Occurrenc es starting 01/15/2024 until 01/15/2024 End: 01-15-2024 XR Wrist - right 3 Views [facility] Service [place] Work Phone: Comment on above: Once for 1 Occurrenc es starting 01/15/2024 until 01/15/2024 [facility] Immunizations Immunization Date Immunization Notes Care Provider Kavin vazquez 03-06-2009 diphtheria, tetanus toxoids and acellular pertussis vaccine, unspecified formulation Karena Julian Stencel Work Phone: [address] Work Phone: 03-06-2009 poliovirus vaccine, unspecified formulation Karena Iesha Stencel Work Phone: [address] Work Phone: 03-04-2005 diphtheria, tetanus toxoids and acellular pertussis vaccine, unspecified formulation Karena Iesha Stencel Work Phone: [address] Work Phone: 03-04-2005 measles, mumps and rubella virus vaccine Karena Julian Stencel Work Phone: [address] Work Phone: 03-04-2005 pneumococcal conjuga te vaccine, 7 valent Karena Julian Stencel Work Phone: [address] Work Phone: 03-04-2005 varicella virus vaccine Darion divine Julian Stencel Work Phone: [address] Work Phone: 11-21-2004 measles, mumps and rubella virus vaccine Karena Iesha Stencel Work Phone: [address] Work Phone: 11-14-2004 haemophilus influenz ae type b vaccine, conjugate unspecified formulation Karena Julian Stencel Work Phone: [address] Work Phone: 04-18-2004 DTaP-hepatitis B and poliovirus vaccine Karena Julian Stencel Work Phone: [address] Work Phone: 04-18-2004 haemophilus influenz ae type b vaccine, conjugate unspecified formulation Karena Julian Stencel Work Phone: [address] Work Phone: 04-18-2004 hepatitis B vaccine, pediatric or pediatric/adolescent dosage Natali Neff DO Work Phone: [facility] Work Phone: 04-10-2004 poliovirus vaccine, inactivated Natali Neff DO Work Phone: [facility] Work Phone: 02-15-2004 diphtheria, tetanus toxoids and acellular pertussis vaccine, unspecified formulation Karena D Stencel Work Phone: [address] Work Phone: 02-15-2004 haemophilus influenz ae type b conjugate and Hepatitis B vaccine Karena D Stencel Work Phone: [address] Work Phone: 02-15-2004 pneumococcal conjuga te vaccine, 7 valent Karena D Stencel Work Phone: [address] Work Phone: 02-15-2004 poliovirus vaccine, inactivated Karena D Stencel Work Phone: [address] Work Phone: 2003 diphtheria, tetanus toxoids and acellular pertussis vaccine, unspecified formulation Karena D Stencel Work Phone: [address] Work Phone: 2003 haemophilus influenz ae type b conjugate and Hepatitis B vaccine Karena D Stencel Work Phone: [address] Work Phone: 2003 pneumococcal conjuga te vaccine, 7 valent Karena D Stencel Work Phone: [address] Work Phone: 2003 poliovirus vaccine, inactivated Karena D Stencel Work Phone: [address] Work Phone: 2003 hepatitis B vaccine, pediatric or pediatric/adolescent dosage Karena Valle Work Phone: [address] Work Phone: Payers Date Payer Category Payer Self-pay 2024 Unknown 2022 Medicaid [id number] 2022 Medicaid [id number] 2022 Unknown [id number] 2021 Unknown [id number] 2003 Unknown [id number] 2.16. 840.1.025282.3.579.2.356 2003 Unknown [id number] 2.16. 840.1.764261.3.579.2.356 2003 Unknown [id number] 2.16. 840.1.784666.3.579.2.356 2003 Unknown [id number] 2.16. 840.1.863624.3.579.2.356 2003 Unknown [id number] 2.16. 840.1.954648.3.579.2.356 2003 Unknown [id number] 2.16. 840.1.747160.3.579.2.356 2003 Unknown [id number] 2.16. 840.1.066768.3.579.2.356 2003 Unknown [id number] 2.16. 840.1.159847.3.579.2.356 2003 Unknown [id number] 2.16. 840.1.028702.3.579.2.356 2003 Unknown [id number] 2.16. 840.1.453195.3.579.2.356 2003 Unknown [id number] 2.16. 840.1.527486.3.579.2.356 2003 Unknown [id number] 2.16.8 40.1.400549.3.579.2.1069 2003 Unknown [id number] 2.16.8 40.1.093595.3.579.2.1069 2003 Unknown [id number] 2.16.8 40.1.088914.3.579.2.1069 2003 Unknown [id number] 2.16.8 40.1.203895.3.579.2.9 2003 Unknown [id number] 2.16.8 40.1.942770.3.579.2.106 2003 Unknown [id number] 2.16.8 40.1.619841.3.579.2.1068 2003 Unknown [id number] 2.16.8 40.1.519819.3.579.2.1068 2003 Unknown [id number] 2.16.8 40.1.396986.3.579.2.1068 2003 Unknown [id number] 2.16.8 40.1.602629.3.579.2.9 2003 Unknown [id number] 2.16.8 40.1.216109.3.579.2.5 2003 Unknown [id number] 2.16.8 40.1.886003.3.579.2.983 2003 Unknown [id number] 2.16.8 40.1.224406.3.579.2.3 2003 Unknown [id number] 2.16.8 40.1.004175.3.579.2.1243 2003 Unknown [id number] 2.16.8 40.1.383959.3.579.2.3 2003 Unknown [id number] 2.16.8 40.1.353618.3.579.2.1243 2003 Unknown [id number] 2.16. 840.1.067668.3.579.2.902 2003 Unknown [id number] 2.16. 840.1.007004.3.579.2.902 2003 Unknown [id number] 2.16. 840.1.470351.3.579.2.1244 2003 Unknown [id number] 2.16.8 40.1.810235.3.579.2.1244 Unknown [id number] 2.16.8 40.1.209779.3.579.2.462 Unknown [id number] 2.16.8 40.1.034897.3.579.2.462 Unknown [id number] 2.16.8 40.1.511745.3.579.2.462 Unknown [id number] 2.16.8 40.1.737393.3.579.2.462 Unknown [id number] 2.16.8 40.1.545131.3.579.2.462 Unknown [id number] 2.16.8 40.1.091294.3.579.2.462 Unknown [id number] 2.16.8 40.1.758865.3.579.2.462 Unknown [id number] 2.16.8 40.1.972377.3.579.2.462 Unknown [id number] 2.16.8 40.1.287275.3.579.2.462 Unknown [id number] 2.16.8 40.1.325822.3.579.2.462 Unknown [id number] 2.16.8 40.1.559243.3.579.2.462 Social History Date Type Detail Facility Assertion Tobacco smoking consumption unknown (finding) [facility] [place] [address] [facility] Phone: Start: 08-13-2023 End: 01-19-2025 Sexually active Sexually active [facility] Start: 08-18-2022 End: 08-13-2023 Tobacco smoking status NHIS Never smoked tobacco [facility] Start: 08-18-2022 End: 06-29-2024 Tobacco use and exposure Smokeless tobacco non-user [facility] Start: 2003 Sex Assigned At Not on file [facility] Tobacco smoking consumption unknown [facility] Start: 08-13-2023 End: 01-12-2024 Alcohol intake Ex-drinker (finding) [facility] Work Phone: Start: 08-13-2023 End: 01-19-2025 Tobacco use panel [facility] Start: 08-03-2023 End: 01-19-2025 Exposure to SARS-CoV-2 (event) Not sure [facility] Start: 03-04-2024 Tobacco smoking status NHIS Ex-smoker [facility] Work Phone: History of tobacco use [facility] of tobacco use [facility]: Start: 03-04-2024 Tobacco use and exposure User of smokeless tobacco [facility] Work Phone: Start: 03-04-2024 End: 01-19-2025 Alcoholic beverage intake Current drinker of alcohol (finding) [facility] Work Phone: Start: 03-04-2024 Tobacco Comment Vapes [facility] Work Phone: Start: 03-04-2024 Alcohol Comment Occationally [facility] Work Phone: Start: 06-29-2024 Tobacco smoking status NDIS Occasional tobacco smoker [facility] Start: 06-29-2024 Alcohol Comment rare [facility] Within the last year , have you been afraid of your partner or ex-partner? No [facility] Do you feel stress - tense, restless, nervous, or anxious, or unable to sleep at night because your mind is troubled all the time - these days [OSQ] Not at all [facility] Work Phone: (I/We) worried whebrianna er (my/our) food would run out before (I/we) got money to buy more. Never true [facility] Work Phone: In the past 12 month s, has lack of transportation kept you from medical appointments or from getting medications? No [facility] Work Phone: Start: 04-06-2025 Tobacco smoking status NHIS Smokes tobacco daily (finding) [facility] Start: 2003 Sex Assigned At Female [facility] Functional Status Date Assessment Result Facility 05-20-2025 Functional status Ambulates [facility] Work Phone: NEGATED: Highlighted row Functional performance Functional status health issues are not documented Disease [address] Work Phone: Mental Status Date Assessment Result Facility 07-01-2025 Cognitive function Voice/Name [facility] Work Phone: 05-20-2025 Cognitive function Voice/Name [facility] Work Phone: NEGATED: Highlighted row Cognitive function [Interpretation] Cognitive status health issues are not documented Disease [address] Work Phone: Clinical Notes 07-22-2021 to 04-25-2025 Note Date & Type Note Facility 04-25-2025 Nuclear medicine Diagnostic study note [facility] Imaging Services [address] [place], [place] [id number] Gastric Emptying Study MR#: [id number] Acct: [id number] Name: ELSA ANDREW Rep #: [id number] : 2005 F 19 From: Jhonatan Betancur MD PCP: Dr. Karena Valle MD Status: RE G CLI Study:Gastric Emptying Study Date of Exam: 04/25/25 Exam# [id number] Ordering Dr: Candelario Amato DO PROCEDURE: GASTRIC EMPTYING STUDY 04/25/2025 REASON FOR EXAM: CROHNS DISEASE AND ABDOMINAL PAIN TECHNIQUE: The patient ingested a standard meal of technetium sulfur colloid and oatmeal and water. There was no vomiting postprandially. Anterior and posterior planar images of the upper abdomen were obtained for 1 minute immediately following the meal at 1h, 2h and 4h if more than 10% of the activity persisted within the stomach. Regions of interest were drawn, and a geometric mean was used to calculate a hdtg-znybhkbh-kpedi. RADIOPHARMACEUTICAL: Technetium labeled sulfur colloid DOSE 1.1 mCimCi FINDINGS: Percent activity remaining in stomach: 1 hour 57 % (normal 37-90%) NM/Gastric Emptying Study IMPRESSION: Normal gastric emptying examination. Reading Location: [facility] CC: Dr. Karena Valle MD; Albert Friend, DO ~ Clay Molder: Signed [facility] 04-06-2025 Evaluation note Diagnosis Onset Date Resolution Crohn disease acute April 06, 025 9:12am [facility] Work Phone: 1(121) 936-736805-28-2025 Evaluation note* Diagnosis Onset Date Resolution Status Admit Date Crohn disease acute April 06, 025 9:12am Crohn disease acute July 112024 1:32pm Migraines acute July 1:32pm [facility] Work Phone: 1(853) 101-407603-12-2025 History of Present illness Narrative* Ghada Ruffin MD - 01/19/2025 10:45 AM EDT Elsa Andrew is a 19 y.o. year old female patient. PCP = Karena Valle MD Chief Complaint Patient presents with STI Screening Patient would like GC/Ch testing done and also has a labial bump she would like looked at. She is concerned about herpes. HPI Presents stating she wishes to be screened for chlamydia and gonorrhea. She is also noticed severalsmall bumps of her labia that she has noticed over the last several weeks that she wishes to have examined as she is concerned of herpes. Denies any pain associated with the lumps. Last menstrual period was January 05, 2025. OB History 0 Para 0 Term 0 0 AB 0 Living 0 SAB 0 IAB 0 Ectopic 0 Multiple 0 Live Births 0 Past Medical History: Diagnosis Date Mastodynia 03/23/2021 Breast pain in female Other conditions influencing health status Menstruation Pain in left foot 02/19/2021 Left foot pain Personal history of other diseases of the respiratory system 02/07/2020 History of acute bronchitis Past Surgical History: Procedure Laterality Date OTHER SURGICAL HISTORY 11/08/2019 Tonsillectomy with adenoidectomy Review of Systems: Constitutional: No fever or chills Respiratory: No shortness of breath, or cough Cardiovascular: No chest pain or syncope Breasts: No breast pain, no masses, no nipple discharge Gastrointestinal: No nausea, vomiting, or diarrhea, no abdominal pain Genitourinary: No dysuria or frequency Gynecology: Negative except as noted in history of present illness All other: All other systems reviewed and negative for complaint Medication Documentation Review Audit Reviewed by Kassandra Villanueva LPN (Licensed Nurse) on 01/19/25 at 1109 Medication Order Taking? Sig Documenting Provider Last Dose Status azithromycin (Zithromax) 250 mg tablet [id number] Take 1 tablet (250 mg) by mouth early in the morning.. Historical Provider, Active BP 110/62 Ht 1.651 m (5' 5) Wt 53 kg (116 lb 14.4 oz) LMP 01/05/2025 (Approximate) BMI 19.45 kg/m PHYSICAL EXAMINATION: Small Stock Facer present for exam: Kassandra Villanueva LPN Well-developed, well nourished, in no acute distress, alert and oriented x three, is pleasant and cooperative. HEENT: Clear. Pupils equal, round and reactive to light and accommodation. Extraocular muscles are intact. Oral mucosa pink without exudate. NECK: No lymphadenopathy, no thyromegaly. LUNGS: Clear bilaterally. HEART: Regular rate and rhythm without murmurs. ABDOMEN: Normoactive bowel sounds, soft and nontender, no guarding or rebound tenderness, no CVA tenderness. EXTREMITIES: No clubbing, cyanosis or edema. NEUROLOGIC: Cranial nerves II-XII grossly intact. : Normal external female genitalia, normal vulva, normal vagina. Normal urethral meatus, urethra and bladder. There is noted discrete areas of folliculitis on both the right and left perineum at the level of the perineal body. No evidence of any lesions with ulcerations. Problem List Items Addressed This Visit None Visit Diagnoses Screen for STD (sexually transmitted disease) - Primary Relevant Orders C. trachomatis / N. gonorrhoeae, Amplified, Urogenital Folliculitis of perineum Relevant Medications azithromycin (Zithromax) 250 mg tablet Provider Impression: 1. Screen for STD 2. Folliculitis of the perineum Patient will go to the lab for a urine sample for GC and chlamydia. Patient informed that there is no evidence of any lesions that would suggest herpes. The small bumps that she noticed appears consistent with folliculitis most likely associated with shaving of the perineum. Will prescribe azithromycin. Patient may also use topical Neosporin. Patient to return as previously scheduled. [facility]: 1(824) 217-911502-07-2025 History of Present illness Narrative* Eloisa Slater, TACKER OFF-ASSOCIATE PROFESSOR OF [employer] - 12/17/2024 11:[address] [facility]STAN NOTE: Name: Elsa Andrew, 19 y.o. CSN:[id number] PCP: Karena Valle MD ALL: Allergies Allergen Reactions Ciprofloxacin Unknown Amoxicillin Hives and Rash Amoxicillin-Pot Clavulanate Diarrhea and Rash Cefprozil Rash Cephalexin Hives and Rash Sulfa (Sulfonamide Antibiotics) Hives and Rash History: Chief Complaint: Eye Problem (Bilateral eye irritation/drainage x 1 day ) Encounter Date: 12/17/2024 HPI: The history was obtained from the patient. Elsa is a 19 y.o. female, who presents with a chief complaint of Eye Problem (Bilateral eye irritation/drainage x 1 day ) Presents with yellow, goopy drainage to bilateral eyes that started 1 day ago. Reports that onset of symptoms were gradual and fe els like the drainage and crusting have gotten worse since onset; Denies any light sensitivity or behavior changes. No known injury or irritants. Has had cold symptoms over the past 7 days, but has had good energy levels. Does not wear any type of corrective lenses. They have been cleansing the goopy drainage out of patient's eyes with a warm washcloth and water; they have not tried any other OTCmedications or home-remedies for symptoms. PMHx: Past Medical History: Diagnosis Date Mastodynia 03/23/2021 Breast pain in female Other conditions influencing health status Menstruation Pain in left foot 02/19/2021 Left foot pain Personal history of other diseases of the respiratory system 02/07/2020 History of acute bronchitis Current Outpatient Medications Medication Sig Dispense Refill azithromycin (Zithromax) 250 mg tablet Take 1 tablet (250 mg) by mouth early in the morning.. moxifloxacin (Vigamox) 0.5 % ophthalmic solution Administer 1 drop into both eyes 3 times a day for7 days. 3 mL 0 No current facility-administered medications for this visit. PMSx: Past Surgical History: Procedure Laterality Date OTHER SURGICAL HISTORY 11/08/2019 Tonsillectomy with adenoidectomy Fam Hx: Family History Problem Relation Name Age of Onset Hyperlipidemia Mother Hypertension Mother Migraines Mother Supraventricular tachycardia Mother Hypertension Father Heart attack Father SOC. Hx: Social History Socioeconomic History Marital status: Single Spouse name: Not on file Number of children: Not on file Years of education: Not on file Highest education level: Not on file Occupational History Not on file Tobacco Use Smoking status: Former Types: Cigarettes Smokeless tobacco: Current Tobacco comments: Vapes Vaping Use Vaping status: Every Day Substance and Sexual Activity Alcohol use: Yes Comment: Occationally Drug use: Never Sexual activity: Defer Other Topics Concern Not on file Social History Narrative Not on file Social Drivers of Health Financial Resource Strain: Not on file Food Insecurity: Not on file Transportation Needs: Not on file Physical Activity: Not on file Stress: Not on file Social Connections: Not on file Intimate Partner Violence: Not on file Housing Stability: Not on file Vitals: 12/17/24 1128 BP: 108/69 Pulse: 83 Resp: 16 Temp: 36.7 C (98.1 F) SpO2: 98% 54.4 kg (120 lb) Physical Exam Vitals and nursing note reviewed. Constitutional: Appearance: Normal appearance. HENT: Head: Normocephalic and atraumatic. Right Ear: Hearing, ear canal and external ear normal. A middle ear effusion is present. Tympanic membrane is erythematous. Tympanic membrane is not bulging. Tympanic membrane has normal mobility. Left Ear: Hearing, ear canal and external ear normal. A middle ear effusion is present. Tympanic membrane is erythematous. Tympanic membrane is not bulging. Tympanic membrane has normal mobility. Nose: Congestion and rhinorrhea present. Rhinorrhea is purulent. Right Sinus: Maxillary sinus tenderness and frontal sinus tenderness present. Left Sinus: Maxillary sinus tenderness and frontal sinus tenderness present. Mouth/Throat: Lips: Floweree. Mouth: Mucous membranes are moist. Pharynx: Oropharynx is clear. Uvula midline. Posterior oropharyngeal erythema present. No pharyngeal swelling or oropharyngeal exudate. Tonsils: No tonsillar exudate. Eyes: General: Right eye: Discharge present. Left eye: Discharge present. Conjunctiva/sclera: Right eye: Right conjunctiva is injected. Exudate present. Left eye: Left conjunctiva is injected. Exudate present. Pupils: Pupils are equal, round, and reactive to light. Cardiovascular: Rate and Rhythm: Normal rate and regular rhythm. Pulses: Normal pulses. Heart sounds: Normal heart sounds. Pulmonary: Effort: Pulmonary effort is normal. Breath sounds: Normal breath sounds. Abdominal: General: Abdomen is flat. Bowel sounds are normal. Palpations: Abdomen is soft. Musculoskeletal: General: Normal range of motion. Cervical back: Normal range of motion. Skin: General: Skin is warm and dry. Capillary Refill: Capillary refill takes less than 2 seconds. Neurological: Mental Status: She is alert and oriented to person, place, and time. I did personally review Elsa's past medical history, surgical history, social history, as well as family history (when relevant). In this case, I also oversaw the her drug management by reviewing her medication list, allergy list, as well as the medications that I prescribed during the UC course and/or recommended as an out-patient (including possible OTC medications such as acetaminophen, NSAIDs , etc). After reviewing the items above, I did look at previous medical documentation, such as recent hospitalizations, office visits, and/or recent consultations with PCP/specialist. SDOH: Another factor that I considered in Elsa's care was her Social Determinants of Health (SDOH). During this UC encounter, she did not have social determinants of health. Those SDOH influencing Elsa's care are: none COURSE/MEDICAL DECISION MAKING: Elsa is a 19 y.o., who presents with a working diagnosis of 1. Bacterial conjunctivitis Elsa was seen today for eye problem. Diagnoses and all orders for this visit: Bacterial conjunctivitis (Primary) - moxifloxacin (Vigamox) 0.5 % ophthalmic solution; Administer 1 drop into both eyes 3 times a day for 7 days. Plan of care reviewed with patient. If symptoms change and/or worsen will follow-up with primary care provider, return to urgent care, or go to the nearest emergency department for further evaluation. Patient states understanding and is agreeable with plan of care. Eloisa Slater APRN, CRIS Advanced Practice Provider [facility] Please note: While the patient may or may not have received printed discharge paperwork, all relevant medical findings, test results, and treatment details are accessible through the electronic medical record system. The patient is encouraged to review their chart via the patient portal for comprehensive information and follow-up instructions. documented in this [facility] Work Phone: 1(691) 902-562701-08-2025 History of Present illness Narrative* ARNOLDO Flood - 11/17/2024 3:00 PM EST 19 y.o. female patient presents for evaluation of sinus pressure. Patient reports 1 week of progressively worsening maxillary sinus pain, nasal congestion, cough and headache. There is reported mild postnasal drip and ear pressure. No fever, sore throat, rashes, dizziness, lightheadedness or other c onstitutional signs and symptoms. Symptoms have been refractory to dfnc-qwg-hjckbmi medications. Vitals: 11/17/24 1501 BP: 121/80 Pulse: 108 Resp: 18 Temp: 36.4 C (97.6 F) SpO2: 98% Allergies Allergen Reactions Ciprofloxacin Unknown Amoxicillin Hives and Rash Amoxicillin-Pot Clavulanate Diarrhea and Rash Cefprozil Rash Cephalexin Hives and Rash Sulfa (Sulfonamide Antibiotics) Hives and Rash Medication Documentation Review Audit Reviewed by Sejal Herrera MA (Wire [employer]ater) on 11/17/24 at 1459 Medication Order Taking? Sig Documenting Provider Last Dose Status No Medications to Display Past Medical History: Diagnosis Date Mastodynia 03/23/2021 Breast pain in female Other conditions influencing health status Menstruation Pain in left foot 02/19/2021 Left foot pain Personal history of other diseases of the respiratory system 02/07/2020 History of acute bronchitis Past Surgical History: Procedure Laterality Date OTHER SURGICAL HISTORY 11/08/2019 Tonsillectomy with adenoidectomy ROS See HPI Physical Exam Vitals and nursing note reviewed. Constitutional: General: She is not in acute distress. Appearance: Normal appearance. She is not ill-appearing, toxic-appearing or diaphoretic. HENT: Head: Normocephalic and atraumatic. Right Ear: Tympanic membrane and ear canal normal. Left Ear: Tympanic membrane and ear canal normal. Nose: Congestion present. Mouth/Throat: Mouth: Mucous membranes are moist. Pharynx: Oropharynx is clear. Eyes: Extraocular Movements: Extraocular movements intact. Conjunctiva/sclera: Conjunctivae normal. Pupils: Pupils are equal, round, and reactive to light. Cardiovascular: Rate and Rhythm: Normal rate. Pulmonary: Effort: Pulmonary effort is normal. Breath sounds: Normal breath sounds. Lymphadenopathy: Cervical: Cervical adenopathy present. Skin: General: Skin is warm and dry. Neurological: General: No focal deficit present. Mental Status: She is alert and oriented to person, place, and time. Psychiatric: Mood and Affect: Mood normal. Behavior: Behavior normal. Assessment/Plan/MDM Elsa was seen today for uri. Diagnoses and all orders for this visit: Acute non-recurrent maxillary sinusitis (Primary) - azithromycin (Zithromax Z-Pablito) 250 mg tablet; Take 2 tablets (500 mg) on Day 1, followed by 1 tablet (250 mg) once daily on Days 2 through 5. Encouraged pt to use otc cold remedies PRN, push PO fluids and rest. Patient's clinical presentation is otherwise unremarkable at this time. Patient is discharged with instructions to follow-up with primary care or seek emergency medical attention for worsening symptoms or any new concerns. I did personally review Elsa's past medical history, surgical history, social history, as well as family history (when relevant). In this case, I also oversaw the her drug management by reviewing her medication list, allergy list, as well as the medications that I prescribed during the UC course and/or recommended as an out-patient (including possible OTC medications such as acetaminophen, NSAIDs , etc). After reviewing the items above, I did look at previous medical documentation, such as recent hospitalizations, office visits, and/or recent consultations with PCP/specialist. SDOH: Another factor that I considered in Elsa's care was her Social Determinants of Health (SDOH). During this UC encounter, she did not have social determinants of health. Those SDOH influencing Elsa's care are: none Chip Jones CNP [facility] [phone] [facility] Work Phone: 1(351) 289-103704-25-2024 History of Present illness Narrative* Bigg Novak MD - 03/04/2024 3:45 PM EDT Cardiology Subsequent Encounter Clinic Note Name: Elsa Andrew : 2005 CC: palpitations Active Issues: Elsa Andrew is a 18 y.o. female with a medical history of anxiety here for evaluation of the following complaints: Problem #1 palpitations -Event monitor performed 07/12/2022 was largely unremarkable. -Echocardiogram performed 06/24/2022 was suggestive of a small PFO; preserved biventricular function. On this visit patient notes that about twice a week -she has episodes of chills associated with some palpitations. It lasts only seconds. Outside of this with exertion she denies any chest discomfort. Does have occasional exertional dyspnea. Denies any orthopnea/PND. No lower extremity edema. Does note occasional episodes of palpitations. Tried salt pills for POTS; however discontinued them after they made her symptoms worse Past Medical History Past Medical History: Diagnosis Date Mastodynia 03/23/2021 Breast pain in female Other conditions influencing health status Menstruation Pain in left foot 02/19/2021 Left foot pain Personal history of other diseases of the respiratory system 02/07/2020 History of acute bronchitis Past Surgical History Past Surgical History: Procedure Laterality Date OTHER SURGICAL HISTORY 11/08/2019 Tonsillectomy with adenoidectomy Medications No current outpatient medications on file prior to visit. No current facility-administered medications on file prior to visit. Allergies Allergies Allergen Reactions Ciprofloxacin Unknown Amoxicillin Hives and Rash Amoxicillin-Pot Clavulanate Diarrhea and Rash Cefprozil Rash Cephalexin Hives and Rash Sulfa (Sulfonamide Antibiotics) Hives and Rash Social History Social History Tobacco Use Smoking status: Former Types: Cigarettes Smokeless tobacco: Current Tobacco comments: Vapes Vaping Use Vaping status: Every Day Substance Use Topics Alcohol use: Yes Comment: Occationally Drug use: Never Family History Family History Problem Relation Name Age of Onset Hyperlipidemia Mother Hypertension Mother Migraines Mother Supraventricular tachycardia Mother Hypertension Father Heart attack Father Physical Examination Vitals: BP 120/70 Pulse 84 Ht 1.651 m (5' 5) Wt 71.2 kg (157 lb) SpO2 99% BMI 26.13 kg/m General: awake, alert and oriented. No acute distress. Skin: Skin is warm, dry and intact without rashes or lesions. Appropriate color for ethnicity. Nailbeds pink with no cyanosis or clubbing HEENT: normocephalic, atraumatic; conjunctivae are clear without exudates or hemorrhage. Sclera is non-icteric. Eyelids are normal in appearance without swelling or lesions. Hearing intact. Nares arepatent bilaterally. Moist mucous membranes. Cardiovascular: Regular. No murmurs, gallops, or rubs are auscultated. S1 and S2 are heard and are of normal intensity. No JVD, no carotid bruits Respiratory: Thorax symmetric. CTAB, breath sounds vesicular. No crackles, wheezes or ronchi. Gastrointestinal: soft, non-distended, BS + x 4 Genitourinary: exam deferred Musculoskeletal: moves all extremities Extremities: pulses palpable bilaterally; no swelling or erythema; no edema Neurological: alert & oriented x 3; no focal deficits Psychiatric: appropriate mood and affect Labs/Imaging/Procedures Lab Results Component Value Date HGB 12.9 02/24/2023 HGB 12.6 08/18/2022 HGB 12.0 06/20/2022 PLT 325 02/24/2023 WBC 3.5 (L) 02/24/2023 NA 136 08/18/2022 K 3.6 08/18/2022 CREATININE 0.62 08/18/2022 CREATININE 0.57 06/20/2022 CREATININE 0.62 08/26/2019 BUN 6 08/18/2022 CALCIUM 9.4 08/18/2022 LDLF 152 (H) 08/12/2022 No echocardiogram results found for the past 12 months Impression Elsa Andrew is a 18 y.o. female with a medical history of anxiety here for evaluation of the following complaints: Problem #1 palpitations -Event monitor performed 07/12/2022 was largely unremarkable. -Echocardiogram performed 06/24/2022 was suggestive of a small PFO; preserved biventricular function. Plan: -Episodes of chest discomfort do not appear to be cardiac. She has had a negative stress test. No further evaluation required. -Overall POTS appears to be largely stable. Bad reaction to salt tabs. No further treatment warranted at this time -Notably she does have minimally elevated LDL (150 mg/dL). Currently does not meet ASCVD criteria for treatment; will do a recheck -RTC 1 year Bigg Novak MD Advanced Heart Failure/Transplant Cardiology Cardio-Oncology [facility] [place] documented in this [facility] Work Phone: 1([phone]) 139-865903-04-2024 History of Present illness Narrative* Karena Valle MD - 01/12/2024 1:40 PM EST Subjective Patient ID: Elsa Andrew is a 18 y.o. female who presents for Wrist Pain (right). HPI Only rx is prn pred for flare of chrons. Hpi for last 1-2 yrs having increasingly frequent right wrist pain and swelling. Feelscatrch in wrist and willlose mobility for a co hrs \Several episodes, has pictures showing the forearm with a more violaceous hue and some increased girth the rest, with resolution between episodes Review of Systems Is known to have Crohn's disease currently not on therapy. Had difficulties communicating and connecting with Dr. Neff's office and ask for referral to a different dealer sales rep we will send to [place]. Reviewed with her that this could be an extraintestinal manifestation of inflammatorybowel disease but we will proceed with x-rays of wrist and hand as well as laboratories to define immunologic and inflammatory activity. Objective BP 122/76 Pulse (!) 115 Ht 1.651 m (5' 5) Wt 72.1 kg (159 lb) SpO2 97% BMI 26.46 kg/m Physical Exam Mild tender over CMC and radiocarpal joint. Slight bogginess over MCPs no tenderness or bogginess over PIP and DIPs. 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) K50.913 Relevant Orders Referral to Gastroenterology documented in this [facility] Work Phone: 1(790) 712-312810-04-2023 History of Present illness Narrative* Natali Neff, DO - 08/13/2023 10:00 AM EDT Subjective Patient ID: Elsa Andrew is a 17 y.o. female who presents for Follow-up (Pt states she had a flare approx 1 week ago. Was having bloating, constipation, cramping, gassiness, belching. Patient was given prednisone to help clear things up which did help.). HPI 17-year-old female last seen in October 2022. Colonoscopy at that time showed ileitis biopsiesconfirmed Crohn's. Presents after beginning prednisone for recurrent right lower quadrant abdominalpain no imaging or labs have been done. Patient has been having intermittent flares over the last year requiring prednisone. Last treatment prior to this appointment was 4 months ago. States pain anddiarrhea have greatly subsided since beginning prednisone. Still having discomfort in her right side. Prior imaging showed no fistula but extensive inflammatory changes throughout the terminal ileum and no other lesions were noted. Review of Systems Gastrointestinal: Positive for abdominal pain and diarrhea. All other systems reviewed and are negative. Objective Physical Exam Constitutional: Appearance: Normal appearance. HENT: Head: Normocephalic. Mouth/Throat: Mouth: Mucous membranes are moist. Pharynx: Oropharynx is clear. Eyes: Conjunctiva/sclera: Conjunctivae normal. Pupils: Pupils are equal, round, and reactive to light. Cardiovascular: Rate and Rhythm: Normal rate and regular rhythm. Heart sounds: Normal heart sounds. Pulmonary: Effort: Pulmonary effort is normal. Breath sounds: Normal breath sounds. Abdominal: General: Abdomen is flat. Bowel sounds are normal. Palpations: Abdomen is soft. Musculoskeletal: General: Normal range of motion. Cervical back: Normal range of motion and neck supple. Skin: General: Skin is warm and dry. Neurological: General: No focal deficit present. Mental Status: She is oriented to person, place, and time. Psychiatric: Behavior: Behavior normal. Assessment/Plan Diagnoses and all orders for this visit: Crohn's disease of both small and large intestine with fistula (CMS/HCC) I advised her to continue to taper dose of prednisone I would like to get her started on Remicade. We will check lab work and discussed repeat imaging. documented in this [facility] Work Phone: 1(678) 395-119612-05-2022 NotePre-procedure Verification and Time Out: Pre-Procedure Verification and Time Out: Procedure Locationprocedure area HUDDLE - Pre-procedure Verificationcompleted TIME OUT - Final Verificationcompleted immediately prior to procedure start DEBRIEFcompleted General Information: Anesthesia Critical Care: Non-Anesthesia Date/Time of Procedure: 14-Oct-2022 11:59 Post-Procedure Diagnosis: Postural orthostatic tachycardia syndrome Procedure Name: Tilt table test Findings: grossly normal anatomy Procedure performed by: ne Clearance Coordinator(s): none Estimated Blood Loss (mL): none Specimen: no Informed Consent: written consent obtained Procedure Details: Procedure Details: No vasodepressor/cardioinhibitory response to postural changes noted. Tachycardia and reproduction of symptoms (dizziness) seen with upright posture. No hypertension noted. Findings are consistent with postural orthostatic tachycardia syndrome. Electronic Signatures: Bigg Novak) (Signed 14-Oct-2022 12:00) Authored: Pre-procedure Verification and Time Out, General Information, Procedure Details, Note Completion Last Updated: 14-Oct-2022 12:00 by Bigg Novak)[facility]2022 History of Present illness Narrative* Cris Cruz CNP - 08/18/2022 5:55 PM EDT Images from the original note were not included. Patient Name: [facility] Location: [place] [address] [facility] [place] [id number] Date Of : Date Of Visit: 2005 08/18/2022 MRN# Provider: [id number] Cris Cruz CNP Chief Complaint Patient presents with Abdominal Pain 4 days, umbilical region getting worse, migraines 1 week Assessment & Plan 1. Lower abdominal pain No follow-ups on file. Medical Decision Making Considered appendicitis, ovarian cyst, ectopic , cholecystitis, gastric ulcer She has tenderness over RLQ, LLQ, and periumbilical area. She states that the RLQ is the worse. Shedenies rebound tenderness. I have recommended that she go to the ED for evaluation. She is agreeable. The male with her agreesto take her. Subjective 16 y.o. female presents with Abdominal Pain (4 days, umbilical region getting worse, migraines 1 week ) HPI 16 yr old female presents with c/o abdominal pain near the umbilical region for 4-5 days. She states that the pain is worse when she coughs, bends over, lays on her side, or driving over train tracks. She states that the pain is above her umbilicus. She states that the umbilicus itself is red. She denies fever, N/V. She has not taken any medication or done any treatment. She states that she has headaches daily with associated N/V. She states that she has seen her PCP for this and is really just here for her belly button. First day of last period 3 weeks ago. She admits that she does not take her control consistently. Review Of Systems Review of Systems Constitutional: Negative for fatigue and fever. Gastrointestinal: Positive for abdominal pain. Negative for diarrhea, nausea and vomiting. Medical History History reviewed. No pertinent past medical history. History reviewed. No pertinent surgical history. There is no problem list on file for this patient. Social History Social History Tobacco Use Smoking status: Never Smokeless tobacco: Never Family History History reviewed. No pertinent family history. Objective Physical Exam BP 119/85 Pulse 95 Temp 98.2 F (36.8 C) (Temporal) Resp 18 Wt 62.8 kg (138 lb 6.4 oz) SpO2 94% Vision/Hearing Exam:No results found. Physical Exam Cardiovascular: Rate and Rhythm: Normal rate and regular rhythm. Heart sounds: Normal heart sounds. Pulmonary: Effort: Pulmonary effort is normal. Breath sounds: Normal breath sounds. Abdominal: General: Bowel sounds are normal. Palpations: Abdomen is soft. Tenderness: There is abdominal tenderness in the right lower quadrant, periumbilical area and left lower quadrant. There is guarding. There is no rebound. Negative signs include Gold's sign. Comments: Umbilicus does not appear reddened Neurological: Mental Status: She is alert and oriented to person, place, and time. Psychiatric: Attention and Perception: Attention normal. Mood and Affect: Mood normal. Procedure Notes Procedures Results No results found for this or any previous visit (from the past 168 hour(s)). No orders to display Orders Placed This Visit No orders of the defined types were placed in this encounter. Medication List At End Of Visit Current Outpatient Medications Medication Sig Dispense Refill norgestimate-ethinyl estradioL 0.25-35 mg-mcg per tablet Take by mouth . sertraline (ZOLOFT) 100 MG tablet Take 1 (one) tablet (100 mg total) by mouth daily . No current facility-administered medications for this visit. There are no Patient Instructions on file for this visit. documented in this [id number] History of Present illness Narrative* 16-year-old female with a medical history of anxiety here for evaluation of the following complaints: * Problem #1 palpitations * -Event monitor performed 07/12/2022 was largely unremarkable. * -Echocardiogram performed 06/24/2022 was suggestive of a small PFO; preserved biventricular function. * Patient describes about 6 months of worsening symptoms: Mostly postural or in the shower she notices dizziness/lightheadedness accompanied by warmth and diaphoresis in her face. Some heaviness of herface/limbs occasionally accompanied by loss of consciousness. She loses consciousness for a few seco nds prior to regaining. Occasional dizzy episodes are also accompanied by nausea/vomiting. Other triggers described are heat, anxiety. * Outside of these episodes she does note occasional shortness of breath with exertion particularly with climbing stairs. Denies any orthopnea/PND. No clear exertional angina. [facility] Work Phone: 1(203) [phone] History of Present illness Narrative* 16-year-old female with a medical history of anxiety here for evaluation of the following complaints: * Problem #1 palpitations * -Event monitor performed 07/12/2022 was largely unremarkable. * -Echocardiogram performed 06/24/2022 was suggestive of a small PFO; preserved biventricular function. * Patient describes about 6 months of worsening symptoms: Mostly postural or in the shower she notices dizziness/lightheadedness accompanied by warmth and diaphoresis in her face. Some heaviness of herface/limbs occasionally accompanied by loss of consciousness. She loses consciousness for a few seco nds prior to regaining. Occasional dizzy episodes are also accompanied by nausea/vomiting. Other triggers described are heat, anxiety. * Outside of these episodes she does note occasional shortness of breath with exertion particularly with climbing stairs. Denies any orthopnea/PND. No clear exertional angina. [facility] Work Phone: 1(382) 618-152909-02-2022 History of Present illness Narrative* 17-year-old female with a medical history of anxiety here for evaluation of the following complaints: * Problem #1 palpitations * -Event monitor performed 07/12/2022 was largely unremarkable. * -Echocardiogram performed 06/24/2022 was suggestive of a small PFO; preserved biventricular function. * Mostly postural or in the shower she notices dizziness/lightheadedness accompanied by warmth and diaphoresis in her face. Some heaviness of her face/limbs occasionally accompanied by loss of consciousness. She loses consciousness for a few seconds prior to regaining. Occasional dizzy episodes are also accompanied by nausea/vomiting. Other triggers described are heat, anxiety. * Notably patient also notes some episodes of chest discomfort that occur randomly and are not provoked by exertion. Tilt table test performed October 2022 was consistent with postural orthostatic tachycardia syndrome exercise stress test performed July 2022 was negative for any ischemia. [facility] Work Phone: 1(453) 766-341401-01-2022 History of Present illness NarrativePatient presents for refill of control pills. She is taking the pills regularly. Did skip a flow in November. Home tests were negative. Denies breast problems. Denies bowel or bladder problems.[address] Work Phone: 1(164) 981-593109-12-2021 History of Present illness Narrative* Elsa comes to office to discuss labs/diagnostics. Mom present during visit. * c/o early satiety & nausea. Has freq. emesis throughout day. Started on PPI @ last OV & pt noncompliant with medication (only took a few days). Has noted a 30# weight loss over course of the last yr. Endorses only eating one meal per day as per her usual. No snacking throughout day. Previously employed @ [employer] and would eat that food on a consistent basis. 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 She quit her job as a result of the freq. emesis and feels nausea is about the same but is having less episodes of emesis since leaving her job. Has been vegan x9Y. No bowel issues. No abd pain. * Noted to have a mildly low iron; Was advised to start on iron supplementation daily and Elsa not taking on a consistent basis as it upsets her stomach. * Continued dizziness. ECHO reviewed w/ pt & mother today & showed a small PFO & event monitor indicates sinus tachy w/ periods of sinus bradycardia during sleep hours Otherwise no notable arrhythmia was noted. States had a syncopal episode approximately 2 weeks ago in her shower.Has beenencouraged to increase her fluid and salt consumption. Dizziness occurs with position changes * Continues to use marijuana despite corporate travel counselor. She has increased her marijuana use since being seen inthe office last as she states it helps with her nausea. [facility] Work Phone: evaluation note* Diagnosis Lower abdominal pain- Primary Abdominal pain, other specified site [facility] Diagnosis Crohn's disease of both small and large intestine with fistula (CMS/HCC)- Primary documented in this encounter [facility] Work Phone: Evaluation note* Diagnosis Inflammatory arthropathy- Primary Acute Crohn's disease with fistula (CMS/HCC) documented in this encounter [facility] Work Phone: Evaluation note* Diagnosis Inflammatory arthropathy documented in this encounter [facility] Work Phone: Evaluation note* Diagnosis Inflammatory arthropathy documented in this encounter [facility] Work Phone: Evaluation note* Diagnosis Postural orthostatic tachycardia syndrome (POTS)- Primary Palpitation Palpitations Other hyperlipidemia documented in this encounter [facility] Work Phone: Evaluation note* Diagnosis Chest pain, unspecified type- Primary documented in this encounter [employer] [facility]* Diagnosis Acute non-recurrent maxillary sinusitis- Primary documented in this encounter [facility] Work Phone: Evaluation note* Diagnosis Bacterial conjunctivitis- Primary Other mucopurulent conjunctivitis documented in this encounter [facility] Work Phone: Evaluation note* Diagnosis Screen for STD (sexually transmitted disease)- Primary Screening examination for venereal disease Folliculitis of perineum documented in this encounter [facility] Work Phone: Evaluation note* Diagnosis Onset Date Resolution Status Admit Date Crohn disease acute April 06, 2 025 9:12am [facility] Work Phone: History of Present illness NarrativeLacey comes to the office for refill on Zoloft for anxiety. Is reluctant to change Zoloft or increase her dose as she feels medicine for the most part works fairly well. Has attended counseling at [facility] (and had a bad experience ) therefore changing to [facility]. Was happy with [facility] however parents felt that counseling sessions were not necessary and they were discontinued. Prefers not to chg to another counselor. Sleep: well. No S/H ideations. Employed @ [employer], full-time. Anxiety & depression worse.[facility] Work Phone: History of Present illness Narrative* Patient has had several weeks of abdominal pain and has been [facility]. Blood count lactate metabolic profile were unremarkable lipase tests unremarkable * Has been seen cardiology for syncope and they are planning on doing a stress lipid panel tilt tableand EKG * As her echo showed a small PFO with normal LV function and month event monitor was unremarked * CT is remarkable for some mild urinary bladder wall thickening given Macrobid and clearly has some distal small bowel wall thickening that even I identify on CAT scan. Given her degree of discomfort have to consider that this represents inflammatory bowel disease versus an infectious etiology. I have made if communication to Dr. Breen to evaluate and advise and I will hold until he responds before considering steroid use. Need to rule out Crohn's -[facility] Work Phone: History of Present illness Narrative* Patient has had several weeks of abdominal pain and has been seen [facility]. Blood count lactate metabolic profile were unremarkable lipase tests unremarkable * Has been seen cardiology for syncope and they are planning on doing a stress lipid panel tilt tableand EKG * As her echo showed a small PFO with normal LV function and month event monitor was unremarked * CT is remarkable for some mild urinary bladder wall thickening given Macrobid and clearly has some distal small bowel wall thickening that even I identify on CAT scan. Given her degree of discomfort have to consider that this represents inflammatory bowel disease versus an infectious etiology. I have made if communication to Dr. Breen to evaluate and advise and I will hold until he responds before considering steroid use. Need to rule out Crohn's [facility] Work Phone: History of Present illness Narrative* Elsa comes to the office, with her mother, for a 2-month follow-up on dizziness and syncopal episode. Saw sales financial analyst and is scheduled for tilt table 12/5. completed stress test. Remains w/ dizziness & LH w/ rapid position chgs. * Recent CT showed mild wall thickening of the distal ileum consistent with enteritis. Treated with acourse of prednisone and is scheduled to see gastroenterology next week. Remains with nausea. Appetite is better she has gained 6 pounds in the last month. Bowels moving as per usual. Random sharp abdominal pain. No family history of UC Crohn's. No melena.+ Mucus in the stool. * Recent umbilical infection and treated with a course of doxycycline, better. small amt of yellow discharge in umbilicus. [facility] Work Phone: History of Present illness Narrative* Burning and frequency x2 days. * Urinalysis is positive * Increase fluids * Macrobid x7 days. If 100% better within 5 days can stop. * Off-and-on 100% better in 7 days. [facility] Work Phone: History of Present illness NarrativeElsa is a 17-year-old who comes in for 2-week follow-up after treatment for BV and PID for chronicpelvic pain. She is also here to review her work-up. Patient reports that she has finished her treatment and feels that there is not a significant improvement. She reports that she still has a deep pelvic pain that gets exacerbated with moving in certain directions. She denies any changes in bowel h abits or urinary [address] Work Phone: Hospital Discharge instructions* Attachments The following attachments cannot be sent through Care Everywhere. * Chest Pain (Panamanian) * Chest Pain: Musculoskeletal (Panamanian) documented in this encounterS[facility] Hospital LimaReason for referral (narrative)* Consultation (Routine) - Authorized Specialty Diagnoses / Procedures Referred By Juan xiong Referred To Contact Gastroenterology Diagnoses Acute Crohn's disease with fistula ([facility]CC) [place] [address] Other - [facility] [address] [place] [address] Referral ID Status Reason Start Date Expiration Date Visits Requested Visits Authorized [id number] Authorized Specialty Services Required 01/12/2024 01/11/2025 1 1 * Imaging (Routine) - Authorized Specialty Diagnoses / Procedures Referred By Juan xiong Referred To Contact Radiology Diagnoses Inflammatory arthropathy Procedures XR hand right 3+ views Karena Valle MD [address] [place] [address] Referral ID Status Reason Start Date Expiration Date Visits Requested Visits Authorized [id number] Authorized Perform Procedure 01/12/2024 01/11/2025 1 1 * Imaging (Routine) - Authorized Specialty Diagnoses / Procedures Referred By Juan xiong Referred To Contact Radiology Diagnoses Inflammatory arthropathy Procedures XR wrist right 3+ views Karena Valle MD [address] [place] [address] Referral ID Status Reason Start Date Expiration Date Visits Requested Visits Authorized [id number] Authorized Perform Procedure 01/12/2024 01/11/2025 1 1 [facility] Work Phone: Reason for referral (narrative)No reason for referral information availableOrchard [facility] Work Phone: Summary Purpose Family History No Family History Records Found Mother Name Dates Details Family history of hypertensi on(V17.49, Z82.49) Status:Active Family history of hyperlipid emia(V18.19, Z83.438) Status:Active Family history of migraine h eadaches(V17.2, Z82.0) Status:Active FHx: SVT (supraventricular t achycardia)(V17.49, Z82.49) Status:Active Father Name Dates Details Family history of hypertensi on(V17.49, Z82.49) Status:Active Family history of myocardial infarction(V17.3, Z82.49) Status:Active Unknown Family Member Name Dates Details Family history of hypertensi on: Mother, Father(V17.49, Z82.49) Status:Active Family history of hyperlipid emia: Mother(V18.19, Z83.438) Status:Active Family history of migraine h eadaches: Mother(V17.2, Z82.0) Status:Active FHx: SVT (supraventricular t achycardia): Mother(V17.49, Z82.49) Status:Active Family history of myocardial infarction: Father(V17.3, Z82.49) Status:Active Unknown Family Member Name Dates Details Family history of hypertensi on: Mother, Father(V17.49, Z82.49) Status:Active Family history of hyperlipid emia: Mother(V18.19, Z83.438) Status:Active Family history of migraine h eadaches: Mother(V17.2, Z82.0) Status:Active FHx: SVT (supraventricular t achycardia): Mother(V17.49, Z82.49) Status:Active Family history of myocardial infarction: Father(V17.3, Z82.49) Status:Active Unknown Family Member Name Dates Details Family history of hypertensi on: Mother, Father(V17.49, Z82.49) Status:Active Family history of hyperlipid emia: Mother(V18.19, Z83.438) Status:Active Family history of migraine h eadaches: Mother(V17.2, Z82.0) Status:Active FHx: SVT (supraventricular t achycardia): Mother(V17.49, Z82.49) Status:Active Family history of myocardial infarction: Father(V17.3, Z82.49) Status:Active Unknown Family Member Name Dates Details Family history of hypertensi on: Mother, Father(V17.49, Z82.49) Status:Active Family history of hyperlipid emia: Mother(V18.19, Z83.438) Status:Active Family history of migraine h eadaches: Mother(V17.2, Z82.0) Status:Active FHx: SVT (supraventricular t achycardia): Mother(V17.49, Z82.49) Status:Active Family history of myocardial infarction: Father(V17.3, Z82.49) Status:Active Unknown Family Member Name Dates Details Family history of hypertensi on: Mother, Father(V17.49, Z82.49) Status:Active Family history of hyperlipid emia: Mother(V18.19, Z83.438) Status:Active Family history of migraine h eadaches: Mother(V17.2, Z82.0) Status:Active FHx: SVT (supraventricular t achycardia): Mother(V17.49, Z82.49) Status:Active Family history of myocardial infarction: Father(V17.3, Z82.49) Status:Active Unknown Family Member Name Dates Details Family history of hypertensi on: Mother, Father(V17.49, Z82.49) Status:Active Family history of hyperlipid emia: Mother(V18.19, Z83.438) Status:Active Family history of migraine h eadaches: Mother(V17.2, Z82.0) Status:Active FHx: SVT (supraventricular t achycardia): Mother(V17.49, Z82.49) Status:Active Family history of myocardial infarction: Father(V17.3, Z82.49) Status:Active Unknown Family Member Name Dates Details Family history of hypertensi on: Mother, Father(V17.49, Z82.49) Status:Active Family history of hyperlipid emia: Mother(V18.19, Z83.438) Status:Active Family history of migraine h eadaches: Mother(V17.2, Z82.0) Status:Active FHx: SVT (supraventricular t achycardia): Mother(V17.49, Z82.49) Status:Active Family history of myocardial infarction: Father(V17.3, Z82.49) Status:Active Unknown Family Member Name Dates Details Family history of hypertensi on: Mother, Father(V17.49, Z82.49) Status:Active Family history of hyperlipid emia: Mother(V18.19, Z83.438) Status:Active Family history of migraine h eadaches: Mother(V17.2, Z82.0) Status:Active FHx: SVT (supraventricular t achycardia): Mother(V17.49, Z82.49) Status:Active Family history of myocardial infarction: Father(V17.3, Z82.49) Status:Active Unknown Family Member Name Dates Details Family history of hypertensi on: Mother, Father(V17.49, Z82.49) Status:Active Family history of hyperlipid emia: Mother(V18.19, Z83.438) Status:Active Family history of migraine h eadaches: Mother(V17.2, Z82.0) Status:Active FHx: SVT (supraventricular t achycardia): Mother(V17.49, Z82.49) Status:Active Family history of myocardial infarction: Father(V17.3, Z82.49) Status:Active Unknown Family Member Name Dates Details Family history of hypertensi on: Mother, Father(V17.49, Z82.49) Status:Active Family history of hyperlipid emia: Mother(V18.19, Z83.438) Status:Active Family history of migraine h eadaches: Mother(V17.2, Z82.0) Status:Active FHx: SVT (supraventricular t achycardia): Mother(V17.49, Z82.49) Status:Active Family history of myocardial infarction: Father(V17.3, Z82.49) Status:Active Unknown Family Member Name Dates Details Family history of hypertensi on: Mother, Father(V17.49, Z82.49) Status:Active Family history of hyperlipid emia: Mother(V18.19, Z83.438) Status:Active Family history of migraine h eadaches: Mother(V17.2, Z82.0) Status:Active FHx: SVT (supraventricular t achycardia): Mother(V17.49, Z82.49) Status:Active Family history of myocardial infarction: Father(V17.3, Z82.49) Status:Active Unknown Family Member Name Dates Details Family history of myocardial infarction: Father(V17.3, Z82.49) Status:Active FHx: SVT (supraventricular t achycardia): Mother(V17.49, Z82.49) Status:Active Family history of migraine h eadaches: Mother(V17.2, Z82.0) Status:Active Family history of hyperlipid emia: Mother(V18.19, Z83.438) Status:Active Family history of hypertensi on: Mother, Father(V17.49, Z82.49) Status:Active Unknown Family Member Name Dates Details Family history of hypertensi on: Mother, Father(V17.49, Z82.49) Status:Active Family history of hyperlipid emia: Mother(V18.19, Z83.438) Status:Active Family history of migraine h eadaches: Mother(V17.2, Z82.0) Status:Active FHx: SVT (supraventricular t achycardia): Mother(V17.49, Z82.49) Status:Active Family history of myocardial infarction: Father(V17.3, Z82.49) Status:Active Unknown Family Member Name Dates Details Family history of hypertensi on: Mother, Father(V17.49, Z82.49) Status:Active Family history of hyperlipid emia: Mother(V18.19, Z83.438) Status:Active Family history of migraine h eadaches: Mother(V17.2, Z82.0) Status:Active FHx: SVT (supraventricular t achycardia): Mother(V17.49, Z82.49) Status:Active Family history of myocardial infarction: Father(V17.3, Z82.49) Status:Active Unknown Family Member Name Dates Details Family history of hypertensi on: Mother, Father(V17.49, Z82.49) Status:Active Family history of hyperlipid emia: Mother(V18.19, Z83.438) Status:Active Family history of migraine h eadaches: Mother(V17.2, Z82.0) Status:Active FHx: SVT (supraventricular t achycardia): Mother(V17.49, Z82.49) Status:Active Family history of myocardial infarction: Father(V17.3, Z82.49) Status:Active Unknown Family Member Name Dates Details Family history of hypertensi on: Mother, Father(V17.49, Z82.49) Status:Active Family history of hyperlipid emia: Mother(V18.19, Z83.438) Status:Active Family history of migraine h eadaches: Mother(V17.2, Z82.0) Status:Active FHx: SVT (supraventricular t achycardia): Mother(V17.49, Z82.49) Status:Active Family history of myocardial infarction: Father(V17.3, Z82.49) Status:Active Unknown Family Member Name Dates Details Family history of hypertensi on: Mother, Father(V17.49, Z82.49) Status:Active Family history of hyperlipid emia: Mother(V18.19, Z83.438) Status:Active Family history of migraine h eadaches: Mother(V17.2, Z82.0) Status:Active FHx: SVT (supraventricular t achycardia): Mother(V17.49, Z82.49) Status:Active Family history of myocardial infarction: Father(V17.3, Z82.49) Status:Active Unknown Family Member Name Dates Details Family history of hypertensi on: Mother, Father(V17.49, Z82.49) Status:Active Family history of hyperlipid emia: Mother(V18.19, Z83.438) Status:Active Family history of migraine h eadaches: Mother(V17.2, Z82.0) Status:Active FHx: SVT (supraventricular t achycardia): Mother(V17.49, Z82.49) Status:Active Family history of myocardial infarction: Father(V17.3, Z82.49) Status:Active Unknown Family Member Name Dates Details Family history of hypertensi on: Mother, Father(V17.49, Z82.49) Status:Active Family history of hyperlipid emia: Mother(V18.19, Z83.438) Status:Active Family history of migraine h eadaches: Mother(V17.2, Z82.0) Status:Active FHx: SVT (supraventricular t achycardia): Mother(V17.49, Z82.49) Status:Active Family history of myocardial infarction: Father(V17.3, Z82.49) Status:Active Unknown Family Member Name Dates Details Family history of hypertensi on: Mother, Father(V17.49, Z82.49) Status:Active Family history of hyperlipid emia: Mother(V18.19, Z83.438) Status:Active Family history of migraine h eadaches: Mother(V17.2, Z82.0) Status:Active FHx: SVT (supraventricular t achycardia): Mother(V17.49, Z82.49) Status:Active Family history of myocardial infarction: Father(V17.3, Z82.49) Status:Active Unknown Family Member Name Dates Details Family history of hypertensi on: Mother, Father(V17.49, Z82.49) Status:Active Family history of hyperlipid emia: Mother(V18.19, Z83.438) Status:Active Family history of migraine h eadaches: Mother(V17.2, Z82.0) Status:Active FHx: SVT (supraventricular t achycardia): Mother(V17.49, Z82.49) Status:Active Family history of myocardial infarction: Father(V17.3, Z82.49) Status:Active Unknown Family Member Name Dates Details Family history of hypertensi on: Mother, Father(V17.49, Z82.49) Status:Active Family history of hyperlipid emia: Mother(V18.19, Z83.438) Status:Active Family history of migraine h eadaches: Mother(V17.2, Z82.0) Status:Active FHx: SVT (supraventricular t achycardia): Mother(V17.49, Z82.49) Status:Active Family history of myocardial infarction: Father(V17.3, Z82.49) Status:Active Unknown Family Member Name Dates Details Family history of hypertensi on: Mother, Father(V17.49, Z82.49) Status:Active Family history of hyperlipid emia: Mother(V18.19, Z83.438) Status:Active Family history of migraine h eadaches: Mother(V17.2, Z82.0) Status:Active FHx: SVT (supraventricular t achycardia): Mother(V17.49, Z82.49) Status:Active Family history of myocardial infarction: Father(V17.3, Z82.49) Status:Active Unknown Family Member Name Dates Details Family history of myocardial infarction: Father(V17.3, Z82.49) Status:Active FHx: SVT (supraventricular t achycardia): Mother(V17.49, Z82.49) Status:Active Family history of migraine h eadaches: Mother(V17.2, Z82.0) Status:Active Family history of hyperlipid emia: Mother(V18.19, Z83.438) Status:Active Family history of hypertensi on: Mother, Father(V17.49, Z82.49) Status:Active Unknown Family Member Name Dates Details Family history of hypertensi on: Mother, Father(V17.49, Z82.49) Status:Active Family history of hyperlipid emia: Mother(V18.19, Z83.438) Status:Active Family history of migraine h eadaches: Mother(V17.2, Z82.0) Status:Active FHx: SVT (supraventricular t achycardia): Mother(V17.49, Z82.49) Status:Active Family history of myocardial infarction: Father(V17.3, Z82.49) Status:Active Unknown Family Member Name Dates Details Family history of hypertensi on: Mother, Father(V17.49, Z82.49) Status:Active Family history of hyperlipid emia: Mother(V18.19, Z83.438) Status:Active Family history of migraine h eadaches: Mother(V17.2, Z82.0) Status:Active FHx: SVT (supraventricular t achycardia): Mother(V17.49, Z82.49) Status:Active Family history of myocardial infarction: Father(V17.3, Z82.49) Status:Active Unknown Family Member Name Dates Details Family history of hypertensi on: Mother, Father(V17.49, Z82.49) Status:Active Family history of hyperlipid emia: Mother(V18.19, Z83.438) Status:Active Family history of migraine h eadaches: Mother(V17.2, Z82.0) Status:Active FHx: SVT (supraventricular t achycardia): Mother(V17.49, Z82.49) Status:Active Family history of myocardial infarction: Father(V17.3, Z82.49) Status:Active Unknown Family Member Name Dates Details Family history of hypertensi on: Mother, Father(V17.49, Z82.49) Status:Active Family history of hyperlipid emia: Mother(V18.19, Z83.438) Status:Active Family history of migraine h eadaches: Mother(V17.2, Z82.0) Status:Active FHx: SVT (supraventricular t achycardia): Mother(V17.49, Z82.49) Status:Active Family history of myocardial infarction: Father(V17.3, Z82.49) Status:Active Unknown Family Member Name Dates Details Family history of hypertensi on: Mother, Father(V17.49, Z82.49) Status:Active Family history of hyperlipid emia: Mother(V18.19, Z83.438) Status:Active Family history of migraine h eadaches: Mother(V17.2, Z82.0) Status:Active FHx: SVT (supraventricular t achycardia): Mother(V17.49, Z82.49) Status:Active Family history of myocardial infarction: Father(V17.3, Z82.49) Status:Active Unknown Family Member Name Dates Details Family history of hypertensi on: Mother, Father(V17.49, Z82.49) Status:Active Family history of hyperlipid emia: Mother(V18.19, Z83.438) Status:Active Family history of migraine h eadaches: Mother(V17.2, Z82.0) Status:Active FHx: SVT (supraventricular t achycardia): Mother(V17.49, Z82.49) Status:Active Family history of myocardial infarction: Father(V17.3, Z82.49) Status:Active Relationship Condition Age at Onset Recorded Date/T adrián father Alcoholism Unknown Anxiety Unknown Depression Unknown Myocardial infarction Unknown Hypertension Unknown mother Hypertension Unknown grandmother Disorder of respiratory system Unknown brother Alcoholism Unknown Advance Directives No Advanced Directives Records FoundNo Advanced Directives Records FoundNo Advanced Directives Records FoundNo Advanced Directives Records FoundNo Advanced Directives Records FoundNo Advanced Directives Records FoundNo Advanced Directives Records FoundNo Advanced Directives Records FoundNo Advanced Directives Records FoundNo Advanced Directives Records FoundNo Advanced Directives Records Found Chief Complaint PT IS HERE TODAY FOR A REFILL ON HER B/C. STATES MISSED HER LAST PERIOD AND TOOK 2 TEST AND IT WAS NEG. HAD SOME SPOTTING BUT NOTHING ELSE. FIRST TIME THIS HAS HAPPENED. LMP: 11/09/2021MED CHK1 MO FU REV [facility]SPalpitations [facility] CK FOR UTI, HAS CONSTIPATION( WITH PAIN. TAKING MIRALAX AND SUPPOSITORY. PAIN IN [place] WHICH [facility]. CK FOR UTI, HAS CONSTIPATION( WITH PAIN. TAKING MIRALAX AND SUPPOSITORY. PAIN IN [place] WHICH STARTED ON [facility] RE CHECK. PT HAD DISCHARGE FORM [place] X 1 DAY. HAS BLURRY VISION, DRY EYES ALONG WITH BUR DELMAR X 2 WKS2 MO FU , [place] PAIN, LEAKAGE, TREATED BY LEONARD FOR INFECTION IN AUGUST. CONTINUED ISSUESWITH HEART AND SYNCOPEURINARY FREQ- 2 DAYS- PRESSURE AND PAIN, SOME BURNINGPostural orthostatic tachycardia syndrome Patient here today for ultrasound result follow up. She does note she has had right breast pain andburning for about 5 days but denies a breast exam today. Reason for Referral Specialty Diagnoses / Procedures Referred By Contac t Referred To Contact Diagnoses Crohn's disease of both small and large intestine with fistula (CMS/HCC) Natali Neff, DO [address] [facility], [address] [place] [address] Referral ID Status Reason Start Date Expiration Date V isits Requested Visits Authorized [id number] Pending Review 08/19/2023 02/15/2024 1 1 Specialty Diagnoses / Procedures Referred By Contac t Referred To Contact Radiology Diagnoses Inflammatory arthropathy Procedures XR hand right 3+ views Karena Valle MD [address] [place] [address] Referral ID Status Reason Start Date Expiration Date Visits Requested Visits Authorized [id number] Authorized Perform Procedure 01/12/2024 01/11/2025 1 1 Specialty Diagnoses / Procedures Referred By Contac t Referred To Contact Radiology Diagnoses Inflammatory arthropathy Procedures XR wrist right 3+ views Karena Valle MD [address] [place] [address] Referral ID Status Reason Start Date Expiration Date Visits Requested Visits Authorized [id number] Authorized Perform Procedure 01/12/2024 01/11/2025 1 1 Specialty Diagnoses / Procedures Referred By Contac t Referred To Contact Diagnoses Palpitation Procedures ECG 12 lead (Clinic Performed) Bigg Novak MD [facility] Naheed Nolan, [facility] [address] [place] [address] Referral ID Status Reason Start Date Expiration Date V isits Requested Visits Authorized [id number] Authorized 03/04/2024 03/04/2025 1 1 Chief Complaint and Reason for Visit Chief Complaint Admit Date CROHNS April 06, 2025 9:12a m INT LAB ORDERS April 06, 2025 10:19 am Reason for Visit Admit Date Crohn disease April 06, 2025 9:12a m Chief Complaint Admit Date CROHNS April 06, 2025 9:12a m Chief Complaint Admit Date CROHNS April 06, 2025 9:12a m INT LAB ORDERS April 06, 2025 10:19 am CROHNS April 25, 2025 10:2 5am Chief Complaint Admit Date CROHNS April 06, 2025 9:12a m INT LAB ORDERS April 06, 2025 10:19 am CROHNS April 25, 2025 10:2 5am DIET COUNS & SURV May 19, 2025 9:44 am CROHNS May 20, 2025 9:52 am Chief Complaint Admit Date CROHNS April 06, 2025 9:12a m INT LAB ORDERS April 06, 2025 10:19 am CROHNS April 25, 2025 10:2 5am DIET COUNS & SURV May 19, 2025 9:44 am CROHNS May 20, 2025 9:52 am DIET COUNS & SURV June 27, 2025 11 :32am SKYRIZI July 01, 2025 11 :36am Chief Complaint Admit Date CROHNS April 06, 2025 9:12a m INT LAB ORDERS April 06, 2025 10:19 am CROHNS April 25, 2025 10:2 5am DIET COUNS & SURV May 19, 2025 9:44 am CROHNS May 20, 2025 9:52 am DIET COUNS & SURV June 27, 2025 11 :32am SKYRIZI July 01, 2025 11 :36am DIET COUNS & SURV July 25, 2025 1:00pm 4 M FU July 25, 2025 1:32pm Reason for Visit Admit Date Crohn disease April 06, 2025 9:12a m Crohn disease July 25, 2025 1:32pm Migraines July 25, 2025 1:32pm Additional Source Comments INFORMATION SOURCE (unrecogn ized section and content) DATE CREATED AUTHOR 08/14/2019 [facility] DATE CREATED AUTHOR AUTHOR'S ORGANIZ ATION 03/11/2023 [facility] DATE CREATED AUTHOR AUTHOR'S ORGANIZ ATION 06/28/2023 [facility] DATE CREATED AUTHOR AUTHOR'S ORGANIZ ATION 07/02/2023 [facility] DATE CREATED AUTHOR AUTHOR'S ORGANIZ ATION 01/19/2024 [facility] DATE CREATED AUTHOR AUTHOR'S ORGANIZ ATION 07/10/2024 [facility] DATE CREATED AUTHOR AUTHOR'S ORGANIZ ATION 12/20/2024 [facility] DATE CREATED AUTHOR AUTHOR'S ORGANIZ ATION 12/21/2024 [facility] DATE CREATED AUTHOR AUTHOR'S ORGANIZ ATION 01/22/2025 [facility] DATE CREATED AUTHOR AUTHOR'S ORGANIZ ATION 01/23/2025 [facility] DATE CREATED AUTHOR AUTHOR'S ORGANIZ ATION 07/29/2025 [facility] Reason for Visit (unrecogniz ed section and content) Reason Comments Abdominal Pain 4 days, umbilical re gion getting worse, migraines 1 week Reason Comments Follow-up Pt states she had a flare approx 1 week ago. Was having bloating, constipation, cramping, gassiness, belching. Patient was given prednisone to help clear things up which did help. Reason Comments Wrist Pain right Specialty Diagnoses / Procedures Referred By Contac t Referred To Contact Radiology Diagnoses Inflammatory arthropathy Procedures XR hand right 3+ views Karena Valle MD [address] [place] [address] Referral ID Status Reason Start Date Expiration Date Visits Requested Visits Authorized [id number] Authorized Perform Procedure 01/12/2024 01/11/2025 1 1 Specialty Diagnoses / Procedures Referred By Contac t Referred To Contact Radiology Diagnoses Inflammatory arthropathy Procedures XR wrist right 3+ views Karena Valle MD [address] [place] [address] Referral ID Status Reason Start Date Expiration Date Visits Requested Visits Authorized [id number] Authorized Perform Procedure 01/12/2024 01/11/2025 1 1 Reason Comments 1 year follow up Specialty Diagnoses / Procedures Referred By Contac t Referred To Contact Diagnoses Palpitation Procedures ECG 12 lead (Clinic Performed) Bigg Novak MD [address] [place] [address] [facility], [address] [address] Referral ID Status Reason Start Date Expiration Date V isits Requested Visits Authorized [id number] Authorized 03/04/2024 03/04/2025 1 1 Reason Comments Chest Pain Pt to ED with c/o ch est pain that started last night. 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 Pain is to lower ribcage, and radiates up. Rates pain 5/10 @ rest, and rates it 7/10 with activity. Denies any heart history. Reason Comments URI Sinus congestion, fr ontal headache, cough, sob X 1 week Reason Comments Eye Problem Bilateral eye irrita tion/drainage x 1 day Reason Comments STI Screening Patient would like G C/Ch testing done and also has a labial bump she would like looked at. She is concerned about herpes. Care Teams (unrecognized sec tion and content) Hammerer Helper Relationship Specialty Start Date End Date Karena Valle MD [address] [phone] PCP - General Family Medicine 08/18/22 Hammerer Helper Relationship Specialty Start Date End Date Karena Valle MD [address] [place] [address] PCP - General 07/25/20 Hammerer Helper Relationship Specialty Start Date End Date Karena Valle MD [address] [place] [address] PCP - General 07/25/20 Norma Townsedn, TACKER OFF-ASSOCIATE [employer] [address] [phone] PCP - [facility] Medicaid PCP 11/10/23 Hammerer Helper Relationship Specialty Start Date End Date Karena Valle MD [address] [phone] PCP - General 07/25/20 Norma Townsend, TACKER OFF-ASSOCIATE [employer] [address] [place] [address] PCP - [facility] Medicaid PCP 11/10/23 Hammerer Helper Relationship Specialty Start Date End Date Karena Valle MD [address] [place] [address] PCP - General 07/25/20 Norma Townsend, TACKER [employer]ASSOCIATE [employer] [address] [place] [address] PCP - [facility] Medicaid PCP 11/10/23 Hammerer Helper Relationship Specialty Start Date End Date Karena Valle MD [address] [place] [address] PCP - General 07/25/20 Norma Townsend, TACKER OFF[employer]ASSOCIATE [employer] [address] [place] [address] PCP - [facility] Medicaid PCP 11/10/23 Hammerer Helper Relationship Specialty Start Date End Date Karena Valle MD [address] [place] [address] PCP - General Family Medicine 08/19/22 Hammerer Helper Relationship Specialty Start Date End Date Karena Valle MD [address] [place] [address] PCP - [facility] Medicaid PCP 08/10/24 Karena Valle MD [address] [place] [address] PCP - General Family Medicine 11/17/24 Hammerer Helper Relationship Specialty Start Date End Date Karena Valle MD [address] [address] PCP - [facility] Medicaid PCP 08/10/24 Karena Valle MD [address] [address] PCP - General Family Medicine 11/17/24 Hammerer Helper Relationship Specialty Start Date End Date Karena Valle MD [address] [address] PCP - [facility] Medicaid PCP 08/10/24 Karena Valle MD [address] [address] PCP - General Family Medicine 11/17/24 Team Status: Inactive Member Role Status Dates Dr. Albert Amato DO Attending Provider Active Start: April 06, 2025 End: April 06, 2025 Team Status: Active Member Role Status Dates Dr. Karena Valle MD Primary Care Provider Active Team Status: Inactive Member Role Status Dates Dr. Karena Valle MD Primary Care Provider Active Start: April 06, 2025 End: April 06, 2025 Dr. Albert Amato DO Attending Provider Active Start: April 06, 2025 End: April 06, 2025 Dr. Albert Amato DO Referring Provider Active Start: April 06, 2025 End: April 06, 2025 Team Status: Inactive Member Role Status Dates Dr. Karena Valle MD Primary Care Provider Active Start: April 25, 2025 End: April 25, 2025 Dr. Albert Amato DO Attending Provider Active Start: April 25, 2025 End: April 25, 2025 Dr. Albert Amato DO Referring Provider Active Start: April 25, 2025 End: April 25, 2025 Team Status: Active Member Role/Relationship Status Dates Dr. Karena Valle MD Primary Care Provider Active Team Status: Inactive Member Role/Relationship Status Dates Dr. Albert Amato DO Attending Provider Active Start: April 06, 2025 End: April 06, 2025 Team Status: Inactive Member Role/Relationship Status Dates Dr. Karena Valle MD Primary Care Provider Active Start: April 06, 2025 End: April 06, 2025 Dr. Albert Amato DO Attending Provider Active Start: April 06, 2025 End: April 06, 2025 Dr. Albert Amato DO Referring Provider Active Start: April 06, 2025 End: April 06, 2025 Team Status: Inactive Member Role/Relationship Status Dates Dr. Karena Valle MD Primary Care Provider Active Start: April 25, 2025 End: April 25, 2025 Dr. Albert Amato DO Attending Provider Active Start: April 25, 2025 End: April 25, 2025 Dr. Albert Amato DO Referring Provider Active Start: April 25, 2025 End: April 25, 2025 Team Status: Active Member Role/Relationship Status Dates Dr. Karena Valle MD Primary Care Provider Active Start: May 19, 2025 Dr. Albert Amato DO Attending Provider Active Start: May 19, 2025 Dr. Albert Amato DO Referring Provider Active Start: May 19, 2025 Team Status: Inactive Member Role/Relationship Status Dates Dr. Karena Valle MD Primary Care Provider Active Start: May 20, 2025 End: May 20, 2025 Dr. Albert Amato DO Attending Provider Active Start: May 20, 2025 End: May 20, 2025 Dr. Albert Amato DO Referring Provider Active Start: May 20, 2025 End: May 20, 2025 Team Status: Inactive Member Role/Relationship Status Dates Dr. Karena Valle MD Primary Care Provider Active Start: May 19, 2025 End: June 09, 2025 Dr. Albert Amato DO Attending Provider Active Start: May 19, 2025 End: June 09, 2025 Dr. Albert Amato DO Referring Provider Active Start: May 19, 2025 End: June 09, 2025 Team Status: Active Member Role/Relationship Status Dates Dr. Karena Valle MD Primary Care Provider Active Start: June 27, 2025 Dr. Albert Amato DO Attending Provider Active Start: June 27, 2025 Dr. Albert Amato DO Referring Provider Active Start: June 27, 2025 Team Status: Inactive Member Role/Relationship Status Dates Dr. Karena Valle MD Primary Care Provider Active Start: July 01, 2025 End: July 01, 2025 Dr. Albert Amato DO Attending Provider Active Start: July 01, 2025 End: July 01, 2025 Dr. Albert Amato DO Referring Provider Active Start: July 01, 2025 End: July 01, 2025 Team Status: Inactive Member Role/Relationship Status Dates Dr. Karena Valle MD Primary Care Provider Active Start: June 27, 2025 End: July 10, 2025 Dr. Albert Amato DO Attending Provider Active Start: June 27, 2025 End: July 10, 2025 Dr. Albert Amato DO Referring Provider Active Start: June 27, 2025 End: July 10, 2025 Team Status: Active Member Role/Relationship Status Dates Dr. Karena Valle MD Primary Care Provider Active Start: July 25, 2025 Dr. Albert Amato DO Attending Provider Active Start: July 25, 2025 Dr. Albert Amato DO Referring Provider Active Start: July 25, 2025 Team Status: Inactive Member Role/Relationship Status Dates Dr. Albert Amato DO Attending Provider Active Start: July 25, 2025 End: July 25, 2025 Dr. Karena Valle MD Primary Care Provider Active Start: July 25, 2025 End: July 25, 2025 Dr. Karena Valle MD Referring Provider Active Start: July 25, 2025 End: July 25, 2025 <item><item> Privacy Markings (unrecogniz ed section and content) Section Author: Denice Green PROHIBITION ON REDISCLOSURE OF CONFIDENTIAL INFORMATION This notice accompanies a disclosure of information concerning a client made to you with the consent of such client. Section Author: Denice Green PROHIBITION ON REDISCLOSURE OF CONFIDENTIAL INFORMATION This notice accompanies a disclosure of information concerning a client made to you with the consent of such client. Scheduled Active and Recently Administ ered Medications (unrecognized section and content) Medication Order 06/27/2024 06/28/2024 06/29/2024 GI cocktail: alum/mag hydrox-simethicone(30ml)+lidocai ne 2%(10ml) oral suspension 40 mL 40 mL, Oral, ONCE, 1 dose, On Fri06/29/24 at 1600 1539 (Not Given - Pr ovider: Louann Rai RN - Reason: Patient/family refused - Comment: patient stated she does not think her symptoms are GI related and is conserned if the medication will affect her Crohn's) Goals (unrecognized section and content) Goals may be documented in a n alternate sectionGoals may be documented in an alternate sectionGoals may be documented in an alternate sectionGoals may be documented in an alternate sectionGoals may be documented in an alternate sectionGoals may be documented in an alternate sectionGoals may be documented in an alternate sectionGoals may be documented in an alternate section FOR RECORDS PERTAINING TO PATIENTS WHO ARE OR HAVE BEEN ENROLLED IN A CHEMICAL DEPENDENCY/SUBSTANCEABUSE PROGRAM, SOME INFORMATION MAY BE OMITTED. This clinical summary was aggregated from multiple sources. Caution should be exercised in using it in the provision of clinical care. This summary normalizes information from multiple sources, and as a consequence, information in this document may materially change the coding, format and clinical context of patient data. In addition, data may be omitted in some cases. CLINICAL DECISIONS SHOULD BE BASED ON THE PRIMARY CLINICAL RECORDS. [employer] [facility]. provides no warranty or guarantee of the accuracy or completeness of information in this document.
[2025-07-29] MEDS: 0.9% NaCl Peripheral Flush Adult IV (12:13)
[2025-07-29] MEDS: Risankizumab-rzza 600 MG in Dextrose 5%-Water (100mL Bag) 100 ML 110 MG IV (12:38)
[2025-07-29] MEDS: 0.9% NaCl IVPB Med Flush (100mL) 15 ML IV (12:38)
[2025-07-29 14:00] VITALS: BP 102/63; PULSE 61; RESP 16; TEMP 36.3; O2SAT 100
== END 2025-07-29 23:59 | disposition home or self-care (01) ==
LOC: MEDOUTP 11:51
PROVIDERS: PCP Family Medicine; Referring Provider Internal Medicine Gastroenterology; Visit Provider Internal Medicine Gastroenterology
DX: K50.90 Crohn's disease, unspecified, without complications (principal)
CPT/HCPCS: 96365; A4216; J2327

== ENCOUNTER 2025-08-22 15:22 | Outpatient (RCR) | payer MEDICAID, SELFPAY | END 2025-09-09 23:59 | LOC: NS 15:22 | PROVIDERS: PCP Family Medicine; Referring Provider Internal Medicine Gastroenterology; Visit Provider Internal Medicine Gastroenterology | DX: Z71.3 Dietary counseling and surveillance (principal); K50.90 Crohn's disease, unspecified, without complications | CPT/HCPCS: 97803 ==

== ENCOUNTER 2025-08-25 11:58 | Outpatient (CLI) | payer MEDICAID, SELFPAY ==
[2025-08-25 12:19] VITALS: BP 114/72; PULSE 60; RESP 16; TEMP 36.6; O2SAT 100
[2025-08-25] MEDS: 0.9% NaCl IVPB Med Flush (100mL) 15 ML IV (12:26)
[2025-08-25] MEDS: 0.9% NaCl Peripheral Flush Adult IV (12:26)
[2025-08-25] MEDS: Risankizumab-rzza 600 MG in Dextrose 5%-Water (100mL Bag) 100 ML 110 MG IV (13:00)
[2025-08-25 14:20] VITALS: BP 96/54; PULSE 54; RESP 16; TEMP 36.9; O2SAT 100
== END 2025-08-25 23:59 | disposition home or self-care (01) ==
LOC: MEDOUTP 11:58
PROVIDERS: PCP Family Medicine; Referring Provider Internal Medicine Gastroenterology; Visit Provider Internal Medicine Gastroenterology
DX: K50.90 Crohn's disease, unspecified, without complications (principal)
CPT/HCPCS: 96365; A4216; J2327

== ENCOUNTER 2025-09-27 14:00 | Outpatient (RCR) | payer MEDICAID, SELFPAY | END 2025-10-09 23:59 | LOC: NS 14:00 | PROVIDERS: PCP Family Medicine; Referring Provider Internal Medicine Gastroenterology; Visit Provider Internal Medicine Gastroenterology | DX: Z71.3 Dietary counseling and surveillance (principal); K50.90 Crohn's disease, unspecified, without complications | CPT/HCPCS: 97803 ==

== ENCOUNTER 2025-11-07 14:00 | Outpatient (RCR) | payer MEDICAID, SELFPAY ==
[2025-10-10 13:33] LABS: Hematocrit 38.6 % (37-47); Hemoglobin 13.3 g/dL (12.0-15.0); Immature Granulocytes Count 0.020 X10^3/uL (0.0-0.0); Mean Corp Hgb Conc 34.5 g/dL (32-36); Mean Corpuscular Volume 84.8 fL (81-99); Mean Platelet Vol. 12.0 fl (6.2-12.0); NRBC Flagged by Analyzer 0 % (0-5); Platelet Count 246 K/mm3 (150-450); RBC Distribution Width CV 12.8 % (11.6-14.6); RBC Distribution Width SD 39.4 fl (35.1-43.9); Red Blood Count 4.55 M/mm3 (4.2-5.4); White Blood Count 6.8 K/mm3 (4.4-11.0)
[2025-10-10 13:55] LABS: AST(SGOT) 23 U/L (<=31); Alanine Aminotransfer ALT/SGPT 11 U/L (<=34); Albumin, Serum 4.4 g/dL (3.5-5.0); Alkaline Phosphatase 65 U/L (35-104); Anion Gap 8 (5-15); BUN 11 mg/dL (4-19); BUN/Creat Ratio 14.9 RATIO (10-20); CRP < 3.00 mg/L (0.0-3.0); Calcium,Total 9.4 mg/dL (7.6-11.0); Carbon Dioxide 26.4 mmol/L (21.0-32.0); Chloride 104 mmol/L (98-108); Estimated Creatinine Clearance 102.52 ml/min (50-250); Globulin 3.0 g/dL (2.2-4.2); Glucose 85 mg/dL (70-99); Potassium 4.1 mmol/L (3.3-5.1)
== END 2025-11-09 23:59 ==
LOC: NS 14:00
PROVIDERS: PCP Family Medicine; Referring Provider Internal Medicine Gastroenterology; Visit Provider Internal Medicine Gastroenterology
DX: Z71.3 Dietary counseling and surveillance (principal); K50.90 Crohn's disease, unspecified, without complications
CPT/HCPCS: 36415; 80053; 85025; 85652; 86140; 97803